=== PATIENT | male | born 1940 | race Caucasian/White ===

== ENCOUNTER 2024-05-11 11:07 | Outpatient (REF) | payer OTHER, SELFPAY ==
--- NOTE | ~2024-05-11 | XR_ITS ---
EXAMINATION: XR CERVICAL SPINE XR LUMBAR SPINE CLINICAL INFORMATION: Spondylosis without myelopathy or radiculopathy, cervical and lumbar. COMPARISON: None available. TECHNIQUE: 8 views of the cervical spine including flexion and extension and five views of the lumbar spine. FINDINGS: CERVICAL: Bones are osteopenic. Anterolisthesis of C4 on C5 measures 5 mm and is not appreciably changed between flexion and extension. No additional spondylolisthesis is identified. There is oawm-um-vrppukip multilevel degenerative disc disease characterized by loss of intervertebral disc and endplate osteophytes, most notable at C5-C6. Multilevel facet arthropathy is also noted, most pronounced on the right between C3-C4 and C5-C6. Degenerative osteophytes are evident at the atlantodental articulation. Neural foraminal encroachment is evident on the right between C2-C3 and C5-C6, produced by uncovertebral and facet osteophytes. More mild neural foraminal encroachment on the left at C3-C4. Atherosclerotic calcifications are present in the carotid arteries. Azygos fissure is noted in the right upper lobe. Sternal wires are noted. LUMBAR: Grade 1 anterolisthesis of L4 on L5 measures 5 mm. No additional spondylolisthesis. Severe facet arthropathy at L4-L5. Mild degenerative disc disease in the lower lumbar spine at L4-L5 is characterized by loss of intervertebral disc height. Intervertebral discs otherwise appear relatively well preserved. Vertebral body heights are normal. No fractures. Mild osteoarthritis in the SI joints. Atherosclerotic calcifications are present in the abdominal aorta and iliac arteries. Surgical clips and chain mike are noted in the upper abdomen. XR/XR lumbar spine 4V min IMPRESSION: 1. Grade 1 anterolisthesis of C4 on C5 without appreciable change between flexion and extension. 2. Cuvb-iz-whwiisut multilevel degenerative disc disease in the cervical spine, most pronounced at C5-C6. Multilevel cervical facet arthropathy, right side greater than left. 3. Multilevel neural foraminal encroachment on the right in the cervical spine. 4. Grade 1 anterolisthesis of L4 on L5 with severe facet arthropathy at this level. 5. Mild degenerative disc disease at L4-L5.
--- NOTE | ~2024-05-11 | XR_ITS ---
EXAMINATION: XR CERVICAL SPINE XR LUMBAR SPINE CLINICAL INFORMATION: Spondylosis without myelopathy or radiculopathy, cervical and lumbar. COMPARISON: None available. TECHNIQUE: 8 views of the cervical spine including flexion and extension and five views of the lumbar spine. FINDINGS: CERVICAL: Bones are osteopenic. Anterolisthesis of C4 on C5 measures 5 mm and is not appreciably changed between flexion and extension. No additional spondylolisthesis is identified. There is hicp-yk-xaigetcw multilevel degenerative disc disease characterized by loss of intervertebral disc and endplate osteophytes, most notable at C5-C6. Multilevel facet arthropathy is also noted, most pronounced on the right between C3-C4 and C5-C6. Degenerative osteophytes are evident at the atlantodental articulation. Neural foraminal encroachment is evident on the right between C2-C3 and C5-C6, produced by uncovertebral and facet osteophytes. More mild neural foraminal encroachment on the left at C3-C4. Atherosclerotic calcifications are present in the carotid arteries. Azygos fissure is noted in the right upper lobe. Sternal wires are noted. LUMBAR: Grade 1 anterolisthesis of L4 on L5 measures 5 mm. No additional spondylolisthesis. Severe facet arthropathy at L4-L5. Mild degenerative disc disease in the lower lumbar spine at L4-L5 is characterized by loss of intervertebral disc height. Intervertebral discs otherwise appear relatively well preserved. Vertebral body heights are normal. No fractures. Mild osteoarthritis in the SI joints. Atherosclerotic calcifications are present in the abdominal aorta and iliac arteries. Surgical clips and chain mike are noted in the upper abdomen. XR/XR cervical spine w flex/ext IMPRESSION: 1. Grade 1 anterolisthesis of C4 on C5 without appreciable change between flexion and extension. 2. Blbn-kq-vaohlzhz multilevel degenerative disc disease in the cervical spine, most pronounced at C5-C6. Multilevel cervical facet arthropathy, right side greater than left. 3. Multilevel neural foraminal encroachment on the right in the cervical spine. 4. Grade 1 anterolisthesis of L4 on L5 with severe facet arthropathy at this level. 5. Mild degenerative disc disease at L4-L5.
== END 2024-05-11 11:08 | disposition home or self-care (01) ==
LOC: HO.XRAY 11:07
PROVIDERS: PCP Internal Medicine; Referring Provider Internal Medicine; Visit Provider Registered Nurse Emergency
DX: M47.812 Spondylosis without myelopathy or radiculopathy, cervical region (principal); M47.816 Spondylosis without myelopathy or radiculopathy, lumbar region; M96.1 Postlaminectomy syndrome, not elsewhere classified
CPT/HCPCS: 72052; 72110

== ENCOUNTER 2024-05-11 11:07 | Outpatient (AMB) | payer OTHER, SELFPAY ==
--- NOTE | 2024-05-11 11:11 | MHC.OFFVIS ---
Vital Signs 05/11/24 11:13 Height 5 ft 8 in Weight 166 lb BMI 25.2 BP 115/57 L Blood Pressure Location Rt brachial Position Sitting Pulse 69 Pulse Source Pulse Oximeter Pulse Oximetry (%) 93 Oxygen Delivery Method Room Air Intake Visit Reasons: CHRONIC PAIN Allergies gabapentin Allergy (Mild, Verified 05/11/24 11:15) spaces out omeprazole Allergy (Mild, Verified 05/11/24 11:15) weakness, disoritentation. Medication List - Last Reconciled 05/11/24 by Deanna Madrid aspirin 81 mg PO DAILY citalopram 20 mg PO QAM clopidogrel 75 mg PO DAILY ferrous sulfate 220 mg PO DAILY furosemide 20 mg PO DAILY latanoprost 0.005% 1 drp ophthalmic (eye) BEDTIME zyubxbsx-avti-MC-calcium-mins 9 mg iron-400 mcg (Therems-M) 1 tab PO DAILY nitroglycerin 0 mg sublingual pantoprazole 20 mg PO DAILY rosuvastatin 20 mg PO BEDTIME simethicone (Gas Relief (simethicone)) 180 mg PO DAILY spironolactone 25 mg PO DAILY HPI Comments Details: Bhavesh is a very pleasant 84-year-old male who presents to the office today for evaluation and management of his chronic neck and lower back pain. Today is requesting to focus on his neck pain and then would like to treat his lower back pain. Patient has been suffering with this pain for many years. Attributes to arthritis. Denies any recent injury, fall, trauma. Pain today is rated as a 4/10, constant. Denies radiation of the pain down either upper or lower extremities. Denies any weakness, numbness, tingling of arms or legs. Attempted physical therapy a couple months ago, hurt too much therefore he stopped. He does continue with home exercise program including use of stretching bands Was evaluated by nuclear medicine supervisor approximately 1 year ago, plan was for injections to his neck but he was on blood thinners. He is no longer taking blood thinners but states that nuclear medicine supervisor office never contacted him for follow-up. Endorses midline cervical pain, worse with movement. Has been taking ibuprofen with minimal improvement of his symptoms. Endorses midline lower back pain without radiation down either lower extremity. Also suffers from fatigue and heaviness in the legs with walking that resolves with rest. History of spinal surgery and spinal stenosis. Has not undergone any recent imaging. Pain is worse with extension. No pain with forward flexion In terms of muscle damage condition is described as throbbing, tiring, sharp, tingling, aching Pain is negatively impacting patient's enjoyment of life, general activity, recreational activities, sleep and walking. [facility] Medical History (Updated 05/11/24 @ 13:09 by Clare Lopez APRN, SLEEPING CAR CONDUCTOR) Spinal stenosis Coronary artery disease Hyperlipidemia Carotid stenosis Duodenal ulcer Appendicitis Surgical History (Updated 05/11/24 @ 13:09 by Clare Lopez APRN, SLEEPING CAR CONDUCTOR) Previous back surgery History of hip replacement S/P triple vessel bypass Social History (Updated 05/11/24 @ 13:02 by Clare Lopez APRN, SLEEPING CAR CONDUCTOR) Alcohol intake: current Comment: 1 beer daily, 1 half glass of wine nightly Patient Tobacco Use Status: Former Tobacco user Tobacco use type: Cigarette Cigarette Packs Per Day: 10 Substance Use Type: Marijuana Review of Systems Const All systems reviewed & are unremarkable except as noted in HPI and below Physical Exam Vital Signs: Last Vital Signs Pulse 69 05/11/24 11:13 BP 115/57 L 05/11/24 11:13 Pulse Ox 93 05/11/24 11:13 Oxygen Delivery Method Room Air 05/11/24 11:13 BMI result Body Mass Index 25.2 General: awake, alert, oriented. Answers questions appropriately. Fully engaged in examination. Skin: warm, dry, intact HEENT: Normocephalic. Hearing intact. Cardiac: External chest normal in appearance. Respiratory: No cough, audible wheezing or stridor. Abdomen: without gross distension. MS: No obvious swelling or deformities. Able to stand on bilateral tiptoes and bilateral heels.? Able to transition from sit to stand unassisted. Ambulates with bilaterally normal heel strike and toe off SLR negative bilaterally Bilateral lower extremity strength 5/5 Tenderness to palpation midline lumbar vertebrae lumbar paraspinal muscles Range of motion intact Facet loading positive No pain with internal/external rotation of hips bilaterally Nontender over bilateral PSIS Valsalva negative Cervical spine: Decreased range of motion in all planes. Facet loading positive. Elvey's tension test negative. Lhermitte's test negative. Neurological: Oriented to person, place, time and situation. Thought process intact. No gait abnormalities appreciated. Psychiatric: Appropriate mood and affect. Good judgment and insight. Assessment & Plan Assessment & Plan (1) Cervical spondylosis: Code(s): M47.812 - Spondylosis without myelopathy or radiculopathy, cervical region Category: Medical (2) Lumbar spondylosis: Code(s): M47.816 - Spondylosis without myelopathy or radiculopathy, lumbar region Category: Medical (3) Post laminectomy syndrome: Code(s): M96.1 - Postlaminectomy syndrome, not elsewhere classified Category: Medical Plan Bhavesh presents the office today for evaluation management of his chronic neck and lower back pain. History, physical exam and provocative testing consistent with cervical and lumbar spondylosis X-ray cervical spine with flexion-extension and lumbar spine ordered for evaluation Discussed options for treatment including diagnostic interventional testing, epidural steroid injections, peripheral nerve stimulation with Sprint, RFA and more permanent neuromodulation. He would like to focus on his cervical spine pain then proceed with treatment for his lower back. Will schedule for fluoroscopy guided bilateral C4-C5 C6 medial branch blocks with local anesthetic. All questions and concerns have been answered and patient agrees with the plan. Follow up after injections and sooner if needed. Orders: Orders XR cervical spine w flex/ext Today M47.812 - Spondylosis without myelopathy or radiculopathy, cervical region XR lumbar spine 4V min Today M47.816 - Spondylosis without myelopathy or radiculopathy, lumbar region Coding Level of Care Code New Pt Level 4 (68365) Diagnoses Cervical spondylosis M47.812 Lumbar spondylosis M47.816 Post laminectomy syndrome M96.1
[2024-05-11 11:13] VITALS: BP 115/57; PULSE 69; O2SAT 93; BMI 25.2
== END 2024-05-11 11:39 | disposition home or self-care (01) ==
PROVIDERS: PCP Internal Medicine; Referring Provider Internal Medicine; Visit Provider Registered Nurse Emergency
DX: M47.812 Spondylosis without myelopathy or radiculopathy, cervical region (principal); M47.816 Spondylosis without myelopathy or radiculopathy, lumbar region; M96.1 Postlaminectomy syndrome, not elsewhere classified
CPT/HCPCS: 99204

== ENCOUNTER 2024-06-08 09:58 | Emergency (ER) | payer OTHER, SELFPAY ==
--- NOTE | ~2024-06-08 | XR_ITS ---
EXAMINATION: XR CHEST CLINICAL INFORMATION: Covid positive. Cough. COMPARISON: None available. TECHNIQUE: Frontal view of the chest was obtained. FINDINGS: The lungs are well expanded. No focal consolidation. No pleural effusion. Cardiac silhouette is within normal limits for patient's age. Prior cardiac surgery. Prior median sternotomy. Thoracic aorta is tortuous and sclerotic. XR/XR chest 1V IMPRESSION: No acute abnormality.
--- NOTE | 2024-06-08 10:00 | ED_ITS ---
HPI - Weakness General Chief complaint: General Medical Stated complaint: +COVID,DIARRHEA,WEAK PER EMS Source: patient, EMS and old records reviewed Mode of arrival: EMS History of Present Illness ED Provider: HAYLEE STARK Narrative: 84 yo male with PMH of chronic back pain, CAD s/p CABG on plavix, HLD, PUD, anemia, GERD, HTN here with c/o feeling sick not well since Wednesday tested positive for COVID on Wednesday started on paxlovid by his provider Wednesday. He notes he is here today as he has had some mild nausea, loose stools yesterday no fevers, no chills he is able to eat and drink but he c/o mostly his chronic back pain that is much worse no numbness, weakness, loss of bowel or bladder control. He is not on his plavix right now he states as he has upcoming pain management injection procedure. He has no new falls or injuries to the back he is asking for pain medication for his back and neck he states while he has chronic pain the COVID has made it much worse. MD Complaint: lack of energy (back pain) Onset (ago): day(s) (Wednesday) Duration: constant Location: other (Back) Migration: none Severity: severe Quality: aching Relieving factors: rest Exacerbating factors: movement and exertion Context: recent illness Associated symptoms: other (lack of appetite, nausea, loose stool) Related Data Home Medications ?Medication ?Instructions ?Recorded ?Confirmed aspirin 81 mg tablet,delayed 81 mg PO DAILY 09/18/22 05/11/24 release citalopram 20 mg tablet 20 mg PO QAM 09/18/22 05/11/24 clopidogrel 75 mg tablet 75 mg PO DAILY 09/18/22 05/11/24 ferrous sulfate 220 mg (44 mg 220 mg PO DAILY 09/18/22 05/11/24 iron)/5 mL oral elixir furosemide 20 mg tablet 20 mg PO DAILY 09/18/22 05/11/24 latanoprost 0.005 % eye drops 1 drp ophthalmic (eye) BEDTIME 09/18/22 05/11/24 multivitamin-iron 9 mg-folic acid 1 tab PO DAILY 09/18/22 05/11/24 400 mcg-calcium and minerals tablet (Therems-M) nitroglycerin 0.4 mg sublingual 0 mg sublingual 09/18/22 05/11/24 tablet pantoprazole 20 mg tablet,delayed 20 mg PO DAILY 09/18/22 05/11/24 release rosuvastatin 20 mg tablet 20 mg PO BEDTIME 09/18/22 05/11/24 spironolactone 25 mg tablet 25 mg PO DAILY 09/18/22 05/11/24 simethicone 180 mg capsule (Gas 180 mg PO DAILY 05/11/24 05/11/24 Relief (simethicone)) Previous Rx's ?Medication ?Instructions ?Recorded oxycodone 5 mg tablet 5 mg PO BID PRN pain #10 tabs 06/08/24 Allergies Allergy/AdvReac Type Severity Reaction Status Date / Time gabapentin Allergy Mild spaces out Verified 06/08/24 10:14 omeprazole Allergy Mild weakness, Verified 06/08/24 10:14 disoritentation. Review of Systems 2 Review of Systems: Constitutional : No Weight loss, No Fever, No Chills, ENT/Mouth : No Hearing loss, No Ear Pain, No Nasal Congestion, No Sinus Pain, No Hoarseness, No sore throat, No Rhinorrhea, No Swallowing Difficulty Cardiovascular : No Chest Pain, No SOB Respiratory : No Cough, No Dyspnea Gastrointestinal : pos Nausea, No Vomiting, No Diarrhea, No abdominal Pain, No Hematochezia, No Melena Genitourinary : No Dysuria, No Urinary Frequency, No Hematuria, No Urinary Incontinence, Musculoskeletal : positive back pain Skin : No Skin Lesions, No rash Neuro : No Weakness, No Numbness, No Paresthesias, no loss of bowel or bladder incontinence, no saddle anesthesia all other systems reviewed and are negative [facility] Past Medical History Attestation statement: The following information was validated with the patient. Source: old records reviewed Medical History Spinal stenosis Coronary artery disease Hyperlipidemia Carotid stenosis Duodenal ulcer Appendicitis Surgical History Previous back surgery History of hip replacement S/P triple vessel bypass Social History Social History Alcohol intake: current Alcohol intake frequency: 0-2 drinks per day Comment: 1 beer daily, 1 half glass of wine nightly Patient Tobacco Use Status: Former Tobacco user Tobacco use type: Cigarette Cigarette Packs Per Day: 10 Smoked in Last 30 Days: No Use of substances other than those prescribed or required for medical reasons: No Substance Use Type: Marijuana Advance Directives: Yes Advance Directives Information Provided: No Advance Directives on File: No Do you have a plan to hurt others: No Plan Physical Exam 2 Vital Signs: Vital Signs: Last Vital Signs Temp 98.6 F 06/08/24 12:22 Pulse 55 06/08/24 12:22 Resp 20 06/08/24 12:22 BP 110/46 L 06/08/24 12:22 Pulse Ox 93 06/08/24 12:22 O2 Del Method Room Air 06/08/24 12:22 BMI result Body Mass Index 24.5 Appearance: Alert. Oriented X3. No acute distress. Eyes: Pupils equal, round and reactive to light. ENT: Pharynx normal. Neck: Normal inspection. Neck supple. CVS: Normal heart rate and rhythm. Pulses normal. Respiratory: No respiratory distress. Breath sounds normal. Abdomen: Soft and nontender. Back: no rash noted Skin: Skin warm and dry. Normal skin color. Normal skin turgor. Extremities: No lower extremity edema. No calf ttp Neuro: Oriented X 3. No motor deficit. No sensory deficit. no clonus, SILT intact inner thigh, 2+ DP pulses, reflexes intact, can fully lift both legs on his own 5/5 strength in both legs, no radicular pain with lifting legs Medications Administered Discontinued Medications Generic Name Dose Route Start Last Admin Trade Name Freq PRN Reason Stop Dose Admin Sodium Chloride 500 mls @ 500 mls/hr 06/08/24 11:01 06/08/24 11:12 Ns IV 06/08/24 12:00 500 mls/hr .Q1H ONE Administration Ondansetron HCl 4 mg 06/08/24 10:10 06/08/24 10:26 Ondansetron Odt 4 Mg Tab.Rapdis TRANSLINGU 06/08/24 10:11 4 mg ONCE ONE Administration Oxycodone HCl 5 mg 06/08/24 10:10 06/08/24 10:25 Oxycodone Hcl Immed Release 5 Mg Tablet PO 06/08/24 10:11 5 mg ONCE ONE Administration Medical Decision Making Medical Decision Making MDM Narrative: 84 yo male with PMH of chronic back pain, CAD s/p CABG on plavix, HLD, PUD, anemia, GERD, HTN here with c/o dx COVID on Wednesday has been on paxlovid since Wednesday at this time his main complaint is back pain without any fevers, neuro findings he has no b/b incontinence no saddle anesthesia no abdominal pain and no red flags. At this time labs, CXR, but he has no CP/SOB to suggest VTE, ACS, or PE his main focus is pain control of his chronic back pain that was made worse after COVID - no signs of cauda equina or meningitis, no signs of GBS Differential Diagnosis Differential Diagnoses: The differential diagnosis associated with the presentation includes viral syndrome, chronic back pain Admission/Observation Consideration of admission/observation: Escalation of care including admission/observation considered he feels much better mild dehydration which was corrected he is eating and drinking here no hypoxia he is asking for pain medications for his back on DC Lab Data MDM Lab Attestation statement: I reviewed the patient's lab results. 06/08/24 10:39 06/08/24 10:39 Labs: Lab Results 06/08/24 Range/Units 10:39 WBC 4.8 (4.8-10.8) X10*3/uL RBC 4.00 L (4.60-5.80) X10*6/uL Hgb 13.2 L (14.0-18.0) g/dl Hct 39.7 L (42.0-52.0) % MCV 99.3 H (80.0-98.0) fL MCH 33.0 (27.0-33.0) pg MCHC 33.2 (31.0-36.0) g/dl RDW 15.0 (11.0-16.0) % Plt Count 177 (160-400) X10*3/uL MPV 9.1 L (9.4-12.4) fL Immature Gran % (Auto) 1.0 H (0.0-0.4) % Neut % (Auto) 72.9 (45-73) % Lymph % (Auto) 13.8 L (20-40) % [place] % (Auto) 11.1 H (2-11) % Eos % (Auto) 0.6 (0-4) % Baso % (Auto) 0.6 (0-2) % Lymph # (Auto) 0.7 L (1.2-4.9) X10*3/uL [place] # (Auto) 0.5 (0.1-1.2) X10*3/uL Eos # (Auto) 0.0 (0.0-0.4) X10*3/uL Baso # (Auto) 0.0 (0.0-0.2) X10*3/uL Abs Immat Gran (auto) 0.05 H (0.00-0.03) X10*3/uL Absolute Neuts (auto) 3.5 (2.0-8.3) x10*3/uL Absolute Nucleated RBC 0.000 (0.0-0.012) X10*3/uL Nucleated RBC % (auto) 0.0 (0.0-0.2) /100WBC Sodium 133 L (135-145) mmol/L Potassium 4.5 (3.3-5.1) mmol/L Chloride 106 (96-108) mmol/L Carbon Dioxide 19 L (22-29) mmol/L Anion Gap 13 (12-20) BUN 22 H (9-16) mg/dL Creatinine 1.08 (0.5-1.4) mg/dL Estim Creat Clear Calc 48.3 Estimated GFR > 60 Random Glucose 121 H (60-115) mg/dL Calcium 7.7 L (8.4-10.2) mg/dL Magnesium 2.3 (1.6-2.6) mg/dL Total Bilirubin 0.4 (0.0-1.0) mg/dL Direct Bilirubin 0.2 (0.0-0.5) mg/dL AST 30 (5-37) U/L ALT 19 (0-40) U/L Alkaline Phosphatase 46 (39-117) U/L Total Protein 5.9 L (6.5-8.0) g/dL Albumin 3.6 (3.5-5.0) g/dL Independent Interpretation I performed an independent interpretation of an: Plain X-Ray (normal) Radiology Impression Discussion of test interpretation with radiology: I have reviewed the radiologist's reading. Independent Historian Clinical information obtained from an independent historian. History obtained from or confirmed by: EMS External Record Review External record reviewed: Office record Prescription Management I considered prescription management with: Pain Medication Discharge Plan Discharge Clinical Impression: COVID-19, Acute dehydration, Chronic back pain Patient Disposition: Home, Self-Care Instructions: Dehydration (ED), Back Pain (ED), COVID-19 (Coronavirus Disease 2019) (ED) Additional Instructions: return for numbness, weakness, loss of control of bowel or bladder, difficulty breathing or chest pain please follow up with your doctor take an over the counter stool softener 100mg colace twice a day while on oxycodone and senna 8.6mg at night while on pain medication stay hydrated Prescriptions: New oxycodone 5 mg tablet 5 mg PO BID PRN (Reason: pain) Qty: 10 0RF Rx Instructions: Partial Fill upon patient request. No Action furosemide 20 mg tablet 20 mg PO DAILY spironolactone 25 mg tablet 25 mg PO DAILY clopidogrel 75 mg tablet 75 mg PO DAILY pantoprazole 20 mg tablet,delayed release (DR/EC) 20 mg PO DAILY aspirin 81 mg tablet,delayed release (DR/EC) 81 mg PO DAILY latanoprost 0.005 % drops 1 drp ophthalmic (eye) BEDTIME ferrous sulfate 220 mg (44 mg iron)/5 mL elixir 220 mg PO DAILY rosuvastatin 20 mg tablet 20 mg PO BEDTIME Therems-M 9 mg iron-400 mcg tablet 1 tab PO DAILY citalopram 20 mg tablet 20 mg PO QAM nitroglycerin 0.4 mg tablet, sublingual 0 mg sublingual simethicone [Gas Relief (simethicone)] 180 mg capsule 180 mg PO DAILY Print Language: Lithuanian
[2024-06-08 10:08] VITALS: BP 133/78; BP 138/63; PULSE 57; PULSE 61; RESP 18; TEMP 37; O2SAT 93; O2SAT 95; BMI 24.5
[2024-06-08] MEDS: oxyCODONE HCl Immed Release 5 MG TABLET PO (10:25)
[2024-06-08] MEDS: Ondansetron ODT 4 MG TAB.RAPDIS TRANSLINGU (10:26)
[2024-06-08 10:42] LABS: MANUAL DIFF FLAG NO
[2024-06-08 10:47] LABS: Basophils Percent Auto 0.6 % (0-2); Eosinophils Percent Auto 0.6 % (0-4); Hematocrit 39.7 % (42.0-52.0); Hemoglobin 13.2 g/dl (14.0-18.0); Imm Gran Abs Auto 0.05 X10*3/uL (0.00-0.03); Lymphocytes Absolute Auto 0.7 X10*3/uL (1.2-4.9); Lymphocytes Percent Auto 13.8 % (20-40); Mean Corpuscular HGB Conc 33.2 g/dl (31.0-36.0); Mean Corpuscular Volume 99.3 fL (80.0-98.0); Mean Platelet Volume 9.1 fL (9.4-12.4); Monocytes Absolute Auto 0.5 X10*3/uL (0.1-1.2); Monocytes Percent Auto 11.1 % (2-11); Neutrophils Absolute Auto 3.5 x10*3/uL (2.0-8.3); Neutrophils Percent Auto 72.9 % (45-73); Platelet Count 177 X10*3/uL (160-400); White Blood Count 4.8 X10*3/uL (4.8-10.8)
[2024-06-08 10:58] LABS: Alanine Aminotransferase 19 U/L (0-40); Albumin Level 3.6 g/dL (3.5-5.0); Alkaline Phosphatase 46 U/L (39-117); Anion Gap 13 (12-20); Aspartate Amino Transferase 30 U/L (5-37); Bilirubin Direct 0.2 mg/dL (0.0-0.5); Bilirubin Total 0.4 mg/dL (0.0-1.0); Blood Urea Nitrogen 22 mg/dL (9-16); Calcium 7.7 mg/dL (8.4-10.2); Carbon Dioxide 19 mmol/L (22-29); Chloride 106 mmol/L (96-108); Creatinine Clr Calc Pharmacy 48.3; Estimated Glomerular Filt Rate > 60; Glucose Random 121 mg/dL (60-115); Magnesium 2.3 mg/dL (1.6-2.6); Potassium 4.5 mmol/L (3.3-5.1); Sodium 133 mmol/L (135-145); Total Protein 5.9 g/dL (6.5-8.0)
[2024-06-08] MEDS: 0.9 % Sodium Chloride 500 ML IV (11:12)
[2024-06-08 12:22] VITALS: BP 110/46; PULSE 55; RESP 20; TEMP 37; O2SAT 93
[2024-06-08 14:00] VITALS: BP 110/46; PULSE 55; RESP 18; TEMP 37; O2SAT 98
--- NOTE | 2024-06-08 14:01 | PC.NURSE ---
Discharge plan reviewed with patient who verbalized understanding to take oxycodone with stool softener. Patient stating feels safe to ambualte and wait in waiting room until daughter in law comes to pick him up. Reports feeling much better after pain medication
[2024-06-08 14:16] VITALS: BP 110/46; PULSE 55; RESP 18; TEMP 37; O2SAT 98
== END 2024-06-08 14:18 | disposition home or self-care (01) ==
PROVIDERS: Emergency Provider Emergency Medicine; PCP Internal Medicine
DX: U07.1 COVID-19 (principal); R05.9 Cough, unspecified; M54.50 Low back pain, unspecified; R11.0 Nausea; I25.10 Atherosclerotic heart disease of native coronary artery without angina pectoris; I10 Essential (primary) hypertension; E86.0 Dehydration; Z79.899 Other long term (current) drug therapy
CPT/HCPCS: 36415; 71045; 80048; 80076; 83735; 85025; 96360; 96361; 99284

== ENCOUNTER 2024-06-13 14:29 | Emergency (ER) | payer OTHER, SELFPAY ==
--- NOTE | ~2024-06-13 | CT_ITS ---
EXAMINATION: CT CERVICAL SPINE WITHOUT CONTRAST CT LUMBAR SPINE WITHOUT CONTRAST CLINICAL INFORMATION: Midline atraumatic cervical spine and lumbar tenderness. COMPARISON: Cervical and lumbar spine radiographs from 05/11/2024. TECHNIQUE: Multidetector helical imaging of the lumbar spine was obtained without intravenous contrast. Multiple axial reformats and coronal/sagittal reconstructions were created the technologist workstation for review. This CT examination was performed using dose optimization techniques as appropriate, variously including the following: *Automated exposure control. *Adjustment of mA and/or kV according to patient size (this includes techniques or standardized protocols for targeted exams where dose is matched to indication/reason for exam; i.e. extremities or head). *Use of iterative reconstruction technique. DLP: 885 mGy-cm FINDINGS: Cervical Spine: The atlantooccipital and atlantoaxial articulations remain well aligned. Moderate degenerative arthropathy of the atlantodental articulation. Partial straightening of the normal cervical lordosis. Otherwise, there is anatomic alignment of the vertebral bodies and posterior elements. No evidence of acute fracture or subluxation. The vertebral body heights are maintained. Advanced degenerative disc disease from C5-C7. Moderate degenerative disc disease at all additional levels. There is no prevertebral soft tissue swelling. The thyroid gland and remaining cervical soft tissues are within normal limits. Persistent azygos fissure. The lung apices demonstrate no abnormalities. SPINAL LEVELS: C2-C3: Moderate disc-osteophyte complex. There is mild left moderate right and mild left uncovertebral joint arthropathy. There is severe left and moderate right facet joint arthropathy. There is moderate bilateral neural foraminal stenosis. There appears to be mild spinal canal stenosis. C3-C4: Moderate disc-osteophyte complex. There is moderate right and mild left uncovertebral joint arthropathy. There is severe right and moderate left facet joint arthropathy. There is severe right and moderate left neural foraminal stenosis. There appears to moderate spinal canal stenosis. C4-C5: Mild disc-osteophyte complex. There is moderate and mild left uncovertebral joint arthropathy. There is severe right and moderate left facet joint arthropathy. There is moderate bilateral neural foraminal stenosis. There appears to be mild spinal canal stenosis. C5-C6: Moderate disc-osteophyte complex. There is severe bilateral uncovertebral joint arthropathy. There is severe right and moderate left facet joint arthropathy. There is severe bilateral neural foraminal stenosis. There appears to moderate spinal canal stenosis. C6-C7: Moderate disc-osteophyte complex. There is severe left and moderate right uncovertebral joint arthropathy. There is moderate bilateral facet joint arthropathy. There is severe left and moderate right neural foraminal stenosis. There is no demonstrated spinal canal stenosis. C7-T1: Mild disc-osteophyte complex. There is mild bilateral uncovertebral joint arthropathy. There is moderate bilateral facet joint arthropathy. There is no neural foraminal stenosis. There is no demonstrated spinal canal stenosis. Lumbar Spine: Degenerative grade 1 anterolisthesis of L4 on L5. Otherwise, normal anatomic alignment. No evidence of acute fracture or traumatic subluxation. The vertebral body heights are maintained. The intervertebral disc spaces are maintained. No suspicious lytic or sclerotic osseous lesions. No significant abnormalities of the paraspinal musculature. Limited evaluation of the intra-abdominal structures without significant abnormalities. Moderate to advanced calcific atherosclerotic disease of the abdominal aorta. Fusiform infrarenal abdominal aortic aneurysm measuring up to 4.2 cm in diameter. AXIAL SPINAL LEVELS: L1-L2: Mild diffuse disc bulge. There is mild bilateral facet joint arthropathy. There is no neural foraminal stenosis. There is the demonstrated spinal canal stenosis. L2-L3: Moderate diffuse disc bulge. There is moderate right and mild left facet joint arthropathy. There is mild bilateral neural foraminal stenosis. There appears to be mild spinal canal stenosis. L3-L4: Mild diffuse disc bulge. There is moderate to severe bilateral facet joint arthropathy with ligamentum flavum hypertrophy. There is moderate bilateral neural foraminal stenosis. There appears to be moderate to severe spinal canal stenosis. L4-L5: Moderate diffuse disc bulge exacerbated by uncovering from anterolisthesis. There is severe bilateral facet joint arthropathy. There is moderate right worse than left neural foraminal stenosis. There appears to moderate to severe spinal canal stenosis. L5-S1: Mild diffuse disc bulge. There is severe bilateral facet joint arthropathy. There is mild bilateral neural foraminal stenosis. There is no demonstrated spinal canal stenosis. CT/CT cervical spine wo IV con IMPRESSION: 1. No evidence of acute fracture or traumatic subluxation of the cervical or lumbar spine. 2. Moderate multilevel degenerative spondyloarthropathy of the cervical spine as described in detail above. Most notably on this limited exam without intrathecal contrast, there appears to be moderate spinal canal stenoses at C3-C4 and C5-C6. Mild spinal canal stenoses at C2-C3 and C4-C5. Moderate to severe neural foraminal stenoses from C2-C7. 3. 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 Most notably on this limited exam without intrathecal contrast, there appears to be moderate to severe spinal canal stenoses at L3-L4 and L4-L5. Mild spinal canal stenoses at L2-L3. Moderate neural foraminal stenoses at L3-L4 and L4-L5. 4. Infrarenal abdominal aortic aneurysm measuring up to 4.2 cm in diameter. Recommend follow-up for an infrarenal abdominal aortic aneurysm of this size is every 12 months. Additionally, vascular consultation or continued follow-up with a vascular specialist is recommended. Electronically signed by: Medardo Herman DO 06/13/2024 09:08 PM EDT
[2024-06-13 15:00] VITALS: BP 127/58; BP 138/70; PULSE 63; PULSE 71; RESP 20; TEMP 36.6; O2SAT 94; O2SAT 96; BMI 25.8
[2024-06-13 15:02] VITALS: BP 127/58; PULSE 63; TEMP 36.6; O2SAT 94
--- NOTE | 2024-06-13 15:47 | ED_ITS ---
HPI - Back Pain/Injury General Chief Complaint: Back Pain/Injury Stated Complaint: LOW BACK PAIN,WORSEING PER EMS Time Seen by Provider: 06/13/24 15:47 Source: patient and EMS Mode of arrival: EMS Limitations: no limitations History of Present Illness ED Provider: MARIBETH KELLY PA-C HPI Narrative: 84 year old male with pmhx significant for spinal stenosis, sciatica s/p ablation, CAD s/p triple vessel bypass, carotid stenosis, HDL, arthritis s/p hip replacement presents to the ED today via EMS from home for evaluation of acute on chronic back pain x 1 month. Reports 3 year history of chronic low back pain, worse over the last month. Denies new injury/ trauma/ fall. Patient was evaluated by pain management for same on 05/11/24. Had XRs obtained however has not received the results. He has fluoroscopy guided bilateral C4/C5/C6 medial branch blocks with local anesthetic scheduled for June of this year. Reports taking oxycodone as needed for pain. Last dose was early this morning. Denies hx of IVDU. Denies fever, chills, neck pain, bowel or bladder incontinence or retention, numbness/tingling/weakness in the lower extremities, dysuria, hematuria, saddle anesthesia. Related Data Home Medications ?Medication ?Instructions ?Recorded ?Confirmed aspirin 81 mg tablet,delayed 81 mg PO DAILY 09/18/22 05/11/24 release citalopram 20 mg tablet 20 mg PO QAM 09/18/22 05/11/24 clopidogrel 75 mg tablet 75 mg PO DAILY 09/18/22 05/11/24 ferrous sulfate 220 mg (44 mg 220 mg PO DAILY 09/18/22 05/11/24 iron)/5 mL oral elixir furosemide 20 mg tablet 20 mg PO DAILY 09/18/22 05/11/24 latanoprost 0.005 % eye drops 1 drp ophthalmic (eye) BEDTIME 09/18/22 05/11/24 multivitamin-iron 9 mg-folic acid 1 tab PO DAILY 09/18/22 05/11/24 400 mcg-calcium and minerals tablet (Therems-M) nitroglycerin 0.4 mg sublingual 0 mg sublingual 09/18/22 05/11/24 tablet pantoprazole 20 mg tablet,delayed 20 mg PO DAILY 09/18/22 05/11/24 release rosuvastatin 20 mg tablet 20 mg PO BEDTIME 09/18/22 05/11/24 spironolactone 25 mg tablet 25 mg PO DAILY 09/18/22 05/11/24 simethicone 180 mg capsule (Gas 180 mg PO DAILY 05/11/24 05/11/24 Relief (simethicone)) Previous Rx's ?Medication ?Instructions ?Recorded oxycodone 5 mg tablet 5 mg PO BID PRN pain #10 tabs 06/08/24 baclofen 10 mg tablet 10 mg PO TID PRN muscle spasm #20 06/13/24 tabs Allergies Allergy/AdvReac Type Severity Reaction Status Date / Time gabapentin Allergy Mild spaces out Verified 06/13/24 15:01 omeprazole Allergy Mild weakness, Verified 06/13/24 15:01 disoritentation. lisinopril Allergy Unknown Verified 06/13/24 15:01 Review of Systems Review of Systems: Constitutional: No fever, chills, fatigue, night sweats, weight changes ENT/Mouth: No ear pain, hearing loss, nasal congestion, sinus pain, rhinorrhea, sore throat Eyes: No eye pain, swelling, redness, vision changes, discharge Cardio: No chest pain, palpitations, VIDES, orthopnea, peripheral edema Pulm: No SOB, cough, sputum, wheezing, dyspnea, hemoptysis GI: No nausea, vomiting, hematemesis, abdominal pain, diarrhea, constipation, hematochezia, melena : No irregular bleeding, dysuria, frequency, urgency, hesitancy, hematuria, flank pain, urinary flow changes, urinary incontinence or retention MSK: +back pain, No neck pain, joint pain, myalgias Skin: No lesions, rashes Neuro: No weakness, numbness, paresthesias, LOC, dizziness, headache All other systems reviewed and are negative. [facility] Past Medical History Attestation statement: The following information was validated with the patient. Source: old records reviewed and nursing notes reviewed Medical History Spinal stenosis Coronary artery disease Hyperlipidemia Carotid stenosis Duodenal ulcer Appendicitis Surgical History Previous back surgery History of hip replacement S/P triple vessel bypass Social History Social History Alcohol intake: current Alcohol intake frequency: 0-2 drinks per day Comment: 1 beer daily, 1 half glass of wine nightly Patient Tobacco Use Status: Former Tobacco user Tobacco use type: Cigarette Cigarette Packs Per Day: 10 Substance Use Type: Marijuana Advance Directives: No Advance Directives Information Provided: No Do you have a plan to hurt others: No Plan Physical Exam Vital Signs: Vital Signs: Last Vital Signs Temp 98.0 F 06/14/24 00:00 Pulse 60 06/14/24 00:00 Resp 17 06/14/24 00:00 BP 120/59 L 06/14/24 00:00 Pulse Ox 95 06/14/24 00:00 O2 Del Method Room Air 06/14/24 00:00 BMI result Body Mass Index 25.8 Vital signs stable, afebrile Const: General: cooperative, healthy appearing, comfortable and no acute distress Orientation/consciousness: patient oriented x3 Limitations: no limitations HEENT: Head: Yes normal to inspection, Yes No palpable skull fracture present, Yes normocephalic and Yes atraumatic Eyes: General: appearance normal, both eyes and all related structures Pupils: Equal, round and reactive pupils present EOM: EOMs intact bilaterally Neck: Other: + no cervical midline spinous tenderness . there is bilateral cervical paraspinal mm tenderness. no palpable spasm or torticolis. Neck: Yes normal visual inspection, Yes full ROM, Yes no lymphadenopathy and Yes no meningeal signs Resp: Effort & Inspection: normal respiratory effort and able to speak in complete sentences Auscultation: clear to auscultation bilaterally Cardio: Rate: regular rate Rhythm: regular rhythm GI: Inspection: Yes normal to inspection Palpation (GI): Soft to palpation and nontender : General: Yes no CVA tenderness Back/Spine/Pelvis: Other: + midline lumbar spinous tenderness to p alpable over L4/L5, no palpable strep off deformity. no paraspinal muscle tenderness or spasm. Back: no CVA tenderness Skin: General skin exam: no rashes or lesions noted Neuro: Other: Strength 5/5 intact throughout.?No saddle anesthesia. Sensation intact to light touch.?Neurovascular intact distally.?Ambulating with steady gait to the bathroom. General: patient oriented x3, gait normal and no meningeal signs Cranial nerves: Yes Equal, round and reactive pupils present Gait exam (Neuro): Normal gait present Extrem: General: Yes normal to inspection Course Course Course Narrative: 1901-- patient treated with baclofen and lidocaine patch. I watched him ambulate with steady gait over to nurse's station to request food. He is stable at the end of my shift. Sign-out given to Rob MATA pending CT read and disposition. Reevaluation(s) Reevaluation #1: I Imani Tobias PA-C have accepted care of the patient at sign-out pending imaging and final disposition. I have independently reviewed the following tests: CT cervical and lumbar spine:[address] [address] [address] Scan Report Signed Patient: Bhavesh Pinto MR#: [id number] : 1940 Acct:[id number] Age/Sex: 84 / M ADM Date: 06/13/24 Loc: HO.ED Attending Dr: Ordering Physician: Maribeth Kelly Date of Service: 06/13/24 Procedure(s): CT lumbar spine wo IV con Accession Number(s): [id number] cc: Duane Lawler III, MD; Maribeth Kelly~ EXAMINATION: CT CERVICAL SPINE WITHOUT CONTRAST CT LUMBAR SPINE WITHOUT CONTRAST CLINICAL INFORMATION: Midline atraumatic cervical spine and lumbar tenderness. COMPARISON: Cervical and lumbar spine radiographs from 05/11/2024. TECHNIQUE: Multidetector helical imaging of the lumbar spine was obtained without intravenous contrast. Multiple axial reformats and coronal/sagittal reconstructions were created the technologist workstation for review. This CT examination was performed using dose optimization techniques as appropriate, variously including the following: *Automated exposure control. *Adjustment of mA and/or kV according to patient size (this includes techniques or standardized protocols for targeted exams where dose is matched to indication/reason for exam; i.e. extremities or head). *Use of iterative reconstruction technique. DLP: 885 mGy-cm FINDINGS: Cervical Spine: The atlantooccipital and atlantoaxial articulations remain well aligned. Moderate degenerative arthropathy of the atlantodental articulation. Partial straightening of the normal cervical lordosis. Otherwise, there is anatomic alignment of the vertebral bodies and posterior elements. No evidence of acute fracture or subluxation. The vertebral body heights are maintained. Advanced degenerative disc disease from C5-C7. Moderate degenerative disc disease at all additional levels. There is no prevertebral soft tissue swelling. The thyroid gland and remaining cervical soft tissues are within normal limits. Persistent azygos fissure. The lung apices demonstrate no abnormalities. SPINAL LEVELS: C2-C3: Moderate disc-osteophyte complex. There is mild left moderate right and mild left uncovertebral joint arthropathy. There is severe left and moderate right facet joint arthropathy. There is moderate bilateral neural foraminal stenosis. There appears to be mild spinal canal stenosis. C3-C4: Moderate disc-osteophyte complex. There is moderate right and mild left uncovertebral joint arthropathy. There is severe right and moderate left facet joint arthropathy. There is severe right and moderate left neural foraminal stenosis. There appears to moderate spinal canal stenosis. C4-C5: Mild disc-osteophyte complex. There is moderate and mild left uncovertebral joint arthropathy. There is severe right and moderate left facet joint arthropathy. There is moderate bilateral neural foraminal stenosis. There appears to be mild spinal canal stenosis. C5-C6: Moderate disc-osteophyte complex. There is severe bilateral uncovertebral joint arthropathy. There is severe right and moderate left facet joint arthropathy. There is severe bilateral neural foraminal stenosis. There appears to moderate spinal canal stenosis. C6-C7: Moderate disc-osteophyte complex. There is severe left and moderate right uncovertebral joint arthropathy. There is moderate bilateral facet joint arthropathy. There is severe left and moderate right neural foraminal stenosis. There is no demonstrated spinal canal stenosis. C7-T1: Mild disc-osteophyte complex. There is mild bilateral uncovertebral joint arthropathy. There is moderate bilateral facet joint arthropathy. There is no neural foraminal stenosis. There is no demonstrated spinal canal stenosis. Lumbar Spine: Degenerative grade 1 anterolisthesis of L4 on L5. Otherwise, normal anatomic alignment. No evidence of acute fracture or traumatic subluxation. The vertebral body heights are maintained. The intervertebral disc spaces are maintained. No suspicious lytic or sclerotic osseous lesions. No significant abnormalities of the paraspinal musculature. Limited evaluation of the intra-abdominal structures without significant abnormalities. Moderate to advanced calcific atherosclerotic disease of the abdominal aorta. Fusiform infrarenal abdominal aortic aneurysm measuring up to 4.2 cm in diameter. AXIAL SPINAL LEVELS: L1-L2: Mild diffuse disc bulge. There is mild bilateral facet joint arthropathy. There is no neural foraminal stenosis. There is the demonstrated spinal canal stenosis. L2-L3: Moderate diffuse disc bulge. There is moderate right and mild left facet joint arthropathy. There is mild bilateral neural foraminal stenosis. There appears to be mild spinal canal stenosis. L3-L4: Mild diffuse disc bulge. There is moderate to severe bilateral facet joint arthropathy with ligamentum flavum hypertrophy. There is moderate bilateral neural foraminal stenosis. There appears to be moderate to severe spinal canal stenosis. L4-L5: Moderate diffuse disc bulge exacerbated by uncovering from anterolisthesis. There is severe bilateral facet joint arthropathy. There is moderate right worse than left neural foraminal stenosis. There appears to moderate to severe spinal canal stenosis. L5-S1: Mild diffuse disc bulge. There is severe bilateral facet joint arthropathy. There is mild bilateral neural foraminal stenosis. There is no demonstrated spinal canal stenosis. CT/CT lumbar spine wo IV con IMPRESSION: 1. No evidence of acute fracture or traumatic subluxation of the cervical or lumbar spine. 2. Moderate multilevel degenerative spondyloarthropathy of the cervical spine as described in detail above. Most notably on this limited exam without intrathecal contrast, there appears to be moderate spinal canal stenoses at C3-C4 and C5-C6. Mild spinal canal stenoses at C2-C3 and C4-C5. Moderate to severe neural foraminal stenoses from C2-C7. 3. 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 Most notably on this limited exam without intrathecal contrast, there appears to be moderate to severe spinal canal stenoses at L3-L4 and L4-L5. Mild spinal canal stenoses at L2-L3. Moderate neural foraminal stenoses at L3-L4 and L4-L5. 4. Infrarenal abdominal aortic aneurysm measuring up to 4.2 cm in diameter. Recommend follow-up for an infrarenal abdominal aortic aneurysm of this size is every 12 months. Additionally, vascular consultation or continued follow-up with a vascular specialist is recommended. Electronically signed by: Medardo Herman DO 06/13/2024 09:[address] Medications Administered Discontinued Medications Generic Name Dose Route Start Last Admin Trade Name Freq PRN Reason Stop Dose Admin Baclofen 10 mg 06/13/24 16:03 06/13/24 16:22 Baclofen 10 Mg Tablet PO 06/13/24 16:04 10 mg ONCE ONE Administration Lidocaine 1 patch 06/13/24 16:03 06/13/24 16:22 Lidocaine 4 % Patch Adh..Patch TRANSDERMA 06/13/24 16:04 1 patch ONCE ONE Administration Protocol Medical Decision Making Medical Decision Making [facility] Narrative: 84 year old male with pmhx significant for spinal stenosis, sciatica s/p ablation, CAD s/p triple vessel bypass, carotid stenosis, HDL, arthritis s/p hip replacement presents to the ED today via EMS from home for evaluation of acute on chronic back pain x 1 month. VSS. He is nontoxic appearing and in NAD. On exam there is bilateral cervical paraspinal mm tenderness. no palpable spasm or torticolis, FROM intact to c spine. there is midline lumbar spinous tenderness to palpable over L4/L5, no palpable strep off deformity. no paraspinal muscle tenderness or spasm. ambulating with steady gait. Strength 5/5 intact throughout.?No saddle anesthesia.?Sensation intact to light touch.?Neurovascular intact distally.? Differential diagnosis includes msk sprain/ strain, spinal stenosis, fracture, subluxation, disc herniation, sciatica. Unlikely cord compression, cauda equina, Guillain-[place], epidural abscess, UTI, nephrolithiasis. Plan for imaging, pain control, and re-evaluation. Differential Diagnosis Differential Diagnoses: The differential diagnosis associated with the presentation includes as above Admission/Observation Not indicated. Lab Data [facility] Lab Attestation statement: I reviewed the patient's lab results. as above. Labs: Lab Results 06/13/24 Range/Units 21:50 Urine Color Yellow Urine Appearance Clear Urine pH 5.5 (5.0-9.0) Ur Specific [place] 1.020 (1.005-1.025) Urine Protein Negative (Neg-Trace) mg/dL Urine Glucose (UA) >=1000 H (Negative) mg/dL Urine Ketones Negative (Negative) mg/dL Urine Blood Negative (Negative) Urine Nitrite Negative (Negative) Ur Leukocyte Esterase Negative (Negative) Urine RBC 0-2 (0-2) /HPF Urine WBC 0-5 (0-5) /HPF Ur Squamous Epith Cells 0-2 (0-2) /HPF Urine Bacteria None Seen (None Seen) Hyaline Casts 0-2 (0-2) /LPF Independent Interpretation I performed an independent interpretation of an: Plain X-Ray and CT Scan Radiology Impression Discussion of test interpretation with radiology: I have reviewed the radiologist's reading. Radiologist Impression: XR lumbar spine 4V min/ cervical spine IMPRESSION: 1. Grade 1 anterolisthesis of C4 on C5 without appreciable change between flexion and extension. 2. [id number] multilevel degenerative disc disease in the cervical spine, most pronounced at C5-C6. Multilevel cervical facet arthropathy, right side greater than left. 3. Multilevel neural foraminal encroachment on the right in the cervical spine. 4. Grade 1 anterolisthesis of L4 on L5 with severe facet arthropathy at this level. 5. Mild degenerative disc disease at L4-L5. Independent Historian Clinical information obtained from an independent historian. History obtained from or confirmed by: EMS External Record Review External record reviewed: Inpatient record Prescription Management I considered prescription management with: Pain Medication and Other (baclofen) Social Determinants Patient?s care significantly limited by Social Determinants of Health including: Other Social Determinant of Health Critical Care Time Critical Care Time Critical Care Time: No Discharge Plan Discharge Clinical Impression: Lumbar spine pain Patient Disposition: Home, Self-Care Instructions: Back Pain (ED) Additional Instructions: Continue your home medications as prescribed. You may use baclofen for muscle spasms. This make you sleepy, did not drink alcohol or drive taking it. You may use [id number] lidocaine patches to help with your pain Follow-up with your primary doctor in your outpatient providers Prescriptions: New baclofen 10 mg tablet 10 mg PO TID PRN (Reason: muscle spasm) Qty: 20 0RF No Action oxycodone 5 mg tablet 5 mg PO BID PRN (Reason: pain) Qty: 10 0RF Rx Instructions: Partial Fill upon patient request. furosemide 20 mg tablet 20 mg PO DAILY spironolactone 25 mg tablet 25 mg PO DAILY clopidogrel 75 mg tablet 75 mg PO DAILY pantoprazole 20 mg tablet,delayed release (DR/EC) 20 mg PO DAILY aspirin 81 mg tablet,delayed release (DR/EC) 81 mg PO DAILY latanoprost 0.005 % drops 1 drp ophthalmic (eye) BEDTIME ferrous sulfate 220 mg (44 mg iron)/5 mL elixir 220 mg PO DAILY rosuvastatin 20 mg tablet 20 mg PO BEDTIME Therems-M 9 mg iron-400 mcg tablet 1 tab PO DAILY citalopram 20 mg tablet 20 mg PO QAM nitroglycerin 0.4 mg tablet, sublingual 0 mg sublingual simethicone [Gas Relief (simethicone)] 180 mg capsule 180 mg PO DAILY Interventions: ED Discharge Assessment Last Done: 06/14/24 00:00 Discharge Date/Time: 06/14/24 00:01 Print Language: Irish
[2024-06-13] MEDS: Lidocaine 4 % Patch ADH..PATCH 1 PATCH TRANSDERMA (16:22)
[2024-06-13] MEDS: Baclofen 10 MG TABLET PO (16:22)
[2024-06-13 19:50] VITALS: BP 137/69; PULSE 61; RESP 17; TEMP 36.2; O2SAT 96
[2024-06-13 21:47] VITALS: BP 120/59; PULSE 60; RESP 17; TEMP 36.7; O2SAT 95
[2024-06-13 22:00] LABS: Appearance Urine Clear; Color Urine Yellow; Glucose Urine UA >=1000 mg/dL (Negative); Leukocyte Esterase Urine Negative (Negative); Nitrite Urine Negative (Negative); PH 5.5 (5.0-9.0); UMIC TRIGGER UACC YES; Urine Blood Negative (Negative); Urine Ketones Negative (Negative); Urine Protein Negative (Neg-Trace)
[2024-06-13 22:38] LABS: Bacteria Urine None Seen (None Seen); Hyaline Casts Urine 0-2 /LPF (0-2); RBC Urine 0-2 /HPF (0-2); Squamous Epithelial Cell Urine 0-2 /HPF (0-2); WBC Urine 0-5 /HPF (0-5)
[2024-06-14] VITALS: BP 120/59; PULSE 60; RESP 17; TEMP 36.7; O2SAT 95
== END 2024-06-14 00:01 | disposition home or self-care (01) ==
PROVIDERS: Physician Assistant Medical; Emergency Provider Emergency Medicine; PCP Internal Medicine
DX: M54.50 Low back pain, unspecified (principal); M54.2 Cervicalgia; I25.10 Atherosclerotic heart disease of native coronary artery without angina pectoris; Z79.899 Other long term (current) drug therapy; Z87.891 Personal history of nicotine dependence
CPT/HCPCS: 72125; 72131; 81001; 81003; 99284

== ENCOUNTER 2024-07-11 07:12 | Outpatient (REF) | payer MEDICARE, SELFPAY | END 2024-07-11 07:13 | disposition home or self-care (01) | LOC: CF 07:12 | PROVIDERS: Visit Provider Anesthesiology | DX: M47.812 Spondylosis without myelopathy or radiculopathy, cervical region (principal); M47.816 Spondylosis without myelopathy or radiculopathy, lumbar region; M96.1 Postlaminectomy syndrome, not elsewhere classified | CPT/HCPCS: 64490; 64491; J2795; Q9967 ==

== ENCOUNTER 2024-07-11 11:23 | Outpatient (AMB) | payer MEDICARE, SELFPAY ==
--- NOTE | 2024-07-11 11:33 | A.OFFVIS_ITS ---
Vital Signs 07/11/24 12:23 07/11/24 12:23 BP 115/60 134/58 L Blood Pressure Location Lt brachial Lt brachial Position Sitting Sitting Respiration 14 14 Pulse 60 66 Pulse Source Pulse Oximeter Pulse Oximeter Pulse Oximetry (%) 94 94 Oxygen Delivery Method Room Air Room Air Comment pre-op post-op Intake Visit Reasons: BILATERAL DIAGNOSTIC C4, C5, C6 MBB Allergies gabapentin Allergy (Mild, Verified 07/11/24 12:24) spaces out omeprazole Allergy (Mild, Verified 07/11/24 12:24) weakness, disoritentation. lisinopril Allergy (Verified 07/11/24 12:24) Unknown [facility] Medical History Spinal stenosis Coronary artery disease Hyperlipidemia Carotid stenosis Duodenal ulcer Appendicitis Surgical History Previous back surgery History of hip replacement S/P triple vessel bypass Social History Alcohol intake: current Alcohol intake frequency: 0-2 drinks per day Comment: 1 beer daily, 1 half glass of wine nightly Patient Tobacco Use Status: Former Tobacco user Tobacco use type: Cigarette Cigarette Packs Per Day: 10 Substance Use Type: Marijuana Physical Exam Vital Signs: Last Vital Signs Pulse 66 07/11/24 12:23 Resp 14 07/11/24 12:23 BP 134/58 L 07/11/24 12:23 Pulse Ox 94 07/11/24 12:23 Oxygen Delivery Method Room Air 07/11/24 12:23 Assessment & Plan Assessment & Plan (1) Cervical spondylosis: Code(s): M47.812 - Spondylosis without myelopathy or radiculopathy, cervical region Category: Medical Plan: Bilateral C4-C4- C6 diagnostic medial branch block. ?Informed consent was explained to the patient. All questions were explained and answered.? The patient was taken inside the operating room where she was positioned prone on the operating table. Time-out was performed delineating correct site, side, the nature of the procedure, patient's allergy, preoperative antibiotic if needed.? All operating room staff was participating in OR time-out procedure. The back of the neck and upper back were prepped with ChloraPrep and draped with sterile towels.? Sterilely draped C-arm was brought over the operating field and sq picture of? C4-C5-C6 vertebrae were delineated on the screen.? Points of interest were delineated as lateral masses bilaterally of the vertebrae as above. The waste of each lateral mass was chosen as the target of the tip of the needles on AP view and lateral view was used as a safety view for the tips of the needles position.?? The projections of the point of interest to the skin were injected with the small amount of local anesthetic lidocaine 2% 1-1.5 cc.? After that 22 gauge 3and 1/2 inch? spinal needles were driven to the point of interest in tunnel vision fashion. After needles gently contacted the bone at the point of interests the needle was injected with small amount of the contrast. The injections did not demonstrate intravascular or intrathecal s pread.. After that ropivacaine 0.5%-1cc. was injected into each location of the needles. Upon completion of the injections the needles were removed and sterile dressings were applied, the patient was a taken? outside of the operating room to recovery room where she recovered uneventfully. (2) Lumbar spondylosis: Code(s): M47.816 - Spondylosis without myelopathy or radiculopathy, lumbar region Category: Medical (3) Post laminectomy syndrome: Code(s): M96.1 - Postlaminectomy syndrome, not elsewhere classified Category: Medical Plan Bhavesh presents the office today for evaluation management of his chronic neck and lower back pain. History, physical exam and provocative testing consistent with cervical and lumbar spondylosis X-ray cervical spine with flexion-extension and lumbar spine ordered for evaluation Discussed options for treatment including diagnostic interventional testing, epidural steroid injections, peripheral nerve stimulation with Sprint, RFA and more permanent neuromodulation. He would like to focus on his cervical spine pain then proceed with treatment for his lower back. Will schedule for fluoroscopy guided bilateral C4-C5 C6 medial branch blocks with local anesthetic. All questions and concerns have been answered and patient agrees with the plan. Follow up after injections and sooner if needed. Orders: Orders [place] guidance in treatment room Today M47.812 - Spondylosis without myelopathy or radiculopathy, cervical region Coding Level of Care Code Procedure Only Diagnoses Cervical spondylosis M47.812 Lumbar spondylosis M47.816 Post laminectomy syndrome M96.1
[2024-07-11 12:23] VITALS: BP 115/60; BP 134/58; PULSE 60; PULSE 66; RESP 14; O2SAT 94
== END 2024-07-11 12:22 | disposition home or self-care (01) ==
LOC: HO.PMCPRC 11:23
PROVIDERS: PCP Internal Medicine; Visit Provider Anesthesiology
DX: M47.812 Spondylosis without myelopathy or radiculopathy, cervical region (principal); M96.1 Postlaminectomy syndrome, not elsewhere classified
CPT/HCPCS: 64490; 64491

== ENCOUNTER 2024-07-14 11:26 | Outpatient (AMB) | payer OTHER, SELFPAY ==
[2024-07-14 11:33] VITALS: BP 124/59; PULSE 66; O2SAT 94
--- NOTE | 2024-07-14 11:33 | MHC.OFFVIS ---
Vital Signs 07/14/24 11:33 BP 124/59 L Blood Pressure Location Lt brachial Position Sitting Pulse 66 Pulse Source Pulse Oximeter Pulse Oximetry (%) 94 Oxygen Delivery Method Room Air Intake Visit Reasons: Post-op/Discuss x-ray results Allergies gabapentin Allergy (Mild, Verified 07/14/24 11:34) spaces out omeprazole Allergy (Mild, Verified 07/14/24 11:34) weakness, disoritentation. lisinopril Allergy (Verified 07/14/24 11:34) Unknown Medication List - Last Reconciled 07/14/24 by Deanna Madrid aspirin 81 mg PO DAILY baclofen 10 mg PO TID PRN citalopram 20 mg PO QAM clopidogrel 75 mg PO DAILY ferrous sulfate 220 mg PO DAILY furosemide 20 mg PO DAILY latanoprost 0.005% 1 drp ophthalmic (eye) BEDTIME ebgsjheu-wyrq-AM-calcium-mins 9 mg iron-400 mcg (Therems-M) 1 tab PO DAILY nitroglycerin 0 mg sublingual oxycodone 5 mg PO BID PRN pantoprazole 20 mg PO DAILY rosuvastatin 20 mg PO BEDTIME simethicone (Gas Relief (simethicone)) 180 mg PO DAILY spironolactone 25 mg PO DAILY HPI Comments Details: Bhavesh presents back to the office today for follow-up, 2 days status post bilateral diagnostic C4-C5 C6 medial branch blocks Patient tolerated procedure well. He reports 70% pain relief in the hours after the procedure including into following day. He states the stiffness was improved, he no longer had headaches and he was able to do more things without the pain He denies any untoward effects of the injections Prior: Bhavesh is a very pleasant 84-year-old male who presents to the office today for evaluation and management of his chronic neck and lower back pain. Today is requesting to focus on his neck pain and then would like to treat his lower back pain. Patient has been suffering with this pain for many years. Attributes to arthritis. Denies any recent injury, fall, trauma. Pain today is rated as a 4/10, constant. Denies radiation of the pain down either upper or lower extremities. Denies any weakness, numbness, tingling of arms or legs. Attempted physical therapy a couple months ago, hurt too much therefore he stopped. He does continue with home exercise program including use of stretching bands Was evaluated by herb digger approximately 1 year ago, plan was for injections to his neck but he was on blood thinners. He is no longer taking blood thinners but states that [facility] office never contacted him for follow-up. Endorses midline cervical pain, worse with movement. Has been taking ibuprofen with minimal improvement of his symptoms. Endorses midline lower back pain without radiation down either lower extremity. Also suffers from fatigue and heaviness in the legs with walking that resolves with rest. History of spinal surgery and spinal stenosis. Has not undergone any recent imaging. Pain is worse with extension. No pain with forward flexion In terms of muscle damage condition is described as throbbing, tiring, sharp, tingling, aching Pain is negatively impacting patient's enjoyment of life, general activity, recreational activities, sleep and walking. [facility] Medical History Spinal stenosis Coronary artery disease Hyperlipidemia Carotid stenosis Duodenal ulcer Appendicitis Surgical History Previous back surgery History of hip replacement S/P triple vessel bypass Social History Alcohol intake: current Alcohol intake frequency: 0-2 drinks per day Comment: 1 beer daily, 1 half glass of wine nightly Patient Tobacco Use Status: Former Tobacco user Tobacco use type: Cigarette Cigarette Packs Per Day: 10 Substance Use Type: Marijuana Review of Systems Const All systems reviewed & are unremarkable except as noted in HPI and below Physical Exam Vital Signs: Last Vital Signs Pulse 66 07/14/24 11:33 BP 124/59 L 07/14/24 11:33 Pulse Ox 94 07/14/24 11:33 Oxygen Delivery Method Room Air 07/14/24 11:33 General: awake, alert, oriented. Answers questions appropriately. Fully engaged in examination. Skin: warm, dry, intact HEENT: Normocephalic. Hearing intact. Cardiac: External chest normal in appearance. Respiratory: No cough, audible wheezing or stridor. Abdomen: without gross distension. MS: No obvious swelling or deformities. Neurological: Oriented to person, place, time and situation. Thought process intact. No gait abnormalities appreciated. Psychiatric: Appropriate mood and affect. Good judgment and insight. Results Reviewed Results Reviewed: 06/13/24 CT/CT cervical spine wo IV con IMPRESSION: 1. No evidence of acute fracture or traumatic subluxation of the cervical or lumbar spine. 2. Moderate multilevel degenerative spondyloarthropathy of the cervical spine as described in detail above. Most notably on this limited exam without intrathecal contrast, there appears to be moderate spinal canal stenoses at C3-C4 and C5-C6. Mild spinal canal stenoses at C2-C3 and C4-C5. Moderate to severe neural foraminal stenoses from C2-C7. 3. 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 Most notably on this limited exam without intrathecal contrast, there appears to be moderate to severe spinal canal stenoses at L3-L4 and L4-L5. Mild spinal canal stenoses at L2-L3. Moderate neural foraminal stenoses at L3-L4 and L4-L5. 4. Infrarenal abdominal aortic aneurysm measuring up to 4.2 cm in diameter. Recommend follow-up for an infrarenal abdominal aortic aneurysm of this size is every 12 months. Additionally, vascular consultation or continued follow-up with a vascular specialist is recommended. 05/11/24 XR/XR cervical spine w flex/ext IMPRESSION: 1. Grade 1 anterolisthesis of C4 on C5 without appreciable change between flexion and extension. 2. Rkck-sc-ejlqirpm multilevel degenerative disc disease in the cervical spine, most pronounced at C5-C6. Multilevel cervical facet arthropathy, right side greater than left. 3. Multilevel neural foraminal encroachment on the right in the cervical spine. 4. Grade 1 anterolisthesis of L4 on L5 with severe facet arthropathy at this level. 5. Mild degenerative disc disease at L4-L5. Assessment & Plan Assessment & Plan (1) Cervical spondylosis: Code(s): M47.812 - Spondylosis without myelopathy or radiculopathy, cervical region Category: Medical (2) Lumbar spondylosis: Code(s): M47.816 - Spondylosis without myelopathy or radiculopathy, lumbar region Category: Medical (3) Post laminectomy syndrome: Code(s): M96.1 - Postlaminectomy syndrome, not elsewhere classified Category: Medical Plan Bhavesh presents the office today for follow-up, 2 days status post bilateral diagnostic C4-C5 C6 medial branch blocks Reports 70% relief of his pain with improvement in functional mobility for at least 24 hours after the procedure. Discussed options for treatment including diagnostic interventional testing, epidural steroid injections, peripheral nerve stimulation with Sprint, RFA and more permanent neuromodulation. Informational pamphlets provided. Will schedule for fluoroscopy guided bilateral C5 sprint PNS, maybe C4, maybe C6. This will be done with local anesthetic. He is aware that this will be done in 2 procedures, we will start with the left and right side will follow in 2 weeks. All questions and concerns have been answered and patient agrees with the plan. Follow up after procedure and sooner if needed. Coding Level of Care Code Est Pt Level 3 (35591) Complex EM visit Add On G2211 Diagnoses Cervical spondylosis M47.812 Lumbar spondylosis M47.816 Post laminectomy syndrome M96.1
== END 2024-07-14 11:58 | disposition home or self-care (01) ==
PROVIDERS: PCP Internal Medicine; Visit Provider Registered Nurse Emergency
DX: M47.812 Spondylosis without myelopathy or radiculopathy, cervical region (principal); M47.816 Spondylosis without myelopathy or radiculopathy, lumbar region; M96.1 Postlaminectomy syndrome, not elsewhere classified
CPT/HCPCS: 99213; G2211

== ENCOUNTER → 2024-07-14 11:26 | Outpatient (BNVA) | payer OTHER, SELFPAY | PROVIDERS: PCP Internal Medicine; Visit Provider Registered Nurse Emergency ==

== ENCOUNTER 2025-02-28 13:24 | Outpatient (AMB) | payer OTHER, SELFPAY ==
--- NOTE | 2025-02-28 13:27 | MHC.OFFVIS ---
Vital Signs 02/28/25 13:29 Height 5 ft 8 in Weight 168 lb BMI 25.5 BP 102/54 L Blood Pressure Location Lt brachial Position Sitting Respiration 16 Pulse 66 Pulse Source Pulse Oximeter Pulse Oximetry (%) 92 Oxygen Delivery Method Room Air Intake Visit Reasons: FU patient req/pain increasing Septic Technician Required: No Allergies gabapentin Allergy (Mild, Verified 02/28/25 13:30) spaces out omeprazole Allergy (Mild, Verified 02/28/25 13:30) weakness, disoritentation. lisinopril Allergy (Verified 02/28/25 13:30) Unknown Medication List - Last Reconciled 02/28/25 by Rivka Dejesus LPN aspirin 81 mg PO DAILY carvedilol 12.5 mg PO BID citalopram 20 mg PO QAM clopidogrel 75 mg PO DAILY empagliflozin (Jardiance) 10 mg PO DAILY ferrous sulfate 220 mg PO DAILY latanoprost 0.005% 1 drp ophthalmic (eye) BEDTIME obmpvyqm-epus-QR-calcium-mins 9 mg iron-400 mcg (Therems-M) 1 tab PO DAILY nitroglycerin 0 mg sublingual pantoprazole 20 mg PO DAILY rosuvastatin 20 mg PO BEDTIME spironolactone 25 mg PO DAILY tizanidine 4 mg PO TID HPI Comments Details: The patient is an 84-year-old male presenting with chronic neck and lower back pain. Past treatments include diagnostic injections for neck pain without lasting relief, acupuncture, and physical therapy, all unsuccessful long-term. The neck pain initially started years ago and is described as excruciating, with episodes of tickling and discomfort, occasionally involving the head. Chronic lower back pain is more recent, with moderate relief previously gained from injections. The pain is primarily spinal, without leg radiation. The patient has spinal stenosis, identified as a contributing factor. Current medication includes Tylenol, ibuprofen, tizanidine (which causes sedation) but does not adequately relieve pain. Emotional and physical impacts are significant, compounded by recent personal losses. - Onset and timing: Chronic pain with a history of sudden onset; neck pain persisting for years, lower back pain more recent. - Quality and character: Neck pain described as excruciating and tickling; lower back pain is central and can be severe upon waking. - Primary location: Neck and lower back (spine). - Areas of radiation: Neck pain occasionally radiates to the head. 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 - Relieving factors: Initial injections provided transient relief; lying down eases sudden neck pain. - Interference: Pain impacts mobility and quality of life significantly. - Affect: The patient reports feeling depressed and nervous due to chronic pain and personal losses. - Analgesia: The patient uses tizanidine, experiences sedation; reports limited pain relief. - Adverse Effects: Sedation due to tizanidine. - Activities of Daily Living: Pain hinders daily activities, especially mobility; reports use of a cane. - Aberrant Drug Related Behaviors: None reported or observed. [facility] Medical History Spinal stenosis Coronary artery disease Hyperlipidemia Carotid stenosis Duodenal ulcer Appendicitis Surgical History Previous back surgery History of hip replacement S/P triple vessel bypass Social History Alcohol intake: current Alcohol intake frequency: 0-2 drinks per day Comment: 1 beer daily, 1 half glass of wine nightly Patient Tobacco Use Status: Former Tobacco user Tobacco use type: Cigarette Cigarette Packs Per Day: 10 Substance Use Type: Marijuana Review of Systems Const Details: - Musculoskeletal: Reports neck and lower back pain, presence of spinal stenosis. - Neurological: Denies radiation of pain into the legs. - Psychological: Reports feelings of depression and nervousness. Physical Exam Vital Signs: Last Vital Signs Pulse 66 02/28/25 13:29 Resp 16 02/28/25 13:29 BP 102/54 L 02/28/25 13:29 Pulse Ox 92 02/28/25 13:29 Oxygen Delivery Method Room Air 02/28/25 13:29 BMI result Body Mass Index 25.5 General: awake, alert, oriented. Answers questions appropriately. Fully engaged in examination. Skin: warm, dry, intact HEENT: Normocephalic. Hearing intact. Cardiac: External chest normal in appearance. Respiratory: No cough, audible wheezing or stridor. Abdomen: without gross distension. MS: No obvious swelling or deformities. Able to transition from sit to stand unassisted. SLR negative bilaterally Nontender over bilateral PSIS Tenderness midline lumbar vertebrae and lumbar paraspinal muscles Bilateral lower extremity strength 5/5 Valsalva negative Limited lumbar range of motion Facet loading positive Neurological: Oriented to person, place, time and situation. Thought process intact. Ambulates with the use of a cane Psychiatric: Appropriate mood and affect. Good judgment and insight. Results Reviewed Results Reviewed: 06/13/24 EXAMINATION: CT CERVICAL SPINE WITHOUT CONTRAST CT LUMBAR SPINE WITHOUT CONTRAST CLINICAL INFORMATION: Midline atraumatic cervical spine and lumbar tenderness. COMPARISON: Cervical and lumbar spine radiographs from 05/11/2024. TECHNIQUE: Multidetector helical imaging of the lumbar spine was obtained without intravenous contrast. Multiple axial reformats and coronal/sagittal reconstructions were created the technologist workstation for review. This CT examination was performed using dose optimization techniques as appropriate, variously including the following: *Automated exposure control. *Adjustment of mA and/or kV according to patient size (this includes techniques or standardized protocols for targeted exams where dose is matched to indication/reason for exam; i.e. extremities or head). *Use of iterative reconstruction technique. DLP: 885 mGy-cm FINDINGS: Cervical Spine: The atlantooccipital and atlantoaxial articulations remain well aligned. Moderate degenerative arthropathy of the atlantodental articulation. Partial straightening of the normal cervical lordosis. Otherwise, there is anatomic alignment of the vertebral bodies and posterior elements. No evidence of acute fracture or subluxation. The vertebral body heights are maintained. Advanced degenerative disc disease from C5-C7. Moderate degenerative disc disease at all additional levels. There is no prevertebral soft tissue swelling. The thyroid gland and remaining cervical soft tissues are within normal limits. Persistent azygos fissure. The lung apices demonstrate no abnormalities. SPINAL LEVELS: C2-C3: Moderate disc-osteophyte complex. There is mild left moderate right and mild left uncovertebral joint arthropathy. There is severe left and moderate right facet joint arthropathy. There is moderate bilateral neural foraminal stenosis. There appears to be mild spinal canal stenosis. C3-C4: Moderate disc-osteophyte complex. There is moderate right and mild left uncovertebral joint arthropathy. There is severe right and moderate left facet joint arthropathy. There is severe right and moderate left neural foraminal stenosis. There appears to moderate spinal canal stenosis. C4-C5: Mild disc-osteophyte complex. There is moderate and mild left uncovertebral joint arthropathy. There is severe right and moderate left facet joint arthropathy. There is moderate bilateral neural foraminal stenosis. There appears to be mild spinal canal stenosis. C5-C6: Moderate disc-osteophyte complex. There is severe bilateral uncovertebral joint arthropathy. There is severe right and moderate left facet joint arthropathy. There is severe bilateral neural foraminal stenosis. There appears to moderate spinal canal stenosis. C6-C7: Moderate disc-osteophyte complex. There is severe left and moderate right uncovertebral joint arthropathy. There is moderate bilateral facet joint arthropathy. There is severe left and moderate right neural foraminal stenosis. There is no demonstrated spinal canal stenosis. C7-T1: Mild disc-osteophyte complex. There is mild bilateral uncovertebral joint arthropathy. There is moderate bilateral facet joint arthropathy. There is no neural foraminal stenosis. There is no demonstrated spinal canal stenosis. Lumbar Spine: Degenerative grade 1 anterolisthesis of L4 on L5. Otherwise, normal anatomic alignment. No evidence of acute fracture or traumatic subluxation. The vertebral body heights are maintained. The intervertebral disc spaces are maintained. No suspicious lytic or sclerotic osseous lesions. No significant abnormalities of the paraspinal musculature. Limited evaluation of the intra-abdominal structures without significant abnormalities. Moderate to advanced calcific atherosclerotic disease of the abdominal aorta. Fusiform infrarenal abdominal aortic aneurysm measuring up to 4.2 cm in diameter. AXIAL SPINAL LEVELS: L1-L2: Mild diffuse disc bulge. There is mild bilateral facet joint arthropathy. There is no neural foraminal stenosis. There is the demonstrated spinal canal stenosis. L2-L3: Moderate diffuse disc bulge. There is moderate right and mild left facet joint arthropathy. There is mild bilateral neural foraminal stenosis. There appears to be mild spinal canal stenosis. L3-L4: Mild diffuse disc bulge. There is moderate to severe bilateral facet joint arthropathy with ligamentum flavum hypertrophy. There is moderate bilateral neural foraminal stenosis. There appears to be moderate to severe spinal canal stenosis. L4-L5: Moderate diffuse disc bulge exacerbated by uncovering from anterolisthesis. There is severe bilateral facet joint arthropathy. There is moderate right worse than left neural foraminal stenosis. There appears to moderate to severe spinal canal stenosis. L5-S1: Mild diffuse disc bulge. There is severe bilateral facet joint arthropathy. There is mild bilateral neural foraminal stenosis. There is no demonstrated spinal canal stenosis. IMPRESSION: 1. No evidence of acute fracture or traumatic subluxation of the cervical or lumbar spine. 2. Moderate multilevel degenerative spondyloarthropathy of the cervical spine as described in detail above. Most notably on this limited exam without intrathecal contrast, there appears to be moderate spinal canal stenoses at C3-C4 and C5-C6. Mild spinal canal stenoses at C2-C3 and C4-C5. Moderate to severe neural foraminal stenoses from C2-C7. 3. 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 Most notably on this limited exam without intrathecal contrast, there appears to be moderate to severe spinal canal stenoses at L3-L4 and L4-L5. Mild spinal canal stenoses at L2-L3. Moderate neural foraminal stenoses at L3-L4 and L4-L5. 4. Infrarenal abdominal aortic aneurysm measuring up to 4.2 cm in diameter. Recommend follow-up for an infrarenal abdominal aortic aneurysm of this size is every 12 months. Additionally, vascular consultation or continued follow-up with a vascular specialist is recommended. 05/11/24 XR/XR cervical spine w flex/ext IMPRESSION: 1. Grade 1 anterolisthesis of C4 on C5 without appreciable change between flexion and extension. 2. Zvgu-cn-fvcljwqb multilevel degenerative disc disease in the cervical spine, most pronounced at C5-C6. Multilevel cervical facet arthropathy, right side greater than left. 3. Multilevel neural foraminal encroachment on the right in the cervical spine. 4. Grade 1 anterolisthesis of L4 on L5 with severe facet arthropathy at this level. 5. Mild degenerative disc disease at L4-L5. Assessment & Plan Assessment & Plan (1) Cervical spondylosis: Code(s): M47.812 - Spondylosis without myelopathy or radiculopathy, cervical region Category: Medical (2) Lumbar spondylosis: Code(s): M47.816 - Spondylosis without myelopathy or radiculopathy, lumbar region Category: Medical (3) Post laminectomy syndrome: Code(s): M96.1 - Postlaminectomy syndrome, not elsewhere classified Category: Medical Plan The patient is recommended for further injections focusing on his spine, both neck, and lower back, considering earlier positive responses. Diagnostic injections should precede radiofrequency ablation if effective, providing potential long-term relief. Re-evaluation of the muscle relaxant is suggested due to sedation, advising alternative medications. The PRP option and terms of moderate cost benefits discussed but not pursued are included. Acknowledging his pain and emotional strain, we recommend support services and insurance inquiries for any PRP consideration. Further management includes exploring the possibility of radiofrequency treatments given any success with preliminary anesthetics. I discussed with the patient the various options for managing his chronic spinal pain. I recommended repeating injections, specifically addressing past successes, but noting their temporary nature. The plan to potentially perform a radiofrequency ablation was detailed, highlighting possible extended relief. We considered non-traditional treatments like PRP, discussed potential high costs, and uncertainties surrounding insurance coverage. The patient's current medication, tizanidine, is acknowledged as sedative and inadequate for pain control; alternative medicines are suggested. Considering the patient's struggles with pain and psychological well-being, the patient consented to further discussions. The emotional impact of recent personal loss on his pain perception made clear. Follow-up is planned to initiate diagnostic injections and evaluate their impact. Will schedule for fluoroscopy guided bilateral L3-L4 DR L5 medial branch blocks with local anesthetic. Patient was informed and verbally consented to the use of an ambient scribe for clinic note documentation during this visit. Patient Instructions: - Continue using available support, such as your cane, for stability. - Monitor pain levels after injections; report any changes promptly. - Follow up on your medication management with your primary care provider. - Seek mental health support to help cope with personal losses and pain-related stress. - Contact our office immediately for worsening symptoms or any new concerns. Coding Level of Care Code Est Pt Level 3 (49855) Complex EM visit Add On G2211 Diagnoses Cervical spondylosis M47.812 Lumbar spondylosis M47.816 Post laminectomy syndrome M96.1
[2025-02-28 13:29] VITALS: BP 102/54; PULSE 66; RESP 16; O2SAT 92; BMI 25.5
--- OUTSIDE RECORDS SUMMARY | 2025-02-28 14:40 | XMS_ITS | Clinical Summary ---
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 Active carvediloL (COREG) 12.5 mg tablet Take 1 tablet (12.5 mg total) by mouth. 12/22/19 24 Active citalopram (CeleXA) 20 mg tablet Take 1.5 tablets (30 mg total) by mouth 1 (one) time each day. 09/27/20 23 Active clopidogreL (PLAVIX) 75 mg tablet Take 1 tablet (75 mg total) by mouth 1 (one) time each day. 07/29/20 23 Active empagliflozin (Jardiance) 10 mg tablet Take 1 tablet (10 mg total) by mouth 1 (one) time each day. 07/02/20 23 Active ferrous sulfate 325 mg (65 mg elemental iron) tablet Take 1 tablet (325 mg total) by mouth. Active latanoprost (XALATAN) 0.005 % ophthalmic solution 1 drop. Active nitroglycerin (NITROSTAT) 0.[address] 1 tablet (0.4 mg total) under the tongue. 03/09/20 23 Active multivitamin with minerals (CENTRUM/CERTA VIT) 18-400 mg-mcg tablet tablet Take 1 tablet by mouth 1 (one) time each day. Active dorzolamide (TRUSOPT) 2 % ophthalmic solution INSTILL 1 DROP IN EACH EYE TWICE A DAY Active triamcinolone (KENALOG) 0.025 % cream 05/09/20 24 Active Entresto 49-51 mg per tablet TAKE 1 TABLET BY MOUTH TWICE A DAY 180 tablet 3 11/01/19 25 Active spironolactone (ALDACTONE) 25 mg tablet TAKE 1 TABLET BY MOUTH EVERY DAY 90 tablet 3 11/10/19 25 Active rosuvastatin (CRESTOR) 20 mg tablet TAKE 1 TABLET BY MOUTH EVERYDAY AT BEDTIME 90 tablet 12/06/19 25 Active pantoprazole (PROTONIX) 20 mg EC tablet TAKE 1 TABLET BY MOUTH EVERY DAY 90 tablet 1 12/14/19 25 Active acetaminophen (TYLENOL 8 HOUR) 650 mg 8 hr tablet TAKE 1 TABLET BY MOUTH EVERY 8 HOURS NEEDED FOR PAIN FOR UP TO 30 DAYS. 90 tablet 1 01/17/20 25 Active tiZANidine (ZANAFLEX) 4 mg tablet Take 1 tablet (4 mg total) by mouth 3 (three) times a day if needed for muscle spasms. 30 tablet 02/24/20 25 Active furosemide (LASIX) 20 mg tablet Take 1 tablet (20 mg total) by mouth 1 (one) time each day. 08/10/20 23 025 Discontinued simethicone (MYLICON,GAS-X ) 180 mg capsule Take 1 capsule (180 mg total) by mouth. 09/27/20 23 025 Discontinued( erapy completed) capsaicin (ZOSTRIX) 0.025 % cream Apply topically 4 (four) times a day if needed (pain). 60 g 10/11/20 24 025 Discontinued( erapy completed) Active Problems Problem Noted Date Diagnosed Date Mitral regurgitation 02/24/2025 Infrarenal abdominal aortic aneurysm (AAA) without rupture (CMS/[facility] V24) 02/24/2025 History of peptic ulcer disease 02/24/2025 Overview (02/24/2025): s/p Billroth II surgery (partial gastrectomy with gastrojejunostomy, 1988) Aortic stenosis 07/05/2023 Overview (02/24/2025): Moderate to severe. Will proceed with yearly surveillance echocardiograms-the next 1 will be also to assess his recovery of ejection fraction on optimal medical therapy for HFrEF. Assessment & Plan (02/08/2025 2:59 PM EDT): Can repeat echocardiogram in 6 months or if patient experience worsening of symptoms. Chronic systolic CHF (conges tive heart failure) ([facility] V24, [facility] V28) 06/30/2023 Overview (02/24/2025): - Most recent echocardiogram on 06/16/2023 during [facility] hospitalization ultimately being transferred to [facility] (see CAD section for further details) showing mild, concentric left ventricular hypertrophy with normal LV cavity size and moderate, segmental LV systolic dysfunction, hypokinesis of the basal inferior and inferoseptal rutherford, ejection fraction of 35 to 40%, grade 2 diastolic dysfunction consistent with increased left atrial pressure, normal RV size with mildly reduced systolic function, moderate to severe aortic stenosis with mean gradient 17 mmHg, dimensionless index 0.24, calculated aortic valve area of 0.99 cm??, moderate MR, mild TR, evidence of mild pulmonary hypertension with RV systolic pressure 42 mmHg, dilated ascending aorta at 4 cm Last Assessment & Plan: Patient is doing well today-no decompensated heart failure symptoms. He is euvolemic on exam. Will continue to uptitrate goal-directed medical therapy as tolerated. To that end, I am increasing his Entresto to 49 x 51 mg twice daily. Will update labs in a month. Continue current carvedilol 12.5 twice daily, Jardiance 10 mg daily, spironolactone 25 mg daily. Will cautiously continue current Lasix though if his volume status remains good, we may consider discontinuation of this medication in order to facilitate more goal-directed medical therapy. Will plan to update an echocardiogram after 3 months on optimal medical therapy. Assessment & Plan (02/08/2025 2:59 PM EDT): Patient appears euvolemic on exam. He is seemingly doing well from a cardiac standpoint. Can see the most recent echocardiogram results above, did have improvement in ejection fraction. Should continue on current medication regiment which includes carvedilol, spironolactone, Entresto, and Jardiance. Instructed to call 911 or go to the emergency room should the patient begin to experience chest pain or pressure lasting greater than 10 minutes does not resolve with rest. Normocytic anemia 01/19/2023 PAD (peripheral artery disease) ([facility] V24) Hypertension 01/15/2021 Assessment & Plan (02/08/2025 2:59 PM EDT): Well-controlled the appointment. Continue current medication regimen. Bilateral carotid artery stenosis 01/15/2021 Assessment & Plan (02/08/2025 2:59 PM EDT): The patient has various vascular scans scheduled for April 2025 he is followed by vascular. ROBERTO (obstructive sleep apnea) 01/15/2021 HLD (hyperlipidemia) 01/15/2021 History of total hip replacement, left Overview (12/31/2023): For OA Diverticulosis 11/26/2020 Osteoarthritis, hip, bilateral 09/11/2020 Overview (12/31/2023): L>>R; hx of hip pining on left (2010?) Left total hip replacement October 2020 Osteoarthritis of both hands 09/11/2020 Overview (12/31/2023): With occasional inflammatory attacks - ? Gout or pseudogout Incisional hernia, without obstruction or gangre ne 05/05/2018 CAD (coronary artery disease) 01/20/2018 Overview (12/31/2023): - Presented with cardiogenic shock to [facility] December 2017 - Status post CABG with HAYWOOD to the LAD, vein graft to the OM1, vein graft to the RPDA for multivessel coronary artery disease on cardiac cath -Non-STEMI in October 2020 in the setting of severe anemia after left total hip replacement. With GI evaluation showing no bleeding - Admitted to [facility] in May 2022 with recurrent chest discomfort with positive stress echocardiogram with ischemia in the inferior and inferoseptal rutherford - Cardiac cath in June 2022 showed severe left main and grayling three-vessel disease including mid RCA 99% stenosis which was heavily calcified and distal subsection 85% stenosis; HAYWOOD to the LAD was patent, vein graft to the OM1 was patent but did not feel the OM1 retrograde-the OM1 was filling anterograde by the grayling circumflex which had significant stenoses, vein graft to the RPL was distally occluded- status post PCI to the grayling mid RCA-plan was to intervene on the grayling left main into the circumflex should the patient have continued angina - Incidentally at the time the patient had shortness of breath on Brilinta and was switched to Plavix - Rehospitalized in June 2023 with recurrent shortness of breath, chest pain-found to have another non-ST elevation IN with drop in ejection fraction and progression of aortic stenosis- cardiac cath on 06/18/2023 showed again severe grayling three-vessel disease but with significant in-stent restenosis in the mid RCA stent with otherwise patent graft to the OM1 and patent HAYWOOD to the LAD-status post PCI of the RCA, moderate to severe aortic stenosis with mean gradient 33 mmHg Last Assessment & Plan: Has been doing well since his most recent PCI. Did not make any changes. He has not had any recurrent anginal symptoms. Continue current Plavix until May 2024. He will continue carvedilol, rosuvastatin, and aspirin indefinitely. Assessment & Plan (02/08/2025 2:59 PM EDT): Has been doing well since his most recent PCI. Did not make any changes. He has not had any recurrent anginal symptoms. He will continue carvedilol, rosuvastatin, and aspirin indefinitely. Spondylosis of lumbosacral r egion without myelopathy or radiculopathy 07/22/2017 Lumbar spinal stenosis 01/21/2017 Overview (02/24/2025): s/p L4-L5 decompressive laminectomy (04/28/19, Dr. 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 Hx of fracture of left hip 06/12/2011 Overview (02/24/2025): 06/08/11: Left femoral neck fracture. Dr. Vargas surgery Tubulovillous adenoma 05/19/2011 Overview (02/24/2025): 05/19/11: 1 cm right colon polyp: 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 Postcholecystectomy diarrhea 01/16/2009 Overview (12/31/2023): Bile induced gastritis. Well controlled with colestipol. Upper GI endoscopy and intestinal biopsies 04/04/2009: Normal. Pure hypercholesterolemia 07/22/2007 Overview (12/31/2023): Last Assessment & Plan: In a patient with coronary disease as well as vascular disease he is on rosuvastatin with an LDL of 48. His triglycerides are 57. He is not describing unusual myalgia. Reminded him on the importance of healthful diet. He should be avoiding processed foods simple carbohydrates. He should try to be active as best he can. Assessment & Plan (02/08/2025 2:59 PM EDT): Please continue on high-dose rosuvastatin. Heartburn 02/03/2006 Right-sided acoustic neuroma (CMS/HCC V24, CMS/H CC V28) 12/30/2005 Overview (02/24/2025): s/p resection in 1996 with residual tumor (~7mm in 2018) with repeat MRI's recommended every [address] Mejia (ENT) Hypersomnia with sleep apnea 12/30/2005 Overview (12/31/2023): IMO update Resolved Problems Problem Noted Date Diagnosed Date Resolved Date Acoustic neuroma syndrome (C MS/HCC V24, CMS/HCC V28) 06/20/2015 02/24/2025 Encounters Date Type Department Care Team Description 02/23/2025 11:30 AM EDT Office Visit Adult Medicine [address] [phone] Deanna Frederick PA Spinal stenosis of lumbar region, unspecified whether neurogenic claudication present (Primary Dx) 02/23/2025 Telephone Adult Medicine [address] [phone] Queenie Mckenzie MA Back Pain 02/08/2025 1:10 PM EDT Office Visit [facility] Cardiology [facility] [address] [facility] [address] [place] [phone] Donell Haynes NP Hypertension, unspecified type (Primary Dx); Coronary artery disease, unspecified vessel or lesion type, unspecified whether angina present, unspecified whether grayling or transplanted heart; Bilateral carotid artery stenosis; Chronic systolic CHF (congestive heart failure) (CMS/HCC V24, CMS/HCC V28); Nonrheumatic aortic valve stenosis; Pure hypercholesterolemia; Atherosclerotic heart disease of grayling coronary artery without angina pectoris 02/08/2025 Telephone [facility] Cardiology [facility] [address] [facility] [address] [place] [phone] Donell Haynes NP 02/07/2025 Telephone Adult Medicine [address] [phone] Duane Lawler MD Referral (Cardiology Insurance Referral) 02/07/2025 Telephone [facility] Cardiology [facility] [address] [place] [phone] Judith Rodriguez MD 01/04/2025 Telephone [facility] Cardiology [facility] [address] [facility] [address] [place] [phone] Donell Haynes NP Results (echo) 12/28/2024 1:30 PM EST Office Visit Adult Medicine [address] [phone] Gillian Jarrett PA Hypertension, unspecified type (Primary Dx); Hyperlipidemia, unspecified hyperlipidemia type; Coronary artery disease, unspecified vessel or lesion type, unspecified whether angina present, unspecified whether grayling or transplanted heart; Chronic systolic CHF (congestive heart failure) (CMS/HCC V24, CMS/HCC V28); Chronic neck pain; Elevated glucose 12/07/2024 12:30 PM EST Ancillary Procedure [facility] [address] [facility] [address] [place] [phone] Nonrheumatic aortic valve stenosis 12/06/2024 2:00 PM EST Treatment Outpatient [address] [phone] Jeison Steele, PT Muscle spasms of neck (Primary Dx) from Last 3 Months Immunizations Name Administration Dates Next Due H1N1 Inj Preservative Free 10/29/2009 Influenza Quadravalent, 0.5m l (Fluzone High-dose) 65yo and older 07/17/2023,07/03/2021 Influenza trivalent, 0.5mL ( Fluad) 65yo and older 07/25/2024,06/24/2016 Influenza trivalent, 0.5mL ( Fluzone High-dose) 65yo and older 06/29/2020,07/05/2019,06/26/2018,06/02,06/19/2015 Influenza trivalent, 0.5mL, preservative free (Fluarix; FluLaval; Fluzone) ages 6mo and older (Afluria) 3 years and older 06/29/2020 Influenza trivalent, with pr eservative (Fluzone; Afluria) 6mo and older 07/06/2018,07/07/2017,06/24/2016,06/19,07/12/2013,07/31/2012,08/16/2011 ,07/08/2010,07/28/2009,08/20/2008,07/25,09/18/2006,08/04/2005 Pfizer (ages 12 & older) DON S-CoV-2 COVID-19, mRNA, LNP-S, joel-sucrose, preservative free 01/21/2022 Pfizer SARS-CoV-2 COVID-19, mRNA, LNP-S, preservative free 07/25/2021 Pneumococcal conjugate 13 va lent (Prevnar 13, PCV13) 2mo and older 06/19/2015 Pneumococcal conjugate 20 va lent (Prevnar 20, PCV 20) 2mo and older 10/12/2023 Pneumococcal polysaccharide 23 valent (Pneumovax 23) 2yo and older 09/12/2007 RSV, bivalent, protein subun it RSVpreF, 0.5mL, Preservative Free (Arexvy) 60yo and older 08/02/2023 Td Tetanus diptheria (Tdvax) 7yo and older 09/05/2020,09/12/2007 Zoster recombinant (Shingrix ) 19yo and older 01/09/2021,09/08/2020 Surgical History Surgery Date Site/Laterality Comments ABDOMINAL SURGERY 1988 PROCEDURE: HISTORICAL ABDOMINAL SURGERY; COMMENT: Billroth 2 gastrectomy OTHER SURGICAL HISTORY 1996 PROCEDURE: IA CRANIECTOMY/CRANIOTOMY EXPL SUPRATENTORIAL; COMMENT: right acoustic neuroma COLONOSCOPY 10/29/2005 PROCEDURE: HISTORICAL COLONOSCOPY; COMMENT: Up to cecum, excellent preparation, minimal diverticulosis CHOLECYSTECTOMY 1988 PROCEDURE: HISTORICAL CHOLECYSTECTOMY OTHER SURGICAL HISTORY 1975 PROCEDURE: IA VGTMY W/PYLORPLSTY W/WO GASTROST TRUNCAL/SLCTV; COMMENT: vagotomy and pyloroplasty COLONOSCOPY 05/19/2011 PROCEDURE: HISTORICAL COLONOSCOPY; COMMENT: 1 cm right colon polyp: 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 HIP ARTHROPLASTY 2010 PROCEDURE: HISTORICAL HIP REPLACEMENT; COMMENT: l hip fracture COLONOSCOPY 07/27/2014 PROCEDURE: HISTORICAL COLONOSCOPY; COMMENT: 8 mm right colon polyp: sessile serrated adenoma UPPER GASTROINTESTINAL ENDOSCOPY 04/02/2017 PROCEDURE: IA UPPER GI ENDOSCOPY PERFORMED; COMMENT: normal post-op appearance. UPPER GASTROINTESTINAL ENDOSCOPY 03/06/2013 PROCEDURE: IA UPPER GI ENDOSCOPY PERFORMED; COMMENT: normal post-op appearance. UPPER GASTROINTESTINAL ENDOSCOPY 04/04/2009 PROCEDURE: IA UPPER GI ENDOSCOPY PERFORMED; COMMENT: intestinal bx: Normal biopsies, no evidence of celiac disease. UPPER GASTROINTESTINAL ENDOSCOPY 03/03/2007 PROCEDURE: IA UPPER GI ENDOSCOPY PERFORMED; COMMENT: Previous Billroth II with gastrojejunal anastomosis at 50cm, bile acid gastritis, 3-4 small polyps at anasthomosis:gastric mucosa with marked reactive foveolar hyperplasia, gastritis COLONOSCOPY 12/15/1999 PROCEDURE: HISTORICAL COLONOSCOPY; COMMENT: Dr. Sloan; no polyps. CORONARY ARTERY BYPASS GRAFT 01/01/2018 PROCEDURE: HISTORICAL CABG HIP ARTHROPLASTY 11/06/2020 Left PROCEDURE: HISTORICAL HIP REPLACEMENT UPPER GASTROINTESTINAL ENDOSCOPY 11/13/2020 PROCEDURE: IA UPPER GI ENDOSCOPY PERFORMED; COMMENT: Normal COLONOSCOPY 11/13/2020 PROCEDURE: HISTORICAL COLONOSCOPY; COMMENT: 2 diminutive polyps. Diverticulosis. Internal hemorrhoids. Erosion of the rectum. 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, CMS/HCC V28) 1995 DX:Benign neoplasm of crani al nerves (HCC); COMMENT: R acoustic neuroma resection Heartburn 02/03/2006 DX:Heartburn Acute peptic ulcer, unspecif ied site, without mention of hemorrhage and perforation, with obstruction 1988 DX:Acute peptic ulcer, u nspecified site, without mention of hemorrhage and perforation, with obstruction; COMMENT: had Billroth II surgery Pure hypercholesterolemia 07/22/2007 DX:Pur e hypercholesterolemia Hypersomnia with sleep apnea , unspecified 12/30/2005 DX:Hypersomnia with sleep ap diann, unspecified Essential hypertension, benign 09/22/2005 D X:Essential hypertension, benign Fracture of left hip (CMS/ C V24, [facility] V28) 2010 DX:Fracture of left hip ([facility] ) Diverticulosis DX:Diverticulosi s AAA (abdominal aortic aneury sm) ([facility] V24) DX:AAA (abdominal aortic ane urysm) ([facility]); COMMENT: 3.1 cm Lumbar spinal stenosis 01/21/2017 DX:Lumbar spinal stenosis Constipation DX:Constipation Family History Medical History Relation Name Comments Heart attack Father age 56 Arthritis Mother at age 97 Blindness Neg Hx Breast cancer Neg Hx Cataracts Neg Hx Glaucoma Neg Hx Macular degeneration Neg Hx Strabismus Neg Hx Relation Name Status Comments Father Mother Social History Tobacco Use Types Packs/Day Years Used Date Smoking Tobacco: Former Cigarettes 1.5 34.5 0 1954 - 10/25/1988 Smokeless Tobacco: Never Tobacco Cessation:Counseling Given: Not Answered Alcohol Use Standard Drinks/Week Comments Yes 7 (1 standard drink = 0.6 oz pur e alcohol) Sex and Gender Information Value Date Recorded Sex Assigned at Not on file Legal Sex Male 11:03 PM EST Gender Identity Not on file Sexual Orientation Not on file Obstetrics History Last Filed Vital Signs Vital Sign Reading Time Taken Comments Blood Pressure 150/70 02/23/2025 11:37 AM EDT Pulse 69 02/23/2025 11:37 AM EDT Temperature 36.6 ??C (97.9 ??F) 02/23/2025 11:37 AM E DT Respiratory Rate 14 02/23/2025 11:37 AM EDT Oxygen Saturation 93% 02/23/2025 11:37 AM EDT Inhaled Oxygen Concentration - - Weight 76.2 kg (168 lb) 02/23/2025 11:37 AM EDT Height 172.7 cm (5' 8 ) 02/23/2025 11:37 AM EDT Body Mass Index 25.54 02/23/2025 11:37 AM EDT Plan of Treatment Upcoming Encounters Date Type Department Care Team (Late st Contact Info) Description 03/05/2025 2:30 PM EDT Office Visit [facility] Hematology Oncology [address] [place] [phone] Jesica Biggs PA [address] [place] [address] 04/30/2025 1:30 PM EDT Ancillary Procedure [facility] Cardiology [facility] [address] [phone] 05/07/2025 7:00 AM EDT Ancillary Procedure [facility] Cardiology [facility] [address] [phone] 05/14/2025 12:00 PM EDT Ancillary Procedure [facility] Cardiology [facility] [address] [phone] 07/03/2025 2:30 PM EDT Office Visit Adult Medicine [facility] [address] [place] [phone] Gillian Jarrett PA [address] [place] [address] 08/31/2025 2:40 PM EST Office Visit [facility] Cardiology [facility] [address] [facility] [address] [place] [phone] Donell Haynes NP [address] [place] [address] Health Maintenance Due Date Last Done Comments Depression Screening 10/03/2022 Falls Risk Assessment 10/03/2022 Medicare Annual Wellness Visit 10/03/2022 Social Influencers of Health Screening 10/03/2022 COVID-19 Vaccine ( season) 2024 09/09/2022, 01/21/2022, 07/25/2021, Additional history exists Hypertension/CHF/CAD Annual BMP Blood Test 12/29/2025 12/29/2024, 05/10/2024 Cholesterol Screening (Lipid Panel) 12/29/2029 12/29/2024, 05/10/2024, 03/11/2023 DTaP,Tdap,and Td Vaccines (3 - Td or Tdap) 09/05/2030 09/05/2020, 09/12/2007 Zoster Vaccines Completed 01/09/2021, 09/08/2020 RSV Immunization Adult Patients Completed 08/02/2023 Pneumococcal Vaccine: 50+ Years Completed 10/12/2023, 06/19/2015, 09/12/2007 Influenza Vaccine Completed 07/25/2024, , 07/03/2021, Additional history exists HIB Vaccines Aged Out No longer eligi ble based on patient's age to complete this topic HPV Vaccines Aged Out No longer eligi ble based on patient's age to complete this topic Hepatitis A Vaccines Aged Out No long er eligible based on patient's age to complete this topic Hepatitis B Vaccines Aged Out No long er eligible based on patient's age to complete this topic IPV Vaccines Aged Out No longer eligi ble based on patient's age to complete this topic MMR Vaccines Aged Out No longer eligi ble based on patient's age to complete this topic Meningococcal ACWY Vaccine Aged Out N o longer eligible based on patient's age to complete this topic Meningococcal B Vaccine Aged Out No l onger eligible based on patient's age to complete this topic RSV Immunization Patients Under 20 months Aged Out No longer eligible based on patient's age to complete this topic Varicella Vaccines Aged Out No longer eligible based on patient's age to complete this topic Procedures Procedure Name Priority Date/Time Associated Diagnosis Comments LIPID PANEL WITH REFLEX TO DIRECT LDL Routine 12/29/2024 9:05 AM EST Hyperlipidemia, unspecified hyperlipidemia type BASIC METABOLIC PANEL Routine 12/29/2024 9:05 AM EST Hypertension, unspecified type Hyperlipidemia, unspecified hyperlipidemia type TRANSTHORACIC ECHOCARDIOGRAM (TTE) COMPLETE Routine 12/07/2024 1:16 PM EST Nonrheumatic aortic valve stenosis from Last 3 Months Results * Lipid panel with reflex to direct LDL (12/29/2024 9:05 AM EST) Cholesterol 141 0 - 200 mg/dL LAB CHEMISTRY METHOD 12/29/2024 1:05 PM [facility] Triglycerides 100 0 - 150 mg/dL LAB CHEMISTRY METHOD 12/29/2024 1:05 PM [facility] HDL 71 >=40 mg/dL LAB CHEMISTRY METHOD 12/29/2024 1:05 PM [facility] LDL Calculated 50 0 - 100 mg/dL LAB CHEMISTRY METHOD 12/29/2024 1:05 PM [facility] VLDL Cholesterol Carlos 20 mg/dL LAB CHEMISTRY METHOD 12/29/2024 1:05 PM [facility] Non HDL Chol. (LDL+VLDL) 70 <145 mg/dL LAB CHEMISTRY METHOD 12/29/2024 1:05 PM [facility] Chol/HDL Ratio 2.0 0.0 - 4.4 LAB CHEMISTRY METHOD 12/29/2024 1:05 PM [facility] Blood Venous blood specimen / Unknown Venipuncture / Unknown 12/29/2024 9:05 AM EST 12/29/2024 9:05 AM EST Gillian GARNICA LAB BLOOD ORDERABLES Fi nal Result [facility] [address] [place] [address], * (ABNORMAL) Basic metabolic panel (12/29/2024 9:05 AM EST) Sodium 142 133 - 145 mmol/L LAB CHEMISTRY METHOD 12/29/2024 1:05 PM [facility] Potassium 4.5 3.5 - 5.5 mmol/L LAB CHEMISTRY METHOD 12/29/2024 1:05 PM [facility] Chloride 110 96 - 110 mmol/L LAB CHEMISTRY METHOD 12/29/2024 1:05 PM [facility] CO2 24 21 - 32 mmol/L LAB CHEMISTRY METHOD 12/29/2024 1:05 PM [facility] Anion Gap 8 3 - 11 LAB CHEMISTRY METHOD 12/29/2024 1:05 PM [facility] Glucose 109(H) 70 - 100 mg/dL LAB CHEMISTRY METHOD 12/29/2024 1:05 PM [facility] BUN 25 5 - 25 mg/dL LAB CHEMISTRY METHOD 12/29/2024 1:05 PM [facility] Creatinine 1.09 0.70 - 1.30 mg/dL LAB CHEMISTRY METHOD 12/29/2024 1:05 PM [facility] eGFR 67 >=60 mL/min/1. 73m2 LAB CHEMISTRY METHOD 12/29/2024 1:05 PM [facility] Comment:Calculation based on the??Chronic Kidney Disease Epidemiology Collaboration (CKD-EPI) equation refit??without adjustment for race. BUN/Creatinine Ratio 22.9 LAB CHEMISTRY METHOD 12/29/2024 1:05 PM [facility] Calcium 8.7 8.5 - 10.5 mg/dL LAB CHEMISTRY METHOD 12/29/2024 1:05 PM [facility] Blood Venous blood specimen / Unknown Venipuncture / Unknown 12/29/2024 9:05 AM EST 12/29/2024 9:05 AM EST us Gillian GARNICA LAB BLOOD ORDERABLES Fi nal Result [facility] [address] [place] [address], * (ABNORMAL) TRANSTHORACIC ECHOCARDIOGRAM (TTE) COMPLETE (12/07/2024 1:16 PM EST) Left Atrium Minor [place] 6.6 cm CV PACS Left Atrium Major [place] 6.3 cm CV PACS LA Area Sys (A2C) 32 cm2 CV PACS LA Area Sys (A4C) 28 cm2 CV PACS LA Volume (BP) 115 mL CV PACS RA Area 20.9 cm2 CV PACS RA 2D Volume 62 mL CV PACS AV Mean Gradient 22 mmHg CV PACS Ao VTI 77.7 cm CV PACS AV Peak Rehan 3.1 m/s CV PACS AV Peak Gradient 37 mmHg CV PACS AV Area Continuity Equation 1.0 cm2 CV PACS AV Area Peak Velocity 1.1 cm2 CV PACS Aortic Sinus Valsalva 3.7 cm CV PACS IVSD 1.6(A) 0.6 - 1.0 cm CV PACS LVIDD 5.1 4.2 - 5.8 cm CV PACS LVIDS 4.2(A) 2.5 - 4.0 cm CV PACS LVOT Diameter 2.5 cm CV PACS LVOT Mean Grad 1 mmHg CV PACS LVOT Peak VTI 16.2 cm CV PACS LVOT Mean Rehan 0.5 m/s CV PACS LVOT Peak Rehan 0.7 m/s CV PACS LVOT Peak Gradient 2 mmHg CV PACS LVPWD 1.7(A) 0.6 - 1.0 cm CV PACS MV E' Tissue Velocity Lateral 8 cm/s CV PACS MV E' Tissue Velocity Septal 5 cm/s CV PACS LVOT Area 4.9 cm2 CV PACS LVOT Stroke Volume 80 mL CV PACS E Wave Deceleration Time 264(A) 119 - 242 ms CV PACS MV Peak A Rehan 0.72 m/s CV PACS MV Peak E Rehan 0.66 m/s CV PACS MV Mean Gradient 1 mmHg CV PACS MV Mean Gradient 1 mmHg CV PACS MV VTI 30.9 cm CV PACS Mitral Valve Max Velocity 0.9 m/s CV PACS MV Peak Gradient 3 mmHg CV PACS MV Area Continuity Equation 2.6 cm2 CV PACS PV Acceleration Time 137 ms CV PACS RV Diastolic Basal Dimension 4.0 2.5 - 4.1 cm CV PACS E/E' Ratio Septal 13 CV PACS E/E' Ratio Averaged 11 CV PACS Relative Wall Thickness ratio 0.67 CV PACS LVOT:AV VTI Index 0.21 CV PACS FS 18 % CV PACS LV Mass 2D 383 g CV PACS MV VTI:LVOT VTI ratio 1.9 CV PACS LVOT flow 245 mL/s CV PACS AV Velocity Ratio 0.23 CV PACS E/A Ratio 0.9 CV PACS E/E' Ratio Lateral 8 CV PACS BSA 1.92 m2 CV PACS LA Volume Index (BP) 61 mL/m2 CV PACS LVIDD Index 2.68 cm/m2 CV PACS LVIDS Index 2.21 cm/m2 CV PACS LV Mass Index 2D 202(A) 50 - 102 g/m2 CV PACS LVOT Stroke Index 42 mL/m2 CV PACS RA 2D Volume Index 33(A) 18 - 32 mL/m2 CV PACS RONNY Index (VTI) 0.54 cm2/m2 CV PACS RONNY Index (Pk Rehan) 0.58 cm2/m2 CV PACS Anatomical Region Laterality Modality Ultrasound Narrative 12/15/2024 1:56 PM EST ?Left ventricle cavity size is normal. ??There is moderate, concentric left ventricular hypertrophy. ??There may be hypokinesis of the basal to mid inferoseptal and inferior ruhterford, however I cannot be certain (see caveat below). ??Left ventricular systolic function is overall low normal with an ejection fraction of 50-55%. ?Right ventricle cavity is normal. Right ventricular systolic function is normal. ?Aortic valve demonstrates moderate to severe, paradoxic low-flow, low gradient aortic stenosis. ??See measurements below. ??There is no aortic insufficiency. ?Biatrial enlargement as below. ?Compared to the prior echo from 02/08/2024, findings are unchanged. ?? From here forward, would use 2.5 cm as the LV outflow tract diameter. Stable moderate to severe, paradoxical low-flow, low gradient aortic stenosis. Left Ventricle Left ventricle cavity size is normal. Incidental note of a false tendon in the left ventricular apex? a benign finding. There is moderate concentric hypertrophy. There appears to be papillary muscle hypertrophy. 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 Systolic function is low normal with an ejection fraction of 50-55%. The basal inferior and inferoseptal rutherford may be hypokinetic. However, they were visualized off axis in the apical views so it is difficult to determine. Furthermore, some of the apical rutherford were foreshortened and apical views. Unable to assess diastolic function. Left atrial pressure is inconclusive. Right Ventricle Right ventricle cavity appears normal. Systolic function is normal. Left Atrium Left atrium cavity is severely dilated. Right Atrium Right atrium cavity is mildly dilated. IVC/SVC Inferior vena cava is dilated. RA pressures is estimated to be 8 mmHg (IVC diameter >21 mm and decreases >50% during inspiration). Mitral Valve The leaflets are moderately thickened. There is mild annular calcification. There is trace to mild regurgitation. There is no evidence of mitral valve stenosis. Tricuspid Valve Tricuspid valve structure is normal. There is trace regurgitation. There is no evidence of tricuspid valve stenosis. Cannot assess RVSP. Aortic Valve Number of aortic valve cusps cannot be determined. The leaflets are severely thickened and exhibit severely reduced excursion. There is trivial regurgitation. 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 The mean gradient is 22 mmHg. The aortic valve area by continuity equation is 1.0 cm2. Pulmonic Valve Visualized portions of the pulmonic valve appear normal. There is trace pulmonic valve regurgitation. There is no evidence of pulmonic valve stenosis. Ascending Aorta The aorta appears normal in size. Ascending aorta was not well-visualized. Pericardium Pericardium appears normal. There is no pericardial effusion. Study Details Overall the study quality was adequate. Judith Rodriguez MD CV ECHO PROCEDURES Final Result from Last 3 Months Insurance [place] [id number] [employer] Care Teams [employer] Relationship Specialty Start Date End Date Duane Lawler MD [address] [place] [id number] PCP - General Internal Medicine 08/07/20
--- OUTSIDE RECORDS SUMMARY | 2025-02-28 14:40 | XMS_ITS | Data Portability ---
Author Organization DANIKA Valenzuela [facility], [address] Address [address] [place] [address] Care Team Providers Care Tool Operator Name Role Phone MADY SORTO Parlor Chaperone Unavailable Assessment No assessment recorded. Plan of Treatment Reminders Order Date Submit Date Provider Last Modified By Organization Details Last Modified Time Details Appointments None recorded. Lab culture, urine 2022 023 OLINDA [facility], [address] [place] [address], [place], [address], 3 08:06:56 urinalysis, dipstick 2022 023 [facility], [address] [place] [address], [place], [address], 3 09:40:27 Referral emergency medicine referral 2022 023 [email or web address] 1 [facility], [address] [place], [address], 3 11:29:09 Procedures None recorded. Surgeries None recorded. Imaging XR, chest + abdomen - Right sided flank pain x 1 week. Was intermittan t and now it is constant. No urinary symptoms. No constipatio n. History of multiple abdominal surgeries. No gallbladder or appendix. 2022 023 [email or web address] [facility], [address] [place], [address], 3 10:34:10 XR, chest, 2 view - Right sided flank pain. Mild shortness of breath on the right side. Mild cough. No fever. Was exposed to pneumonia. No history of COPD or Asthma. 2022 023 [email or web address] [facility], [address] [place], [address], 10:34:10 Medication Orders None recorded. Patient TargetsNo targets recorded. Patient Instructions Encounter Date Encounter Id Patient Instructions Last Modified By Organization Details Last Modified Time 04/23/2023 [id number] Based on your ex am and presentation my recommendation if for you to go immediately to the Emergency Room. The ER is better equipped to be able to assess you and do more studies to make sure that your complaint is not life threatening. Unfortunately, in the urgent care setting we do not have the ability to do many tests and studies. My concern is for you, which is why my recommendation is the Emergency Room. Not available 04/23/2023 10:29:52 Reason for Referral Emergency Medicine Referral for Right flank pain Referring Physician: Megan Griffin, Urgent Care, Encounter Date: 04/23/2023 Results Created Date Observation Date Name Description Value Unit Range Abnormal Flag Note LastModifiedBy Organization Detail LastModifiedTime 04/23/2004/25/2023 URINE CULTU JEFF HOLLIS urine culture, routine FINAL REPORT Not Available [facility] ([facility]) [address] [place], [address], 04/25/2023 08:06:56 04/23/2004/25/2023 URINE CULTU JEFF HOLLIS result 1 NO GROWTH Not Available [facility] ([facility]) [address] [facility], [place], [address], 04/25/2023 08:06:56 04/23/2004/23/2023 urina lysis , dipst ick Unknown Analyte Normal = light yellow Not Available [id number] [address] [place] [address], [place], [address], 04/23/2023 08:17:03 04/23/2004/23/2023 urina lysis , dipst ick Unknown Analyte Normal = clear Not Available 2099marcus freitas [address], [place], [address], 04/23/2023 08:17:03 04/23/20 23 04/23/2023 urina lysis , dipst ick Unknown Analyte Normal = negati ve Not Available [facility] [address], [place], [address], 04/23/2023 08:17:03 04/23/20 23 04/23/2023 urina lysis , dipst ick Unknown Analyte Normal = Negati ve Not Available [facility] [address], [place], [address], 04/23/2023 08:17:03 04/23/2004/23/2023 urina lysis , dipst ick Unknown Analyte Normal = Negati ve Not Available [facility] [address], [place], [address], 04/23/2023 08:17:03 04/23/2004/23/2023 urina lysis , dipst ick Unknown Analyte Normal = 1.010, 1.015, 1.020 Not Available [address], [place], [address], 04/23/2023 08:17:03 04/23/2004/23/2023 urina lysis , dipst ick Unknown Analyte Normal = Negati ve Not Available [facility] [address], [place], [address], 04/23/2023 08:17:03 04/23/20 23 04/23/2023 urina lysis , dipst ick Unknown Analyte Normal = 6.5, 7.0, 7.5, 8.0 Not Available [facility] [address], [place], [address], 04/23/2023 08:17:03 04/23/20 23 04/23/2023 urina lysis , dipst ick Unknown Analyte Normal = Negati ve Not Available marcus freitas [address], [place], [address], 04/23/2023 08:17:03 04/23/20 23 04/23/2023 urina lysis , dipst ick Unknown Analyte Normal = 0.2, 1.0 Not Available marcus [address], [place], [address], 04/23/2023 08:17:03 04/23/20 23 04/23/2023 urina lysis , dipst ick Unknown Analyte Normal = Negati ve Not Available marcus [address], [place], [address], 04/23/2023 08:17:03 04/23/20 23 04/23/2023 urina lysis , dipst ick Unknown Analyte Normal = Negati ve Not Available marcus freitas [address], [place], [address], 04/23/2023 08:17:03 04/23/20 23 04/23/2023 urina lysis , dipst ick Unknown Analyte Yellow Not Available [facility] [address], [place], [address], 04/23/2023 08:17:03 04/23/20 23 04/23/2023 urina lysis , dipst ick Unknown Analyte Clear Not Available kj [address], [place], [address], 04/23/2023 08:17:03 04/23/20 23 04/23/2023 urina lysis , dipst ick Unknown Analyte Negati ve Not Available marcus [address], [place], [address], 04/23/2023 08:17:03 04/23/20 23 04/23/2023 urina lysis , dipst ick Unknown Analyte Negati ve Not Available [address], [place], [address], 04/23/2023 08:17:03 04/23/20 23 04/23/2023 urina lysis , dipst ick Unknown Analyte Negati ve Not Available [address], [place], [address], 04/23/2023 08:17:03 04/23/20 23 04/23/2023 urina lysis , dipst ick Unknown Analyte 1.015 Not Available [address], [place], [address], 04/23/2023 08:17:03 04/23/20 23 04/23/2023 urina lysis , dipst ick Unknown Analyte Trace- intact Not Available [address], [place], [address], 04/23/2023 08:17:03 04/23/20 23 04/23/2023 urina lysis , dipst ick Unknown Analyte 6.0 Not Available [address], [place], [address], 04/23/2023 08:17:03 04/23/20 23 04/23/2023 urina lysis , dipst ick Unknown Analyte Negati ve Not Available [address], [place], [address], 04/23/2023 08:17:03 04/23/20 23 04/23/2023 urina lysis , dipst ick Unknown Analyte 0.2 E.U./d L Not Available marcus freitas [address], [address], 04/23/2023 08:17:03 04/23/20 23 04/23/2023 urina lysis , dipst ick Unknown Analyte Negati ve Not Available [address] [place] [address], [address], 04/23/2023 08:17:03 04/23/20 23 04/23/2023 urina lysis , dipst ick Unknown Analyte Negati ve Not Available [facility] [address], [place], [address], 04/23/2023 08:17:03 04/23/20 23 04/23/2023 XR, chest , 2 view No observ ation record ed. [email or web address] [facility] [address] [place], [address], 04/23/2023 12:43:15 04/23/2004/23/2023 XR, chest + abdom en No observ ation record ed. [email or web address] [facility] [address] [place], [address], 04/23/2023 12:43:16 Result Notes None recorded. Problems Name Problem SNOMED Code Status Onset Date Resolution Date Notes Provider Name and Address Organization Details Recorded Time Hyperlipidemia 05135539 Active 2022 PREMA goode, [place] - [facility] 3 08:12:14 Hypertensive disorder 31369273 Active 2022 PREMA goode, [place] - [facility] 3 08:12:22 Heart disease 37898306 Active 2022 PREMA goode, [place] - [facility] 3 08:12:36 Problem Notes None recorded. Procedures Surgical History Date Name Laterality Status Provider Name and Address Organization Details Recorded Time cardiopulmonary bypass operation completed PREMA CHOI PA - [facility] 04/23/2023 08:12:52 Imaging Results Imaging Date Name Status LastModified by Organiz ation Details LastModified Time 04/23/2023 XR, chest, 2 view completed [place] [address] [facility] [address] [place], [address], 04/23/2023 12:43:15 04/23/2023 XR, chest + abdomen completed [email or web address] [facility] [address] [place], [address], 04/23/2023 12:43:16 Procedure Notes None recorded. Medical Equipment None Reported. Allergies Allergen ID Allergen Name Allergen Category Reaction Reaction Severity Criticality Documentation Date Start Date Code Code System Note Provider Name and Address Organization Details Recorded Time 387851 lisinopri l medicatio n Not available Not available Not available 04/23/2023 22424 RxNorm PREMA goode [employer] - [facility] 3 08:10:10 [id number] gabapenti n medicatio n Not available Not available Not available 04/23/2023 83860 RxNorm PREMA goode [employer] - [facility] 3 08:10:15 Medications Name Sig Start Date Stop Date Status Note LastModified by Organization Details LastModified Time celecoxib 200 mg capsule TAKE 1 CAPSULE BY MOUTH EVERY DAY 04/23 completed Not Available Not Available Not Available latanoprost 0.005 % eye drops INSTILL 1 DROP INTO BOTH EYES AT BEDTIME active Not Available Not Available No t Available carvedilol 25 mg tablet TAKE 1 TABLET BY MOUTH TWICE A DAY WITH MEALS active Not Available Not Available No t Available carvedilol 12.5 mg tablet TAKE 1 TABLET BY MOUTH TWICE A DAY WITH MEALS 04/23 completed Not Available Not Available Not Available citalopram 40 mg tablet TAKE 1 TABLET BY MOUTH EVERY DAY active Not Available Not Available No t Available sucralfate 100 mg/mL oral suspension SHAKE LIQUID AND TAKE 10 ML BY MOUTH FOUR TIMES DAILY active Not Available Not Available No t Available meloxicam 15 mg tablet TAKE 1 TABLET BY MOUTH EVERY DAY 04/23 completed Not Available Not Available Not Available clopidogrel 75 mg tablet TAKE 1 TABLET BY MOUTH EVERY DAY 04/23 completed Not Available Not Available Not Available valacyclovi r 500 mg tablet TAKE 1 TABLET BY MOUTH EVERY 8 HOURS 04/23 completed Not Available Not Available Not Available aspirin 81 mg tablet,kal yed release TAKE 1 TABLET BY MOUTH DAILY active Not Available Not Available No t Available spironolact one 25 mg tablet TAKE 1 TABLET BY MOUTH EVERY DAY active Not Available Not Available No t Available pantoprazol e 20 mg tablet,kal yed release TAKE 1 TABLET BY MOUTH EVERY DAY active Not Available Not Available No t Available isosorbide mononitrate ER 60 mg tablet,exte nded release 24 hr TAKE 1 TABLET BY MOUTH EVERY DAY active Not Available Not Available No t Available citalopram 20 mg tablet TAKE 1 TABLET BY MOUTH EVERY MORNING 04/23 completed Not Available Not Available Not Available Gentle Laxative (bisacodyl) 5 mg tablet,kal yed release TAKE 1 TABLET BY MOUTH EVERY DAY NEEDED FOR CONSTIPAT ION NOT COVERED active Not Available Not Available No t Available nitroglycer in 0.4 mg sublingual tablet PLEASE SEE ATTACHED FOR DETAILED DIRECTION S active Not Available Not Available No t Available folic acid 1 mg tablet TAKE 1 TABLET BY MOUTH EVERY DAY active Not Available Not Available No t Available furosemide 20 mg tablet TAKE 1 TABLET BY MOUTH EVERY DAY 04/23 completed Not Available Not Available Not Available polyethylen e glycol 3350 17 gram/dose oral powder MIX 17 GM IN WATER AND TAKE BY MOUTH NEEDED FOR CONSTIPAT ION active Not Available Not Available No t Available methylpredn isolone 4 mg tablets in a dose pack USE DIRECTED active Not Available Not Available No t Available ondansetron 4 mg disintegrat ing tablet DISSOLVE ONE TABLET BY MOUTH EVERY 8 HOURS NEEDED FOR NAUSEA active Not Available Not Available No t Available nabumetone 500 mg tablet TAKE 1 TABLET BY MOUTH TWICE DAILY 04/23 completed Not Available Not Available Not Available rosuvastati n 20 mg tablet TAKE 1 TABLET BY MOUTH EVERYDAY AT BEDTIME active Not Available Not Available No t Available diclofenac 1 % topical gel APPLY 4 G TOPICALLY 4 TIMES A DAY active Not Available Not Available No t Available Brilinta 90 mg tablet TAKE 1 TABLET BY MOUTH TWICE DAILY 04/23 completed Not Available Not Available Not Available Entresto 49 mg-51 mg tablet TAKE 1 TABLET BY MOUTH TWICE A DAY active Not Available Not Available No t Available ferrous sulfate 220 mg (44 mg iron)/5 mL oral elixir TAKE 5 ML BY MOUTH EVERY DAY active Not Available Not Available No t Available Therems-M 9 mg iron-400 mcg tablet TAKE 1 TABLET BY MOUTH DAILY 04/23 completed Not Available Not Available Not Available Vitals Date Recorded Body height Body mass index (BMI) Body weight Body temperature Respiratory rate Oxygen saturation Oxygen saturation in Arterial blood by Pulse oximetry Heart rate Systolic blood pressure Diastolic blood pressure Provider Name and Address Organization Details Last Updated DateTime 3 172.72 cm 26.2 kg/m2 43574.8 9 g 97.2 [degF] 18 /min 95 % 95 % 61 /min 135 mm[Hg] 68 mm[Hg] PREMA Longo [facility] 08:15:11 Social History Question Answer Notes LastModified by [employer] ion Details LastModified Time Tobacco Smoking Status Never Smoker [facility]A [facility] [employer] [facility] 04/23/2023 08:13:10 What Is Your Level Of Alcohol Consumption? Occasional Information not available 04/23/2023 Which Illicit Or Recreational Drugs Have You Used? Marijuana Information not available 04/23/2023 Have You Had Direct Contact, Or Contact During Intimacy, With Monkeypox Rash, Scabs, Or Body Fluids From A Person With Monkeypox? No Information not available 04/23/2023 Do You Use Any Illicit Or Recreational Drugs? Yes Information not available 04/23/2023 Have You Recently Traveled Abroad? No Information not available 04/23/2023 Do You Or Have You Ever Used Any Other Forms Of Tobacco Or Nicotine? No Information not available 04/23/2023 Sex: Unknown Functional Status None recorded. Mental Status None recorded. Family History Nothing Reported. Medical History No medical history recorded. Immunizations Vaccine Type Date Status Note Provider Nam e and Address Organization Details Recorded Time Influenza, adjuvanted, trivalent, PF 6 completed PREMA GOODHIND null, PA - [facility] 04/23/2023 08:10:01 zoster recombinant 1 completed PREMA BOATENGND null, PA - [facility] 04/23/2023 08:10:01 zoster recombinant 0 completed PREMA GOODHIND null, PA - [facility] 04/23/2023 08:10:01 Influenza, high-dose, quadrivalent, PF 1 completed PREMA MOONHIND null, PA - [facility] 04/23/2023 08:10:01 COVID-19, mRNA, LNP-S, PF, 30 mcg/0.3 mL dose 1 completed PREMA BOATENGND null, PA - [facility] 04/23/2023 08:10:01 COVID-19, mRNA, LNP-S, PF, 30 mcg/0.3 mL dose 1 completed PREMA BOATENGND null, PA - [facility] 04/23/2023 08:10:01 COVID-19, mRNA, LNP-S, PF, 30 mcg/0.3 mL dose 1 completed PREMA MOONHIND null, PA - [facility] 04/23/2023 08:10:01 COVID-19, mRNA, LNP-S, PF, 30 mcg/0.3 mL dose, joel-sucrose 2 completed PREMA MOONHIND null, PA - [facility] 04/23/2023 08:10:01 COVID-19, mRNA, LNP-S, bivalent, PF, 30 mcg/0.3 mL dose 2 completed PREMA MOONHIND null, PA - [facility] 04/23/2023 08:10:01 pneumococcal polysaccharide PPV23 7 completed PREMA MOONHIND null, PA - [facility] 04/23/2023 08:10:01 Pneumococcal conjugate PCV 13 5 completed PREMA BOATENGND null, PA - [facility] 04/23/2023 08:10:01 Influenza, high-dose, trivalent, PF 7 completed PREMA MOONHIND null, PA - [facility] 04/23/2023 08:10:01 Influenza, high-dose, trivalent, PF 5 completed PREMA BOATENGND null, PA - [facility] 04/23/2023 08:10:01 Influenza, high-dose, trivalent, PF 8 completed PREMA BOATENGND null, PA - [facility] 04/23/2023 08:10:01 Influenza, high-dose, trivalent, PF 9 completed PREMA BOATENGND null, PA - [facility] 04/23/2023 08:10:01 Influenza, split virus, trivalent, preservative 7 completed PREMA BOATENGND null, PA - [facility] 04/23/2023 08:10:01 Influenza, split virus, trivalent, preservative 0 completed PREMA CHOI null, PA - [facility] 04/23/2023 08:10:01 Influenza, split virus, trivalent, preservative 3 completed PREMA BOATENGND null, PA - [facility] 04/23/2023 08:10:01 Influenza, split virus, trivalent, preservative 9 completed PREMA BOATENGND null, PA - [facility] 04/23/2023 08:10:01 Influenza, split virus, trivalent, preservative 2 completed PREMA BOATENGND null, PA - [facility] 04/23/2023 08:10:01 Influenza, split virus, trivalent, preservative 5 completed PREMA BOATENGND null, PA - [facility] 04/23/2023 08:10:01 Influenza, split virus, trivalent, preservative 7 completed PREMA BOATENGND null, PA - [facility] 04/23/2023 08:10:01 Influenza, split virus, trivalent, preservative 1 completed PREMA CHOI null, PA - [facility] 04/23/2023 08:10:01 Influenza, split virus, trivalent, preservative 8 completed PREMA CHOI null, PA - [facility] 04/23/2023 08:10:01 Influenza, split virus, trivalent, preservative 6 completed PREMA CHOI null, PA - [facility] 04/23/2023 08:10:01 Influenza, split virus, trivalent, PF 0 completed PREMA CHOI null, PA - [facility] 04/23/2023 08:10:01 Novel [id number]-[id number], preservative-free 0 completed PREMA CHOI null, PA - [facility] 04/23/2023 08:10:02 Td (adult), 2 Lf tetanus toxoid, preservative free, adsorbed 0 completed PREMA CHOI null, PA - [facility] 04/23/2023 08:10:02 Td (adult), 2 Lf tetanus toxoid, preservative free, adsorbed 7 completed PREMA CHOI null, PA - [facility] 04/23/2023 08:10:02 Past Encounters Encounter ID Performer Location Encounter Start Date Encounter Closed Date Diagnosis/Indication Diagnosis SNOMED-CT Code Diagnosis ICD10 Code Diagnosis Note [id number] [address] [place] [address] 05/28/2017 13:29:40 05/28/2017 13:59:01 [id number] [facility] [facility] [place] [address] 05/24/2017 11:08:43 05/24/2017 11:56:56 [id number] [address] [place] [address] 10/16/2018 13:33:37 10/16/2018 15:27:03 [id number] DANIKA MARSHALL [address] [place] [address] 04/23/2023 08:04:30 04/23/2023 10:34:10 Right flank pain 445771603 R10.9 ? small right renal calculi. - Radiologis t disagreed with my initial interpreta tion and does not think it is a stone. Advising CT scan of abdomen to evaluate the area more clearly. The patient is in more pain and has agreed to go the Emergency Room. He would prefer to go to the ER via EMS. Calculus o f kidney and ureter [id number] N20.2 Health Concerns Section Related Observation LastModified by Organization Detai ls LastModified Time None Recorded Concern Status LastModified by Organization Details LastModified Time None Recorded Advance Directives Directive None Recorded Payers Insurance Date Sequence Insurance Name Policy Number Policy Escalera Covered Member ID Escalera Member ID Guarantor Name 04/23/2023 1 [employer] (MEDICARE REPLACEMENT HMO) Bhavesh Ricardo [id number] Bhavesh Ricardo 09/14/2022 [employer] Bhavesh Riacrdo Notes Date Note Type Note Provider Name and Address Organization Details Recorded Time 3 text/html Back Pain/Injury UCReported bypatient.source of patient informationInformation obtained from patient; Patient arrived at Urgent Care ambulatory Location:middle of the back Quality:sharp Duration:days; 7 weeks Alleviating Factors:No relief. Aggravating Factors:cannot identifyNotes:Patient brought back emergent. The patient reports 1 week of right back pain. Mid back. Constant pain. The patient reports that patient reports that before it was intermittent but now it is constant. Keeping him from sleeping. The patient does feel that he had a kidney stone before. No previous lung problems. He does have a friend that had pneumonia. No positions make it feel better. Mild shortness of breath but is not really coughing. No fever. Urinating and bowel movements have been ok. No blood or clots in the urine. No incontinence. No falls or trauma. Has had diverticulitis in the past. Took some CBD gummies to try to help the pain but it is making him drowsy. Wasn't able to sleep at night. DANIKA MARSHALL [address] [place] [address] [place], [address], PA - [facility] 04/23/2023 12:33:37
--- OUTSIDE RECORDS SUMMARY | 2025-02-28 14:41 | XMS_ITS | Encounter Summary ---
Author Organization [facility] Address [address] [place] [address] Care Team Providers Care Fur Sewer Name Role Phone Duane Lawler MD Primary Care Provider Reason for Visit * Reason Comments Back Pain Encounter Details Date Type Department Care Team (Late st Contact Info) Description 02/23/2025 11:30 AM EDT Office Visit Adult Medicine [facility] [address] [place] [address] Deanna Frederick PA [address] [place] [address] Spinal stenosis of lumbar region, unspecified whether neurogenic claudication present (Primary Dx) Social History Tobacco Use Types Packs/Day Years [...] Mass Index 25.54 02/23/2025 11:37 AM EDT documented in this encounter Ordered Prescriptions Prescription Sig Dispense Quantity Refills Last Filled Start Date End Date tiZANidine (ZANAFLEX) 4 mg tablet Take 1 tablet (4 mg total) by mouth 3 (three) times a day if needed for muscle spasms. 30 tablet 02/23/2025 documented in this encounter Progress Notes * DANIKA Lainez - 02/23/2025 11:[address] Wily Flynn [address] [place] [address] [place] [address] Please increase Tylenol to 1000mg every 8 hours and take Zanaflex 4mg every 8 hours * DANIKA Lainez - 02/23/2025 11:30 AM EDT CHIEF COMPLAINT: Back Pain IDENTIFIER: Bhavesh Ricardo is a 84 y.o. old male. HPI: 84-year-old male presenting to office for evaluation. This is my first visit with the patient. Last evaluated by PCP on 09/27/23. Patient states he has been experiencing low back pain for years and is here today looking for pain medication. Denies known injury or inciting event. Denies pain radiation. States he previously had a small surgery on his back along with receiving cortisone injection, acupuncture, and physical therapy. 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 States he has been using 1 tablet of extra strength Tylenol 3 times a day along with topical lidocaine with limited improvement. Denies saddle anesthesia or loss of bowel/bladder continence. Last pain management note received dated 07/11/24; patient denies contacting Dr. Flynn regarding ongoing symptoms. ROS: GENERAL: No fever, shaking chills RESPIRATORY: No shortness of breath CARDIOVASCULAR: No chest pain MUSCULOSKELETAL: As above NEURO: As above PAST MEDICAL HISTORY: Patient Active Problem List Diagnosis Date Noted Mitral regurgitation 02/24/2025 Infrarenal abdominal aortic aneurysm (AAA) without rupture ([facility] V24) 02/24/2025 History of peptic ulcer disease 02/24/2025 Aortic stenosis 07/05/2023 Chronic systolic CHF (congestive heart failure) ([facility] V24, [facility] V28) 06/30/2023 Normocytic anemia 01/19/2023 PAD (peripheral artery disease) ([facility] V24) 03/05/2022 Hypertension 01/15/2021 Bilateral carotid artery stenosis 01/15/2021 ROBERTO (obstructive sleep apnea) 01/15/2021 HLD (hyperlipidemia) 01/15/2021 History of total hip replacement, left 01/13/2021 Diverticulosis 11/26/2020 Osteoarthritis, hip, bilateral 09/11/2020 Osteoarthritis of both hands 09/11/2020 Incisional hernia, without obstruction or gangrene 05/05/2018 CAD (coronary artery disease) 01/20/2018 Spondylosis of lumbosacral region without myelopathy or radiculopathy 07/22/2017 Lumbar spinal stenosis 01/21/2017 Polymyalgia rheumatica ([facility] V24) 10/22/2015 Facial nerve palsy, secondary 06/20/2015 Sensorineural hearing loss, asymmetrical 06/20/2015 Acoustic neuroma syndrome ([facility] V24, [facility] V28) 06/20/2015 Depression 05/21/2015 Impaired fasting glucose 07/17/2013 Hx of fracture of left hip 06/12/2011 Tubulovillous adenoma 05/19/2011 Postcholecystectomy diarrhea 01/16/2009 Pure hypercholesterolemia 07/22/2007 Heartburn 02/03/2006 Right-sided acoustic neuroma ([facility] V24, [facility] V28) 12/30/2005 Hypersomnia with sleep apnea 12/30/2005 Past Surgical History: Procedure Laterality Date ABDOMINAL SURGERY 1988 PROCEDURE: HISTORICAL ABDOMINAL SURGERY; COMMENT: Billroth 2 gastrectomy CHOLECYSTECTOMY 1988 PROCEDURE: HISTORICAL CHOLECYSTECTOMY COLONOSCOPY 10/29/2005 PROCEDURE: HISTORICAL COLONOSCOPY; COMMENT: Up to cecum, excellent preparation, minimal diverticulosis COLONOSCOPY 05/19/2011 PROCEDURE: HISTORICAL COLONOSCOPY; COMMENT: 1 cm right colon polyp: Tubulovillous adenoma with fociof high grade dysplasia, likely excised. COLONOSCOPY 07/27/2014 PROCEDURE: HISTORICAL COLONOSCOPY; COMMENT: 8 mm right colon polyp: sessile serrated adenoma COLONOSCOPY 12/15/1999 PROCEDURE: HISTORICAL COLONOSCOPY; COMMENT: Dr. Sloan; no polyps. COLONOSCOPY 11/13/2020 PROCEDURE: HISTORICAL COLONOSCOPY; COMMENT: 2 diminutive polyps. Diverticulosis. Internal hemorrhoids. Erosion of the rectum. CORONARY ARTERY BYPASS GRAFT 01/01/2018 PROCEDURE: HISTORICAL CABG HIP ARTHROPLASTY 2010 PROCEDURE: HISTORICAL HIP REPLACEMENT; COMMENT: l hip fracture HIP ARTHROPLASTY Left 11/06/2020 PROCEDURE: HISTORICAL HIP REPLACEMENT HIP ARTHROPLASTY Left 11/06/2020 PROCEDURE: HISTORICAL HIP REPLACEMENT OTHER SURGICAL HISTORY 1996 PROCEDURE: DE CRANIECTOMY/CRANIOTOMY EXPL SUPRATENTORIAL; COMMENT: right acoustic neuroma OTHER SURGICAL HISTORY 1975 PROCEDURE: DE VGTMY W/PYLORPLSTY W/WO GASTROST TRUNCAL/SLCTV; COMMENT: vagotomy and pyloroplasty OTHER SURGICAL HISTORY 04/07/2022 PROCEDURE: DE SLCTV CATHJ 2ND ORDER ABDL PEL/LXTR ART BRNCH OTHER SURGICAL HISTORY 04/07/2022 PROCEDURE: DE SLCTV CATHJ EA 2ND+ ORD ABDL PEL/LXTR ART BRNCH OTHER SURGICAL HISTORY 04/07/2022 PROCEDURE: X-RAY EXAM OF ARM/LEG ARTERIES OTHER SURGICAL HISTORY 04/07/2022 PROCEDURE: ULTRASOUND GUIDANCE FOR VASCULAR AC UPPER GASTROINTESTINAL ENDOSCOPY 04/02/2017 PROCEDURE: DE UPPER GI ENDOSCOPY PERFORMED; COMMENT: normal post-op appearance. UPPER GASTROINTESTINAL ENDOSCOPY 03/06/2013 PROCEDURE: DE UPPER GI ENDOSCOPY PERFORMED; COMMENT: normal post-op appearance. UPPER GASTROINTESTINAL ENDOSCOPY 04/04/2009 PROCEDURE: DE UPPER GI ENDOSCOPY PERFORMED; COMMENT: intestinal bx: Normal biopsies, no evidence ofceliac disease. UPPER GASTROINTESTINAL ENDOSCOPY 03/03/2007 PROCEDURE: DE UPPER GI ENDOSCOPY PERFORMED; COMMENT: Previous Billroth II with gastrojejunal anastomosis at 50cm, bile acid gastritis, 3-4 small polyps at anasthomosis:gastric mucosa with marked reactive foveolar hyperplasia, gastritis UPPER GASTROINTESTINAL ENDOSCOPY 11/13/2020 PROCEDURE: DE UPPER GI ENDOSCOPY PERFORMED; COMMENT: Normal SOCIAL HISTORY: Social History Tobacco Use Smoking status: Former Current packs/day: 0.00 Average packs/day: 1.5 packs/day for 34.5 years (51.7 ttl pk-yrs) Types: Cigarettes Start date: 1955 Quit date: 10/25/1988 Years since quittin.3 Smokeless tobacco: Never Substance Use Topics Alcohol use: Yes Alcohol/week: 7.0 standard drinks of alcohol Types: 7 Cans of beer per week FAMILY HISTORY: Family History Problem Relation Name Age of Onset Arthritis Mother at age 97 Heart attack Father age 56 Blindness Neg Hx Cataracts Neg Hx Glaucoma Neg Hx Macular degeneration Neg Hx Strabismus Neg Hx Breast cancer Neg Hx Family Status Relation Name Status Mother (Not Specified) Father (Not Specified) Neg Hx (Not Specified) No partnership data on file MEDICATIONS DISCONTINUED/REORDERED: Medications Discontinued During This Encounter Medication Reason simethicone (MYLICON,GAS-X) 180 mg capsule Therapy completed capsaicin (ZOSTRIX) 0.025 % cream Therapy completed ACTIVE MEDICATIONS: Outpatient Medications Marked as Taking for the 02/23/25 encounter (Office Visit) with DANIKA Lainez Medication Sig Dispense Refill acetaminophen (TYLENOL 8 HOUR) 650 mg 8 hr tablet TAKE 1 TABLET BY MOUTH EVERY 8 HOURS NEEDED FOR PAIN FOR UP TO 30 DAYS. 90 tablet 1 aspirin 81 mg EC tablet Take 1 tablet (81 mg total) by mouth 1 (one) time each day. carvediloL (COREG) 12.5 mg tablet Take 1 tablet (12.5 mg total) by mouth. citalopram (CeleXA) 20 mg tablet Take 1.5 tablets (30 mg total) by mouth 1 (one) time each day. clopidogreL (PLAVIX) 75 mg tablet Take 1 tablet (75 mg total) by mouth 1 (one) time each day. dorzolamide (TRUSOPT) 2 % ophthalmic solution INSTILL 1 DROP IN EACH EYE TWICE A DAY empagliflozin (Jardiance) 10 mg tablet Take 1 tablet (10 mg total) by mouth 1 (one) time each day. Entresto 49-51 mg per tablet TAKE 1 TABLET BY MOUTH TWICE A DAY 180 tablet 3 ferrous sulfate 325 mg (65 mg elemental iron) tablet Take 1 tablet (325 mg total) by mouth. latanoprost (XALATAN) 0.005 % ophthalmic solution 1 drop. multivitamin with minerals (CENTRUM/CERTAVIT) 18-400 mg-mcg tablet tablet Take 1 tablet by mouth 1 (one) time each day. pantoprazole (PROTONIX) 20 mg EC tablet TAKE 1 TABLET BY MOUTH EVERY DAY 90 tablet 1 rosuvastatin (CRESTOR) 20 mg tablet TAKE 1 TABLET BY MOUTH EVERYDAY AT BEDTIME 90 tablet 0 spironolactone (ALDACTONE) 25 mg tablet TAKE 1 TABLET BY MOUTH EVERY DAY 90 tablet 3 triamcinolone (KENALOG) 0.025 % cream [DISCONTINUED] capsaicin (ZOSTRIX) 0.025 % cream Apply topically 4 (four) times a day if needed (pain). 60 g 0 [DISCONTINUED] simethicone (MYLICON,GAS-X) 180 mg capsule Take 1 capsule (180 mg total) by mouth. ALLERGIES: Allergies Allergen Reactions Gabapentin Nausea And Vomiting Muscle weakness Lisinopril Weakness PHYSICAL EXAM: Visit Vitals BP (!) 150/70 Pulse 69 Temp 36.6 ??C (97.9 ??F) (Temporal) Resp 14 Ht 1.727 m (68 ) Wt 76.2 kg (168 lb) SpO2 93% BMI 25.54 kg/m?? Smoking Status Former BSA 1.9 m?? Wt Readings from Last 5 Encounters: 02/23/25 76.2 kg (168 lb) 02/08/25 78 kg (172 lb) 12/28/24 76 kg (167 lb 9.6 oz) 12/07/24 76.7 kg (169 lb) 11/07/24 76 kg (167 lb 8 oz) BMI plan is deferred until next visit APPEARANCE: Alert and in no acute distress BACK: No tenderness to palpation noted over lumbar midline; no bony step-off to palpation; good spinal flexion and extension EXTREMITIES: Moving bilateral lower extremities independently; no obvious lower extremity deformity NEURO: lower extremity strength 5/5 bilaterally; sensation equal and intact to lower extremities bilaterally; normal unassisted gait. LABS: No orders of the defined types were placed in this encounter. IMAGING: None IMPRESSION: 1. Spinal stenosis of lumbar region, unspecified whether neurogenic claudication present PLAN: 84-year-old male with known lumbar spinal stenosis s/p L4-5 decompression presenting to office reporting chronic low back pain and requesting analgesia. Recommended Tylenol 1000 mg every 8 hours and prescribed Zanaflex 4 mg every 8 hours. 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 He follows with pain management (Dr. Flynn) but denies contacting his office regarding ongoing symptoms and therefore is provided with direct contact information to schedule follow-up. Medication and lab orders: No orders of the defined types were placed in this encounter. Other orders: None DANIKA Lainez on 02/24/2025 at 12:50 PM EDT documented in this encounter Plan of Treatment Upcoming Encounters Date Type Department Care Team (Late st Contact Info) Description 03/05/2025 2:30 PM EDT Office Visit [facility] Hematology Oncology [address] [place] [address] Jesica Biggs PA [address] [place] [address] 04/30/2025 1:30 PM EDT Ancillary Procedure [facility] Cardiology [facility] [address] [address] 05/07/2025 7:00 AM EDT Ancillary Procedure [facility] [address] [address] 05/14/2025 12:00 PM EDT Ancillary Procedure [facility] [address] [address] 07/03/2025 2:30 PM EDT Office Visit Adult Medicine [address] [address] Gillian Jarrett PA [address] [place] [address] 08/31/2025 2:40 PM EST Office Visit [facility] Cardiology [facility] 154 300 [facility] [address] [place] [address] Donell Haynes NP [address] [place] [address] documented as of this encounter Visit Diagnoses Diagnosis Spinal stenosis of lumbar region, unspecified whether neurogenic claudication present- Primary documented in this encounter Discontinued Medications Medication Sig Discontinue Reason Start Date End Da te simethicone (MYLICON,GAS-X) 180 mg capsule Take 1 capsule (180 mg total) by mouth. Therapy completed 09/27/2023 02/23/2025 capsaicin (ZOSTRIX) 0.025 % cream Apply topically 4 (four) times a day if needed (pain). Therapy completed 10/11/2024 02/23/2025 documented as of this encounter Care Teams Fur Sewer Relationship Specialty Start Date End Date Duane Lawler MD [address] [place] [address] PCP - General Internal Medicine 08/07/20 documented as of this encounter
--- OUTSIDE RECORDS SUMMARY | 2025-02-28 14:41 | XMS_ITS | Encounter Summary ---
Author Organization [facility] Address [address] [place] [address] Care Team Providers Care Supervisor Communications And Signals Name Role Phone Duane Lawler MD Primary Care Provider [phone] Encounter Details Date Type Department Care Team (Late st Contact Info) Description 02/08/2025 Telephone [facility] - [facility] 154 300 [facility] [address] [place] [address] Donell Haynes NP [address] [place] [address] Social History Tobacco Use Types Packs/Day Years [...] on file documented as of this encounter Progress Notes * Caty Corona MA - 02/09/2025 3:54 PM EDT Med list updated * Donell Haynes NP - 02/09/2025 3:06 PM EDT Perfect can we make sure his med list reflects that. * Caty Corona MA - 02/08/2025 3:48 PM EDT Pt states he stopped taking Plavix back in May 2024. * Donell Haynes NP - 02/08/2025 3:09 PM EDT Can we call and asked the patient if he is still taking Plavix? My notes indicate that he was supposed to stop in May 2024. documented in this encounter Plan of Treatment Upcoming Encounters Date Type Department Care Team (Late st Contact Info) Description 03/05/2025 2:30 PM EDT Office Visit [facility] Hematology Oncology [address] [place] [address] Jesica Biggs PA [address] [place] [address] 04/30/2025 1:30 PM EDT Ancillary Procedure [facility] Cardiology [facility] [place] [address] [address] 05/07/2025 7:00 AM EDT Ancillary Procedure [facility] [place] [address] [address] 05/14/2025 12:00 PM EDT Ancillary Procedure [facility] [place] [address] [address] 07/03/2025 2:30 PM EDT Office Visit Adult Medicine [facility] [address] [place] [address] Gillian Jarrett PA [address] [place] [address] 08/31/2025 2:40 PM EST Office Visit [facility] - [facility] [address] [facility] [address] [place] [phone] Donell Haynes NP [address] [place] [address] documented as of this encounter Visit Diagnoses Not on filedocumented in this encounter Care Teams Supervisor Communications And Signals Relationship Specialty Start Date End Date Duane Lawler MD [address] [place] [address] PCP - General Internal Medicine 08/07/20 documented as of this encounter
--- OUTSIDE RECORDS SUMMARY | 2025-02-28 14:41 | XMS_ITS | Encounter Summary ---
Author Organization [facility] Address [address] [place] [address] Care Team Providers Care Hotel Registration Clerk Name Role Phone Duane Lawler MD Primary Care Provider [phone] Reason for Referral * Consultation (Routine) - Authorized Specialty Diagnoses / Procedures Referred By Contac t Referred To Contact Cardiology Diagnoses Atherosclerotic heart disease of [place] coronary artery without angina pectoris Duane Lawler MD [address] [place] [address] Phone: tel: fax: [facility] Associates - [facility] [address] [facility] [address] [place] [address] Phone: tel: fax: Referral ID Status Reason Start Date Expiration Date Visits Requested Visits Authorized [id number] Authorized Specialty Services Required 02/08/2025 02/08/2026 6 6 Reason for Visit * Reason Onset Date Comments Referral 02/07/2025 Cardiology Insur ance Referral Encounter Details Date Type Department Care Team (Late st Contact Info) Description 02/07/2025 Telephone Adult Medicine [address] [phone] Duane Lawler MD [address] [place] [address] Referral (Cardiology Insurance Referral) Social History Tobacco Use Types Packs/Day Years Used Date Smoking Tobacco: Former Cigarettes 1.5 34.5 0 1955 - 10/25/1988 Smokeless Tobacco: Never Alcohol Use Standard Drinks/Week Comments Yes 0 (1 standard drink = 0.6 oz pur e alcohol) Sex and Gender Information Value Date Recorded Sex Assigned at Not on file Legal Sex Male 11:03 PM EST Gender Identity Not on file Sexual Orientation Not on file documented as of this encounter Progress Notes * Duane Lawler MD - 02/23/2025 6:12 PM EDT Referral singed * Parul Clemente - 02/07/2025 4:42 PM EDT What insurance does the patient have today? Payor: [email or web address]/@[email or web address] Referrals cannot be processed if the insurance is not accurate. If the insurance listed above is NO BILLING INFORMATION FOUND FOR THIS ENCOUNTER then the patients correct insurance must be obtainedand registered in [facility] or their referral can not be processed. Name of person calling to request this referral? Fax Referred To Provider (Include first and last name): Dr. Rodriguez NPI (if known): [id number] Order/Specialty requested cardiology Chief Complaint (Note: This is not a body part or a procedure): I25.10 CAD Has the patient seen provider for this problem/Dx before? N/A Referred To Provider Address: Referred To Provider Referred To Provider Does patient have an appointment scheduled?: yes If yes, what is the date of the appointment?: 02/08/25 Is this a retro request? Not at the time of request Number of visits requested: 6 Is this appointment related to: MVA or worker compensation? no documented in this encounter Plan of Treatment Upcoming Encounters Date Type Department Care Team (Late st Contact Info) Description 03/05/2025 2:30 PM EDT Office Visit [facility] Hematology Oncology [address] [place] [address] Jesica Biggs PA [address] [place] [address] 04/30/2025 1:30 PM EDT Ancillary Procedure [facility] Cardiology [facility] [address] [place] [address] 05/07/2025 7:00 AM EDT Ancillary Procedure [facility] [address] [facility] [address] [place] [address] 05/14/2025 12:00 PM EDT Ancillary Procedure [facility] [address] [address] 07/03/2025 2:30 PM EDT Office Visit Adult Medicine [facility] [address] [place] [address] Gillian Jarrett PA [address] [place] [address] 08/31/2025 2:40 PM EST Office Visit [facility] Cardiology [facility] - [facility] [address] [facility] [address] [place] [address] Donell Haynes NP [address] [place] [address] Scheduled Referrals Name Type Priority Associated Diagnoses Order Schedule Ambulatory referral to Cardiology Outpatient Referral Routine Atherosclerotic heart disease of [place] coronary artery without angina pectoris Expected: 02/23/2025, Expires: 02/07/2026 documented as of this encounter Visit Diagnoses Diagnosis Atherosclerotic heart disease of [place] coronary artery without angina pectoris- Primary documented in this encounter Care Teams Hotel Registration Clerk Relationship Specialty Start Date End Date Duane Lawler MD [address] [place] [address] PCP - General Internal Medicine 08/07/20 documented as of this encounter
--- OUTSIDE RECORDS SUMMARY | 2025-02-28 14:41 | XMS_ITS | Clinical Summary ---
Author Organization [facility] Address [address] [place] [address] Care Team Providers Care Core Baker Name Role Phone Duane Lawler MD Primary Care Provider [phone] Allergies Active Allergy Reactions Criticality Noted Date Comments Gabapentin Nausea And Vomiting 01/14/2021 Muscle weakness Lisinopril 01/14/2021 Weakness Medications Medication Sig Dispensed Refills Start Date End Date Status ferrous sulfate 325 (65 FE) MG tablet Take 1 tablet (325 mg total) by mouth every morning with breakfast. 0 Active citalopram (CeleXA) 20 MG tablet Take 1 tablet (20 mg total) by mouth daily. 0 Active rosuvastatin (CRESTOR) tablet 20 mg Take 1 tablet (20 mg total) by mouth daily. 0 Active carvedilol (COREG) 6.25 MG tablet Take 1 tablet (6.25 mg total) by mouth 2 (two) times a day with meals. 0 Active aspirin EC 81 MG tablet Take 1 tablet (81 mg total) by mouth daily. 0 Active Multiple Vitamin (MULTIVITAMIN ADULT PO) Take 1 tablet by mouth daily. 0 Active tamsulosin (FLOMAX) 0.4 MG CAPS Take 1 capsule (0.4 mg total) by mouth daily. 0 Active folic acid (FOLVITE) tablet 1 mg Take 1 tablet (1 mg total) by mouth daily. 0 Active cholestyramine light 4 g packet Take 1 packet (4 g total) by mouth 2 (two) times a day. 0 Active latanoprost (XALATAN) 0.005 % ophthalmic solution Place 1 drop into both eyes every night at bedtime. 0 Active sacubitril-valsartan (Entresto) 49-51 MG per tablet Take 1 tablet by mouth 2 (two) times a day. 0 Active spironolactone (ALDACTONE) tablet 25 mg Take 1 tablet (25 mg total) by mouth daily. 0 Active pantoprazole (PROTONIX) 20 MG tablet Take 1 tablet (20 mg total) by mouth daily. 0 Active Furosemide (LASIX PO) Take by mouth daily. 0 Active Active Problems Problem Noted Date Diagnosed Date Iron deficiency anemia genevieve laguerre to inadequate dietary iron intake 01/15/2021 Acoustic neuroma syndrome 01/15/2021 Adjustment disorder with mixed anxiety and depre ssed mood 01/15/2021 Bilateral carotid artery stenosis 01/15/2021 Coronary artery disease 01/15/2021 HLD (hyperlipidemia) 01/15/2021 Hypertension 01/15/2021 Ischemic cardiomyopathy 01/15/2021 Lumbar spinal stenosis 01/15/2021 ROBERTO (obstructive sleep apnea) 01/15/2021 Family History Medical History Relation Name Comments Anemia Mother Relation Name Status Comments Mother Social History Tobacco Use Types Packs/Day Years Used Date Smoking Tobacco: Former Cigarettes Q uit: 10/25/1988 Smokeless Tobacco: Never Tobacco Cessation:Counseling Given: Not Answered Alcohol Use Standard Drinks/Week Comments Yes 0 (1 standard drink = 0.6 oz pur e alcohol) Sex and Gender Information Value Date Recorded Sex Assigned at Not on file Gender Identity Not on file Sexual Orientation Not on file Job Start Date Occupation Industry Not on file Not on file Not on file Last Filed Vital Signs Vital Sign Reading Time Taken Comments Blood Pressure 129/56 08/25/2024 1:20 PM EDT Pulse 57 08/25/2024 1:20 PM EDT Temperature 36.6 ??C (97.9 ??F) 08/25/2024 1:20 PM ED T Respiratory Rate - - Oxygen Saturation 95% 08/25/2024 1:20 PM EDT Inhaled Oxygen Concentration - - Weight 76.2 kg (168 lb) 08/25/2024 1:20 PM EDT Height 172.7 cm (5' 8 ) 08/25/2024 1:20 PM EDT Body Mass Index 25.54 08/25/2024 1:20 PM EDT Plan of Treatment Health Maintenance Due Date Last Done Comments Depression Screening 1952 Preventative Health Evaluation 1957 Fall Risk Assessment 2004 RSV Adult > 60+ Yrs or (1 - 1-dose 75+ series) 2014 DTap / Tdap / Td (1 - Tdap) 09/06/2020 09/05/2020, 1 11/12/2006 COVID-19 Vaccine ( season) 2024 09/09/2022, 01/21/2022, 07/25/2021, Additional history exists Influenza Vaccine (#1) 2024 , 07/03/2021, 06/29/2020, Additional history exists Pneumococcal Vaccine Completed 06/19/2015, 09/12/20 07 Shingrix-Zoster Vaccine Completed 01/09/2021, 09/08 Hepatitis B Vaccines Aged Out No long er eligible based on patient's age to complete this topic RSV Ped < 20 months Aged Out No longe r eligible based on patient's age to complete this topic Care Teams Core Baker Relationship Specialty Start Date End Date Duane Lawler MD PCP - General Internal Medicine 01/15/21
--- OUTSIDE RECORDS SUMMARY | 2025-02-28 14:41 | XMS_ITS | Continuity of Care Document ---
Author Organization [facility] Address [address] [address] Phone Care Team Providers Care Food And Nutrition Teacher Name Role Phone Unavailable Unavailable Unavailable Advance Directives Directive Yes / No Effective Date File Name No Information Encounters Encounter Description Practice Location Reason(s) For Visit Diagnoses Date Provider [facility], [address] [address], [place], [place], [id number], tel:[phone] No Information 2022 No Information Family History Family Member Type Diagnosis Age [...]
--- OUTSIDE RECORDS SUMMARY | 2025-02-28 14:41 | XMS_ITS | Encounter Summary ---
Author Organization [facility] Address [address] [place] [address] Care Team Providers Care Sleep Technologist Name Role Phone Duane Lawler MD Primary Care Provider [phone] Reason for Visit * Reason Onset Date Comments Back Pain 02/23/2025 Encounter Details Date Type Department Care Team (Late st Contact Info) Description 02/23/2025 Telephone [place] [facility] [address] [place] [phone] Queenie Mckenzie MA Back Pain Social History Tobacco Use Types Packs/Day Years [...] as of this encounter Progress Notes * Sammie Figueroa RN - 02/23/2025 10:18 AM EDT Pt reports ongoing back pain. Pt states pain goes down the spine. Pt states the pain has increased over the past 3 days. Pain does not radiate. No numbness/tingling to BLE. No numbness/tingling to groin/genitals. No loss of bladder/bowel control. Pt A/Ox3, no C/O CP/SOB/dizziness/weakness, no changes to CMS, no swelling reported, speech clear -able to speak in clear/full sentences, no N/V/D/fever (temperature not taken), abdomen nontender, able to eat/drink, able to void, ambulates with steady gait. Pt scheduled with Heide Frederick today at 11:30 AM. * Queenie Mckenzie MA - 02/23/2025 9:04 AM EDT Patient call requires triage: Symptoms patient is presenting: Patient is having Extreme Back pain. How long has patient had these symptoms?: 2 days For ALL patients calling to schedule any appointment (routine, sick visit, follow up, consult, etc.) in the outpatient setting please ask the following questions: Do you have fever of higher than 101, sore throat with difficulty swallowing or severe shortness ofbreath? no If YES to any of these above symptoms, send a message to triage and do not book. Red dot. If no, an audio or video visit should be booked. Have you had close contact with someone with Coronavirus in the last 14 days? no Have you traveled abroad? no Have you traveled recently to another state outside of [place], [place], [place], [place], [place], [place], [place]? no o If yes, did you quarantine for 14 days or have a negative covid test? no If yes to any of the above, patient is not to be scheduled in office until after 14 day quarantine or negative covid test. If pain or injury related was it due to an accident at work or from a motor vehicle accident? If yes, date of accident/Injury: No If yes, gather 3rd republican insurance information Third Libertarian Information: not applicable PCP: Duane Lawler MD Payor: [employer] MEDICARE ADVANTAGE / Plan: [employer] [facility] MEDICARE ADVANTAGE / Product Type: *No Product type* / documented in this encounter Plan of Treatment Upcoming Encounters Date Type Department Care Team (Late st Contact Info) Description 03/05/2025 2:30 PM EDT Office Visit [facility] Hematology Oncology [address] [place] [address] Jesica Biggs PA [address] [place] [address] 04/30/2025 1:30 PM EDT Ancillary Procedure [facility] Cardiology [facility] - [facility] [address] [place] [address] 05/07/2025 7:00 AM EDT Ancillary Procedure [facility] - [facility] [address] [facility] 101 [place] [address] 05/14/2025 12:00 PM EDT Ancillary Procedure [facility] - [facility] [address] 300 [facility] 101 [place] [address] 07/03/2025 2:30 PM EDT Office Visit Adult [address] [phone] Gillian Jarrett PA [address] [place] [address] 08/31/2025 2:40 PM EST Office Visit [facility] - [facility] [address] 300 [facility] 154 [place] [address] Donell Haynes NP 300 [place] [address] documented as of this encounter Visit Diagnoses Not on filedocumented in this encounter Care Teams Sleep Technologist Relationship Specialty Start Date End Date Duane Lawler MD [address] [place] [address] PCP - General Internal Medicine 08/07/20 documented as of this encounter
--- OUTSIDE RECORDS SUMMARY | 2025-02-28 14:41 | XMS_ITS | Encounter Summary ---
Author Organization [facility] Address [address] [place] [address] Care Team Providers Care Trench Pipe Layer Helper Name Role Phone Duane Lawler MD Primary Care Provider [phone] Encounter Details Date Type Department Care Team (Late st Contact Info) Description 08/25/2024 1:03 PM EDT Hospital Encounter TH HISTORIC ENCOUNTERS EASTERN CONVERSION ONLY Jesica Biggs PA [address] [place] [address] Social History Tobacco Use Types Packs/Day Years [...] [facility] Hemat[facility] Oncology [address] [place] [phone] Jesica Biggs PA [address] [place] [address] 04/30/2025 1:30 PM EDT Ancillary Procedure [facility] - [facility] [address] [address] 05/07/2025 7:00 AM EDT Ancillary Procedure [facility] [address] [address] 05/14/2025 12:00 PM EDT Ancillary Procedure [facility] [address] [address] 07/03/2025 2:30 PM EDT Office Visit Adult Medicine [facility] [address] [place] [address] Gillian Jarrett PA [address] [place] [address] 08/31/2025 2:40 PM EST Office Visit [facility] - [facility] 154 300 [facility] 154 [place] [address] Donell Haynes NP 300 [place] [address] documented as of this encounter Procedures Procedure Name Priority Date/Time Associated Diagnosis Comments ..MISCELLANEOUS REFERENCE LAB TEST 08/25/2024 documented in this encounter Results * Miscellaneous reference lab test (08/25/2024) us Provider Onbase MD LAB BLOOD ORDERABLES Final Re sult documented in this encounter Visit Diagnoses Not on filedocumented in this encounter Care Teams Trench Pipe Layer Helper Relationship Specialty Start Date End Date Duane Lawler MD [address] [place] [address] PCP - General Internal Medicine 08/07/20 documented as of this encounter
== END 2025-02-28 13:55 | disposition home or self-care (01) ==
LOC: HO.PMC 13:24
PROVIDERS: PCP Internal Medicine; Visit Provider Registered Nurse Emergency
DX: M47.812 Spondylosis without myelopathy or radiculopathy, cervical region (principal); M47.816 Spondylosis without myelopathy or radiculopathy, lumbar region; M96.1 Postlaminectomy syndrome, not elsewhere classified
CPT/HCPCS: 99213; G2211

== ENCOUNTER → 2025-02-28 13:24 | Outpatient (BNVA) | payer OTHER, SELFPAY | PROVIDERS: PCP Internal Medicine; Visit Provider Registered Nurse Emergency ==

== ENCOUNTER 2025-04-10 06:02 | Outpatient (REF) | payer OTHER, SELFPAY ==
--- OUTSIDE RECORDS SUMMARY | 2025-04-10 06:05 | XMS_ITS | Encounter Summary ---
Author Organization [facility] Address [address] [place] [address] Care Team Providers Care Ladies' Locker Room Attendant Name Role Phone Duane Lawler MD Primary Care Provider [phone] Reason for Visit * Reason Onset Date Comments Procedure 03/28/2025 Aspirin hold Encounter Details Date Type Department Care Team (Late st Contact Info) Description 03/28/2025 Telephone [facility] - [facility] [address] 300 [facility] 154 [place] [address] Donell Haynes NP 300 [place], [place] [phone] Procedure (Aspirin hold ) Social History Tobacco Use Types Packs/Day Years [...] as of this encounter Progress Notes * Judith Rodriguez MD - 03/30/2025 12:41 PM EDT Left a message on the machine for Deanna. I left my contact information for her to please call me back. Ideally in the setting of coronary disease I would prefer that they keep the aspirin on. Many procedures can be done on baby aspirin. That said, if it is a hard know that they cannot continue aspirin I would just recommend that they keep him off aspirin for the minimal amount of time possible and resume as soon as safely possible. * Yadi Cano MA - 03/29/2025 3:30 PM EDT Deanna called again, returning call. Please call her back at [phone] * Caty Corona MA - 03/29/2025 3:28 PM EDT Tried to get in touch with Deanna [phone] to discuss pts procedure, per patient coordinator front desk Deanna will get back to me when she can . * Yadi Cano MA - 03/28/2025 3:53 PM EDT Deanna from [facility] pain management called, the patient is going in for a local anesthetic procedure on 04/10/25. They are wondering if the patient can hold his aspirin for 7 days prior to theprocedure. Please advise and call. documented in this encounter Plan of Treatment Upcoming Encounters Date Type Department Care Team (Late st Contact Info) Description 04/17/2025 3:00 PM EDT Office Visit Adult Medicine [address] [address] Duane Lawler MD [address] [place] [address] 04/30/2025 1:30 PM EDT Ancillary Procedure [facility] - [address] [place] [address] 05/07/2025 8:30 AM EDT Ancillary Procedure [facility] Cardiology [facility] - [facility] [address] 300 [facility] 101 [place] [address] 05/14/2025 12:00 PM EDT Ancillary Procedure [facility] Cardiology [facility] - [facility] [address] 300 [facility] [address] [place] [address] 06/07/2025 3:30 PM EDT Office Visit Vascular Surgery - [place] [address] [place] [address] Brianna Trammell MD 300 [facility] 210 [place] [address] 07/03/2025 2:30 PM EDT Office Visit Adult [address] [address] Gillian Jarrett PA [address] [place] [address] 08/31/2025 2:40 PM EST Office Visit [facility] - [facility] 154 300 [facility] 154 [place] [address] Donell Haynes NP 300 [place] [address] 09/06/2025 2:00 PM EST Office Visit [facility] Hematology Oncology [address] [place] [address] Jesica Biggs PA [address] [place] [address] documented as of this encounter Visit Diagnoses Not on filedocumented in this encounter Care Teams Ladies' Locker Room Attendant Relationship Specialty Start Date End Date Duane Lawler MD [address] [place] [address] PCP - General Internal Medicine 08/07/20 documented as of this encounter
== END 2025-04-10 06:03 | disposition home or self-care (01) ==
LOC: CF 06:02
PROVIDERS: Visit Provider Anesthesiology
DX: Z13.89 Encounter for screening for other disorder (principal)

== ENCOUNTER 2025-05-08 06:27 | Outpatient (REF) | payer OTHER, SELFPAY ==
--- OUTSIDE RECORDS SUMMARY | 2023-06-21 06:09 | XMS_ITS | Continuity of Care Document ---
Author Organization [facility] Address [address] [address] Phone Care Team Providers Care Photo Optics Technician Name Role Phone Bonilla Royal DO Unavailable Unavailable Advance Directives Directive Yes / No Effective Date File Name No Information Encounters Encounter Description Practice Location Reason(s) For Visit Diagnoses Date Provider [facility], [address], [id number], [place] tel:[phone] [address] [place] [address] No Information 2022 Lele Crystal. [address] [place] [address], [id number], [place]. tel:[phone] Family History Family Member Type Diagnosis Age At Onset No Information Payers Payer name Insurance type Covered republican ID Authoriza tion(s) No Information Social History Type Description Quantity Date Captured Comments Sex Male Smoking Status No Information Chief Complaint And Reason For Visit No Information History Of Present Illness Encounter Date Complaint History Of Prese nt Illness No Information Instructions Date Instruction Additional Infor mation No Information Assessments Type Assessment Date No Information
--- OUTSIDE RECORDS SUMMARY | 2025-05-07 08:30 | XMS_ITS | Encounter Summary ---
Author Organization [facility] Address [address] [place] [address] Care Team Providers Care Director Of Research And Development Name Role Phone Duane Lawler MD Primary Care Provider [phone] Reason for Visit * Imaging (Routine) - Authorized Specialty Diagnoses / Procedures Referred By Contac t Referred To Contact Diagnoses Infrarenal abdominal aortic aneurysm (AAA) without rupture (CMS/HCC V24) Procedures Vascular US duplex aorta/IVC/iliac/grafts complete Agustina Gates PA [address] [place] [address] Phone: tel: fax: [facility] Referral ID Status Reason Start Date Expiration Date V isits Requested Visits Authorized [id number] Authorized 08/12/2024 08/12/2025 1 1 Encounter Details Date Type Department Care Team (Latest Contact Info) Description 05/07/2025 8:30 AM EDT Ancillary Procedure [facility] Associates - [address] [place] [address] Infrarenal abdominal aortic aneurysm (AAA) without rupture ([facility] V24) Social History Tobacco Use Types Packs/Day [...] Care Team (Late st Contact Info) Description 05/10/2025 3:45 PM EDT Ancillary Procedure [facility] Cardiology [facility] [address] [address] 05/11/2025 1:30 PM EDT Office Visit Adult [address] [address] Duane Lawler MD [address] [place] [address] 05/14/2025 12:00 PM EDT Ancillary Procedure [facility] [address] [address] 06/07/2025 3:30 PM EDT Office Visit Vascular Surgery [facility] 300 [facility] [address] [place] [address] Brianna Trammell MD [address] [address] 07/03/2025 2:30 PM EDT Office Visit [address] [address] Gillian Jarrett PA [address] [place] [address] 08/31/2025 2:40 PM EST Office Visit [facility] 154 300 [facility] [address] [place] [phone] Donell Haynes NP 300 [place] [address] 09/06/2025 2:00 PM EST Office Visit [facility] Hematology Oncology [address] [place] [address] Jesica Biggs PA 271 [place] [address] Pending Results Name Type Priority Associated Diagnoses Date /Time Vascular US duplex aorta/IVC/iliac/gr afts complete Vascular Ultrasound Routine Infrarenal abdominal aortic aneurysm (AAA) without rupture ([facility] V24) 05/07/2025 8:34 AM EDT documented as of this encounter Visit Diagnoses Diagnosis Infrarenal abdominal aortic aneurysm (AAA) without rupture ([facility] V24) documented in this encounter Care Teams Director Of Research And Development Relationship Specialty Start Date End Date Duane Lawler MD [address] [place] [address] PCP - General Internal Medicine 08/07/20 documented as of this encounter
--- NOTE | ~2025-05-08 | FL_ITS ---
EXAMINATION: FL GUIDANCE ONLY HISTORY: M47.816 - Spondylosis without myelopathy or radiculopathy, lumbar region COMPARISON: None available. TECHNIQUE: Fluoroscopy time: 0.5 minutes. Cumulative Dose: 5.49 mGy. DAP: 0.0953 mGym2 Images: 12. FINDINGS: Fluoroscopic spot films of the lumbar spine in the AP projection demonstrate needles and contrast material in the regions of the bilateral L3-4, L4-5, and L5-S1 facet joints. FL/FL guidance in treatment room IMPRESSION: Fluoroscopy during procedure. Please see procedure report for additional information. Electronically signed by: Ben Mendoza MD 05/09/2025 08:33 AM EDT
--- OUTSIDE RECORDS SUMMARY | 2025-05-08 06:29 | XMS_ITS | Data Portability ---
Author Organization DANIKA Waller [facility], [facility] Address [address] [place] [address] Care Team Providers Care Geological Engineer Name Role Phone MADY SORTO Charge Entry Clerk Unavailable Assessment No assessment recorded. Plan of Treatment Reminders Order Date Submit Date Provider Last Modified By Organization Details Last Modified Time Details Appointments None recorded. Lab culture, urine 2022 023 HARPER WOODS [facility], [address] [place] [address], [place], [address], 3 08:06:56 urinalysis, dipstick 2022 023 HARPER WOODS [facility], [address] [facility], [place], [address], 3 09:40:27 Referral emergency medicine referral 2022 023 [email or web address] 1 [facility] Emergency Room, [address] [place], [address], 3 11:29:09 Procedures None recorded. Surgeries None recorded. Imaging XR, chest + abdomen - Right sided flank pain x 1 week. Was intermittan t and now it is constant. No urinary symptoms. No constipatio n. History of multiple abdominal surgeries. No gallbladder or appendix. 2022 023 [facility], [address] [place], [address], 3 10:34:10 XR, chest, 2 view - Right sided flank pain. Mild shortness of breath on the right side. Mild cough. No fever. Was exposed to pneumonia. No history of COPD or Asthma. 2022 023 [email or web address] [facility], [address] [place], [address], 10:34:10 Medication Orders None recorded. Patient TargetsNo targets recorded. Patient Instructions Encounter Date Encounter Id Patient Instructions Last Modified By Organization Details Last Modified Time 04/23/2023 [id number] Based on your ex am and presentation [...] why my recommendation is the Emergency Room. [email or web address] Not available 04/23/2023 10:29:52 Reason for Referral Emergency Medicine Referral for Right flank pain Referring Physician: Megan rGiffin, Urgent Care, Encounter Date: 04/23/2023 Results Created Date Observation Date Name Description Value Unit Range Abnormal Flag Note LastModifiedBy Organization Detail LastModifiedTime 04/23/2004/25/2023 URINE CULTU REJEFF urine culture, routine FINAL REPORT Not Available [facility] ([facility]) [address] [place], [address], 04/25/2023 08:06:56 04/23/2004/25/2023 URINE CULTU REJEFF result 1 NO GROWTH Not Available [facility] ([facility]) [address] [facility], [place], [address], 04/25/2023 08:06:56 04/23/2004/23/2023 urina lysis , dipst ick Unknown Analyte Normal = light yellow Not Available [address] [address] [place] [address], [place], [address], 04/23/2023 08:17:03 04/23/20 23 04/23/2023 urina lysis , dipst ick Unknown Analyte Normal = clear Not Available 2099marcus freitas [address], [place], [address], 04/23/2023 08:17:03 04/23/20 23 04/23/2023 urina lysis , dipst ick Unknown Analyte Normal = negati ve Not Available 2099marcus freitas [address], [place], [address], 04/23/2023 08:17:03 04/23/2004/23/2023 urina lysis , dipst ick Unknown Analyte Normal = Negati ve Not Available 2099marcus freitas [address], [place], [address], 04/23/2023 08:17:03 04/23/20 23 04/23/2023 urina lysis , dipst ick Unknown Analyte Normal = Negati ve Not Available 2099marcus freitas [address], [place], [address], 04/23/2023 08:17:03 04/23/20 23 04/23/2023 urina lysis , dipst ick Unknown Analyte Normal = 1.010, 1.015, 1.020 Not Available [facility] [address], [place], [address], 04/23/2023 08:17:03 04/23/20 23 04/23/2023 urina lysis , dipst ick Unknown Analyte Normal = Negati ve Not Available 2099amrcus freitas [address], [place], [address], 04/23/2023 08:17:03 04/23/20 23 04/23/2023 urina lysis , dipst ick Unknown Analyte Normal = 6.5, 7.0, 7.5, 8.0 Not Available marcus freitas [address], [place], [address], 04/23/2023 08:17:03 04/23/2004/23/2023 urina lysis , dipst ick Unknown Analyte Normal = Negati ve Not Available [facility] [address], [place], [address], 04/23/2023 08:17:03 04/23/20 23 04/23/2023 urina lysis , dipst ick Unknown Analyte Normal = 0.2, 1.0 Not Available [address], [place], [address], 04/23/2023 08:17:03 04/23/20 23 04/23/2023 urina lysis , dipst ick Unknown Analyte Normal = Negati ve Not Available [facility] [address], [place], [address], 04/23/2023 08:17:03 04/23/20 23 04/23/2023 urina lysis , dipst ick Unknown Analyte Normal = Negati ve Not Available marcus [address], [place], [address], 04/23/2023 08:17:03 04/23/20 23 04/23/2023 urina lysis , dipst ick Unknown Analyte Yellow Not Available [address], [place], [address], 04/23/2023 08:17:03 04/23/20 23 04/23/2023 urina lysis , dipst ick Unknown Analyte Clear Not Available [address] [place] [address], [place], [address], 04/23/2023 08:17:03 04/23/20 23 04/23/2023 urina lysis , dipst ick Unknown Analyte Negati ve Not Available marcus freitas [address], [place], [address], 04/23/2023 08:17:03 04/23/20 23 04/23/2023 urina lysis , dipst ick Unknown Analyte Negati ve Not Available marcus freitas [address], [place], [address], 04/23/2023 08:17:03 04/23/20 23 04/23/2023 urina lysis , dipst ick Unknown Analyte Negati ve Not Available marcus freitas [address], [place], [address], 04/23/2023 08:17:03 04/23/20 23 04/23/2023 urina lysis , dipst ick Unknown Analyte 1.015 Not Available [address], [place], [address], 04/23/2023 08:17:03 04/23/20 23 04/23/2023 urina lysis , dipst ick Unknown Analyte Trace- intact Not Available marcus [address], [place], [address], 04/23/2023 08:17:03 04/23/20 23 04/23/2023 urina lysis , dipst ick Unknown Analyte 6.0 Not Available [address], [place], [address], 04/23/2023 08:17:03 04/23/20 23 04/23/2023 urina lysis , dipst ick Unknown Analyte Negati ve Not Available marcus freitas [address], [place], [address], 04/23/2023 08:17:03 0604/23/2023 urina lysis , dipst ick Unknown Analyte 0.2 E.U./d L Not Available marcus freitas [address], [place], [address], 04/23/2023 08:17:03 04/23/20 23 04/23/2023 urina lysis , dipst ick Unknown Analyte Negati ve Not Available [facility] [address], [place], [address], 04/23/2023 08:17:03 04/23/20 23 04/23/2023 urina lysis , dipst ick Unknown Analyte Negati ve Not Available [facility] [address], [place], [address], 04/23/2023 08:17:03 04/23/20 23 04/23/2023 XR, chest , 2 view No observ ation record ed. [id number] [facility] [address] [place], [address], 04/23/2023 12:43:15 04/23/2004/23/2023 XR, chest + abdom en No observ ation record ed. [email or web address] [facility] [address] [place], [address], 04/23/2023 12:43:16 Result Notes None recorded. Problems Name Problem SNOMED Code Status Onset Date Resolution Date Notes Provider Name and Address Organization Details Recorded Time Hyperlipidemia 56350796 Active 2022 PREMA goode PA - [facility] 3 08:12:14 Hypertensive disorder 20623457 Active 2022 PREMA goode, PA - [facility] 3 08:12:22 Heart disease 28530985 Active 2022 PREMA goode PA - [facility] 3 08:12:36 Problem Notes None recorded. Procedures Surgical History Date Name Laterality Status Provider Name and Address Organization Details Recorded Time cardiopulmonary bypass operation completed PRE[facility] STEPH PA - [facility] 04/23/2023 08:12:52 Imaging Results None recorded. Procedure Notes None recorded. Medical Equipment None Reported. Allergies Allergen ID Allergen Name Allergen Category Reaction Reaction Severity Criticality Documentation Date Start Date Code Code System Note Provider Name and Address Organization Details Recorded Time 659898 lisinopri l medicatio n Not available Not available Not available 04/23/2023 93765 RxNorm PREMA STEPH null, PA - [facility] 3 08:10:10 017120 gabapenti n medicatio n Not available Not available Not available 04/23/2023 67865 RxNorm PREMA STEPH null, PA - [facility] 3 08:10:15 Medications Name Sig Start [...] blood by Pulse oximetry Heart rate Systolic And Diastolic Provider Name and Address Organization Details Last Updated DateTime 3 172.72 cm 26.2 kg/m2 30689.8 9 g 97.2 [degF] 18 /min 95 % 95 % 61 /min 135/68 mm[Hg] PREMA CHOI PA - [facility] 3 08:15:11 Social History Question Answer Notes LastModified by [employer] Details LastModified Time Tobacco Smoking Status Never Smoker PREMA goode PA [facility] 04/23/2023 08:13:10 Which Illicit Or Recreational Drugs Have You Used? Marijuana Information not available 04/23/2023 Have You Had Direct Contact, Or Contact During Intimacy, With Monkeypox Rash, Scabs, Or Body Fluids From A Person With Monkeypox? No Information not available 04/23/2023 Have You Recently Traveled Abroad? No Information not available 04/23/2023 Sex: Unknown Functional Status Question Answer Note LastModified by [employer] Details LastModified Time Do you use any illicit or recreational drugs? Yes Information not available 04/23/2023 Do you or have you ever used any other forms of tobacco or nicotine? No Information not available 04/23/2023 What is your level of alcohol consumption? Occasional Information not available 04/23/2023 Mental Status None recorded. Family History Nothing Reported. Medical History No medical history recorded. Immunizations Vaccine Type Date Status Note Provider Nam e and Address Organization Details Recorded Time Influenza, adjuvanted, trivalent, PF 6 completed PREMA goode PA - [facility] 04/23/2023 08:10:01 zoster recombinant 1 completed PREMA goode PA - [facility] 04/23/2023 08:10:01 zoster recombinant 0 completed PREMA goode PA - [facility] 04/23/2023 08:10:01 Influenza, high-dose, quadrivalent, PF 1 kristi goode PA - [facility] 04/23/2023 08:10:01 COVID-19, mRNA, LNP-S, PF, 30 mcg/0.3 mL dose 1 completed PREMA GOODHIND null, PA - [facility] 04/23/2023 08:10:01 COVID-19, mRNA, LNP-S, PF, 30 mcg/0.3 mL dose 1 completed PREMA GOODHIND null, PA - [facility] 04/23/2023 08:10:01 COVID-19, mRNA, LNP-S, PF, 30 mcg/0.3 mL dose 1 completed PREMA GOODHIND null, PA - [facility] 04/23/2023 08:10:01 COVID-19, mRNA, LNP-S, PF, 30 mcg/0.3 mL dose, joel-sucrose 2 completed PREMA GOODHIND null, PA - [facility] 04/23/2023 08:10:01 COVID-19, mRNA, LNP-S, bivalent, PF, 30 mcg/0.3 mL dose 2 completed PREMA GOODHIND null, PA - [facility] 04/23/2023 08:10:01 pneumococcal polysaccharide PPV23 7 completed PREMA GOODHIND null, PA - [facility] 04/23/2023 08:10:01 Pneumococcal conjugate PCV 13 5 completed PREMA GOODHIND null, PA - [facility] 04/23/2023 08:10:01 Influenza, high-dose, trivalent, PF 7 completed PREMA GOODHIND null, PA - [facility] 04/23/2023 08:10:01 Influenza, high-dose, trivalent, PF 5 completed PREMA GOODHIND null, PA - [facility] 04/23/2023 08:10:01 Influenza, high-dose, trivalent, PF 8 completed PREMA GOODHIND null, PA - [facility] 04/23/2023 08:10:01 Influenza, high-dose, trivalent, PF 9 completed PREMA MOONHIND null, PA - [facility] 04/23/2023 08:10:01 Influenza, split virus, trivalent, preservative 7 completed PREMA MOONHIND null, PA - [facility] 04/23/2023 08:10:01 Influenza, split virus, trivalent, preservative 0 completed PREMA MOONHIND null, PA - [facility] 04/23/2023 08:10:01 Influenza, split virus, trivalent, preservative 3 completed PREMA GOODHIND null, PA - [facility] 04/23/2023 08:10:01 Influenza, split virus, trivalent, preservative 9 completed PREMA GOODHIND null, PA - [facility] 04/23/2023 08:10:01 Influenza, split virus, trivalent, preservative 2 completed PREMA MOONHIND null, PA - [facility] 04/23/2023 08:10:01 Influenza, split virus, trivalent, preservative 5 completed PREMA GOODHIND null, PA - [facility] 04/23/2023 08:10:01 Influenza, split virus, trivalent, preservative 7 completed PREMA GOODHIND null, PA - [facility] 04/23/2023 08:10:01 Influenza, split virus, trivalent, preservative 1 completed PREMA MOONHIND null, PA - [facility] 04/23/2023 08:10:01 Influenza, split virus, trivalent, preservative 8 completed PREMA GOODHIND null, PA - [facility] 04/23/2023 08:10:01 Influenza, split virus, trivalent, preservative 6 completed PREMA GOODHIND null, PA - [facility] 04/23/2023 08:10:01 Influenza, split virus, trivalent, PF 0 completed PREMA GOODHIND null, PA - [facility] 04/23/2023 08:10:01 Novel [id number], preservative-free 0 completed PREMA goode, PA - [facility] 04/23/2023 08:10:02 Td (adult), 2 Lf tetanus toxoid, preservative free, adsorbed 0 completed PREMA goode, PA - [facility] 04/23/2023 08:10:02 Td (adult), 2 Lf tetanus toxoid, preservative free, adsorbed 7 completed PREMA goode, PA - [facility] 04/23/2023 08:10:02 Past Encounters Encounter ID Performer Location Encounter Start Date Encounter Closed Date Diagnosis/Indication Diagnosis SNOMED-CT Code Diagnosis ICD10 Code Diagnosis Note [id number] [facility] [address] [place] [address] 05/28/2017 13:29:40 05/28/2017 13:59:01 [id number] [facility] [address] [address] [place] [address] 05/24/2017 11:08:43 05/24/2017 11:56:56 [id number] [facility] [address] [address] [place] [address] 10/16/2018 13:33:37 10/16/2018 15:27:03 [id number] DANIKA MARSHALL [address] [address] [place] [address] 04/23/2023 08:04:30 04/23/2023 10:34:10 Right flank pain 926562308 R10.9 ? small right renal calculi. - [...] EMS. Calculus o f kidney and ureter 056550901 N20.2 Health Concerns Section Related Observation LastModified by Organization Detai ls LastModified Time None Recorded Concern Status LastModified by Organization Details LastModified Time None Recorded Advance Directives Directive None Recorded Payers Insurance Date Sequence Insurance Name Policy Number Policy Escalera Covered Member ID Escalera Member ID Guarantor Name 04/23/2023 1 [facility] (MEDICARE REPLACEMENT HMO) Bhavesh Ricardo [id number] Bhavesh Ricardo 09/14/2022 [employer] Bhavesh Haleigh Ricardo Notes Date Note Type Note Provider Name [...] able to sleep at night. DANIKA MARSHALL [address] [place], [address], [place] - [facility] 04/23/2023 12:33:37
--- OUTSIDE RECORDS SUMMARY | 2025-05-08 06:29 | XMS_ITS | Clinical Summary ---
Author Organization [facility] Address [address] [place] [address] Care Team Providers Care Director Of Event Management Name Role Phone Duane Lawler MD Primary Care Provider [phone] Allergies Active Allergy Reactions Criticality Noted Date [...] 57 08/25/2024 1:20 PM EDT Temperature 36.6 C (97.9 F) 08/25/2024 1:20 PM EDT Respiratory Rate - - Oxygen Saturation 95% [...] 07/25/2021, Additional history exists Influenza Vaccine (#1) 2025 , 07/03/2021, 06/29/2020, Additional history exists Pneumococcal Vaccine Completed 06/19/2015, 09/12/20 07 Shingrix-Zoster Vaccine Completed 01/09/2021, 09/08 Hepatitis B Vaccines Aged Out No long er eligible based on patient's age to complete this topic RSV Ped < 20 months Aged Out No longe r eligible based on patient's age to complete this topic Care Teams Director Of Event Management Relationship Specialty Start Date End Date Duane Lawler MD PCP - General Internal Medicine 01/15/21
== END 2025-05-08 06:28 | disposition home or self-care (01) ==
LOC: CF 06:27
PROVIDERS: Visit Provider Anesthesiology
DX: M47.816 Spondylosis without myelopathy or radiculopathy, lumbar region (principal)
CPT/HCPCS: 64493; 64494; J2003; J2795; Q9967

== ENCOUNTER 2025-05-08 14:57 | Outpatient (AMB) | payer OTHER, SELFPAY ==
--- OUTSIDE RECORDS SUMMARY | 2023-06-21 06:09 | XMS_ITS | Continuity of Care Document ---
Author Organization [facility] Address [address] [address] Phone Care Team Providers Care Business Development Director Name Role Phone Bonilla Royal DO Unavailable Unavailable Advance Directives Directive Yes / No Effective Date File Name No Information Encounters Encounter Description Practice Location Reason(s) For Visit Diagnoses Date [facility], [address], [id number], [place] tel:[phone] [address] [place] [address] No Information 2022 Lele Crystal. [address] [place] [address], [id number], [place]. tel:[phone] Family History Family Member Type Diagnosis Age [...]
--- OUTSIDE RECORDS SUMMARY | 2025-05-07 08:30 | XMS_ITS | Encounter Summary ---
Author Organization [facility] Address [address] [place] [address] Care Team Providers Care Continuous Dryout Operator Helper Name Role Phone Duane Lawler MD Primary Care Provider [phone] Reason for Visit * Imaging (Routine) - Authorized Specialty Diagnoses / Procedures Referred By Contac t Referred To Contact Diagnoses Infrarenal abdominal aortic aneurysm (AAA) without rupture (CMS/HCC V24) Procedures Vascular US duplex aorta/IVC/iliac/grafts complete Agustina Gates PA [address] [place] [address] Phone: tel: fax: [facility] Referral ID Status Reason Start Date Expiration Date V isits Requested Visits Authorized [id number] Authorized 08/12/2024 08/12/2025 1 1 Encounter Details Date Type Department Care Team (Latest Contact Info) Description 05/07/2025 8:30 AM EDT Ancillary Procedure [facility] - [address] [place] [address] Infrarenal abdominal aortic aneurysm (AAA) without rupture ([facility] V24) Social History Tobacco Use Types Packs/Day [...] Description 05/10/2025 3:45 PM EDT Ancillary Procedure [facility]iology [facility] [address] [address] 05/11/2025 1:30 PM EDT Office Visit Adult [address] [address] Duane Lawler MD [address] [place] [address] 05/14/2025 12:00 PM EDT Ancillary Procedure [facility] [address] [address] 06/07/2025 3:30 PM EDT Office Visit Vascular Surgery [facility] 300 [facility] 210 [place] [address] Brianna Trammell MD [address] [address] 07/03/2025 2:30 PM EDT Office Visit [address] [address] Gillian Jarrett PA [address] [place] [address] 08/31/2025 2:40 PM EST Office Visit [facility] 154 300 [facility] 154 [place] [phone] Donell Haynes NP 300 [place] [address] 09/06/2025 2:00 PM EST Office Visit [facility] Hematology Oncology [address] [place] [phone] Jesica Biggs PA [address] [place] [address] documented as of this encounter Procedures Procedure [...] normal. There is normal color filling visualized. Strategy Consultant Details A wright scale, color and doppler analysis ultrasound was performed. During the study longitudinal and transverse views were obtained. Pulsed wave doppler was performed. us Agustina GARNICA CV VASCULAR PROCEDURES Final Result documented in this encounter Visit Diagnoses Diagnosis Infrarenal abdominal aortic aneurysm (AAA) without rupture ([facility] V24) documented in this encounter Care Teams Continuous Dryout Operator Helper Relationship Specialty Start Date End Date Duane Lawler MD [address] [place] [address] PCP - General Internal Medicine 08/07/20 documented as of this encounter
--- NOTE | 2025-05-08 15:08 | A.OFFVIS_ITS ---
Vital Signs 05/08/25 15:19 Height 5 ft 8 in Weight 170 lb BMI 25.8 BP 140/64 H Blood Pressure Location Lt brachial Position Sitting Respiration 18 Pulse 56 Pulse Source Pulse Oximeter Pulse Oximetry (%) 94 Oxygen Delivery Method Room Air Intake Visit Reasons: BILATERAL DIAGNOSTIC L3, L4, DRL5 MBB Peripheral Vascular Tech Required: No Allergies gabapentin Allergy (Mild, Verified 02/28/25 13:30) spaces out omeprazole Allergy (Mild, Verified 02/28/25 13:30) weakness, disoritentation. lisinopril Allergy (Verified 02/28/25 13:30) Unknown [facility] Medical History Spinal stenosis Coronary artery disease Hyperlipidemia Carotid stenosis Duodenal ulcer Appendicitis Surgical History Previous back surgery History of hip replacement S/P triple vessel bypass Social History Alcohol intake: current Alcohol intake frequency: 0-2 drinks per day Comment: 1 beer daily, 1 half glass of wine nightly Patient Tobacco Use Status: Former Tobacco user Tobacco use type: Cigarette Cigarette Packs Per Day: 10 Substance Use Type: Marijuana Physical Exam Vital Signs: Last Vital Signs Pulse 56 05/08/25 15:19 Resp 18 05/08/25 15:19 BP 140/64 H 05/08/25 15:19 Pulse Ox 94 05/08/25 15:19 Oxygen Delivery Method Room Air 05/08/25 15:19 BMI result Body Mass Index 25.8 Assessment & Plan Assessment & Plan (1) Lumbar spondylosis: Code(s): M47.816 - Spondylosis without myelopathy or radiculopathy, lumbar region Category: Medical Plan Diagnostic medial branch block L3,L4 dorsal ramus L5 bilateral.? ? ?Informed consent was explained to the patient. All questions were explained and? answered.The patient is recommended by his housecleaner floor to continue low dose aspirin because of elevated cardiovascular risks. The risk of bleeding was explained to the patien, he expressed understanding.? The patient was taken inside the operating room where she was positioned prone on the operating table. Time-out was performed delineating correct site, side, the nature of the procedure, patient's allergy, . All operating room staff was participating in OR time-out procedure. ? ? The lower back was prepped with ChloraPrep and draped with sterile towels.? C- arm was brought over the operating field and sq picture of L4-, L5 vertebra and S1 AREA were delineated on the screen.? Point of interest were delineated as confluence of superior articular process of L4 and L5 vertebra bilaterally with corresponding transverse processes as well as confluence of the sacral alae bilaterally with superior articular process of S1.? The projection of the point of interest to the skin were injected with the small amount of local anesthetic lidocaine 2% mixed with ropivacaine 0.5% 1-1 approcimately 1 cc.? After that 22 gauge 3.5 inch spinal needle was driven sequentially to the points of interest in tunnel vision fashion. After needles gently contacted the bone at the point of interests the needle was injected with small amount of the contrast.? The injection of the contrast did not demonstrate any intravascular or intrathecal spread of the contrast.? After that injection of the? ropivacaine 0.5%-1cc was performed at each needle location. ?after that the needles were removed and Bandaids were applied. Orders: Orders FL guidance in treatment room Today M47.816 - Spondylosis without myelopathy or radiculopathy, lumbar region Coding Level of Care Code Procedure Only Diagnoses Lumbar spondylosis M47.816
[2025-05-08 15:19] VITALS: BP 140/64; PULSE 56; RESP 18; O2SAT 94; BMI 25.8
--- OUTSIDE RECORDS SUMMARY | 2025-05-08 16:16 | XMS_ITS | Clinical Summary ---
Author Organization [facility] Address [address] [place] [address] Care Team Providers Care Analytical Consultant Name Role Phone Duane Lawler MD Primary Care Provider [phone] Allergies Active Allergy Reactions Criticality Noted Date [...] age to complete this topic Care Teams Analytical Consultant Relationship Specialty Start Date End Date Duane Lawler MD PCP - General Internal Medicine 01/15/21
--- OUTSIDE RECORDS SUMMARY | 2025-05-08 16:16 | XMS_ITS | Data Portability ---
Author Organization DANIKA Waller [facility], [address] Address [address] [place] [address] Care Team Providers Care Side Panel Hanger Name Role Phone MADY S[employer] Test Technician Unavailable Assessment No assessment recorded. Plan of Treatment Reminders Order Date Submit Date Provider Last Modified By Organization Details Last Modified Time Details Appointments None recorded. Lab culture, urine 2022 023 [place] [facility], [address] [place] [address], [place], [address], 3 08:06:56 urinalysis, dipstick 2022 023 [place] [facility], [address] [facility], [place], [address], 3 09:40:27 Referral emergency medicine referral 2022 023 [email or web address] 1 [facility], [address] [place], [address], 3 11:29:09 Procedures None recorded. Surgeries None recorded. Imaging XR, chest + abdomen - Right sided flank pain x 1 week. Was intermittan t and now it is constant. No urinary symptoms. No constipatio n. History of multiple abdominal surgeries. No gallbladder or appendix. 2022 023 [email or web address] [facility], [address] [place], [address], 3 10:34:10 XR, chest, 2 view - Right sided flank pain. Mild shortness of breath on the right side. Mild cough. No fever. Was exposed to pneumonia. No history of COPD or Asthma. 2022 023 [email or web address] [facility], [address] [place], [address], 10:34:10 Medication Orders None recorded. Patient TargetsNo targets recorded. Patient Instructions Encounter Date Encounter Id Patient Instructions Last Modified By Organization Details Last Modified Time 04/23/2023 [id number] Based on your ex am and presentation [...] why my recommendation is the Emergency Room. [email or web address] Not available 04/23/2023 10:29:52 Reason for Referral Emergency Medicine Referral for Right flank pain Referring Physician: Megan Griffin, Urgent Care, Encounter Date: 04/23/2023 Results Created Date Observation Date Name Description Value Unit Range Abnormal Flag Note LastModifiedBy Organization Detail LastModifiedTime 04/23/2004/25/2023 URINE CULTU REJEFF urine culture, routine FINAL REPORT Not Available [facility] ([facility]) [address] [place], [address], 04/25/2023 08:06:56 04/23/2004/25/2023 URINE CULTU REJEFF result 1 NO GROWTH Not Available [facility] ([facility]) [address] [facility], [place], [address], 04/25/2023 08:06:56 04/23/2004/23/2023 urina lysis , dipst ick Unknown Analyte Normal = light yellow Not Available [address] [address] [place] [address], [place], [address], 04/23/2023 08:17:03 04/23/20 23 04/23/2023 urina lysis , dipst ick Unknown Analyte Normal = clear Not Available 2099marcus freitas [address], [place], [address], 04/23/2023 08:17:03 04/23/20 23 04/23/2023 urina lysis , dipst ick Unknown Analyte Normal = negati ve Not Available 2099marcus freitas [address], [place], [address], 04/23/2023 08:17:03 04/23/2004/23/2023 urina lysis , dipst ick Unknown Analyte Normal = Negati ve Not Available 2099marcus freitas [address], [place], [address], 04/23/2023 08:17:03 04/23/20 23 04/23/2023 urina lysis , dipst ick Unknown Analyte Normal = Negati ve Not Available 2099marcus freitas [address], [place], [address], 04/23/2023 08:17:03 04/23/20 23 04/23/2023 urina lysis , dipst ick Unknown Analyte Normal = 1.010, 1.015, 1.020 Not Available [facility] [address], [place], [address], 04/23/2023 08:17:03 04/23/20 23 04/23/2023 urina lysis , dipst ick Unknown Analyte Normal = Negati ve Not Available [address] fre[address], [place], [address], 04/23/2023 08:17:03 04/23/20 23 04/23/2023 urina lysis , dipst ick Unknown Analyte Normal = 6.5, 7.0, 7.5, 8.0 Not Available marcus freitas [address], [place], [address], 04/23/2023 08:17:03 04/23/2004/23/2023 urina lysis , dipst ick Unknown Analyte Normal = Negati ve Not Available [facility] [address], [place], [address], 04/23/2023 08:17:03 04/23/20 23 04/23/2023 urina lysis , dipst ick Unknown Analyte Normal = 0.2, 1.0 Not Available [address], [place], [address], 04/23/2023 08:17:03 04/23/20 23 04/23/2023 urina lysis , dipst ick Unknown Analyte Normal = Negati ve Not Available [facility] [address], [place], [address], 04/23/2023 08:17:03 04/23/20 23 04/23/2023 urina lysis , dipst ick Unknown Analyte Normal = Negati ve Not Available marcus [address], [place], [address], 04/23/2023 08:17:03 04/23/20 23 04/23/2023 urina lysis , dipst ick Unknown Analyte Yellow Not Available [address], [place], [address], 04/23/2023 08:17:03 04/23/20 23 04/23/2023 urina lysis , dipst ick Unknown Analyte Clear Not Available [address] [place] [address], [place], [address], 04/23/2023 08:17:03 04/23/20 23 04/23/2023 urina lysis , dipst ick Unknown Analyte Negati ve Not Available marcus freitas [address], [place], [address], 04/23/2023 08:17:03 04/23/20 23 04/23/2023 urina lysis , dipst ick Unknown Analyte Negati ve Not Available marcus freitas [address], [place], [address], 04/23/2023 08:17:03 04/23/20 23 04/23/2023 urina lysis , dipst ick Unknown Analyte Negati ve Not Available marcus freitas [address], [place], [address], 04/23/2023 08:17:03 04/23/20 23 04/23/2023 urina lysis , dipst ick Unknown Analyte 1.015 Not Available [address], [place], [address], 04/23/2023 08:17:03 04/23/20 23 04/23/2023 urina lysis , dipst ick Unknown Analyte Trace- intact Not Available marcus [address], [place], [address], 04/23/2023 08:17:03 04/23/20 23 04/23/2023 urina lysis , dipst ick Unknown Analyte 6.0 Not Available [address], [place], [address], 04/23/2023 08:17:03 04/23/20 23 04/23/2023 urina lysis , dipst ick Unknown Analyte Negati ve Not Available marcus freitas [address], [place], [address], 04/23/2023 08:17:03 0604/23/2023 urina lysis , dipst ick Unknown Analyte 0.2 E.U./d L Not Available marcus freitas [address], [place], [address], 04/23/2023 08:17:03 04/23/20 23 04/23/2023 urina lysis , dipst ick Unknown Analyte Negati ve Not Available [facility] [address], [place], [address], 04/23/2023 08:17:03 04/23/20 23 04/23/2023 urina lysis , dipst ick Unknown Analyte Negati ve Not Available [facility] [address], [place], [address], 04/23/2023 08:17:03 04/23/20 23 04/23/2023 XR, chest , 2 view No observ ation record ed. [email or web address] [id number] [facility] [address] [place], [address], 04/23/2023 12:43:15 04/23/2004/23/2023 XR, chest + abdom en No observ ation record ed. [facility] [address] [place], [address], 04/23/2023 12:43:16 Result Notes None recorded. Problems Name Problem SNOMED Code Status Onset Date Resolution Date Notes Provider Name and Address Organization Details Recorded Time Hyperlipidemia 51002168 Active 2022 PREMA goode PA - [facility] 3 08:12:14 Hypertensive disorder 28794262 Active 2022 PREMA goode, PA - [facility] 3 08:12:22 Heart disease 30222622 Active 2022 PREMA goode PA - [facility] 3 08:12:36 Problem Notes None recorded. Procedures Surgical History Date Name Laterality Status Provider Name and Address Organization Details Recorded Time cardiopulmonary bypass operation completed PREMA STEPH PA - [facility] 04/23/2023 08:12:52 Imaging Results None recorded. Procedure Notes None recorded. Medical Equipment None Reported. Allergies Allergen ID Allergen Name Allergen Category Reaction Reaction Severity Criticality Documentation Date Start Date Code Code System Note Provider Name and Address Organization Details Recorded Time 011983 lisinopri l medicatio n Not available Not available Not available 04/23/2023 69387 RxNorm PREMA STEPH null, PA - [facility] 3 08:10:10 942503 gabapenti n medicatio n Not available Not available Not available 04/23/2023 03665 RxNorm PRE[facility] STEPH null, [facility] - [facility] [...] Updated DateTime 3 172.72 cm 26.2 kg/m2 22710.8 9 g 97.2 [degF] 18 /min 95 % 95 % 61 /min 135/68 mm[Hg] PREMA CHOI PA - [facility] 3 08:15:11 Social History Question Answer Notes LastModified by [employer] Details LastModified Time Tobacco Smoking Status Never [...] Functional Status Question Answer Note LastModified by [employer] Details LastModified Time Do you use any [...] PA - [facility] 04/23/2023 08:10:01 Novel [id number], preservative-free 0 completed PREMA goode, PA - [...] SNOMED-CT Code Diagnosis ICD10 Code Diagnosis Note [id number] [facility] [address] [place] [address] 05/28/2017 13:29:40 05/28/2017 13:59:01 [id number] [facility] [address] [address] [place] [address] 05/24/2017 11:08:43 05/24/2017 11:56:56 [id number] [facility] [address] [address] [place] [address] 10/16/2018 13:33:37 10/16/2018 15:27:03 [id number] DANIKA MARSHALL [address] [address] [place] [address] 04/23/2023 08:04:30 04/23/2023 10:34:10 Right flank pain 366566080 R10.9 ? small right renal calculi. - [...] EMS. Calculus o f kidney and ureter 473078382 N20.2 Health Concerns Section Related Observation LastModified by Organization Detai ls LastModified Time None Recorded Concern Status LastModified by Organization Details LastModified Time None Recorded Advance Directives Directive None Recorded Payers Insurance Date Sequence Insurance Name Policy Number Policy Escalera Covered Member ID Escalera Member ID Guarantor Name 04/23/2023 1 [facility] (MEDICARE REPLACEMENT HMO) Bhavesh Ricardo [id number] Bhavesh Ricardo 09/14/2022 [employer] Bhavesh Haleigh Ricardo Notes Date Note Type [...] DANIKA MARSHALL [address] [place], [address], [place] - [facility] 04/23/2023 12:33:37
== END 2025-05-08 15:38 | disposition home or self-care (01) ==
LOC: HO.PMCPRC 14:57
PROVIDERS: PCP Internal Medicine; Visit Provider Anesthesiology
DX: M47.816 Spondylosis without myelopathy or radiculopathy, lumbar region (principal)
CPT/HCPCS: 64493; 64494

== ENCOUNTER 2025-05-11 10:42 | Outpatient (AMB) | payer OTHER, SELFPAY ==
--- OUTSIDE RECORDS SUMMARY | 2023-06-21 06:09 | XMS_ITS | Continuity of Care Document ---
Author Organization [facility] Address [address] [address] Phone Care Team Providers Care Ball Holder Name Role Phone Bonilla Royal DO Unavailable Unavailable Advance Directives Directive Yes / No Effective Date File Name No Information Encounters Encounter Description Practice Location Reason(s) For Visit Diagnoses Date Provider [facility], [address], [id number], [place] tel:[phone] [address] [place] [address] No Information 2022 Lele Crystal. [address] [place] [address], [id number], [place]. tel:[phone] Family History Family Member Type Diagnosis Age At Onset No Information Payers Payer name Insurance type Covered alliance party ID Authoriza tion(s) No Information Social History Type Description Quantity Date Captured Comments Sex Male Smoking Status No Information Chief Complaint And Reason For Visit No Information History Of Present Illness Encounter Date Complaint History Of Prese nt Illness No Information Instructions Date Instruction Additional Infor mation No Information Assessments Type Assessment Date No Information
--- OUTSIDE RECORDS SUMMARY | 2025-05-07 08:30 | XMS_ITS | Encounter Summary ---
Author Organization [facility] Address [address] [place] [address] Care Team Providers Care Life Skills Worker Name Role Phone Duane Lawler MD Primary Care Provider [phone] Reason for Visit * Imaging (Routine) - Authorized Specialty Diagnoses / Procedures Referred By Contac t Referred To Contact Diagnoses Infrarenal abdominal aortic aneurysm (AAA) without rupture (CMS/HCC V24) Procedures Vascular US duplex aorta/IVC/iliac/grafts complete Agustina Gates PA [address] [place] [address] Phone: tel: fax: [facility] Referral ID Status Reason Start Date Expiration Date V isits Requested Visits Authorized [id number] Authorized 08/12/2024 08/12/2025 1 1 Encounter Details Date Type Department Care Team (Latest Contact Info) Description 05/07/2025 8:30 AM EDT Ancillary Procedure [facility] Associates - [address] [place] [address] Infrarenal abdominal aortic aneurysm (AAA) without rupture ([facility] V24) Social History Tobacco Use Types Packs/Day Years [...] on file documented as of this encounter Plan of Treatment Upcoming Encounters Date Type Department Care Team (Late st Contact Info) Description 05/11/2025 1:30 PM EDT Office Visit Adult Medicine [address] [phone] Duane Lawler MD [address] [place] [address] 05/14/2025 12:00 PM EDT Ancillary Procedure [facility] Cardiology [facility] - [facility] 101 300 [facility] 101 [place] [address] 05/17/2025 12:45 PM EDT Appointment Radiology Department [address] [address] 06/07/2025 3:30 PM EDT Office Visit Vascular Surgery - [place] 300 [facility] 210 [place] [address] Brianna Trammell MD [address] [address] 07/03/2025 2:30 PM EDT Office Visit [address] [phone] Gillian Jarrett PA [address] [place] [address] 08/31/2025 2:40 PM EST Office Visit [facility] Cardiology [facility] - [facility] 154 300 [facility] 154 [place] [phone] Donell Haynes NP 300 [place] [address] 09/06/2025 2:00 PM EST Office Visit [facility] Hematology Oncology [address] [place] [phone] Jesica Biggs PA [address] [place] [address] documented as of this encounter Procedures Procedure Name Priority Date/Time Associated Diagnosis Comments VAS US DUPLEX AORTA/IVC/ILIAC/GRA FTS COMPLETE Routine 05/07/2025 8:34 AM EDT Infrarenal abdominal aortic aneurysm (AAA) without rupture (CMS/HCC V24) documented in this encounter Results * Vascular US duplex aorta/IVC/iliac/grafts complete (05/07/2025 8:34 AM EDT) Abdominal dist aorta stefan 34 cm/s CV [facility] LAB Abdominal mid aorta stefan 49 cm/s CV [facility] Abdominal prox aorta stefan 44 cm/s CV [facility] LAB Abdominal prox aorta AP 2.17 cm CV [facility] LAB Abdominal prox aorta trans 2.58 cm CV [facility] LAB Proximal Aorta Long Diameter 2.00 cm CV [facility] LAB Abdominal mid aorta AP 2.52 cm CV VAS LAB Abdominal mid aorta trans 2.94 cm CV VAS LAB Mid Aorta Long Diameter 2.52 cm CV [facility] LAB Abdominal dist aorta AP 3.46 cm CV [facility] LAB Abdominal dist aorta trans 3.69 cm CV [facility] LAB Dist Aorta Long Diameter 3.65 cm CV [facility] LAB Abdominal rt com iliac AP 1.25 cm CV [facility] LAB Abdominal rt com iliac trans 1.53 cm CV [facility] Right Common Iliac Long Diameter 1.18 cm CV [facility] LAB Right Prox Common Iliac PSV 144 cm/s CV [facility] LAB Abdominal lt com iliac AP 1.20 cm CV [facility] LAB Abdominal lt com iliac trans 1.25 cm CV [facility] LAB Left Common Iliac Long Diameter 0.71 cm CV VAS LAB Left Prox Common Iliac PSV 103 cm/s CV VAS LAB Anatomical Region Laterality Modality Vascular, Abdomen Ultrasound Narrative 05/08/2025 3:57 PM EDT An abdominal aortic aneurysm is noted in the distal aorta. Plaque is present. There is thrombus. 3.7 cm distal abdominal aortic aneurysm noted. No evidence of iliac artery aneurysm noted. A less than 50% stenosis noted in the aorta and bilateral common iliac arteries. Abdominal Aorta An abdominal aortic aneurysm is noted in the distal aorta. There is nonocclusive thrombus and plaque present with a lumen measuring 2.12 x 2.00 x 1.28cm. Inferior Vena Cava The proximal inferior vena cava Doppler waveform appears normal. There is normal color filling visualized. Home Care Music Therapist Details A wright scale, color and doppler analysis ultrasound was performed. During the study longitudinal and transverse views were obtained. Pulsed wave doppler was performed. us Agustina GARNICA CV VASCULAR PROCEDURES Final Result documented in this encounter Visit Diagnoses Diagnosis Infrarenal abdominal aortic aneurysm (AAA) without rupture (CMS/[facility] V24) documented in this encounter Care Teams Life Skills Worker Relationship Specialty Start Date End Date Duane Lawler MD [address] [place] [address] PCP - General Internal Medicine 08/07/20 documented as of this encounter
[2025-05-11 10:44] VITALS: BP 132/63; PULSE 63; RESP 16; O2SAT 94; BMI 24.8
--- NOTE | 2025-05-11 10:44 | MHC.OFFVIS ---
Vital Signs 05/11/25 10:44 Height 5 ft 8 in Weight 163 lb BMI 24.8 BP 132/63 Blood Pressure Location Rt brachial Position Sitting Respiration 16 Pulse 63 Pulse Source Pulse Oximeter Pulse Oximetry (%) 94 Oxygen Delivery Method Room Air Intake Visit Reasons: S/P BILATERAL DIAGNOSTIC L3, L4, DRL5 MBB Senior Product Development Manager Required: No Accompanied by: Self / Same As Patient Allergies gabapentin Allergy (Mild, Verified 05/11/25 10:48) spaces out omeprazole Allergy (Mild, Verified 05/11/25 10:48) weakness, disoritentation. lisinopril Allergy (Verified 05/11/25 10:48) Unknown HPI Comments Details: The patient is an 85-year-old male presenting to the office for follow up, 3 days status post bilateral diagnostic L3-L4 DR L5 medial branch blocks. He reports 100% pain relief to his lower back that has persisted since the injections. Today he complains of neck pain. The neck pain has been persistent despite previous interventions including injections, acupuncture, and therapy, which were performed last year. The patient reports associated symptoms of lightheadedness and occasional numbness. The patient also reports a history of diverticulitis, which was diagnosed during a recent hospitalization a few weeks ago. He experienced blood in his stool, which has since resolved. The patient is scheduled for an ultrasound to evaluate potential kidney issues, as he experiences pain in the kidney area. Additionally, the patient has a history of a brain tumor, which has been stable for years without recent symptoms. - Location: Neck - Quality: Persistent, associated with lightheadedness and numbness - Previous interventions: Injections, acupuncture, therapy - Affect: Pain impacts mood and psychological wellbeing, causing frustration. - Analgesia: Previous interventions include injections, acupuncture, and therapy, but pain persists. - Activities of Daily Living: Pain limits ability to perform household tasks. PFSH Medical History Spinal stenosis Coronary artery disease Hyperlipidemia Carotid stenosis Duodenal ulcer Appendicitis Surgical History Previous back surgery History of hip replacement S/P triple vessel bypass Social History Alcohol intake: current Alcohol intake frequency: 0-2 drinks per day Comment: 1 beer daily, 1 half glass of wine nightly Patient Tobacco Use Status: Former Tobacco user Tobacco use type: Cigarette Cigarette Packs Per Day: 10 Substance Use Type: Marijuana Review of Systems Const Details: - Neurological: Reports lightheadedness and occasional numbness. - Gastrointestinal: Reports history of diverticulitis with previous blood in stool, now resolved. - Musculoskeletal: Reports neck pain. - Genitourinary: Reports kidney pain, awaiting ultrasound. Physical Exam Vital Signs: Last Vital Signs Pulse 63 05/11/25 10:44 Resp 16 05/11/25 10:44 BP 132/63 05/11/25 10:44 Pulse Ox 94 05/11/25 10:44 Oxygen Delivery Method Room Air 05/11/25 10:44 BMI result Body Mass Index 24.8 General: awake, alert, oriented. Answers questions appropriately. Fully engaged in examination. Skin: warm, dry, intact HEENT: Normocephalic. Hearing intact. Cardiac: External chest normal in appearance. Respiratory: No cough, audible wheezing or stridor. Abdomen: without gross distension. MS: No obvious swelling or deformities. Neurological: Oriented to person, place, time and situation. Thought process intact. No gait abnormalities appreciated. Psychiatric: Appropriate mood and affect. Good judgment and insight. Results Reviewed Results Reviewed: 06/13/24 EXAMINATION: CT CERVICAL SPINE WITHOUT CONTRAST CT LUMBAR SPINE WITHOUT CONTRAST CLINICAL INFORMATION: Midline atraumatic cervical spine and lumbar tenderness. COMPARISON: Cervical and lumbar spine radiographs from 05/11/2024. TECHNIQUE: Multidetector helical imaging of the lumbar spine was obtained without intravenous contrast. Multiple axial reformats and coronal/sagittal reconstructions were created the technologist workstation for review. This CT examination was performed using dose optimization techniques as appropriate, variously including the following: *Automated exposure control. *Adjustment of mA and/or kV according to patient size (this includes techniques or standardized protocols for targeted exams where dose is matched to indication/reason for exam; i.e. extremities or head). *Use of iterative reconstruction technique. DLP: 885 mGy-cm FINDINGS: Cervical Spine: The atlantooccipital and atlantoaxial articulations remain well aligned. Moderate degenerative arthropathy of the atlantodental articulation. Partial straightening of the normal cervical lordosis. Otherwise, there is anatomic alignment of the vertebral bodies and posterior elements. No evidence of acute fracture or subluxation. The vertebral body heights are maintained. Advanced degenerative disc disease from C5-C7. Moderate degenerative disc disease at all additional levels. There is no prevertebral soft tissue swelling. The thyroid gland and remaining cervical soft tissues are within normal limits. Persistent azygos fissure. The lung apices demonstrate no abnormalities. SPINAL LEVELS: C2-C3: Moderate disc-osteophyte complex. There is mild left moderate right and mild left uncovertebral joint arthropathy. There is severe left and moderate right facet joint arthropathy. There is moderate bilateral neural foraminal stenosis. There appears to be mild spinal canal stenosis. C3-C4: Moderate disc-osteophyte complex. There is moderate right and mild left uncovertebral joint arthropathy. There is severe right and moderate left facet joint arthropathy. There is severe right and moderate left neural foraminal stenosis. There appears to moderate spinal canal stenosis. C4-C5: Mild disc-osteophyte complex. There is moderate and mild left uncovertebral joint arthropathy. There is severe right and moderate left facet joint arthropathy. There is moderate bilateral neural foraminal stenosis. There appears to be mild spinal canal stenosis. C5-C6: Moderate disc-osteophyte complex. There is severe bilateral uncovertebral joint arthropathy. There is severe right and moderate left facet joint arthropathy. There is severe bilateral neural foraminal stenosis. There appears to moderate spinal canal stenosis. C6-C7: Moderate disc-osteophyte complex. There is severe left and moderate right uncovertebral joint arthropathy. There is moderate bilateral facet joint arthropathy. There is severe left and moderate right neural foraminal stenosis. There is no demonstrated spinal canal stenosis. C7-T1: Mild disc-osteophyte complex. There is mild bilateral uncovertebral joint arthropathy. There is moderate bilateral facet joint arthropathy. There is no neural foraminal stenosis. There is no demonstrated spinal canal stenosis. Lumbar Spine: Degenerative grade 1 anterolisthesis of L4 on L5. Otherwise, normal anatomic alignment. No evidence of acute fracture or traumatic subluxation. The vertebral body heights are maintained. The intervertebral disc spaces are maintained. No suspicious lytic or sclerotic osseous lesions. No significant abnormalities of the paraspinal musculature. Limited evaluation of the intra-abdominal structures without significant abnormalities. Moderate to advanced calcific atherosclerotic disease of the abdominal aorta. Fusiform infrarenal abdominal aortic aneurysm measuring up to 4.2 cm in diameter. AXIAL SPINAL LEVELS: L1-L2: Mild diffuse disc bulge. There is mild bilateral facet joint arthropathy. There is no neural foraminal stenosis. There is the demonstrated spinal canal stenosis. L2-L3: Moderate diffuse disc bulge. There is moderate right and mild left facet joint arthropathy. There is mild bilateral neural foraminal stenosis. There appears to be mild spinal canal stenosis. L3-L4: Mild diffuse disc bulge. There is moderate to severe bilateral facet joint arthropathy with ligamentum flavum hypertrophy. There is moderate bilateral neural foraminal stenosis. There appears to be moderate to severe spinal canal stenosis. L4-L5: Moderate diffuse disc bulge exacerbated by uncovering from anterolisthesis. There is severe bilateral facet joint arthropathy. There is moderate right worse than left neural foraminal stenosis. There appears to moderate to severe spinal canal stenosis. L5-S1: Mild diffuse disc bulge. There is severe bilateral facet joint arthropathy. There is mild bilateral neural foraminal stenosis. There is no demonstrated spinal canal stenosis. IMPRESSION: 1. No evidence of acute fracture or traumatic subluxation of the cervical or lumbar spine. 2. Moderate multilevel degenerative spondyloarthropathy of the cervical spine as described in detail above. Most notably on this limited exam without intrathecal contrast, there appears to be moderate spinal canal stenoses at C3-C4 and C5-C6. Mild spinal canal stenoses at C2-C3 and C4-C5. Moderate to severe neural foraminal stenoses from C2-C7. 3. 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 Most notably on this limited exam without intrathecal contrast, there appears to be moderate to severe spinal canal stenoses at L3-L4 and L4-L5. Mild spinal canal stenoses at L2-L3. Moderate neural foraminal stenoses at L3-L4 and L4-L5. 4. Infrarenal abdominal aortic aneurysm measuring up to 4.2 cm in diameter. Recommend follow-up for an infrarenal abdominal aortic aneurysm of this size is every 12 months. Additionally, vascular consultation or continued follow-up with a vascular specialist is recommended. 05/11/24 XR/XR cervical spine w flex/ext IMPRESSION: 1. Grade 1 anterolisthesis of C4 on C5 without appreciable change between flexion and extension. 2. Neyq-hi-waajfvmi multilevel degenerative disc disease in the cervical spine, most pronounced at C5-C6. Multilevel cervical facet arthropathy, right side greater than left. 3. Multilevel neural foraminal encroachment on the right in the cervical spine. 4. Grade 1 anterolisthesis of L4 on L5 with severe facet arthropathy at this level. 5. Mild degenerative disc disease at L4-L5. Assessment & Plan Assessment & Plan (1) Cervical spondylosis: Code(s): M47.812 - Spondylosis without myelopathy or radiculopathy, cervical region Category: Medical (2) Lumbar spondylosis: Code(s): M47.816 - Spondylosis without myelopathy or radiculopathy, lumbar region Category: Medical (3) Post laminectomy syndrome: Code(s): M96.1 - Postlaminectomy syndrome, not elsewhere classified Category: Medical Plan For the neck pain, an MRI will be ordered to evaluate as patient has exhausted conservative therapy. The patient is advised to follow up with the primary care physician to discuss the ultrasound results and any further management for diverticulitis. Discussed options for treatment of his lower back pain given positive results of the diagnostic medial branch blocks. Patient would like to hold off on further interventions until pain returns as he is dealing with kidney issues and diverticulitis follow-up which is already taking up a lot of his time with doctor's appointments. The plan will be to proceed with bilateral L3-L4 DR L5 RFA with light sedation when pain returns. Patient was informed and verbally consented to the use of an ambient scribe for clinic note documentation during this visit. Patient Instructions: - Follow up with your primary care physician to discuss the ultrasound results. - Monitor for any return of blood in stool and report to your doctor. - Await call to scheduling an MRI for your neck - Return for further evaluation if neck pain persists. Coding Level of Care Code Est Pt Level 3 (86434) Complex EM visit Add On G2211 Diagnoses Cervical spondylosis M47.812 Lumbar spondylosis M47.816 Post laminectomy syndrome M96.1
--- OUTSIDE RECORDS SUMMARY | 2025-05-11 11:14 | XMS_ITS | Data Portability ---
Author Organization DANIKA Waller s, [address] Address [address] [place] [address] Care Team Providers Care Medical Payment Poster Name Role Phone MADY SORTO Manager Audit Unavailable Assessment No assessment recorded. Plan of Treatment Reminders Order Date Submit Date Provider Last Modified By Organization Details Last Modified Time Details Appointments None recorded. Lab culture, urine 2022 023 [place] [facility], [address] [place] [address], [place], [address], 3 08:06:56 urinalysis, dipstick 2022 023 [place] [facility], [address] [facility], [place], [address], 3 09:40:27 Referral emergency medicine referral 2022 023 [email or web address] 1 [facility], [address] [place], [address], 3 11:29:09 Procedures None recorded. Surgeries None recorded. Imaging XR, chest + abdomen - Right sided flank pain x 1 week. Was intermittan t and now it is constant. No urinary symptoms. No constipatio n. History of multiple abdominal surgeries. No gallbladder or appendix. 2022 023 [email or web address] [facility], [address] [place], [address], 3 10:34:10 XR, chest, 2 view - Right sided flank pain. Mild shortness of breath on the right side. Mild cough. No fever. Was exposed to pneumonia. No history of COPD or Asthma. 2022 023 [facility], [address] [place], [address], 10:34:10 Medication Orders None recorded. Patient TargetsNo targets recorded. Patient Instructions Encounter Date Encounter Id Patient Instructions Last Modified By Organization Details Last Modified Time 04/23/2023 [id number] Based on your ex am and presentation [...] why my recommendation is the Emergency Room. [email or web address] Not available 04/23/2023 10:29:52 Reason for Referral Emergency Medicine Referral for Right flank pain Referring Physician: Megan Griffin, Urgent Care, Encounter Date: 04/23/2023 Results Created Date Observation Date Name Description Value Unit Range Abnormal Flag Note LastModifiedBy Organization Detail LastModifiedTime 04/23/2004/25/2023 URINE CULTU REJEFF urine culture, routine FINAL REPORT Not Available [facility] ([facility]) [address] [place], [address], 04/25/2023 08:06:56 04/23/2004/25/2023 URINE CULTU REJEFF result 1 NO GROWTH Not Available [facility] ([facility]) [address] [facility], [place], [address], 04/25/2023 08:06:56 04/23/2004/23/2023 urina lysis , dipst ick Unknown Analyte Normal = light yellow Not Available [facility] [address] [place] [address], [place], [address], 04/23/2023 08:17:03 04/23/20 23 04/23/2023 urina lysis , dipst ick Unknown Analyte Normal = clear Not Available 2099marcus freitas [address], [place], [address], 04/23/2023 08:17:03 04/23/20 23 04/23/2023 urina lysis , dipst ick Unknown Analyte Normal = negati ve Not Available 2099marcus freitas [address], [place], [address], 04/23/2023 08:17:03 04/23/2004/23/2023 urina lysis , dipst ick Unknown Analyte Normal = Negati ve Not Available 2099marcus freitas [address], [place], [address], 04/23/2023 08:17:03 04/23/20 23 04/23/2023 urina lysis , dipst ick Unknown Analyte Normal = Negati ve Not Available 2099marcus freitas [address], [place], [address], 04/23/2023 08:17:03 04/23/20 23 04/23/2023 urina lysis , dipst ick Unknown Analyte Normal = 1.010, 1.015, 1.020 Not [facility] [address], [place], [address], 04/23/2023 08:17:03 04/23/20 23 04/23/2023 urina lysis , dipst ick Unknown Analyte Normal = Negati ve Not Available 2099marcus freitas [address], [place], [address], 04/23/2023 08:17:03 04/23/20 23 04/23/2023 urina lysis , dipst ick Unknown Analyte Normal = 6.5, 7.0, 7.5, 8.0 Not Available marcus freitas [address], [place], [address], 04/23/2023 08:17:03 04/23/2004/23/2023 urina lysis , dipst ick Unknown Analyte Normal = Negati ve Not Available [facility] [address], [place], [address], 04/23/2023 08:17:03 04/23/20 23 04/23/2023 urina lysis , dipst ick Unknown Analyte Normal = 0.2, 1.0 Not Available [address], [place], [address], 04/23/2023 08:17:03 04/23/20 23 04/23/2023 urina lysis , dipst ick Unknown Analyte Normal = Negati ve Not Available [facility] [address], [place], [address], 04/23/2023 08:17:03 04/23/20 23 04/23/2023 urina lysis , dipst ick Unknown Analyte Normal = Negati ve Not Available marcus [address], [place], [address], 04/23/2023 08:17:03 04/23/20 23 04/23/2023 urina lysis , dipst ick Unknown Analyte Yellow Not Available [address], [place], [address], 04/23/2023 08:17:03 04/23/20 23 04/23/2023 urina lysis , dipst ick Unknown Analyte Clear Not Available [address] [place] [address], [place], [address], 04/23/2023 08:17:03 04/23/20 23 04/23/2023 urina lysis , dipst ick Unknown Analyte Negati ve Not Available marcus freitas [address], [place], [address], 04/23/2023 08:17:03 04/23/20 23 04/23/2023 urina lysis , dipst ick Unknown Analyte Negati ve Not Available marcus freitas [address], [place], [address], 04/23/2023 08:17:03 04/23/20 23 04/23/2023 urina lysis , dipst ick Unknown Analyte Negati ve Not Available marcus freitas [address], [place], [address], 04/23/2023 08:17:03 04/23/20 23 04/23/2023 urina lysis , dipst ick Unknown Analyte 1.015 Not Available [address], [place], [address], 04/23/2023 08:17:03 04/23/20 23 04/23/2023 urina lysis , dipst ick Unknown Analyte Trace- intact Not Available marcus [address], [place], [address], 04/23/2023 08:17:03 04/23/20 23 04/23/2023 urina lysis , dipst ick Unknown Analyte 6.0 Not Available [address], [place], [address], 04/23/2023 08:17:03 04/23/20 23 04/23/2023 urina lysis , dipst ick Unknown Analyte Negati ve Not Available marcus freitas [address], [place], [address], 04/23/2023 08:17:03 0604/23/2023 urina lysis , dipst ick Unknown Analyte 0.2 E.U./d L Not Available marcus freitas [address], [place], [address], 04/23/2023 08:17:03 04/23/20 23 04/23/2023 urina lysis , dipst ick Unknown Analyte Negati ve Not Available [facility] [address], [place], [address], 04/23/2023 08:17:03 04/23/20 23 04/23/2023 urina lysis , dipst ick Unknown Analyte Negati ve Not Available [facility] [address], [place], [address], 04/23/2023 08:17:03 04/23/20 23 04/23/2023 XR, chest , 2 view No observ ation record ed. [email or web address] [id number] [facility] [address] [place], [address], 04/23/2023 12:43:15 04/23/2004/23/2023 XR, chest + abdom en No observ ation record ed. [email or web address] [facility] [address] [place], [address], 04/23/2023 12:43:16 Result Notes None recorded. Problems Name Problem SNOMED Code Status Onset Date Resolution Date Notes Provider Name and Address Organization Details Recorded Time Hyperlipidemia 23830507 Active 2022 PREMA goode PA - [facility] 3 08:12:14 Hypertensive disorder 46593130 Active 2022 PREMA goode, PA - [facility] 3 08:12:22 Heart disease 26784529 Active 2022 PREMA goode PA - [facility] 3 08:12:36 Problem Notes None recorded. Procedures Surgical History Date Name Laterality Status Provider Name and Address Organization Details Recorded Time cardiopulmonary bypass operation completed PRE[facility] STEPH [facility] - [facility] 04/23/2023 08:12:52 Imaging Results None recorded. Procedure Notes None recorded. Medical Equipment None Reported. Allergies Allergen ID Allergen Name Allergen Category Reaction Reaction Severity Criticality Documentation Date Start Date Code Code System Note Provider Name and Address Organization Details Recorded Time 176960 lisinopri l medicatio n Not available Not available Not available 04/23/2023 64020 RxNorm PREMA STEPH null, PA - [facility] 3 08:10:10 897618 gabapenti n medicatio n Not available Not available Not available 04/23/2023 59875 RxNorm PRE[facility] STEPH null, [facility] - [facility] [...] Updated DateTime 3 172.72 cm 26.2 kg/m2 35522.8 9 g 97.2 [degF] 18 /min 95 % 95 % 61 /min 135/68 mm[Hg] PREMA CHOI PA - [facility] 3 08:15:11 Social History Question Answer Notes LastModified by [employer] Details LastModified Time Tobacco Smoking Status Never [...] Functional Status Question Answer Note LastModified by [employer] Details LastModified Time Do you use any [...] PA - [facility] 04/23/2023 08:10:01 Novel [id number], preservative-free 0 completed PREMA goode, PA - [...] SNOMED-CT Code Diagnosis ICD10 Code Diagnosis Note [id number] [facility] [address] [place] [address] 05/28/2017 13:29:40 05/28/2017 13:59:01 [id number] [facility] [address] [place] [address] 05/24/2017 11:08:43 05/24/2017 11:56:56 [id number] [facility] [address] [place] [address] 10/16/2018 13:33:37 10/16/2018 15:27:03 [id number] DANIKA MARSHALL [facility] [address] [place] [address] 04/23/2023 08:04:30 04/23/2023 10:34:10 Right flank pain 996703071 R10.9 ? small right renal calculi. - [...] EMS. Calculus o f kidney and ureter 706796939 N20.2 Health Concerns Section Related Observation LastModified by Organization Detai ls LastModified Time None Recorded Concern Status LastModified by Organization Details LastModified Time None Recorded Advance Directives Directive None Recorded Payers Insurance Date Sequence Insurance Name Policy Number Policy Escalera Covered Member ID Escalera Member ID Guarantor Name 04/23/2023 1 [facility] (MEDICARE REPLACEMENT HMO) Bhavesh Ricardo [id number] Bhavesh Ricardo 09/14/2022 [employer] Bhavesh Haleigh Ricardo Notes Date Note Type [...] DANIKA MARSHALL [address] [place], [address], [place] - [facility] 04/23/2023 12:33:37
--- OUTSIDE RECORDS SUMMARY | 2025-05-11 11:14 | XMS_ITS | Clinical Summary ---
[facility] Address [address] [place] [address] Care Team Providers Care Perennial House Manager Name Role Phone Duane Lawler MD Primary Care Provider [phone] Allergies Active Allergy Reactions Criticality Noted Date [...] age to complete this topic Care Teams Perennial House Manager Relationship Specialty Start Date End Date Duane Lawler MD PCP - General Internal Medicine 01/15/21
== END 2025-05-11 11:01 | disposition home or self-care (01) ==
LOC: HO.PMC 10:42
PROVIDERS: PCP Internal Medicine; Visit Provider Registered Nurse Emergency
DX: M47.812 Spondylosis without myelopathy or radiculopathy, cervical region (principal); M47.816 Spondylosis without myelopathy or radiculopathy, lumbar region; M96.1 Postlaminectomy syndrome, not elsewhere classified
CPT/HCPCS: 99213; G2211

== ENCOUNTER 2025-05-31 13:57 | Outpatient (REF) | payer OTHER, SELFPAY ==
--- OUTSIDE RECORDS SUMMARY | 2023-06-21 06:09 | XMS_ITS | Continuity of Care Document ---
Author Organization [facility] Address [address] [address] Phone Care Team Providers Care Maintenance Advisor Name Role Phone Bonilla Royal DO Unavailable Unavailable Advance Directives Directive Yes / No Effective Date File Name No Information Encounters Encounter Description Practice Location Reason(s) For Visit Diagnoses Date Provider [facility], [address], [id number], [place] tel:[phone] [address] [place] [address] No Information 2022 Lele Crystal. [address] [place] [address], [id number], [place]. tel:[phone] Family History Family Member Type Diagnosis Age [...]
--- OUTSIDE RECORDS SUMMARY | 2024-08-25 13:03 | XMS_ITS | Encounter Summary ---
Author Organization [facility] Address [address] [place] [address] Care Team Providers Care Sample Selector Name Role Phone Duane Lawler MD Primary Care Provider [phone] Encounter Details Date Type Department Care Team (Late st Contact Info) Description 08/25/2024 1:03 PM EDT Hospital Encounter TH HISTORIC ENCOUNTERS [facility]AST[facility] CONVERSION ONLY Jesica Biggs PA [address] [place] [id number] Social History Tobacco Use Types Packs/Day Years Used Date Smoking Tobacco: Former Cigarettes 1.5 34.5 0 1954 - 10/25/1988 Smokeless Tobacco: Never Alcohol Use Standard Drinks/Week Comments Yes 7 (1 standard drink = 0.6 oz pur e alcohol) Interpersonal Safety Answer Date Record ed Physical Abuse 04/17/2025 Verbal Abuse 04/17/2025 Sex and Gender Information Value Date Recorded Sex Assigned at Not on file Legal Sex Male 11:03 PM EST Gender Identity Not on file Sexual Orientation Not on file documented as of this encounter Last Filed Vital Signs Vital Sign Reading Time Taken Comments Blood Pressure 129/56 08/25/2024 1:20 PM EDT Sitting Right arm Pulse 57 08/25/2024 1:20 PM EDT Temperature - - Respiratory Rate - - Oxygen Saturation - - Inhaled Oxygen Concentration - - Weight 76.2 kg (168 lb) 08/25/2024 1:20 PM EDT Height 172.7 cm (5' 8 ) 08/25/2024 1:20 PM EDT Body Mass Index 25.54 08/25/2024 1:20 PM EDT documented in this encounter Plan of Treatment Upcoming Encounters Date Type Department Care Team (Late st Contact Info) Description 06/07/2025 3:30 PM EDT Office Visit Vascular Surgery - [place] [address] [facility] [address] [place] [address] Brianna Trammell MD [address] [facility] [address] [place] [address] 07/03/2025 2:30 PM EDT Office Visit Adult Medicine [facility] [address] [place] [address] Gillian Jarrett PA [address] [place] [address] 08/31/2025 2:40 PM EST Office Visit [facility] [address] [facility] [address] [place] [address] Donell Haynes NP [address] [place] [address] 09/06/2025 2:00 PM EST Office Visit [facility] Hematology Oncology [address] [place] [address] Jesica Biggs PA [address] [place] [address] documented as of this encounter Procedures Procedure Name Priority Date/Time Associated Diagnosis Comments ..MISCELLANEOUS REFERENCE LAB TEST 08/25/2024 documented in this encounter Results * Miscellaneous reference lab test (08/25/2024) us Provider Onbase LAB BLOOD ORDERABLES Final Re sult documented in this encounter Visit Diagnoses Not on filedocumented in this encounter Care Teams Sample Selector Relationship Specialty Start Date End Date Duane Lawler MD [address] [place] [id number] PCP - General Internal Medicine 08/07/20 documented as of this encounter
--- NOTE | ~2025-05-31 | MR_ITS ---
EXAMINATION: MR CERVICAL SPINE WITHOUT CONTRAST CLINICAL INFORMATION: Spondylosis without myelopathy or radiculopathy. Intractable neck pain, conservative therapy over 6 month failed. Neck pain, stiffness, and numbness COMPARISON: CT cervical spine 06/13/2024. No prior MRI. TECHNIQUE: Multiplanar multisequence MR imaging of the cervical spine was done prior to and without the administration IV gadolinium. Examination was performed on a 1.5 Ivett Siemens unit, using standard sequences. FINDINGS: CORONAL ALIGNMENT: -Trace levoconvex scoliosis, possibly positional. SAGITTAL ALIGNMENT: -Normal lordosis. -There is a 2 mm retrolisthesis of C5 on C6. -Alignment is otherwise anatomic. CRANIOCERVICAL JUNCTION/C1-2 ARTICULATIONS: -Intact and aligned. VERTEBRAL BODIES/BONE MARROW: -There is no compression deformity, bone marrow edema, or abnormal infiltrating bone marrow signal. -There are no significant endplate changes. DISCS: -Moderate loss of disc height and signal diffusely, worst at C6-7. CERVICAL CORD: -Normal in caliber and signal throughout. PARAVERTEBRAL SOFT TISSUES: -No abnormalities. No edema. No abnormal fluid collection. -The thyroid is obscured by a saturation band. VISUALIZED INTRACRANIAL STRUCTURES: -Patchy white matter T2 hyperintensities within the central ochoa, nonspecific but statistically most likely small vessel ischemic changes. AXIAL DISC SPACE IMAGING: C2-C3: There is a shallow bulging disc present, moderate bilateral uncinate spurring, left greater than right facet spurring, with combination of findings resulting in mild central canal stenosis, and severe right greater than left neural foraminal stenosis. C3-C4: There is a shallow diffuse bulging disc, moderate hypertrophic degenerative facet changes bilaterally, moderate uncinate spurring bilaterally, posterior ligamentous thickening/infolding, with findings resulting in moderate central canal narrowing with near cord impingement and effacement of CSF space. No cord signal abnormality. Severe bilateral neural foraminal stenosis right greater than left. C4-C5: Shallow concentric disc bulge is present contiguous with bilateral uncinate spurring. Moderate hypertrophic degenerative facet changes are present bilaterally, posterior ligamentous thickening/infolding, resulting in moderate central canal stenosis with near cord impingement and effacement of CSF space. No cord signal abnormality is present. There is severe bilateral neural foraminal impingement. C5-C6: Shallow concentric disc bulge is present contiguous with bilateral uncinate spurring. Moderate degenerative hypertrophic facet changes bilaterally, with severe bilateral uncinate spurring. There is posterior ligamentous thickening/infolding. There is moderate central canal stenosis with near cord impingement and effacement of CSF space. There is no cord signal abnormality. There is severe bilateral neural foraminal encroachment. C6-C7: Shallow irregular disc osteophytic ridge complex is present, severe left and moderate right uncinate spurring, mild bilateral facet spurring, with the combination of findings resulting in mild central canal stenosis, severe left and moderate right neural foraminal stenosis. C7-T1: There is no focal disc pathology or central canal narrowing. There is uncinate spurring bilaterally contributing to mild to moderate bilateral neural foraminal narrowing. T1-T3: There is no significant central canal or neural foraminal stenosis. MR/MR cervical spine wo con IMPRESSION: 1. Moderate to severe cervical spondylosis as described, with near cord impingement at C3-4, C4-5, and C5-6, with no definite cord deformity or signal abnormality. 2. There is bilateral severe neural foraminal stenosis at these levels, largely secondary to bilateral uncinate and bilateral facet spurring. See above for details. Electronically signed by: Timo Nava MD 05/31/2025 03:33 PM EDT
--- OUTSIDE RECORDS SUMMARY | 2025-05-31 14:14 | XMS_ITS | Clinical Summary ---
[facility] Organization [facility] Address [address] [place] [address] Care Team Providers Care Laminator Preforms Name Role Phone Duane Lawler MD Primary Care Provider [phone] Allergies Active Allergy Reactions Criticality Noted Date [...] age to complete this topic Care Teams Laminator Preforms Relationship Specialty Start Date End Date Duane Lawler MD PCP - General Internal Medicine 01/15/21
== END 2025-05-31 13:58 | disposition home or self-care (01) ==
LOC: HO.MRI 13:57
PROVIDERS: PCP Internal Medicine; Visit Provider Registered Nurse Emergency
DX: M47.812 Spondylosis without myelopathy or radiculopathy, cervical region (principal); M48.02 Spinal stenosis, cervical region; M43.6 Torticollis; M54.2 Cervicalgia; R20.0 Anesthesia of skin
CPT/HCPCS: 72141

== ENCOUNTER → 2025-05-31 13:57 | Outpatient (BNV) | payer OTHER, SELFPAY | PROVIDERS: PCP Internal Medicine; Visit Provider Radiology Diagnostic Radiology | DX: M47.12 Other spondylosis with myelopathy, cervical region (principal) | CPT/HCPCS: 72141 ==

== ENCOUNTER 2025-06-22 10:48 | Outpatient (AMB) | payer OTHER, SELFPAY ==
--- OUTSIDE RECORDS SUMMARY | 2023-06-21 06:09 | XMS_ITS | Continuity of Care Document ---
Author Organization [facility] Address [address] [address] Phone Care Team Providers Care Match Maker Name Role Phone Bonilla Royal DO Unavailable Unavailable Advance Directives Directive Yes / No Effective Date File Name No Information Encounters Encounter Description Practice Location Reason(s) For Visit Diagnoses Date Provider [facility], [address], [id number], [place] tel:[phone] [address] [place] [address] No Information 2022 Lele Crystal. [address] [place] [address], [id number], [place]. tel:[phone] Family History Family Member Type Diagnosis Age At Onset No Information Payers Payer name Insurance type Covered libertarian ID Authoriza tion(s) No Information Social History Type Description Quantity Date Captured Comments Sex Male Smoking Status No Information Chief Complaint And Reason For Visit No Information History Of Present Illness Encounter Date Complaint History Of Prese nt Illness No Information Instructions Date Instruction Additional Infor mation No Information Assessments Type Assessment Date No Information
--- OUTSIDE RECORDS SUMMARY | 2024-08-25 13:03 | XMS_ITS | Encounter Summary ---
Author Organization [facility] Address [address] [place] [address] Care Team Providers Care Dough Sheeter Name Role Phone Duane Lawler MD Primary Care Provider [phone] Encounter Details Date Type Department Care Team (Late st Contact Info) Description 08/25/2024 1:03 PM EDT Hospital Encounter TH HISTORIC ENCOUNTERS EASTERN CONVERSION ONLY Jesica Biggs PA [address] [place] [address] Social History Tobacco Use Types Packs/Day Years [...] Care Team (Late st Contact Info) Description 07/03/2025 2:30 PM EDT Office Visit Adult Medicine [facility] [address] [place], [place] [phone] Gillian Jarrett PA [address] [place], [place] 08/31/2025 2:40 PM EST Office Visit [facility] Cardiology [facility] 154 300 [facility] 154 [place] [phone] Donell Haynes NP [address] [place] [address] Dr Portillo [address] [place] [address] 09/06/2025 2:00 PM EST Office Visit [facility] Hematology Oncology [address] [place] [address] Jesica Biggs PA [address] [place] [address] 04/09/2026 12:00 PM EDT Ancillary Procedure [facility] 101 300 [facility] 101 [place] [address] 04/16/2026 12:00 PM EDT Ancillary Procedure [facility] 101 300 [facility] 101 [place] [address] 06/19/2026 1:00 PM EDT Office Visit Vascular Surgery - [place] [address] [facility] [address] [place] [address] Brianna Trammell MD [address] [place] [address] documented as of this encounter Procedures Procedure Name Priority Date/Time Associated Diagnosis Comments ..MISCELLANEOUS REFERENCE LAB TEST 08/25/2024 documented in this encounter Results * Miscellaneous reference lab test (08/25/2024) us Provider Onbase LAB BLOOD ORDERABLES Final Re sult documented in this encounter Visit Diagnoses Not on filedocumented in this encounter Care Teams Dough Sheeter Relationship Specialty Start Date End Date Duane Lawler MD [address] [place] [phone] PCP - General Internal Medicine 08/07/20 documented as of this encounter
[2025-06-22 11:01] VITALS: BP 138/63; PULSE 64; RESP 16; O2SAT 89; BMI 24.9
--- NOTE | 2025-06-22 11:01 | MHC.OFFVIS ---
Vital Signs 06/22/25 11:01 Height 5 ft 8 in Weight 164 lb BMI 24.9 BP 138/63 Blood Pressure Location Rt brachial Position Sitting Respiration 16 Pulse 64 Pulse Source Pulse Oximeter Pulse Oximetry (%) 89 L Oxygen Delivery Method Room Air Intake Visit Reasons: Discuss MRI Results Management Lecturer Required: No Allergies gabapentin Allergy (Mild, Verified 06/22/25 11:03) spaces out omeprazole Allergy (Mild, Verified 06/22/25 11:03) weakness, disoritentation. lisinopril Allergy (Verified 06/22/25 11:03) Unknown HPI Comments Details: The patient is an 85-year-old male presenting with symptoms related to cervical spondylosis with radiculopathy. Recent MRI reviewed, results as per below The patient also reports severe neck pain, confirmed by MRI to be due to cervical spondylosis with radiculopathy and stenosis, causing difficulty with balance and numbness when moving his head. The condition is attributed to arthritis and narrowing of the spinal canal. The patient has a history of multiple surgeries, including acoustic neuroma, stomach surgeries, hip fracture, and appendectomy, contributing to his reluctance for further surgical interventions. Recently diagnosed with diverticulitis, underwent endoscopy. Currently taking medications but still feeling sick to his stomach. - Onset: Chronic neck pain with exacerbations - Quality: Severe, with associated numbness - Location: Cervical region with radiculopathy - Exacerbating factors: Movement of the head - Relieving factors: None mentioned - Affect: Pain impacts mood and psychological wellbeing - Analgesia: Current pain management includes medication prescribed post-endoscopy - Adverse Effects: Nausea from dietary choices - Activities of Daily Living: Pain affects balance and mobility - Aberrant Drug Related Behaviors: None reported [facility] Medical History Spinal stenosis Coronary artery disease Hyperlipidemia Carotid stenosis Duodenal ulcer Appendicitis Surgical History Previous back surgery History of hip replacement S/P triple vessel bypass Social History Alcohol intake: current Alcohol intake frequency: 0-2 drinks per day Comment: 1 beer daily, 1 half glass of wine nightly Patient Tobacco Use Status: Former Tobacco user Tobacco use type: Cigarette Cigarette Packs Per Day: 10 Substance Use Type: Marijuana Review of Systems Const Details: - Gastrointestinal: Reports nausea and abdominal discomfort - Neurological: Reports numbness and balance issues Physical Exam Exam Exam: General: awake, alert, oriented. Answers questions appropriately. Fully engaged in examination. Skin: warm, dry, intact HEENT: Normocephalic. Hearing intact. Cardiac: External chest normal in appearance. Respiratory: No cough, audible wheezing or stridor. Abdomen: without gross distension. MS: No obvious swelling or deformities. Cervical spine: Decreased range of motion. Minimally tender to palpation. Bilateral upper extremity strength 5/5 Neurological: Oriented to person, place, time and situation. Thought process intact. Ambulates with the use of a cane. Psychiatric: Appropriate mood and affect. Good judgment and insight. Vital Signs: Last Vital Signs Pulse 64 06/22/25 11:01 Resp 16 06/22/25 11:01 BP 138/63 06/22/25 11:01 Pulse Ox 89 L 06/22/25 11:01 Oxygen Delivery Method Room Air 06/22/25 11:01 BMI result Body Mass Index 24.9 Results Reviewed Results Reviewed: 05/2025 MRI cervical spine FINDINGS: CORONAL ALIGNMENT: -Trace levoconvex scoliosis, possibly positional. SAGITTAL ALIGNMENT: -Normal lordosis. -There is a 2 mm retrolisthesis of C5 on C6. -Alignment is otherwise anatomic. CRANIOCERVICAL JUNCTION/C1-2 ARTICULATIONS: -Intact and aligned. VERTEBRAL BODIES/BONE MARROW: -There is no compression deformity, bone marrow edema, or abnormal infiltrating bone marrow signal. -There are no significant endplate changes. DISCS: -Moderate loss of disc height and signal diffusely, worst at C6-7. CERVICAL CORD: -Normal in caliber and signal throughout. PARAVERTEBRAL SOFT TISSUES: -No abnormalities. No edema. No abnormal fluid collection. -The thyroid is obscured by a saturation band. VISUALIZED INTRACRANIAL STRUCTURES: -Patchy white matter T2 hyperintensities within the central ochoa, nonspecific but statistically most likely small vessel ischemic changes. AXIAL DISC SPACE IMAGING: C2-C3: There is a shallow bulging disc present, moderate bilateral uncinate spurring, left greater than right facet spurring, with combination of findings resulting in mild central canal stenosis, and severe right greater than left neural foraminal stenosis. C3-C4: There is a shallow diffuse bulging disc, moderate hypertrophic degenerative facet changes bilaterally, moderate uncinate spurring bilaterally, posterior ligamentous thickening/infolding, with findings resulting in moderate central canal narrowing with near cord impingement and effacement of CSF space. No cord signal abnormality. Severe bilateral neural foraminal stenosis right greater than left. C4-C5: Shallow concentric disc bulge is present contiguous with bilateral uncinate spurring. Moderate hypertrophic degenerative facet changes are present bilaterally, posterior ligamentous thickening/infolding, resulting in moderate central canal stenosis with near cord impingement and effacement of CSF space. No cord signal abnormality is present. There is severe bilateral neural foraminal impingement. C5-C6: Shallow concentric disc bulge is present contiguous with bilateral uncinate spurring. Moderate degenerative hypertrophic facet changes bilaterally, with severe bilateral uncinate spurring. There is posterior ligamentous thickening/infolding. There is moderate central canal stenosis with near cord impingement and effacement of CSF space. There is no cord signal abnormality. There is severe bilateral neural foraminal encroachment. C6-C7: Shallow irregular disc osteophytic ridge complex is present, severe left and moderate right uncinate spurring, mild bilateral facet spurring, with the combination of findings resulting in mild central canal stenosis, severe left and moderate right neural foraminal stenosis. C7-T1: There is no focal disc pathology or central canal narrowing. There is uncinate spurring bilaterally contributing to mild to moderate bilateral neural foraminal narrowing. T1-T3: There is no significant central canal or neural foraminal stenosis. IMPRESSION: 1. Moderate to severe cervical spondylosis as described, with near cord impingement at C3-4, C4-5, and C5-6, with no definite cord deformity or signal abnormality. 2. There is bilateral severe neural foraminal stenosis at these levels, largely secondary to bilateral uncinate and bilateral facet spurring. See above for details. 06/13/24 EXAMINATION: CT CERVICAL SPINE WITHOUT CONTRAST CT LUMBAR SPINE WITHOUT CONTRAST CLINICAL INFORMATION: Midline atraumatic cervical spine and lumbar tenderness. COMPARISON: Cervical and lumbar spine radiographs from 05/11/2024. TECHNIQUE: Multidetector helical imaging of the lumbar spine was obtained without intravenous contrast. Multiple axial reformats and coronal/sagittal reconstructions were created the technologist workstation for review. This CT examination was performed using dose optimization techniques as appropriate, variously including the following: *Automated exposure control. *Adjustment of mA and/or kV according to patient size (this includes techniques or standardized protocols for targeted exams where dose is matched to indication/reason for exam; i.e. extremities or head). *Use of iterative reconstruction technique. DLP: 885 mGy-cm FINDINGS: Cervical Spine: The atlantooccipital and atlantoaxial articulations remain well aligned. Moderate degenerative arthropathy of the atlantodental articulation. Partial straightening of the normal cervical lordosis. Otherwise, there is anatomic alignment of the vertebral bodies and posterior elements. No evidence of acute fracture or subluxation. The vertebral body heights are maintained. Advanced degenerative disc disease from C5-C7. Moderate degenerative disc disease at all additional levels. There is no prevertebral soft tissue swelling. The thyroid gland and remaining cervical soft tissues are within normal limits. Persistent azygos fissure. The lung apices demonstrate no abnormalities. SPINAL LEVELS: C2-C3: Moderate disc-osteophyte complex. There is mild left moderate right and mild left uncovertebral joint arthropathy. There is severe left and moderate right facet joint arthropathy. There is moderate bilateral neural foraminal stenosis. There appears to be mild spinal canal stenosis. C3-C4: Moderate disc-osteophyte complex. There is moderate right and mild left uncovertebral joint arthropathy. There is severe right and moderate left facet joint arthropathy. There is severe right and moderate left neural foraminal stenosis. There appears to moderate spinal canal stenosis. C4-C5: Mild disc-osteophyte complex. There is moderate and mild left uncovertebral joint arthropathy. There is severe right and moderate left facet joint arthropathy. There is moderate bilateral neural foraminal stenosis. There appears to be mild spinal canal stenosis. C5-C6: Moderate disc-osteophyte complex. There is severe bilateral uncovertebral joint arthropathy. There is severe right and moderate left facet joint arthropathy. There is severe bilateral neural foraminal stenosis. There appears to moderate spinal canal stenosis. C6-C7: Moderate disc-osteophyte complex. There is severe left and moderate right uncovertebral joint arthropathy. There is moderate bilateral facet joint arthropathy. There is severe left and moderate right neural foraminal stenosis. There is no demonstrated spinal canal stenosis. C7-T1: Mild disc-osteophyte complex. There is mild bilateral uncovertebral joint arthropathy. There is moderate bilateral facet joint arthropathy. There is no neural foraminal stenosis. There is no demonstrated spinal canal stenosis. Lumbar Spine: Degenerative grade 1 anterolisthesis of L4 on L5. Otherwise, normal anatomic alignment. No evidence of acute fracture or traumatic subluxation. The vertebral body heights are maintained. The intervertebral disc spaces are maintained. No suspicious lytic or sclerotic osseous lesions. No significant abnormalities of the paraspinal musculature. Limited evaluation of the intra-abdominal structures without significant abnormalities. Moderate to advanced calcific atherosclerotic disease of the abdominal aorta. Fusiform infrarenal abdominal aortic aneurysm measuring up to 4.2 cm in diameter. AXIAL SPINAL LEVELS: L1-L2: Mild diffuse disc bulge. There is mild bilateral facet joint arthropathy. There is no neural foraminal stenosis. There is the demonstrated spinal canal stenosis. L2-L3: Moderate diffuse disc bulge. There is moderate right and mild left facet joint arthropathy. There is mild bilateral neural foraminal stenosis. There appears to be mild spinal canal stenosis. L3-L4: Mild diffuse disc bulge. There is moderate to severe bilateral facet joint arthropathy with ligamentum flavum hypertrophy. There is moderate bilateral neural foraminal stenosis. There appears to be moderate to severe spinal canal stenosis. L4-L5: Moderate diffuse disc bulge exacerbated by uncovering from anterolisthesis. There is severe bilateral facet joint arthropathy. There is moderate right worse than left neural foraminal stenosis. There appears to moderate to severe spinal canal stenosis. L5-S1: Mild diffuse disc bulge. There is severe bilateral facet joint arthropathy. There is mild bilateral neural foraminal stenosis. There is no demonstrated spinal canal stenosis. IMPRESSION: 1. No evidence of acute fracture or traumatic subluxation of the cervical or lumbar spine. 2. Moderate multilevel degenerative spondyloarthropathy of the cervical spine as described in detail above. Most notably on this limited exam without intrathecal contrast, there appears to be moderate spinal canal stenoses at C3-C4 and C5-C6. Mild spinal canal stenoses at C2-C3 and C4-C5. Moderate to severe neural foraminal stenoses from C2-C7. 3. 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 Most notably on this limited exam without intrathecal contrast, there appears to be moderate to severe spinal canal stenoses at L3-L4 and L4-L5. Mild spinal canal stenoses at L2-L3. Moderate neural foraminal stenoses at L3-L4 and L4-L5. 4. Infrarenal abdominal aortic aneurysm measuring up to 4.2 cm in diameter. Recommend follow-up for an infrarenal abdominal aortic aneurysm of this size is every 12 months. Additionally, vascular consultation or continued follow-up with a vascular specialist is recommended. 05/11/24 XR/XR cervical spine w flex/ext IMPRESSION: 1. Grade 1 anterolisthesis of C4 on C5 without appreciable change between flexion and extension. 2. [id number] multilevel degenerative disc disease in the cervical spine, most pronounced at C5-C6. Multilevel cervical facet arthropathy, right side greater than left. 3. Multilevel neural foraminal encroachment on the right in the cervical spine. 4. Grade 1 anterolisthesis of L4 on L5 with severe facet arthropathy at this level. 5. Mild degenerative disc disease at L4-L5. Assessment & Plan Assessment & Plan (1) Cervical spondylosis: Code(s): M47.812 - Spondylosis without myelopathy or radiculopathy, cervical region Category: Medical (2) Spinal stenosis in cervical region: Code(s): M48.02 - Spinal stenosis, cervical region Category: Medical Plan We reviewed the MRI findings indicating cervical spondylosis with radiculopathy, spinal stenosis and considered potential interventions, including a referral to a neurosurgeon and the option of a C6-7 parasagittal steroid injection for pain relief. The patient expressed concerns about further surgeries due to a history of multiple surgical procedures. His not ready to proceed with steroid injection at this time, he will call the office when he is ready to proceed. Patient was informed and verbally consented to the use of an ambient scribe for clinic note documentation during this visit Orders: Referrals Neuro Spine Referral M47.812 - Spondylosis without myelopathy or radiculopathy, cervical region, M48.02 - Spinal stenosis, cervical region Patient Instructions: - Follow dietary modifications to manage diverticulitis symptoms. - Take prescribed medication as directed. - Consider discussing surgical options with a neurosurgeon - Contact the clinic if interested in a steroid injection for neck pain relief. Coding Level of Care Code Est Pt Level 3 (65326) Complex EM visit Add On G2211 Diagnoses Cervical spondylosis M47.812 Spinal stenosis in cervical region M48.02
--- OUTSIDE RECORDS SUMMARY | 2025-06-22 11:27 | XMS_ITS | Clinical Summary ---
Author Organization [facility] Address [address] [place] [address] Care Team Providers Care Log Deckman Name Role Phone Duane Lawler MD Primary Care Provider [phone] Allergies Active Allergy Reactions Criticality Noted Date [...] age to complete this topic Care Teams Log Deckman Relationship Specialty Start Date End Date Duane Lawler MD PCP - General Internal Medicine 01/15/21
--- OUTSIDE RECORDS SUMMARY | 2025-06-22 11:27 | XMS_ITS | Clinical Summary ---
Author Organization [facility] Address [address] [place] [address] Phone Care Team Providers Care Division Head Name Role Phone Duane Lawler MD Primary Care Provider [phone] Allergies Active Allergy Reactions Criticality Noted Date Comments Gabapentin Nausea And Vomiting 01/14/2021 Muscle weakness Lisinopril 01/14/2021 Weakness Medications aspirin 81 mg EC tablet Take 1 tablet (81 mg total) by mouth 1 (one) time each day. Active empagliflozin (Jardiance) 10 mg tablet Take 1 tablet (10 mg total) by mouth 1 (one) time each day. 07/02/20 23 Active ferrous sulfate 325 mg (65 mg elemental iron) tablet Take 1 tablet (325 mg total) by mouth. Active latanoprost (XALATAN) 0.005 % ophthalmic solution Administer 1 drop into both eyes at bedtime. Active dorzolamide (TRUSOPT) 2 % ophthalmic solution Administer 1 drop into both eyes 2 (two) times a day. Active Entresto 49-51 mg per tablet TAKE 1 TABLET BY MOUTH TWICE A DAY 180 tablet 3 11/01/19 25 Active spironolactone (ALDACTONE) 25 mg tablet TAKE 1 TABLET BY MOUTH EVERY DAY 90 tablet 3 11/10/19 25 Active carvediloL (COREG) 12.5 mg tablet TAKE 1 TABLET BY MOUTH TWICE A DAY WITH MEALS 180 tablet 3 03/05/20 25 Active citalopram (CeleXA) 20 mg tablet TAKE 1 AND 1/2 TABLETS DAILY BY MOUTH 135 tablet 1 03/27/20 25 Active rosuvastatin (CRESTOR) 20 mg tablet TAKE 1 TABLET BY MOUTH EVERYDAY AT BEDTIME 90 tablet 06/06/20 Active rosuvastatin (CRESTOR) 20 mg tablet Take 1 tablet (20 mg total) by mouth at bedtime. 90 tablet 03/02/20 25 025 Discontinued Active Problems Problem Noted Date Diagnosed Date Diverticulitis 04/18/2025 Melena 04/16/2025 Mitral regurgitation 02/24/2025 Infrarenal abdominal aortic aneurysm (AAA) without rupture ([facility] V24) 02/24/2025 History of peptic ulcer [...] Chronic systolic CHF (conges tive heart failure) (CMS/[facility] V24, CMS/[facility] V28) 06/30/2023 Overview (02/24/2025): - Most recent echocardiogram on 06/16/2023 during [facility] hospitalization ultimately being transferred to [facility] (see CAD section for further details) [...] 0.24, calculated aortic valve area of 0.99 cm , moderate MR, mild TR, evidence of mild [...] Normocytic anemia 01/19/2023 PAD (peripheral artery disease) ([facility] V24) Hypertension 01/15/2021 Assessment & Plan [...] (12/31/2023): - Presented with cardiogenic shock to [facility] December 2017 - Status post CABG with HAYWOOD to the LAD, vein graft to the OM1, vein graft to the RPDA for multivessel coronary artery disease on cardiac cath -Non-STEMI in October 2020 in the setting of severe anemia after left total hip replacement. With GI evaluation showing no bleeding - Admitted to [facility] in May 2022 with recurrent chest discomfort with positive stress echocardiogram with ischemia in the inferior and inferoseptal rutherford - Cardiac cath in June 2022 showed severe left main and [place] three-vessel disease including mid RCA 99% stenosis which was heavily calcified and distal subsection 85% stenosis; HAYWOOD to the LAD was patent, vein graft to the OM1 was patent but did not feel the OM1 retrograde-the OM1 was filling anterograde by the [place] circumflex which had significant stenoses, vein graft to the RPL was distally occluded- status post PCI to the [place] mid RCA-plan was to intervene on the [place] left main into the circumflex should the patient have continued angina - Incidentally at the time the patient had shortness of breath on Brilinta and was switched to Plavix - Rehospitalized in June 2023 with recurrent shortness of breath, chest pain-found to have another non-ST elevation CT with drop in ejection fraction and progression of aortic stenosis- cardiac cath on 06/18/2023 showed again severe [place] three-vessel disease but with significant in-stent restenosis [...] decompressive laminectomy (04/28/19, Dr. Fierro) Polymyalgia rheumatica ([facility] V24) 10/22/2015 Overview (12/31/2023): Onset fall [...] Encounters Date Type Department Care Team Description 06/07/2025 3:30 PM EDT Office Visit Vascular Surgery - [place] [address] [facility] [address] [place] [address] Brianna Trammell MD PAD (peripheral artery disease) (CMS/HCC V24) (Primary Dx); Bilateral carotid artery stenosis; Abdominal aortic aneurysm (AAA) 3.0 cm to 5.0 cm in diameter in female (CMS/HCC V24); Encounter for screening for abdominal aortic aneurysm (AAA) in patient 50 years of age or older with history of smoking; Asymptomatic bilateral carotid artery stenosis 05/18/2025 Telephone Walk-In Clinic - [address] [address] Ciaran Delatorre PA 05/17/2025 12:31 PM EDT - 05/17/2025 11:59 PM EDT Hospital Encounter Radiology Department - [address] [address] Chronic right flank pain Discharge Disposition: Home or Self Care 05/14/2025 12:00 PM EDT Ancillary Procedure [facility] Cardiology [facility] - [facility] [address] [address] PAD (peripheral artery disease) ([facility] V24) 05/10/2025 3:45 PM EDT Ancillary Procedure [facility] Cardiology [facility] - [facility] [address] [address] Carotid stenosis, asymptomatic, bilateral 05/07/2025 8:30 AM EDT Ancillary Procedure [facility] - [facility] [address] [address] Infrarenal abdominal aortic aneurysm (AAA) without rupture ([facility] V24) 05/03/2025 5:15 PM EDT Office Visit Walk-In Clinic - [address] [address] Ciaran Delatorre PA Chronic right flank pain (Primary Dx) 05/03/2025 Nurse Triage Adult Medicine South - [address] [phone] Duane Lawler MD 04/17/2025 2:45 PM EDT Anesthesia Event [facility] Endoscopy [address] [place] [phone] Alfred Barnard DO 04/16/2025 1:02 PM EDT - 04/18/2025 2:34 PM EDT Hospital Encounter [facility] Urology Unit [address] [place] [address] Nj Gray MD Surendran, Anupama, MD Melena (Primary Dx); Anemia, unspecified type Discharge Disposition: Home or Self Care 04/16/2025 Telephone Adult Medicine [address] [phone] Duane Lawler MD 04/13/2025 11:14 AM EDT - 04/13/2025 5:32 PM EDT Emergency [facility] Emergency [address] [place] [phone] Diverticulitis (Primary Dx) Discharge Disposition: Home or Self Care 04/10/2025 Telephone Adult Medicine [address] [phone] Duane Lawler MD 03/28/2025 Telephone [facility] - [facility] [address] [facility] [address] [place] [address] Donell Haynes NP from Last 3 Months Immunizations Name Administration [...] 2 gastrectomy OTHER SURGICAL HISTORY 1996 PROCEDURE: ME CRANIECTOMY/CRANIOTOMY EXPL SUPRATENTORIAL; COMMENT: right acoustic neuroma COLONOSCOPY 10/29/2005 PROCEDURE: HISTORICAL COLONOSCOPY; COMMENT: Up to cecum, excellent preparation, minimal diverticulosis CHOLECYSTECTOMY 1988 PROCEDURE: HISTORICAL CHOLECYSTECTOMY OTHER SURGICAL HISTORY 1975 PROCEDURE: ME VGTMY W/PYLORPLSTY W/WO GASTROST TRUNCAL/SLCTV; COMMENT: vagotomy and pyloroplasty COLONOSCOPY 05/19/2011 PROCEDURE: HISTORICAL COLONOSCOPY; COMMENT: 1 cm right colon polyp: 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 HIP ARTHROPLASTY 2010 Left PROCEDURE: HISTORICAL HIP REPLACEMENT; COMMENT: l hip fracture COLONOSCOPY 07/27/2014 PROCEDURE: HISTORICAL COLONOSCOPY; COMMENT: 8 mm right colon polyp: sessile serrated adenoma UPPER GASTROINTESTINAL ENDOSCOPY 04/02/2017 PROCEDURE: ME UPPER GI ENDOSCOPY PERFORMED; COMMENT: normal post-op appearance. UPPER GASTROINTESTINAL ENDOSCOPY 03/06/2013 PROCEDURE: ME UPPER GI ENDOSCOPY PERFORMED; COMMENT: normal post-op appearance. UPPER GASTROINTESTINAL ENDOSCOPY 04/04/2009 PROCEDURE: ME UPPER GI ENDOSCOPY PERFORMED; COMMENT: intestinal bx: Normal biopsies, no evidence of celiac disease. 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 Sloan; no polyps. CORONARY ARTERY BYPASS GRAFT 01/01/2018 PROCEDURE: HISTORICAL CABG HIP ARTHROPLASTY 11/06/2020 Left PROCEDURE: HISTORICAL HIP REPLACEMENT UPPER GASTROINTESTINAL ENDOSCOPY 11/13/2020 PROCEDURE: ME UPPER GI ENDOSCOPY PERFORMED; COMMENT: Normal COLONOSCOPY 11/13/2020 PROCEDURE: HISTORICAL COLONOSCOPY; COMMENT: 2 diminutive polyps. Diverticulosis. Internal hemorrhoids. Erosion of the rectum. 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, [facility] V28) 1995 DX:Benign neoplasm of crani al nerves ([facility]); COMMENT: R acoustic neuroma resection Heartburn 02/03/2006 [...] Fracture of left hip (CMS/ C V24, [facility] V28) 2010 DX:Fracture of left hip (HCC ) Diverticulosis DX:Diverticulosi s AAA (abdominal aortic aneury sm) ([facility] V24) DX:AAA (abdominal aortic ane urysm) ([facility]); COMMENT: 3.1 cm Lumbar spinal stenosis [...] Sign Reading Time Taken Comments Blood Pressure 106/63 06/07/2025 3:26 PM EDT Pulse 71 06/07/2025 3:26 PM EDT Temperature 36.7 C (98.1 F) 05/03/2025 5:22 PM EDT Respiratory Rate 16 04/18/2025 7:50 AM EDT Oxygen Saturation 92% 04/18/2025 7:50 AM EDT Inhaled Oxygen Concentration - - Weight 74.8 kg (165 lb) 06/07/2025 3:24 PM EDT Height 172.7 cm (5' 8 ) 06/07/2025 3:24 PM EDT Body Mass Index 25.09 06/07/2025 3:24 PM EDT Plan of Treatment Upcoming Encounters Date Type Department Care Team (Late st Contact Info) Description 07/03/2025 2:30 PM EDT Office Visit Adult Medicine [address] [phone] Gillian Jarrett PA [address] [place] [address] 08/31/2025 2:40 PM EST Office Visit [facility] - [address] [place] [phone] Donell Haynes NP [address] [place] [address] [address] [place] [address] 09/06/2025 2:00 PM EST Office Visit [facility] Hematology Oncology [address] [place] [phone] Jesica Biggs PA [address] [place] [address] 04/09/2026 12:00 PM EDT Ancillary Procedure [facility] Cardiology [facility] - [facility] [address] [facility] [address] [place] [address] 04/16/2026 12:00 PM EDT Ancillary Procedure [facility] - [facility] [address] [facility] [address] [place] [address] 06/19/2026 1:00 PM EDT Office Visit Vascular Surgery - [place] [address] [place] [address] Brianna Trammell MD [address] [place] [phone] Health Maintenance Due Date Last Done Comments Medicare Annual Wellness Visit 10/03/2022 Social Influencers of Health Screening 10/03/2022 COVID-19 Vaccine ( season) 2024 09/09/2022, 01/21/2022, 07/25/2021, Additional history exists Depression Screening 10/25/2024 Influenza Vaccine (#1) 2025 , 07/17/2023, 07/03/2021, Additional history exists Hypertension/CHF/CAD Annual BMP Blood Test 04/17/2026 04/17/2025, 04/16/2025, 04/13/2025, Additional history exists Falls Risk Assessment 04/18/2026 04/18/2025 Cholesterol Screening (Lipid Panel) 12/29/2029 12/29/2024, 05/10/2024, 03/11/2023 DTaP,Tdap,and Td Vaccines (3 - Td or Tdap) 09/05/2030 09/05/2020, 09/12/2007 Zoster Vaccines Completed 01/09/2021, 09/08/2020 RSV Immunization Adult Patients Completed 08/02/2023 Pneumococcal Vaccine: 50+ Years Completed 10/12/2023, 06/19/2015, 09/12/2007 HIB Vaccines Aged Out No longer eligi [...] Procedure Name Priority Date/Time Associated Diagnosis Comments US RETROPERITONEAL LIMITED Routine 05/17/2025 1:09 PM EDT Chronic right flank pain VAS US DUPLEX LOWER EXT ARTERIES BILAT WITH RAHUL Routine 05/14/2025 12:41 PM EDT PAD (peripheral artery disease) ([facility] V24) VAS US DUPLEX CAROTID BILATERAL Routine 05/10/2025 4:15 PM EDT Carotid stenosis, asymptomatic, bilateral VAS US DUPLEX AORTA/IVC/ILIAC/GRAFTS COMPLETE Routine 05/07/2025 8:34 AM EDT Infrarenal abdominal aortic aneurysm (AAA) without rupture ([facility] V24) CBC WITH AUTO DIFFERENTIAL Routine 04/18/2025 8:48 AM EDT CBC AND DIFFERENTIAL Routine 04/18/2025 8:48 AM EDT SST - GOLD Routine 04/18/2025 8:45 AM EDT EXTRA TUBES Routine 04/18/2025 8:45 AM EDT EGD Routine 04/17/2025 3:09 PM EDT TISSUE EXAM Routine 04/17/2025 3:02 PM EDT Melena Anemia, unspecified type CBC WITH AUTO DIFFERENTIAL Routine 04/17/2025 4:11 AM EDT MAGNESIUM Routine 04/17/2025 4:11 AM EDT BASIC METABOLIC PANEL Routine 04/17/2025 4:11 AM EDT CBC AND DIFFERENTIAL Routine 04/17/2025 4:11 AM EDT HEMOGLOBIN AND HEMATOCRIT Timed 04/16/2025 10:23 PM EDT HEMOGLOBIN AND HEMATOCRIT STAT 04/16/2025 3:32 PM EDT C-REACTIVE PROTEIN Add-On 04/16/2025 1: 26 PM EDT MAGNESIUM STAT Add-on 04/16/2025 1:26 PM EDT CBC WITH AUTO DIFFERENTIAL STAT 04/16/2025 1:26 PM EDT TYPE AND SCREEN STAT 04/16/2025 1:26 PM EDT COMPREHENSIVE METABOLIC PANEL STAT 04/16/2025 1:26 PM EDT CBC AND DIFFERENTIAL STAT 04/16/2025 1:26 PM EDT TROPONIN I HIGH SENSITIVITY STAT 04/13/2025 3:[address] ABDOMEN PELVIS W CONTRAST STAT 04/13/2025 2:54 PM EDT ECG 12-LEAD STAT 04/13/2025 12:02 PM EDT MAGNESIUM Routine 04/13/2025 11:51 AM EDT TROPONIN I HIGH SENSITIVITY STAT 04/13/2025 11:51 AM EDT LIPASE STAT 04/13/2025 11:51 AM EDT COMPREHENSIVE METABOLIC PANEL STAT 04/13/2025 11:51 AM EDT CBC WITH AUTO DIFFERENTIAL STAT 04/13/2025 11:51 AM EDT CBC AND DIFFERENTIAL STAT 04/13/2025 11:51 AM EDT LIPID PANEL WITH REFLEX TO DIRECT LDL Routine 12/29/2024 9:05 AM EST Hyperlipidemia, unspecified hyperlipidemia type from Last 3 Months or Most Recently Relevant to Health Maintenance Results * US Retroperitoneal Limited (05/17/2025 1:09 PM EDT) Anatomical Region Laterality Modality Body Ultrasound 05/17/2025 2:24 PM EDT Narrative 05/17/2025 3:58 PM EDT Retroperitoneal ultrasound. History right flank pain. No prior ultrasounds are available for comparison. CT scan from 04/23/2020 was reviewed. Right kidney was visualized with normal size, measuring 10 cm in long axis. There are few linear echogenic regions probably representing a vascular calcifications. No evidence of from stones, hydronephrosis or masses. Left kidney was visualized measuring 11.6 cm in long axis. There is nonobstructing stone in the midpole measuring 5 mm. There are 2 peripelvic cysts measuring 1.3 x 1.2 x 1.1 cm and 2 x 1 x 1.3 cm. Follow urinary bladder was not well distended with a volume of 130 cc. Patient was not able to void. Right ureteral jet was not visualized. Left ureteral jet wasn't visualized. Prostate volume is 26 cc. CONCLUSIONS: Nonobstructing right kidney stone. Linear echogenic regions in the right kidney, probably vascular calcifications. Peripelvic cysts in the left kidney as detailed. Poor distention of the bladder. -------- FINAL REPORT -------- Dictated By: Jesica Cehng Dictated Date: 05/17/2025 14:24 ET Assigned Physician: Jesica Cheng Reviewed and Electronically Signed By: Jesica Cheng Signed Date: 05/17/2025 15:58 ET Workstation ID: [id number] Transcribed By: Self Edit Transcribed Date: 05/17/2025 14:24 ET Procedure Note Jesica Cheng MD - 05/17/2025 Retroperitoneal ultrasound. History right flank pain. No prior ultrasounds are available for comparison. CT scan from 04/23/2020was reviewed. Right kidney was visualized with normal size, measuring 10 cm in longaxis. There are few linear echogenic regions probably representing avascular calcifications. No evidence of from stones, hydronephrosis ormasses. Left kidney was visualized measuring 11.6 cm in long axis. Thereis nonobstructing stone in the midpole measuring 5 mm. There are 2peripelvic cysts measuring 1.3 x 1.2 x 1.1 cm and 2 x 1 x 1.3 cm. Followurinary bladder was not well distended with a volume of 130 cc. Patientwas not able to void. Right ureteral jet was not visualized. Left ureteraljet wasn't visualized. Prostate volume is 26 cc. CONCLUSIONS: Nonobstructing right kidney stone. Linear echogenic regionsin the right kidney, probably vascular calcifications. Peripelvic cysts inthe left kidney as detailed. Poor distention of the bladder. -------- FINAL REPORT -------- Dictated By: Jesica Cheng Dictated Date: 05/17/2025 14:24 ET Assigned Physician: Jesica Cheng Reviewed and Electronically Signed By: Jesica Cheng Signed Date: 05/17/2025 15:58 ET Workstation ID: [id number] Transcribed By: Self Edit Transcribed Date: 05/17/2025 14:24 ET us Ciaran GARNICA IMG US PROCEDURES Final Re sult * Vascular US duplex lower extremity arteries bilateral with RAHUL (05/14/2025 12:41 PM EDT) Left Dist External Iliac PSV 156 cm/s CV VAS LAB Left Prox External Iliac PSV 182 cm/s CV VAS LAB Left AT dist sys PSV 20 cm/s CV VAS LAB Left AT mid sys PSV 27 cm/s CV VAS LAB Left AT prox sys PSV 28 cm/s CV VAS LAB Left DIABETES NURSE prox sys PSV 177 cm/s CV VAS LAB Left mid peroneal sys PSV 34 cm/s CV VAS LAB Left popliteal dist sys PSV 34 cm/s CV VAS LAB Left popliteal prox sys PSV 132 cm/s CV VAS LAB Left PT dist sys PSV 13 cm/s CV VAS LAB Left PT mid sys PSV 17 cm/s CV VAS LAB Left PT prox sys PSV 13 cm/s CV VAS LAB Left super femoral dist sys PSV 91 cm/s CV VAS LAB Left super femoral mid sys PSV 45 cm/s CV VAS LAB Left super femoral prox sys PSV 28 cm/s CV VAS LAB Right Dist External Iliac PSV 122 cm/s CV VAS LAB Right Prox External Iliac PSV 79 cm/s CV VAS LAB Right AT dist sys PSV 46 cm/s CV VAS LAB Right AT mid sys PSV 44 cm/s CV VAS LAB Right AT prox sys PSV 66 cm/s CV VAS LAB Right DIABETES NURSE prox sys PSV 168 cm/s CV VAS LAB Right mid peroneal sys PSV 18 cm/s CV VAS LAB Right popliteal dist sys PSV 52 cm/s CV VAS LAB Right popliteal prox sys PSV 76 cm/s CV VAS LAB Right PT dist sys PSV 28 cm/s CV VAS LAB Right PT mid sys PSV 20 cm/s CV VAS LAB Right PT prox sys PSV 21 cm/s CV VAS LAB Right super femoral dist sys PSV 85 cm/s CV VAS LAB Right super femoral mid sys PSV 73 cm/s CV VAS LAB Right super femoral prox sys PSV 60 cm/s CV VAS LAB Right profunda sys PSV 65 cm/s CV VAS LAB Left profunda sys PSV 196 cm/s CV VAS LAB Right arm BP 117 mmHg CV V[facility] LAB Left arm BP 116 mmHg CV V[facility] LAB Right posterior tibial 61 mmHg CV VAS LAB Right Dorsalis Pedis 76 mmHg CV VAS LAB Right RAHUL 0.65 CV VAS LAB Right toe pressure 64 mmHg CV VAS LAB Right TBI 0.55 CV VAS LAB Left Dorsalis Pedis 68 mmHg CV VAS LAB Left RAHUL 0.58 CV VAS LAB Left toe pressure 53 mmHg CV VAS LAB Left TBI 0.45 CV VAS LAB Anatomical Region Laterality Modality Vascular, Abdomen Ultrasound Narrative 05/15/2025 5:53 PM EDT Right: RAHUL 0.65. TBI 0.55. Decreased amplitude PVR waveforms at the ankle. Normal amplitude digit PPG waveform. Biphasic waveforms at the common femoral artery with monophasic waveforms throughout the remainder of the lower extremity. Moderate to severe inflow arterial occlusive disease. 20-49% stenosis in superficial femoral artery. Three-vessel runoff in the calf. Left: RAHUL 0.58. TBI 0.45. Decreased amplitude PVR waveforms at the ankle. Slightly decreased amplitude digit PPG waveform. Monophasic Doppler waveforms throughout the lower extremity. Severe inflow arterial occlusive disease. 50-99% stenosis in distal superficial femoral artery/proximal popliteal artery. Three-vessel runoff in the calf. Right Lower Arterial Duplex The distal external iliac artery has biphasic flow. The common femoral artery has biphasic flow. The profunda femoris artery has monophasic flow. The superficial femoral artery has monophasic flow. The popliteal artery has monophasic flow. The anterior tibial artery has monophasic flow. The posterior tibial artery has monophasic flow. The mid peroneal artery has monophasic flow. Left Lower Arterial Duplex The distal external iliac artery has monophasic flow. The common femoral artery has biphasic flow. The profunda femoris artery is turbulent. The profunda femoris artery has biphasic flow. The superficial femoral artery has monophasic flow. The popliteal artery has monophasic flow. The anterior tibial artery has monophasic flow. The posterior tibial artery has monophasic flow. The mid peroneal artery has monophasic flow. Principal Engineer Details A wright scale, color and doppler analysis ultrasound was performed. During the study longitudinal and transverse views were obtained. Continuous wave doppler, pulsed wave doppler and pulsed volume recording (PVR) was performed. Overall the study quality was good. us Agustina GARNICA CV VASCULAR PROCEDURES Final Result * Vascular US duplex carotid bilateral (05/10/2025 4:15 PM EDT) Left CCA dist milner 12 cm/s CV [facility] Left CCA dist sys 56 cm/s CV VAS LAB LEFT COMMON CAROTID ARTERY MID D 14 cm/s CV VAS LAB LEFT COMMON CAROTID ARTERY MID S 53 cm/s CV VAS LAB Left CCA prox milner 10 cm/s CV VAS LAB Left CCA prox sys 39 cm/s CV VAS LAB LEFT EXTERNAL CAROTID ARTERY D 8 cm/s CV VAS LAB Left ECA sys 103 cm/s CV VAS LAB Left ICA/CCA sys 3.10 no units CV VAS LAB Left ICA dist sys 108 cm/s CV VAS LAB Left ICA mid milner 23 cm/s CV VAS LAB Left ICA mid sys 134 cm/s CV VAS LAB Left ICA prox milner 47 cm/s CV VAS LAB Left ICA prox sys 170 cm/s CV VAS LAB Left vertebral sys 75 cm/s CV VAS LAB Right CCA dist milner 8 cm/s CV VAS LAB Right cca dist sys 75 cm/s CV VAS LAB RIGHT COMMON CAROTID ARTERY MID D 7 cm/s CV VAS LAB RIGHT COMMON CAROTID ARTERY MID S 84 cm/s CV VAS LAB Right CCA prox milner 6 cm/s CV VAS LAB Right CCA prox sys 60 cm/s CV VAS LAB RIGHT EXTERNAL CAROTID ARTERY D 5 cm/s CV VAS LAB Right eca sys 280 cm/s CV VAS LAB Right ICA/CCA sys 2.50 no units CV VAS LAB Right ICA dist milner 36 cm/s CV VAS LAB Right ICA dist sys 244 cm/s CV VAS LAB Right ICA mid milner 41 cm/s CV VAS LAB Right ICA mid sys 208 cm/s CV VAS LAB Right ICA prox milner 23 cm/s CV VAS LAB Right ICA prox sys 171 cm/s CV VAS LAB Right vertebral sys 61 cm/s CV VAS LAB Left Prox Subclavian PSV 159 cm/s CV VAS LAB Right Prox Subclavian PSV 114 cm/s CV VAS LAB Right Bulb PSV 105 cm/s CV VAS LAB Right Bulb EDV 7 cm/s CV VAS LAB Right arm BP 123 mmHg CV VAS LAB Left arm BP 118 mmHg CV VAS LAB Left Bulb PSV 67 cm/s CV VAS LAB Left Bulb EDV 13 cm/s CV VAS LAB Anatomical Region Laterality Modality Vascular, Abdomen Ultrasound Narrative 05/12/2025 2:13 PM EDT RIGHT. 1. There is severe atherosclerotic plaque in the right carotid system as noted above. 2. There is a >70% stenosis in the right internal carotid artery based on Doppler velocity. 3. The subclavian artery has normal Doppler flow velocity. 4. The vertebral artery has normal Doppler flow patterns with antegrade flow. LEFT. 1. There is moderate atherosclerotic plaque in the left carotid system as noted above. 2. There is a < 50% stenosis in the left internal carotid artery based on Doppler velocity. 3. The subclavian artery has normal Doppler flow velocity. 4. The vertebral artery has normal Doppler flow patterns with antegrade flow. Interpretation was done according to the [place] Symptomatic Carotid Endarterectomy Trial (NASCET) criteria and the Consensus Panel Grayscale and Doppler Ultrasound criteria for diagnosis of internal carotid artery stenosis. Please note that there are no clear criteria validated for the common carotid artery stenosis. Right Carotid The CCA has mild heterogeneous plaque. The bifurcation has severe heterogeneous plaque. The ICA has moderate heterogeneous plaque. The ECA has moderate heterogeneous plaque. The subclavian artery waveforms are triphasic. Vertebral flow is antegrade. Left Carotid The CCA has mild heterogeneous plaque. The bifurcation has moderate heterogeneous plaque. The ICA has moderate heterogeneous plaque. The ECA has moderate heterogeneous plaque. The subclavian artery waveforms are triphasic. Vertebral flow is antegrade. Principal Engineer Details A wright scale, color and doppler analysis ultrasound was performed. During the study longitudinal and transverse views were obtained. Continuous wave doppler and pulsed wave doppler was performed. Overall the study quality was poorly visualized and technically difficult. Study was technically difficult due to: acoustic shadowing and body habitus. us Agustina GARNICA CV VASCULAR PROCEDURES Final Result * Vascular US duplex aorta/IVC/iliac/grafts complete (05/07/2025 [...] normal. There is normal color filling visualized. Principal Engineer Details A wright scale, color and doppler analysis ultrasound was performed. During the study longitudinal and transverse views were obtained. Pulsed wave doppler was performed. us Agustina GARNICA CV VASCULAR PROCEDURES Final Result * (ABNORMAL) CBC auto differential (04/18/2025 8:48 AM EDT) Only the most recent of4 resultswithin the time period is included. WBC 13.9(H) 4.8 - 10.8 K/mcL LAB HEMETOLOGY METHOD 04/18/2025 9:17 AM [facility] RBC 3.90(L) 4.50 - 5.50 M/mcL LAB HEMETOLOGY METHOD 04/18/2025 9:17 AM [facility] Hemoglobin 12.6(L) 13.5 - 17.5 g/dL LAB HEMETOLOGY METHOD 04/18/2025 9:17 AM [facility] Hematocrit 37.2(L) 42.0 - 54.0 % LAB HEMETOLOGY METHOD 04/18/2025 9:17 AM [facility] MCV 96.6 79.0 - 98.0 FL LAB HEMETOLOGY METHOD 04/18/2025 9:17 AM [facility] MCH 32.7(H) 27.0 - 32.0 pcg LAB HEMETOLOGY METHOD 04/18/2025 9:17 AM [facility] MCHC 33.9 32.0 - 37.0 g/dL LAB HEMETOLOGY METHOD 04/18/2025 9:17 AM [facility] RDW 13.8 11.0 - 15.0 % LAB HEMETOLOGY METHOD 04/18/2025 9:17 AM [facility] Platelets 174 130 - 400 K/mcL LAB HEMETOLOGY METHOD 04/18/2025 9:17 AM [facility] MPV 9.2 7.0 - 11.0 FL LAB HEMETOLOGY METHOD 04/18/2025 9:17 AM [facility] NRBC 0.0 <1.0 % LAB HEMETOLOGY METHOD 04/18/2025 9:17 AM [facility] NRBC Absolute 0.00 <0.10 K/mcL LAB HEMETOLOGY METHOD 04/18/2025 9:17 AM [facility] Neutrophils Relative 86.0 % LAB HEMETOLOGY METHOD 04/18/2025 9:17 AM [facility] Lymphocytes Relative 5.6 % LAB HEMETOLOGY METHOD 04/18/2025 9:17 AM [facility] Monocytes Relative 6.9 % LAB HEMETOLOGY METHOD 04/18/2025 9:17 AM [facility] Eosinophils Relative 0.5 % LAB HEMETOLOGY METHOD 04/18/2025 9:17 AM [facility] Basophils Relative 0.4 % LAB HEMETOLOGY METHOD 04/18/2025 9:17 AM [facility] Immature Granulocytes Relative 0.6 % LAB HEMETOLOGY METHOD 04/18/2025 9:17 AM [facility] Neutrophils Absolute 11.93(H) 1.50 - 7.00 K/mcL LAB HEMETOLOGY METHOD 04/18/2025 9:17 AM [facility] Lymphocytes Absolute 0.78(L) 1.00 - 5.00 K/mcL LAB HEMETOLOGY METHOD 04/18/2025 9:17 AM [facility] Monocytes Absolute 0.95 0.20 - 1.00 K/mcL LAB HEMETOLOGY METHOD 04/18/2025 9:17 AM [facility] Eosinophils Absolute 0.07 0.00 - 0.50 K/mcL LAB HEMETOLOGY METHOD 04/18/2025 9:17 AM [facility] Basophils Absolute 0.05 0.00 - 0.20 K/mcL LAB HEMETOLOGY METHOD 04/18/2025 9:17 AM [facility] Immature Granulocytes Absolute 0.08(H) 0.00 - 0.03 K/mcL LAB HEMETOLOGY METHOD 04/18/2025 9:17 AM [facility] Blood Venous blood specimen / Unknown Venipuncture / Unknown 04/18/2025 8:48 AM EDT 04/18/2025 8:52 AM EDT Tara Shaffer MD LAB BLOOD ORDERABLES Final Result Performing Organization Address [facility]/ZIP Co de Phone Number [facility] [address] [place] [address], [place] [phone] * SST tube (04/18/2025 8:45 AM EDT) Extra Tube Hold for add-ons. 04/18/2025 10:01 AM EDT [facility] Comment:Auto resulted. Blood Venous blood specimen / Unknown 04/18/2025 8:45 AM EDT 04/18/2025 8:54 AM EDT Tara Shaffer MD LAB BLOOD ORDERABLES Final Result Performing Organization Address [facility] de Phone Number [facility] [address] [place] [address], [place] [phone] * EGD Anesthesia - [facility]; [facility] ENDOSCOPY (04/17/2025 3:09 PM EDT) Anatomical Region Laterality Modality Endoscopy 04/17/2025 2:45 PM EDT Impressions 04/17/2025 3:12 PM EDT - 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 Injected. Clips (MR conditional) were placed. 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 - A small amount of food (residue) in the stomach. - Benign-appearing esophageal stenosis. Recommendation: - Use a proton pump inhibitor IV BID. - Use sucralfate suspension 1 gram PO QID. - Clear liquid diet. Narrative 04/17/2025 3:12 PM EDT [facility] GI Patient Name: Florinda Pinto Procedure Date: 04/17/2025 2:45 PM Date of : 1940 Age: 84 Gender: Male Note Status: Finalized Attending MD: Mylene Gonzales MD, Procedure Date No Time: 04/17/2025 Procedure: Upper GI endoscopy Indications: Active gastrointestinal bleeding Providers: Mylene Gonzales MD Referring MD: Mylene Gonzales MD Medicines: Monitored Anesthesia Care Complications: No immediate complications. Estimated blood loss: Minimal. Estimated Blood Loss: Estimated blood loss was minimal. Procedure: Pre-Anesthesia Assessment: - Prior to the procedure, a History and Physical was performed, and patient medications and allergies were reviewed. The patient is competent. The risks and benefits of the procedure and the sedation options and risks were discussed with the patient. All questions were answered and informed consent was obtained. Patient identification and proposed procedure were verified by the physician, the nurse, the aircraft magneto mechanic and the certified bench jeweler technician in the pre-procedure area in the endoscopy suite. Mental Status Examination: alert and oriented. Airway Examination: normal oropharyngeal airway and neck mobility. Respiratory Examination: clear to auscultation. CV Examination: normal. Prophylactic Antibiotics: The patient does not require prophylactic antibiotics. Prior Anticoagulants: The patient has taken no anticoagulant or antiplatelet agents. ASA Grade Assessment: E - Emergency. After reviewing the risks and benefits, the patient was deemed in satisfactory condition to undergo the procedure. The anesthesia plan was to use monitored anesthesia care (MAC). Immediately prior to administration of medications, the patient was re-assessed for adequacy to receive sedatives. The heart rate, respiratory rate, oxygen saturations, blood pressure, adequacy of pulmonary ventilation, and response to care were monitored throughout the procedure. The physical status of the patient was re-assessed after the procedure. After obtaining informed consent, the endoscope was passed under direct vision. Throughout the procedure, the patient's blood pressure, pulse, and oxygen saturations were monitored continuously. The Olympus Gastroscope was introduced through the mouth, and advanced to the afferent and efferent jejunal loops. The upper GI endoscopy was accomplished without difficulty. The patient tolerated the procedure well. Findings: Evidence of a patent Billroth II gastrojejunostomy was found. The gastrojejunal anastomosis was characterized by edema, erythema, friable mucosa, a hemorrhagic appearance, inflammation and ulceration. This was traversed. The efferent limb was examined. The afferent limb was examined. Area was successfully injected with 5 mL of a 0.1 mg/mL solution of epinephrine for hemostasis. The polyp was removed with a hot snare. Resection and retrieval were complete. For hemostasis, three hemostatic clips were successfully placed (MR conditional). 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 There was no bleeding at the end of the procedure. Estimated blood loss was minimal. A small amount of food (residue) was found in the entire examined stomach. One benign-appearing, intrinsic moderate (circumferential scarring or stenosis; an endoscope may pass) stenosis was found in the lower third of the esophagus. The stenosis was traversed. Procedure Code(s): --- Professional --- 04041, 59, Esophagogastroduodenoscopy, flexible, transoral; with control of bleeding, any method 95846, Esophagogastroduodenoscopy, flexible, transoral; with removal of tumor(s), polyp(s), or other lesion(s) by snare technique Diagnosis Code(s): --- Professional --- Z98.0, Intestinal bypass and anastomosis status K92.2, Gastrointestinal hemorrhage, unspecified CPT copyright 2020 [employer]. All rights reserved. The codes documented in this report are preliminary and upon color dipper review may be revised to meet current compliance requirements. Mylene Gonzales MD 04/17/2025 3:12:00 PM This report has been signed electronically.Mylene Gonzales MD Number of Addenda: 0 Note Initiated On: 04/17/2025 2:45 PM Scope In: Scope Out: Endoscopy Department at [facility] - [address] [place] [id number] Procedure Note Mylene Gonzales MD - 04/17/2025 [facility] GI Patient Name: Florinda Pinto Procedure Date: 04/17/2025 2:45 PM Date of : 1940 Age: 84 Gender: Male Note Status: Finalized Attending MD: Mylene Gonzales MD, Procedure Date No Time: 04/17/2025 Procedure: Upper GI endoscopy Indications: Active gastrointestinal bleeding Providers: Mylene Gonzales MD Referring MD: Mylene Gonzales MD Medicines: Monitored Anesthesia Care Complications: No immediate complications. Estimated blood loss: Minimal. Estimated Blood Loss: Estimated blood loss was minimal. Procedure: Pre-Anesthesia Assessment: - Prior to the procedure, a History and Physicalwas performed, and patient medications and allergieswere reviewed. The patient is competent. The risks and benefits of the procedure and the sedation optionsand risks were discussed with the patient. Allquestions were answered and informed consent was obtained. Patient identification and proposed procedure were verified by the physician, the nurse, theanesthetist and the certified bench jeweler technician in the pre-procedure area in the endoscopy suite. Mental Status Examination: alertand oriented. Airway Examination: normal oropharyngeal airway and neck mobility. Respiratory Examination: clear to auscultation. CV Examination: normal. Prophylactic Antibiotics: The patient does notrequire prophylactic antibiotics. Prior Anticoagulants: The patient has taken no anticoagulant or antiplatelet agents. ASA Grade Assessment: E - Emergency. After reviewing the risks and benefits, the patient was deemed in satisfactory condition to undergo the procedure. The anesthesia plan was to use monitored anesthesia care (MAC). Immediately prior to administration of medications, the patient was re-assessed for adequacy to receive sedatives. The heart rate, respiratory rate, oxygen saturations, blood pressure, adequacy of pulmonary ventilation,and response to care were monitored throughout the procedure. The physical status of the patient was re-assessed after the procedure. After obtaining informed consent, the endoscope was passed under direct vision. Throughout theprocedure, the patient's blood pressure, pulse, and oxygen saturations were monitored continuously. TheOlympus Gastroscope was introduced through the mouth, and advanced to the afferent and efferent jejunalloops. The upper GI endoscopy was accomplished without difficulty. The patient tolerated the procedurewell. Findings: Evidence of a patent Billroth II gastrojejunostomywas found. The gastrojejunal anastomosis wascharacterized by edema, erythema, friable mucosa, a hemorrhagic appearance, inflammation and ulceration. This was traversed. The efferent limb was examined. The afferent limb was examined. Area was successfully injected with 5 mL of a 0.1 mg/mL solution of epinephrine for hemostasis. The polyp was removedwith a hot snare. Resection and retrieval were complete. For hemostasis, three hemostatic clips were successfully placed (MR conditional). 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 There was nobleeding at the end of the procedure. Estimated blood losswas minimal. A small amount of food (residue) was found in the entire examined stomach. One benign-appearing, intrinsic moderate (circumferential scarring or stenosis; an endoscope may pass) stenosis was found in the lower third ofthe esophagus. The stenosis was traversed. Procedure Code(s): --- Professional --- 03917, 59, Esophagogastroduodenoscopy, flexible, transoral; with control of bleeding, any method 37211, Esophagogastroduodenoscopy, flexible, transoral; with removal of tumor(s), polyp(s), or other lesion(s) by snare technique Diagnosis Code(s): --- Professional --- Z98.0, Intestinal bypass and anastomosis status K92.2, Gastrointestinal hemorrhage, unspecified CPT copyright 2020 [employer]. All rights reserved. The codes documented in this report are preliminary and upon color dipper reviewmay be revised to meet current compliance requirements. 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 Injected. Clips (MR conditional) were placed. 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 - A small amount of food (residue) in thestomach. - Benign-appearing esophageal stenosis. Recommendation: - Use a proton pump inhibitor IV BID. - Use sucralfate suspension 1 gram PO QID. - Clear liquid diet. us Mylene Gonzales MD GI~PROCEDURE ORDERABLES Fin al Result * Tissue exam (04/17/2025 3:02 PM EDT) Final Diagnosis A. Stomach, gastric polypoid lesion x1 via hot snare: - Mucus, food material, and debris. - No enteric tissue is present for evaluation. 04/19/2025 9:24 AM EDT [facility] Gross Description A. Stomach, gastric polypoid lesion x1 via hot snare: Labeled gastric p stomach . Received in formalin, no tissue fragment present. The jar contains fecal/food debris, it is wrapped in paper and submitted in toto in one cassette, one piece, multiple levels. Please note: Small tissue fragments may not survive processing. hs/DG 04/19/2025 9:24 AM EDT [facility] Disclaimer Unless otherwise specified, all tissue is 10% NB formalin fixed and paraffin embedded. 04/19/2025 9:24 AM EDT [facility] Tissue Stomach structure / Unknown 04/17/2025 3:02 PM EDT 04/18/2025 6:36 AM EDT Mylene Gonzales MD LAB PATHOLOGY ORDERABLES Fi nal Result Performing Organization Address [facility]/ZIP Co de Phone Number [facility] [address] [place] [address], [place] [phone] * Magnesium (04/17/2025 4:11 AM EDT) Only the most recent of3 resultswithin the time period is included. Magnesium 2.2 1.9 - 2.6 mg/dL LAB CHEMISTRY METHOD 04/17/2025 5:55 AM EDT [facility] Blood Venous blood specimen / Unknown Venipuncture / Unknown 04/17/2025 4:11 AM EDT 04/17/2025 5:08 AM EDT Flower GARNICA LAB BLOOD ORDERABLES Final Resu lt Performing Organization Address [facility]/ZIP Co de Phone Number [facility] [address] [place] [address], [place] [phone] * (ABNORMAL) Basic metabolic panel (04/17/2025 4:11 AM EDT) Sodium 145 133 - 145 mmol/L LAB CHEMISTRY METHOD 04/17/2025 5:55 AM [facility] Potassium 4.0 3.5 - 5.5 mmol/L LAB CHEMISTRY METHOD 04/17/2025 5:55 AM [facility] Chloride 116(H) 96 - 110 mmol/L LAB CHEMISTRY METHOD 04/17/2025 5:55 AM [facility] CO2 22 21 - 32 mmol/L LAB CHEMISTRY METHOD 04/17/2025 5:55 AM [facility] Anion Gap 7 3 - 11 LAB CHEMISTRY METHOD 04/17/2025 5:55 AM [facility] Glucose 74 70 - 100 mg/dL LAB CHEMISTRY METHOD 04/17/2025 5:55 AM [facility] BUN 17 5 - 25 mg/dL LAB CHEMISTRY METHOD 04/17/2025 5:55 AM [facility] Creatinine 0.97 0.70 - 1.30 mg/dL LAB CHEMISTRY METHOD 04/17/2025 5:55 AM [facility] eGFR 77 >=60 mL/min/1. 73m2 LAB CHEMISTRY METHOD 04/17/2025 5:55 AM [facility] Comment:Calculation based on the Chronic Kidney Disease Epidemiology Collaboration (CKD-EPI) equation refit without adjustment for race. BUN/Creatinine Ratio 17.5 LAB CHEMISTRY METHOD 04/17/2025 5:55 AM [facility] Calcium 7.8(L) 8.5 - 10.5 mg/dL LAB CHEMISTRY METHOD 04/17/2025 5:55 AM [facility] Blood Venous blood specimen / Unknown Venipuncture / Unknown 04/17/2025 4:11 AM EDT 04/17/2025 5:08 AM EDT us Flower GARNICA LAB BLOOD ORDERABLES Final Resu lt [facility] [address] [place] [address], [place] [phone] * (ABNORMAL) Hemoglobin and hematocrit (04/16/2025 10:23 PM EDT) Only the most recent of2 resultswithin the time period is included. Hemoglobin 12.1(L) 13.5 - 17.5 g/dL LAB HEMETOLOGY METHOD 04/16/2025 10:33 PM EDT [facility] Hematocrit 36.9(L) 42.0 - 54.0 % LAB HEMETOLOGY METHOD 04/16/2025 10:33 PM EDT [facility] Blood Venous blood specimen / Unknown Venipuncture / Unknown 04/16/2025 10:23 PM EDT 04/16/2025 10:27 PM EDT us Nj Gray MD LAB BLOOD ORDERABLES Final Result [facility] [address] [place] [address], [place] [phone] * Type and screen (04/16/2025 1:26 PM EDT) [facility] ABO Group O 04/16/2025 3:32 PM EDT [facility] Rh Type Positive 04/16/2025 3:32 PM EDT [facility] Antibody Screen Negative 04/16/2025 3:32 PM EDT [facility] Blood Venous blood specimen / Unknown Venipuncture / Unknown 04/16/2025 1:26 PM EDT 04/16/2025 2:16 PM EDT us Nj Gray MD LAB BLOOD BANK TEST ORDERAB LES Final Result Performing Organization Address City/[facility]/ZIP Co de Phone Number [facility] [address] [place] [address], [place] [phone] * C-reactive protein (04/16/2025 1:26 PM EDT) [facility] C-Reactive Protein <0.29 <=0.50 mg/dL LAB CHEMISTRY METHOD 04/16/2025 8:48 PM EDT [facility] Blood Venous blood specimen / Unknown Venipuncture / Unknown 04/16/2025 1:26 PM EDT 04/16/2025 2:16 PM EDT us Nj Gray MD LAB BLOOD ORDERABLES Final Result [facility] [address] [place] [address], [place] [phone] * (ABNORMAL) Comprehensive metabolic panel (04/16/2025 1:26 PM EDT) Only the most recent of2 resultswithin the time period is included. [facility] Sodium 141 133 - 145 mmol/L LAB CHEMISTRY METHOD 04/16/2025 2:55 PM [facility] Potassium 4.5 3.5 - 5.5 mmol/L LAB CHEMISTRY METHOD 04/16/2025 2:55 PM [facility] Chloride 111(H) 96 - 110 mmol/L LAB CHEMISTRY METHOD 04/16/2025 2:55 PM [facility] CO2 23 21 - 32 mmol/L LAB CHEMISTRY METHOD 04/16/2025 2:55 PM T [facility] Anion Gap 7 3 - 11 LAB CHEMISTRY METHOD 04/16/2025 2:55 PM [facility] Glucose 88 70 - 100 mg/dL LAB CHEMISTRY METHOD 04/16/2025 2:55 PM [facility] BUN 24 5 - 25 mg/dL LAB CHEMISTRY METHOD 04/16/2025 2:55 PM [facility] Creatinine 1.08 0.70 - 1.30 mg/dL LAB CHEMISTRY METHOD 04/16/2025 2:55 PM [facility] eGFR 67 >=60 mL/min/1. 73m2 LAB CHEMISTRY METHOD 04/16/2025 2:55 PM [facility] Comment:Calculation based on the Chronic Kidney Disease Epidemiology Collaboration (CKD-EPI) equation refit without adjustment for race. BUN/Creatinine Ratio 22.2 LAB CHEMISTRY METHOD 04/16/2025 2:55 PM T [facility] Calcium 8.3(L) 8.5 - 10.5 mg/dL LAB CHEMISTRY METHOD 04/16/2025 2:55 PM [facility] AST (SGOT) 33 10 - 42 unit/L LAB CHEMISTRY METHOD 04/16/2025 2:55 PM [facility] ALT (SGPT) 31 10 - 60 unit/L LAB CHEMISTRY METHOD 04/16/2025 2:55 PM [facility] Alkaline Phosphatase 56 42 - 121 unit/L LAB CHEMISTRY METHOD 04/16/2025 2:55 PM [facility] Total Protein 6.2 6.0 - 8.0 g/dL LAB CHEMISTRY METHOD 04/16/2025 2:55 PM [facility] Albumin 3.4 3.2 - 5.0 g/dL LAB CHEMISTRY METHOD 04/16/2025 2:55 PM [facility] Total Bilirubin 0.5 0.0 - 1.4 mg/dL LAB CHEMISTRY METHOD 04/16/2025 2:55 PM [facility] Blood Venous blood specimen / Unknown Venipuncture / Unknown 04/16/2025 1:26 PM EDT 04/16/2025 2:16 PM EDT us Nj Gray MD LAB BLOOD ORDERABLES Final Result [facility] [address] [place] [address], [place] [phone] * Troponin I high sensitivity (04/13/2025 3:18 PM EDT) Only the most recent of2 resultswithin the time period is included. High Sensitivity Troponin I 42 <=79 ng/L LAB CHEMISTRY METHOD 04/13/2025 4:09 PM EDT [facility] Blood Venous blood specimen / Unknown Venipuncture / Unknown 04/13/2025 3:18 PM EDT 04/13/2025 3:31 PM EDT Narrative [facility] - 04/13/2025 4:09 PM EDT High levels of biotin in samples may falsely decrease hsTroponin values. Use caution when interpreting hsTroponin results in patients taking biotin who exhibit renal impairment (eGFR <60) or in patients taking more than 20 mg/day of biotin. Carla GARNICA LAB BLOOD ORDERABLES F inal Result [facility] [address] [place] [address], [place] [phone] * CT Abdomen Pelvis w Contrast (04/13/2025 2:54 PM EDT) Anatomical Region Laterality Modality Body Computed Tomogra phy 04/13/2025 3:06 PM EDT Impressions 04/13/2025 3:12 PM EDT Diverticulosis with suggestion of acute diverticulitis at the proximal sigmoid colon. No fluid collection or abscess. Incidental findings as above including infrarenal abdominal aortic aneurysm. -------- FINAL REPORT -------- Dictated By: Florinda Lopez Dictated Date: 04/13/2025 15:06 ET Assigned Physician: Florinda Lopez Reviewed and Electronically Signed By: Florinda Lopez Signed Date: 04/13/2025 15:12 ET Workstation ID: [id number] Transcribed By: Self Edit Transcribed Date: 04/13/2025 15:06 ET Narrative 04/13/2025 3:12 PM EDT PROCEDURE: CT ABDOMEN/PELVIS WITH CONTRAST INDICATION: Diverticulitis, complication suspected TECHNIQUE: CT of the abdomen and pelvis following the intravenous administration of 90cc Isovue 370. Multiplanar reformats. The examination was performed utilizing dose reduction techniques. Total DLP 695 COMPARISON: 05/13/2023 FINDINGS: LOWER THORAX: Atelectasis/scarring at the lung bases. Postsurgical changes distal esophagus/GE junction. Cardiomegaly with valvular and coronary artery calcifications. HEPATOBILIARY: No focal liver lesions. Mild biliary dilatation in the setting of prior cholecystectomy no masses evident. SPLEEN: No focal lesion. PANCREAS: No focal mass or ductal dilatation. ADRENALS: No nodules. KIDNEYS/URETERS: Left peripelvic cysts. No solid mass or hydronephrosis. Multiple calcifications in the kidneys some of which likely represent tiny nonobstructing calculi and others represent vascular calcifications. PELVIC ORGANS/BLADDER: Unremarkable. PERITONEUM / RETROPERITONEUM: No ascites or free air. No retroperitoneal lymphadenopathy. VESSELS: Significant calcified atherosclerotic plaque throughout. There is an abdominal aortic aneurysm measuring 4.2 x 4 cm GI TRACT: Diverticulosis with focal wall thickening of the proximal sigmoid colon which could represent diverticulitis. There is no bowel obstruction. Prominent stool burden in the cecum. Wall thickening of the ascending colon presumably related to underdistention.. BONES AND SOFT TISSUES: Left hip arthroplasty. Osteopenia. Degenerative changes of the spine. Fat-containing ventral hernias involving the upper abdominal wall. There are also fat-containing inguinal hernias as well. Procedure Note Florinda Lopez MD - 04/13/2025 PROCEDURE: CT ABDOMEN/PELVIS WITH CONTRAST INDICATION: Diverticulitis, complication suspected TECHNIQUE: CT of the abdomen and pelvis following the intravenousadministration of 90cc Isovue 370. Multiplanar reformats. The examinationwas performed utilizing dose reduction techniques. Total DLP 695 COMPARISON: 05/13/2023 FINDINGS: LOWER THORAX: Atelectasis/scarring at the lung bases. Postsurgicalchanges distal esophagus/GE junction. Cardiomegaly with valvular andcoronary artery calcifications. HEPATOBILIARY: No focal liver lesions. Mild biliary dilatation in thesetting of prior cholecystectomy no masses evident. SPLEEN: No focal lesion. PANCREAS: No focal mass or ductal dilatation. ADRENALS: No nodules. KIDNEYS/URETERS: Left peripelvic cysts. No solid mass or hydronephrosis.Multiple calcifications in the kidneys some of which likely represent tinynonobstructing calculi and others represent vascular calcifications. PELVIC ORGANS/BLADDER: Unremarkable. PERITONEUM / RETROPERITONEUM: No ascites or free air. No retroperitoneallymphadenopathy. VESSELS: Significant calcified atherosclerotic plaque throughout. Thereis an abdominal aortic aneurysm measuring 4.2 x 4 cm GI TRACT: Diverticulosis with focal wall thickening of the proximalsigmoid colon which could represent diverticulitis. There is no bowelobstruction. Prominent stool burden in the cecum. Wall thickening of theascending colon presumably related to underdistention.. BONES AND SOFT TISSUES: Left hip arthroplasty. Osteopenia. Degenerativechanges of the spine. Fat-containing ventral hernias involving the upperabdominal wall. There are also fat-containing inguinal hernias as well. IMPRESSION: Diverticulosis with suggestion of acute diverticulitis at the proximalsigmoid colon. No fluid collection or abscess. Incidental findings as above including infrarenal abdominal aorticaneurysm. -------- FINAL REPORT -------- Dictated By: Florinda Lopez Dictated Date: 04/13/2025 15:06 ET Assigned Physician: Florinda Lopez Reviewed and Electronically Signed By: Florinda Lopez Signed Date: 04/13/2025 15:12 ET Workstation ID: [id number] Transcribed By: Self Edit Transcribed Date: 04/13/2025 15:06 ET Carla GARNICA IMG CT PROCEDURES Tiffanie l Result * ECG 12 lead (04/13/2025 12:02 PM EDT) Ventricular Rate ECG 61 BPM GEMUSE Atrial Rate 61 BPM GEMUSE P-R Interval 228 ms GEMUSE QRS Duration 152 ms GEMUSE Q-T Interval 456 ms GEMUSE QTc 459 ms GEMUSE P Wave Zearing 52 degrees GEMUSE R Zearing -72 degrees GEMUSE T Zearing 76 degrees GEMUSE ECG Interpretation Sinus rhythm with 1st degree A-V block Left anterior fascicular block Possible Inferior infarct (cited on or before 13-APR-2025) Abnormal ECG When compared with ECG of 28-JUN-2024 10:28, No significant change was found Confirmed by FLORINDA GILL ([id number]) on 04/13/2025 8:15:37 PM GEMUSE 04/13/2025 12:0 2 PM EDT 04/13/2025 8:15 PM EDT Carla GANRICA ECG ORDERABLES Final Result Performing Organization Address City/[facility]/ZIP Co de Phone Number GEMUSE * Lipase (04/13/2025 11:51 AM EDT) Lipase 34 13 - 75 unit/L LAB CHEMISTRY METHOD 04/13/2025 1:09 PM EDT [facility] Blood Venous blood specimen / Unknown Venipuncture / Unknown 04/13/2025 11:51 AM EDT 04/13/2025 12:10 PM EDT Carla GARNICA LAB BLOOD ORDERABLES F inal Result Performing Organization Address City/[facility] Co de Phone Number [facility] [address] [place] [address], [place] [phone] * Lipid panel with reflex to direct LDL (12/29/2024 9:05 AM EST) Cholesterol 141 0 - 200 mg/dL LAB CHEMISTRY METHOD 12/29/2024 1:05 PM EST [facility] Triglycerides 100 0 - 150 mg/dL LAB CHEMISTRY METHOD 12/29/2024 1:05 PM EST [facility] HDL 71 >=40 mg/dL LAB CHEMISTRY METHOD 12/29/2024 1:05 PM [facility] LDL Calculated 50 0 - 100 mg/dL LAB CHEMISTRY METHOD 12/29/2024 1:05 PM [facility] VLDL Cholesterol Carlos 20 mg/dL LAB CHEMISTRY METHOD 12/29/2024 1:05 PM [facility] Non HDL Chol. (LDL+VLDL) 70 <145 mg/dL LAB CHEMISTRY METHOD 12/29/2024 1:05 PM EST [facility] Chol/HDL Ratio 2.0 0.0 - 4.4 LAB CHEMISTRY METHOD 12/29/2024 1:05 PM EST [facility] Blood Venous blood specimen / Unknown Venipuncture / Unknown 12/29/2024 9:05 AM EST 12/29/2024 9:05 AM EST us Gillian GARNICA LAB BLOOD ORDERABLES Fi nal Result [facility] ([facility]) [facility] [address] [place] [address], from Last 3 Months or Most Recently Relevant to Health Maintenance Insurance [place] [phone] [employer] Advance Directives * Full Code - Default (Latest Code Status on File) Date Activated Date Inactivated Comments 04/16/2025 10:11 PM 04/18/2025 5:02 PM This is ord er is used when code status has not been discussed with the patient, or code status is otherwise unknown/unconfirmed To update the patient's code status, place a code status order. Do not modify or discontinue any currently active code status orders. * Full Code - Confirmed Date Activated Date Inactivated Comments 04/16/2025 9:47 PM 04/16/2025 10:11 PM This code s tatus was ascertained in the following way: Code status discussion: discussion with patient To update the patient's code status, place a code status order. Do not modify or discontinue any currently active code status orders. Care Teams Division Head Relationship Specialty Start Date End Date Duane Lawler MD [address] [place] [phone] PCP - General Internal Medicine 08/07/20
== END 2025-06-22 11:22 | disposition home or self-care (01) ==
PROVIDERS: PCP Internal Medicine; Visit Provider Registered Nurse Emergency
DX: M47.812 Spondylosis without myelopathy or radiculopathy, cervical region (principal); M48.02 Spinal stenosis, cervical region
CPT/HCPCS: 99213; G2211

== ENCOUNTER 2025-07-09 13:46 | Outpatient (AMB) | payer OTHER, SELFPAY ==
--- OUTSIDE RECORDS SUMMARY | 2023-06-21 06:09 | XMS_ITS | Continuity of Care Document ---
Author Organization [facility] Address [address] [address] Phone Care Team Providers Care Bridge Ironworker Name Role Phone Bonilla Royal DO Unavailable Unavailable Advance Directives Directive Yes / No Effective Date File Name No Information Encounters Encounter Description Practice Location Reason(s) For Visit Diagnoses Date Provider [facility], [address], [id number], [place] tel:[phone] [address] [place] [address] No Information 2022 Lele Crystal. [address] [place] [address], [id number], [place]. tel:[phone] Family History Family Member Type Diagnosis Age At Onset No Information Payers Payer name Insurance type Covered green party ID Authoriza tion(s) No Information Social History Type Description Quantity Date Captured Comments Sex Male Smoking Status No Information Chief Complaint And Reason For Visit No Information History Of Present Illness Encounter Date Complaint History Of Prese nt Illness No Information Instructions Date Instruction Additional Infor mation No Information Assessments Type Assessment Date No Information
--- OUTSIDE RECORDS SUMMARY | 2024-08-25 13:03 | XMS_ITS | Encounter Summary ---
Author Organization [facility] Address [address] [place] [address] Care Team Providers Care Molecular Physicist Name Role Phone Duane Lawler MD Primary Care Provider [phone] Encounter Details Date Type Department Care Team (Late st Contact Info) Description 08/25/2024 1:03 PM EDT Hospital Encounter TH HISTORIC ENCOUNTERS EASTERN CONVERSION ONLY Jesica Biggs PA [address] [place] [phone] Social History Tobacco Use Types Packs/Day Years [...] Care Team (Late st Contact Info) Description 08/14/2025 3:30 PM EDT Office Visit Adult Medicine [facility] [address] [place], [place] [phone] Gillian Jarrett PA [address] [place], [place] 08/31/2025 2:40 PM EST Office Visit [facility] 154 300 [facility] 154 [place] [address] Donell Haynes NP [address] [place] [address] Dr Portillo [address] [place] [address] 09/06/2025 2:00 PM EST Office Visit [facility] Hematology Oncology [address] [place] [address] Jesica Biggs PA [address] [place] [address] 04/09/2026 12:00 PM EDT Ancillary Procedure [facility] 101 300 [facility] 101 [place] [address] 04/16/2026 12:00 PM EDT Ancillary Procedure [facility] 101 300 [facility] 101 [place] [address] 06/19/2026 1:00 PM EDT Office Visit Vascular Surgery - [place] [address] [place] [address] Brianna Trammell MD [address] [place] [phone] documented as of this encounter Procedures Procedure Name Priority Date/Time Associated Diagnosis Comments ..MISCELLANEOUS REFERENCE LAB TEST 08/25/2024 documented in this encounter Results * Miscellaneous reference lab test (08/25/2024) us Provider Onbase LAB BLOOD ORDERABLES Final Re sult documented in this encounter Visit Diagnoses Not on filedocumented in this encounter Care Teams Molecular Physicist Relationship Specialty Start Date End Date Duane Lawler MD [address] [place] [phone] PCP - General Internal Medicine 08/07/20 documented as of this encounter
[2025-07-09 13:59] VITALS: BMI 24.9
--- NOTE | 2025-07-09 13:59 | HO.SPINEOV ---
Vital Signs 07/09/25 13:59 Height 5 ft 8 in Weight 164 lb BMI 24.9 Intake Visit Reasons: cervical stenosis Intake Note: Mr. Pinto is here today c/o neck pain and Dizziness. Resident In Diagnostic Radiology Required: No Allergies gabapentin Allergy (Mild, Verified 07/09/25 14:00) spaces out omeprazole Allergy (Mild, Verified 06/22/25 11:03) weakness, disoritentation. lisinopril Allergy (Verified 06/22/25 11:03) Unknown Physical Exam Vital Signs: BMI result Body Mass Index 24.9 Assessment & Plan Assessment & Plan (1) Cervicalgia: Code(s): M54.2 - Cervicalgia Category: Medical Plan Dear SAHRA Lopez, Thank you for referring Bhavesh to our office today. He is a pleasant 85-year-old male who comes in today for evaluation of primarily posterior neck pain. He denies any known inciting incident for the pain. He states that he does not have any arm pain/shooting pains down his arms. He denies any upper or lower extremity numbness. He reports this has been ongoing for about 3 years. He states that the pain waxes/wanes throughout the day, with increasing/worsening pain with prolonged activity. He denies any issues with dexterity, denies any balance related issues, and denies any urinary/bowel incontinence. He is still very functional given his age, in his able to complete his activities of daily living around his home without much issue. He still walks out to the mailbox to get his mail in his able to drive his car. He does walk with the assistance of a cane primarily due to pain with prolonged ambulation. He states that he has been to physical therapy for this issue, however it was not helpful for him. He he has attempted professional healthcare representative and acupuncture although only obtained modest relief from this. He also has attempted for his own injections in his neck and his lumbar spine, which he reports typically wear off after a few weeks. 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 Social hx: The patient does not smoke, reports no substance use. Medications: See [employer] list, patient is on anticoagulants. Allergies: Gabapentin, lisinopril. Physical exam: The patient has full 5/5 strength in his upper and lower extremities. He ambulates well with the assistance of a cane but is slightly hunched over while ambulating. His gait is non spastic and nonantalgic. His reflexes are 2+ intact. He reports no significant sensational deficits to light touch on examination. He rises from a seated position without much difficulty in his able to get up onto the examination table without issue. (-) bilateral straight leg raise. (-) Vera's, (-) clonus. Imaging review: MRI of the cervical spine completed here at [facility] shows moderate central canal and severe right-sided foraminal stenosis at C3-4, moderate central canal and moderate-severe bilateral foraminal stenosis C4-5, moderate central canal and severe bilateral foraminal stenosis at C5-6, and moderate-severe left-sided foraminal stenosis at C6-7. Impression: Bhavesh is a pleasant 85-year-old male who comes in today for evaluation of 3 years of posterior neck pain without a radicular component shooting down his arms. He denies any myelopathic symptoms at home, and has no myelopathic reflexes on examination today. In the absence of signs/symptoms indicative of cervical myelopathy, and in the absence of shooting radicular pain down his bilateral upper extremities, I would advise against surgical intervention to relieve the nerve compression seen on MRI imaging. He was encouraged to continue follow up with our colleagues in pain management, and advised to follow up with our office in the future if his symptoms worsen or begin to encompass things such as dexterity issues, balance issues, incontinence, or shooting pain down his arms. He is agreeable to this, however asked for a referral to see Dr. Arteaga as he has been him before and request evaluation by him again. I will place the referral at the patient's request. Thank you for allowing us to care for your patient. The total time spent with this visit with this patient was 45 minutes reviewing history, physical exam, MRI imaging review, and implementation of treatment plan or further diagnostic testing Dilan Fierro MD,PhD [facility] Orders: Referrals Pain Management Referral M54.2 - Cervicalgia Coding Level of Care Code New Pt Level 4 (58435) Diagnoses Cervicalgia M54.2
--- OUTSIDE RECORDS SUMMARY | 2025-07-09 19:03 | XMS_ITS | Clinical Summary ---
Author Organization [facility] Address [address] [place] [address] Phone Care Team Providers Care Chief Revenue Officer Name Role Phone Duane Lawler MD Primary Care Provider [phone] Allergies Active Allergy Reactions Criticality Noted Date Comments Gabapentin Nausea And Vomiting 01/14/2021 Muscle weakness Lisinopril 01/14/2021 Weakness Medications aspirin 81 mg EC tablet Take 1 tablet (81 mg total) by mouth 1 (one) time each day. Active ferrous sulfate 325 mg (65 mg [...] MOUTH EVERYDAY AT BEDTIME 90 tablet 06/06/20 25 Active tiZANidine (ZANAFLEX) 4 mg tablet Take 1 tablet (4 mg total) by mouth 3 (three) times a day if needed for muscle spasms. 30 tablet 07/03/20 25 Active Jardiance 10 mg tablet TAKE 1 TABLET BY MOUTH EVERY DAY 90 tablet 3 07/09/20 25 Active empagliflozin (Jardiance) 10 mg tablet Take 1 tablet (10 mg total) by mouth 1 (one) time each day. 07/02/20 23 025 Discontinued Active Problems Problem Noted Date Diagnosed Date Diverticulitis 04/18/2025 Melena 04/16/2025 Mitral regurgitation 02/24/2025 Infrarenal abdominal aortic aneurysm (AAA) without rupture ([facility] V24) 02/24/2025 History of peptic ulcer disease [...] Chronic systolic CHF (conges tive heart failure) (CMS/[facility] V24, CMS/[facility] V28) 06/30/2023 Overview (02/24/2025): - Most recent echocardiogram on 06/16/[address] [facility] hospitalization ultimately being transferred to [facility] (see CAD section for further details) showing [...] Normocytic anemia 01/19/2023 PAD (peripheral artery disease) ([facility] V24) Hypertension 01/15/2021 Assessment & Plan (02/08/2025 [...] (12/31/2023): - Presented with cardiogenic shock to [facility] December 2017 - Status post CABG with HAYWOOD to the LAD, vein graft to the OM1, vein graft to the RPDA for multivessel coronary artery disease on cardiac cath -Non-STEMI in October 2020 in the setting of severe anemia after left total hip replacement. With GI evaluation showing no bleeding - Admitted to [facility] in May 2022 with recurrent chest discomfort with positive stress echocardiogram with ischemia in the inferior and inferoseptal rutherford - Cardiac cath in June 2022 showed severe left main and [place] three-vessel disease including mid RCA 99% stenosis which was heavily calcified and distal subsection 85% stenosis; HAYWOOD to the LAD was patent, vein graft to the OM1 was patent but did not feel the OM1 retrograde-the OM1 was filling anterograde by the [place] circumflex which had significant stenoses, vein graft to the RPL was distally occluded- status post PCI to the [place] mid RCA-plan was to intervene on the [place] left main into the circumflex should the patient have continued angina - Incidentally at the time the patient had shortness of breath on Brilinta and was switched to Plavix - Rehospitalized in June 2023 with recurrent shortness of breath, chest pain-found to have another non-ST elevation GA with drop in ejection fraction and progression of aortic stenosis- cardiac cath on 06/18/2023 showed again severe [place] three-vessel disease but with significant in-stent restenosis [...] decompressive laminectomy (04/28/19, Dr. Fierro) Polymyalgia rheumatica ([facility] V24) 10/22/2015 Overview (12/31/2023): Onset fall 2014- [...] Encounters Date Type Department Care Team Description 07/03/2025 2:30 PM EDT Office Visit Adult Medicine [address] [phone] Gillian Jarrett PA Hypertension, unspecified type (Primary Dx); Hyperlipidemia, unspecified hyperlipidemia type; Coronary artery disease, unspecified vessel or lesion type, unspecified whether angina present, unspecified whether united [place] or transplanted heart; Chronic systolic CHF (congestive heart failure) ([facility] V24, [facility] V28); Chronic neck pain; Depression, unspecified depression type 06/07/2025 3:30 PM EDT Office Visit Vascular Surgery - [place] [address] [place] [phone] Brianna Trammell MD PAD (peripheral artery disease) ([facility] V24) (Primary Dx); Bilateral carotid artery stenosis; Abdominal aortic aneurysm (AAA) 3.0 cm to 5.0 cm in diameter in female ([facility] V24); Encounter for screening for abdominal aortic aneurysm (AAA) in patient 50 years of age or older with history of smoking; Asymptomatic bilateral carotid artery stenosis 05/18/2025 [facility]phone [facility] [phone] Ciaran Delatorre PA 05/17/2025 12:31 PM EDT - 05/17/2025 11:59 PM EDT Hospital Encounter Radiology Department - [address] [phone] Chronic right flank pain Discharge Disposition: Home or Self Care 05/14/2025 12:00 PM EDT Ancillary Procedure [facility] Cardiology [facility] [address] [place] [address] [place] [phone] PAD (peripheral artery disease) ([facility] [place]) 05/10/2025 3:45 PM EDT Ancillary Procedure [facility] Cardiology [facility] [address] [place] [address] Carotid stenosis, asymptomatic, bilateral 05/07/2025 8:30 AM EDT Ancillary Procedure [facility] Cardiology [facility] [address] [place] [address] Infrarenal abdominal aortic aneurysm (AAA) without rupture ([facility] [place]24) 05/03/2025 5:15 PM EDT Office Visit Walk-In Clinic - [facility] [address] [place] [address] Ciaran Delatorre PA Chronic right flank pain (Primary Dx) 05/03/2025 Nurse Triage Adult Medicine [address] [phone] Duane Lawler MD 04/17/2025 2:45 PM EDT Anesthesia Event [facility] Endoscopy [address] [place] [phone] Alfred Barnard DO 04/16/2025 1:02 PM EDT - 04/18/2025 2:34 PM EDT Hospital Encounter [facility] Urology Unit [address] [place] [phone] Nj Gray MD Surendran, Anupama, MD Melena (Primary Dx); Anemia, unspecified type Discharge Disposition: Home or Self Care 04/16/2025 Telephone Adult Medicine [address] [phone] Duane Lawler MD 04/13/2025 11:14 AM EDT - 04/13/2025 5:32 PM EDT Emergency [facility] Emergency [address] [place] [phone] Diverticulitis (Primary Dx) Discharge Disposition: Home or Self Care 04/10/2025 Telephone Adult Medicine [address] [phone] Duane Lawler MD from Last 3 Months Immunizations Name Administration [...] 2 gastrectomy OTHER SURGICAL HISTORY 1996 PROCEDURE: MN CRANIECTOMY/CRANIOTOMY EXPL SUPRATENTORIAL; COMMENT: right acoustic neuroma COLONOSCOPY 10/29/2005 PROCEDURE: HISTORICAL COLONOSCOPY; COMMENT: Up to cecum, excellent preparation, minimal diverticulosis CHOLECYSTECTOMY 1988 PROCEDURE: HISTORICAL CHOLECYSTECTOMY OTHER SURGICAL HISTORY 1975 PROCEDURE: MN VGTMY W/PYLORPLSTY W/WO GASTROST TRUNCAL/SLCTV; COMMENT: vagotomy and pyloroplasty COLONOSCOPY 05/19/2011 PROCEDURE: HISTORICAL COLONOSCOPY; COMMENT: 1 cm right colon polyp: 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 HIP ARTHROPLASTY 2010 Left PROCEDURE: HISTORICAL HIP REPLACEMENT; COMMENT: l hip fracture COLONOSCOPY 07/27/2014 PROCEDURE: HISTORICAL COLONOSCOPY; COMMENT: 8 mm right colon polyp: sessile serrated adenoma UPPER GASTROINTESTINAL ENDOSCOPY 04/02/2017 PROCEDURE: MN UPPER GI ENDOSCOPY PERFORMED; COMMENT: normal post-op appearance. UPPER GASTROINTESTINAL ENDOSCOPY 03/06/2013 PROCEDURE: MN UPPER GI ENDOSCOPY PERFORMED; COMMENT: normal post-op appearance. UPPER GASTROINTESTINAL ENDOSCOPY 04/04/2009 PROCEDURE: MN UPPER GI ENDOSCOPY PERFORMED; COMMENT: intestinal bx: Normal biopsies, no evidence of celiac disease. UPPER GASTROINTESTINAL ENDOSCOPY 03/03/2007 PROCEDURE: MN UPPER GI ENDOSCOPY PERFORMED; COMMENT: Previous Billroth II with gastrojejunal anastomosis at 50cm, bile acid gastritis, 3-4 small polyps at anasthomosis:gastric mucosa with marked reactive foveolar hyperplasia, gastritis COLONOSCOPY 12/15/1999 PROCEDURE: HISTORICAL COLONOSCOPY; COMMENT: Dr. Sloan; no polyps. CORONARY ARTERY BYPASS GRAFT 01/01/2018 PROCEDURE: HISTORICAL CABG HIP ARTHROPLASTY 11/06/2020 Left PROCEDURE: HISTORICAL HIP REPLACEMENT UPPER GASTROINTESTINAL ENDOSCOPY 11/13/2020 PROCEDURE: MN UPPER GI ENDOSCOPY PERFORMED; COMMENT: Normal COLONOSCOPY 11/13/2020 PROCEDURE: HISTORICAL COLONOSCOPY; COMMENT: 2 diminutive polyps. Diverticulosis. Internal hemorrhoids. Erosion of the rectum. 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, CMS/HCC V28) 1995 DX:Benign neoplasm of crani al nerves ([facility]); COMMENT: R acoustic neuroma resection Heartburn 02/03/2006 [...] X:Essential hypertension, benign Fracture of left hip ([facility]/ C V24, [facility] V28) 2010 DX:Fracture of left hip ([facility] ) Diverticulosis DX:Diverticulosi s AAA (abdominal aortic aneury sm) ([facility] V24) DX:AAA (abdominal aortic ane urysm) ([facility]); COMMENT: 3.1 cm Lumbar spinal stenosis 01/21/2017 [...] Sign Reading Time Taken Comments Blood Pressure 120/70 07/03/2025 2:19 PM EDT Pulse 70 07/03/2025 2:19 PM EDT Temperature 35.9 C (96.7 F) 07/03/2025 2:19 PM EDT Respiratory Rate 16 04/18/2025 7:50 AM EDT Oxygen Saturation 91% 07/03/2025 2:19 PM EDT Inhaled Oxygen Concentration - - Weight 73.6 kg (162 lb 4.8 oz) 07/03/2025 2:19 P M EDT Height 172.7 cm (5' 7.99 ) 07/03/2025 2:19 PM ED T Body Mass Index 24.68 07/03/2025 2:19 PM EDT Plan of Treatment Upcoming Encounters Date Type Department Care Team (Late st Contact Info) Description 08/14/2025 3:30 PM EDT Office Visit Adult Medicine [facility] [address] [place], [place] [phone] Gillian Jarrett PA [address] [place], [place] 08/31/2025 2:40 PM EST Office Visit [facility] Cardiology [facility] [address] [facility] [address] [place] [phone] Donell Haynes NP [address] [place] [address] Dr Port[address] [place] [phone] 09/06/2025 2:00 PM EST Office Visit [facility] Hematology Oncology [address] [place] [phone] Jesica Biggs PA [address] [place] [address] 04/09/2026 12:00 PM EDT Ancillary Procedure [facility] [address] [facility] [address] [place] [phone] 04/16/2026 12:00 PM EDT Ancillary Procedure [facility] [address] [facility] [address] [place] [phone] 06/19/2026 1:00 PM EDT Office Visit Vascular Surgery [facility] [address] [facility] [address] [place] [phone] Brianna Trammell MD [address] [place] [phone] Health Maintenance Due Date Last Done Comments Medicare Annual Wellness Visit 10/03/2022 Social Influencers of Health Screening 10/03/2022 Depression Screening 10/25/2024 COVID-19 Vaccine ( season) 2025 09/09/2022, 01/21/2022, 07/25/2021, Additional history exists Influenza Vaccine (#1) 2025 , 07/17/2023, 07/03/2021, [...] 12:41 PM EDT PAD (peripheral artery disease) ([facility] V24) VAS US DUPLEX CAROTID BILATERAL Routine 05/10/2025 4:15 PM EDT Carotid stenosis, asymptomatic, bilateral VAS US DUPLEX AORTA/IVC/ILIAC/GRAFTS COMPLETE Routine 05/07/2025 8:34 AM EDT Infrarenal abdominal aortic aneurysm (AAA) without rupture ([facility] V24) CBC WITH AUTO DIFFERENTIAL Routine 04/18/2025 [...] Signed Date: 05/17/2025 15:58 ET Workstation ID: [id number] Transcribed By: Self Edit Transcribed Date: 05/17/2025 [...] Signed Date: 05/17/2025 15:58 ET Workstation ID: [id number] Transcribed By: Self Edit Transcribed Date: 05/17/2025 [...] PSV 28 cm/s CV VAS LAB Left [employer] prox sys PSV 177 cm/s CV VAS [...] PSV 66 cm/s CV VAS LAB Right [employer]OR prox sys PSV 168 cm/s CV VAS [...] The mid peroneal artery has monophasic flow. [employer] Details A wright scale, color and doppler [...] Interpretation was done according to the [place] Symptomatic Carotid Endarterectomy Trial (NASCET) criteria and [...] waveforms are triphasic. Vertebral flow is antegrade. [employer] Details A wright scale, color and doppler [...] normal. There is normal color filling visualized. [employer] Details A wright scale, color and doppler analysis ultrasound was performed. During the study longitudinal and transverse views were obtained. Pulsed wave doppler was performed. Agustina GARNICA CV VASCULAR PROCEDURES Final Result * (ABNORMAL) CBC auto differential (04/18/2025 8:48 AM EDT) Only the most recent of4 resultswithin the time period is included. WBC 13.9(H) 4.8 - 10.8 K/mcL LAB HEMETOLOGY METHOD 04/18/2025 9:17 AM [facility] RBC 3.90(L) 4.50 - 5.50 M/mcL LAB HEMETOLOGY METHOD 04/18/2025 9:17 AM [facility] Hemoglobin 12.6(L) 13.5 - 17.5 g/dL LAB HEMETOLOGY METHOD 04/18/2025 9:17 AM [facility] Hematocrit 37.2(L) 42.0 - 54.0 % LAB HEMETOLOGY METHOD 04/18/2025 9:17 AM [facility] MCV 96.6 79.0 - 98.0 FL LAB HEMETOLOGY METHOD 04/18/2025 9:17 AM [facility] MCH 32.7(H) 27.0 - 32.0 pcg LAB HEMETOLOGY METHOD 04/18/2025 9:17 AM [facility] MCHC 33.9 32.0 - 37.0 g/dL LAB HEMETOLOGY METHOD 04/18/2025 9:17 AM [facility] RDW 13.8 11.0 - 15.0 % LAB HEMETOLOGY METHOD 04/18/2025 9:17 AM [facility] Platelets 174 130 - 400 K/mcL LAB HEMETOLOGY METHOD 04/18/2025 9:17 AM [facility] MPV 9.2 7.0 - 11.0 FL LAB HEMETOLOGY METHOD 04/18/2025 9:17 AM [facility] NRBC 0.0 <1.0 % LAB HEMETOLOGY METHOD 04/18/2025 9:17 AM [facility] NRBC Absolute 0.00 <0.10 K/mcL LAB HEMETOLOGY METHOD 04/18/2025 9:17 AM [facility] Neutrophils Relative 86.0 % LAB HEMETOLOGY METHOD 04/18/2025 9:17 AM [facility] Lymphocytes Relative 5.6 % LAB HEMETOLOGY METHOD 04/18/2025 9:17 AM [facility] Monocytes Relative 6.9 % LAB HEMETOLOGY METHOD 04/18/2025 9:17 AM [facility] Eosinophils Relative 0.5 % LAB HEMETOLOGY METHOD 04/18/2025 9:17 AM [facility] Basophils Relative 0.4 % LAB HEMETOLOGY METHOD 04/18/2025 9:17 AM [facility] Immature Granulocytes Relative 0.6 % LAB HEMETOLOGY METHOD 04/18/2025 9:17 AM [facility] Neutrophils Absolute 11.93(H) 1.50 - 7.00 K/mcL LAB HEMETOLOGY METHOD 04/18/2025 9:17 AM [facility] Lymphocytes Absolute 0.78(L) 1.00 - 5.00 K/mcL LAB HEMETOLOGY METHOD 04/18/2025 9:17 AM [facility] Monocytes Absolute 0.95 0.20 - 1.00 K/mcL LAB HEMETOLOGY METHOD 04/18/2025 9:17 AM [facility] Eosinophils Absolute 0.07 0.00 - 0.50 K/mcL LAB HEMETOLOGY METHOD 04/18/2025 9:17 AM EDT [facility] Basophils Absolute 0.05 0.00 - 0.20 K/Health system LAB HEMETOLOGY METHOD 04/18/2025 9:17 AM EDT [facility] Immature Granulocytes Absolute 0.08(H) 0.00 - 0.03 K/Health system LAB HEMETOLOGY METHOD 04/18/2025 9:17 AM EDT [facility] Blood Venous blood specimen / Unknown Venipuncture / Unknown 04/18/2025 8:48 AM EDT 04/18/2025 8:52 AM EDT us Tara Shaffer MD LAB BLOOD ORDERABLES Final Result Performing Organization Address [facility]/ZIP Co de Phone Number [facility] [address] [place] [address], [place] [phone] * SST tube (04/18/2025 8:45 AM EDT) Extra Tube Hold for add-ons. 04/18/2025 10:01 AM EDT [facility] Comment:Auto resulted. Blood Venous blood specimen / Unknown 04/18/2025 8:45 AM EDT 04/18/2025 8:54 AM EDT Tara Shaffer MD LAB BLOOD ORDERABLES Final Result Performing Organization Address City/[facility]/ZIP Co de Phone Number [facility] [address] [place] [address], [place] [phone] * EGD Anesthesia - MAC; [facility] ENDOSCOPY (04/17/2025 3:09 PM EDT) Anatomical Region Laterality Modality Endoscopy 04/17/2025 2:45 PM EDT Impressions 04/17/2025 3:12 PM EDT - 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 Injected. Clips (MR conditional) were placed. Clip stitcher hand: Bolongaro Trevor. - A small amount of food (residue) in the stomach. - Benign-appearing esophageal stenosis. Recommendation: - Use a proton pump inhibitor IV BID. - Use sucralfate suspension 1 gram PO QID. - Clear liquid diet. Narrative 04/17/2025 3:12 PM EDT [facility] GI Patient Name: Florinda Pinto Procedure [...] verified by the physician, the nurse, the agricultural mechanic and the agriculture technician in the pre-procedure area in the [...] clips were successfully placed (MR conditional). Clip stitcher hand: Bolongaro Trevor. There was no bleeding at the end of the procedure. Estimated blood loss was minimal. A small amount of food (residue) was found in the entire examined stomach. One benign-appearing, intrinsic moderate (circumferential scarring or stenosis; an endoscope may pass) stenosis was found in the lower third of the esophagus. The stenosis was traversed. Procedure Code(s): --- Professional --- 67708, 59, Esophagogastroduodenoscopy, flexible, transoral; with control of bleeding, any method 79752, Esophagogastroduodenoscopy, flexible, transoral; with removal of tumor(s), polyp(s), or other lesion(s) by snare technique Diagnosis Code(s): --- Professional --- Z98.0, Intestinal bypass and anastomosis status K92.2, Gastrointestinal hemorrhage, unspecified CPT copyright 2020 [employer]. All rights reserved. The codes documented in this report are preliminary and upon employment recruiter review may be revised to meet current compliance requirements. Mylene Gonzales MD 04/17/2025 3:12:00 PM This report has been signed electronically.Mylene Gonzales MD Number of Addenda: 0 Note Initiated On: 04/17/2025 2:45 PM Scope In: Scope Out: Endoscopy Department at [facility] - [address] [place] [phone] Procedure Note Mylene Gonzales MD - 04/17/2025 [facility] GI Patient Name: Florinda Pinto Procedure [...] the physician, the nurse, theanesthetist and the agriculture technician in the pre-procedure area in the [...] clips were successfully placed (MR conditional). Clip stitcher hand: Bolongaro Trevor. There was nobleeding at the end of the procedure. Estimated blood losswas minimal. A small amount of food (residue) was found in the entire examined stomach. One benign-appearing, intrinsic moderate (circumferential scarring or stenosis; an endoscope may pass) stenosis was found in the lower third ofthe esophagus. The stenosis was traversed. Procedure Code(s): --- Professional --- 90808, 59, Esophagogastroduodenoscopy, flexible, transoral; with control of bleeding, any method 17093, Esophagogastroduodenoscopy, flexible, transoral; with removal of tumor(s), polyp(s), or other lesion(s) by snare technique Diagnosis Code(s): --- Professional --- Z98.0, Intestinal bypass and anastomosis status K92.2, Gastrointestinal hemorrhage, unspecified CPT copyright 2020 [employer]. All rights reserved. The codes documented in this report are preliminary and upon employment recruiter reviewmay be revised to meet current compliance requirements. Mylene Gonzales MD 04/17/2025 3:12:00 PM This report has been signed electronically.Mylene Gonzales MD Number of Addenda: 0 Note Initiated On: 04/17/2025 2:45 PM Scope In: Scope Out: Endoscopy Department at [facility] - [address] [place] [phone] IMPRESSION: - Patent Billroth II gastrojejunostomy was found, characterized by edema, erythema, friable mucosa, a hemorrhagic appearance, inflammation andulceration. Injected. Clips (MR conditional) were placed. Clip stitcher hand: Bolongaro Trevor. - A small amount of food (residue) in thestomach. - Benign-appearing esophageal stenosis. Recommendation: - Use a proton pump inhibitor IV BID. - Use sucralfate suspension 1 gram PO QID. - Clear liquid diet. Mylene Gonzales MD GI~PROCEDURE ORDERABLES Fin al Result * Tissue exam (04/17/2025 3:02 PM EDT) Final Diagnosis A. Stomach, gastric polypoid lesion x1 via hot snare: - Mucus, food material, and debris. - No enteric tissue is present for evaluation. 04/19/2025 9:24 AM EDT [facility] Gross Description A. Stomach, gastric polypoid lesion x1 via hot snare: Labeled gastric p stomach . Received in formalin, no tissue fragment present. The jar contains fecal/food debris, it is wrapped in paper and submitted in toto in one cassette, one piece, multiple levels. Please note: Small tissue fragments may not survive processing. hs/DG 04/19/2025 9:24 AM EDT [facility] Disclaimer Unless otherwise specified, all tissue is 10% NB formalin fixed and paraffin embedded. 04/19/2025 9:24 AM EDT [facility] Tissue Stomach structure / Unknown 04/17/2025 3:02 PM EDT 04/18/2025 6:36 AM EDT Mylene Gonzales MD LAB PATHOLOGY ORDERABLES Fi nal Result [facility] [address] [place] [address], * Magnesium (04/17/2025 4:11 AM EDT) Only the most recent of3 resultswithin the time period is included. Magnesium 2.2 1.9 - 2.6 mg/dL LAB CHEMISTRY METHOD 04/17/2025 5:55 AM EDT [facility] Blood Venous blood specimen / Unknown Venipuncture / Unknown 04/17/2025 4:11 AM EDT 04/17/2025 5:08 AM EDT us Flower GARNICA LAB BLOOD ORDERABLES Final Resu lt [facility] [address] [place] [address], [place] [phone] * (ABNORMAL) Basic metabolic panel (04/17/2025 4:11 AM EDT) Sodium 145 133 - 145 mmol/L LAB CHEMISTRY METHOD 04/17/2025 5:55 AM [facility] Potassium 4.0 3.5 - 5.5 mmol/L LAB CHEMISTRY METHOD 04/17/2025 5:55 AM [facility] Chloride 116(H) 96 - 110 mmol/L LAB CHEMISTRY METHOD 04/17/2025 5:55 AM [facility] CO2 22 21 - 32 mmol/L LAB CHEMISTRY METHOD 04/17/2025 5:55 AM [facility] Anion Gap 7 3 - 11 LAB CHEMISTRY METHOD 04/17/2025 5:55 AM [facility] Glucose 74 70 - 100 mg/dL LAB CHEMISTRY METHOD 04/17/2025 5:55 AM [facility] BUN 17 5 - 25 mg/dL LAB CHEMISTRY METHOD 04/17/2025 5:55 AM [facility] Creatinine 0.97 0.70 - 1.30 mg/dL LAB CHEMISTRY METHOD 04/17/2025 5:55 AM [facility] eGFR 77 >=60 mL/min/1. 73m2 LAB CHEMISTRY METHOD 04/17/2025 5:55 AM [facility] Comment:Calculation based on the Chronic Kidney Disease Epidemiology Collaboration (CKD-EPI) equation refit without adjustment for race. BUN/Creatinine Ratio 17.5 LAB CHEMISTRY METHOD 04/17/2025 5:55 AM [facility] Calcium 7.8(L) 8.5 - 10.5 mg/dL LAB CHEMISTRY METHOD 04/17/2025 5:55 AM EDT [facility] Blood Venous blood specimen / Unknown Venipuncture / Unknown 04/17/2025 4:11 AM EDT 04/17/2025 5:08 AM EDT Flower GARNICA LAB BLOOD ORDERABLES Final Resu lt [facility] [address] [place] [address], [place] [phone] * (ABNORMAL) Hemoglobin and hematocrit (04/16/2025 10:23 PM EDT) Only the most recent of2 resultswithin the time period is included. Hemoglobin 12.1(L) 13.5 - 17.5 g/dL LAB HEMETOLOGY METHOD 04/16/2025 10:33 PM EDT [facility] Hematocrit 36.9(L) 42.0 - 54.0 % LAB HEMETOLOGY METHOD 04/16/2025 10:33 PM EDT [facility] Blood Venous blood specimen / Unknown Venipuncture / Unknown 04/16/2025 10:23 PM EDT 04/16/2025 10:27 PM EDT Nj Gray MD LAB BLOOD ORDERABLES Final Result [facility] [address] [place] [address], [place] [phone] * Type and screen (04/16/2025 1:26 PM EDT) ABO Group O 04/16/2025 3:32 PM EDT [facility] Rh Type Positive 04/16/2025 3:32 PM EDT [facility] Antibody Screen Negative 04/16/2025 3:32 PM EDT [facility] Blood Venous blood specimen / Unknown Venipuncture / Unknown 04/16/2025 1:26 PM EDT 04/16/2025 2:16 PM EDT us Nj Gray MD LAB BLOOD BANK TEST ORDERAB LES Final Result Performing Organization Address [facility]/ZIP Co de Phone Number [facility] [address] [place] [address], [place] [phone] * C-reactive protein (04/16/2025 1:26 PM EDT) [facility] C-Reactive Protein <0.29 <=0.50 mg/dL LAB CHEMISTRY METHOD 04/16/2025 8:48 PM EDT [facility] Blood Venous blood specimen / Unknown Venipuncture / Unknown 04/16/2025 1:26 PM EDT 04/16/2025 2:16 PM EDT us Nj Gray MD LAB BLOOD ORDERABLES Final Result Performing Organization Address [facility] de Phone Number [facility] [address] [place] [address], [place] [phone] * (ABNORMAL) Comprehensive metabolic panel (04/16/2025 1:26 PM EDT) Only the most recent of2 resultswithin the time period is included. [facility] Sodium 141 133 - 145 mmol/L LAB CHEMISTRY METHOD 04/16/2025 2:55 PM EDT [facility] Potassium 4.5 3.5 - 5.5 mmol/L LAB CHEMISTRY METHOD 04/16/2025 2:55 PM EDT [facility] Chloride 111(H) 96 - 110 mmol/L LAB CHEMISTRY METHOD 04/16/2025 2:55 PM EDT [facility] CO2 23 21 - 32 mmol/L LAB CHEMISTRY METHOD 04/16/2025 2:55 PM [facility] Anion Gap 7 3 - 11 LAB CHEMISTRY METHOD 04/16/2025 2:55 PM [facility] Glucose 88 70 - 100 mg/dL LAB CHEMISTRY METHOD 04/16/2025 2:55 PM [facility] BUN 24 5 - 25 mg/dL LAB CHEMISTRY METHOD 04/16/2025 2:55 PM [facility] Creatinine 1.08 0.70 - 1.30 mg/dL LAB CHEMISTRY METHOD 04/16/2025 2:55 PM [facility] eGFR 67 >=60 mL/min/1. 73m2 LAB CHEMISTRY METHOD 04/16/2025 2:55 PM [facility] Comment:Calculation based on the Chronic Kidney Disease Epidemiology Collaboration (CKD-EPI) equation refit without adjustment for race. BUN/Creatinine Ratio 22.2 LAB CHEMISTRY METHOD 04/16/2025 2:55 PM [facility] Calcium 8.3(L) 8.5 - 10.5 mg/dL LAB CHEMISTRY METHOD 04/16/2025 2:55 PM [facility] AST (SGOT) 33 10 - 42 unit/L LAB CHEMISTRY METHOD 04/16/2025 2:55 PM [facility] ALT (SGPT) 31 10 - 60 unit/L LAB CHEMISTRY METHOD 04/16/2025 2:55 PM [facility] Alkaline Phosphatase 56 42 - 121 unit/L LAB CHEMISTRY METHOD 04/16/2025 2:55 PM [facility] Total Protein 6.2 6.0 - 8.0 g/dL LAB CHEMISTRY METHOD 04/16/2025 2:55 PM [facility] Albumin 3.4 3.2 - 5.0 g/dL LAB CHEMISTRY METHOD 04/16/2025 2:55 PM [facility] Total Bilirubin 0.5 0.0 - 1.4 mg/dL LAB CHEMISTRY METHOD 04/16/2025 2:55 PM EDT [facility] Blood Venous blood specimen / Unknown Venipuncture / Unknown 04/16/2025 1:26 PM EDT 04/16/2025 2:16 PM EDT Nj Gray MD LAB BLOOD ORDERABLES Final Result Performing Organization Address [facility]/ZIP Co de Phone Number [facility] [address] [place] [address], [place] [phone] * Troponin I high sensitivity (04/13/2025 3:18 PM EDT) Only the most recent of2 resultswithin the time period is included. [facility] High Sensitivity Troponin I 42 <=79 ng/L LAB CHEMISTRY METHOD 04/13/2025 4:09 PM EDT [facility] Blood Venous blood specimen / Unknown Venipuncture / Unknown 04/13/2025 3:18 PM EDT 04/13/2025 3:31 PM EDT Narrative [facility] - 04/13/2025 4:09 PM EDT High levels of biotin in samples may falsely decrease hsTroponin values. Use caution when interpreting hsTroponin results in patients taking biotin who exhibit renal impairment (eGFR <60) or in patients taking more than 20 mg/day of biotin. Carla GARNICA LAB BLOOD ORDERABLES F inal Result Performing Organization Address City/[facility]/ZIP Co de Phone Number [facility] [address] [place] [address], [place] [phone] * CT Abdomen Pelvis w Contrast (04/13/2025 [...] Signed Date: 04/13/2025 15:12 ET Workstation ID: [id number] Transcribed By: Self Edit Transcribed Date: 04/13/2025 [...] Signed Date: 04/13/2025 15:12 ET Workstation ID: [id number] Transcribed By: Self Edit Transcribed Date: 04/13/2025 15:06 ET us Carla GARNICA IMN[facility] CT PROCEDURES Tiffanie l Result * ECG 12 lead (04/13/2025 12:02 PM EDT) Ventricular Rate ECG 61 BPM GEMUSE Atrial Rate 61 BPM GEMUSE P-R Interval 228 ms GEMUSE QRS Duration 152 ms GEMUSE Q-T Interval 456 ms GEMUSE QTc 459 ms GEMUSE P Wave Jay 52 degrees GEMUSE R Jay -72 degrees GEMUSE T Jay 76 degrees GEMUSE ECG Interpretation Sinus rhythm with 1st degree A-V block Left anterior fascicular block Possible Inferior infarct (cited on or before 13-APR-2025) Abnormal ECG When compared with ECG of 28-JUN-2024 10:28, No significant change was found Confirmed by FLORINDA GILL ([id number]) on 04/13/2025 8:15:37 PM GEMUSE 04/13/2025 12:0 2 PM EDT 04/13/2025 8:15 PM EDT Carla GARNICA ECG ORDERABLES Final Result Performing Organization Address [facility]/ZIP Co de Phone Number GEMUSE * Lipase (04/13/2025 11:51 AM EDT) [facility] Lipase 34 13 - 75 unit/L LAB CHEMISTRY METHOD 04/13/2025 1:09 PM EDT [facility] Blood Venous blood specimen / Unknown Venipuncture / Unknown 04/13/2025 11:51 AM EDT 04/13/2025 12:10 PM EDT Carla GARNICA LAB BLOOD ORDERABLES F inal Result Performing Organization Address [facility]/ZIP Co de Phone Number [facility] [address] [place] [address], [place] [phone] * Lipid panel with reflex to direct LDL (12/29/2024 9:05 AM EST) [facility] Cholesterol 141 0 - 200 mg/dL LAB CHEMISTRY METHOD 12/29/2024 1:05 PM EST [facility] Triglycerides 100 0 - 150 mg/dL LAB CHEMISTRY METHOD 12/29/2024 1:05 PM EST [facility] HDL 71 >=40 mg/dL LAB CHEMISTRY METHOD 12/29/2024 1:05 PM [facility] LDL Calculated 50 0 - 100 mg/dL LAB CHEMISTRY METHOD 12/29/2024 1:05 PM [facility] VLDL Cholesterol Carlos 20 mg/dL LAB CHEMISTRY METHOD 12/29/2024 1:05 PM [facility] Non HDL Chol. (LDL+VLDL) 70 <145 mg/dL LAB CHEMISTRY METHOD 12/29/2024 1:05 PM [facility] Chol/HDL Ratio 2.0 0.0 - 4.4 LAB CHEMISTRY METHOD 12/29/2024 1:05 PM [facility] Blood Venous blood specimen / Unknown Venipuncture / Unknown 12/29/2024 9:05 AM EST 12/29/2024 9:05 AM EST Gillian GARNICA LAB BLOOD ORDERABLES Fi nal Result [facility] [address] [place] [address], from Last 3 Months or Most Recently Relevant to Health Maintenance Insurance [employer] Advance Directives * [...] currently active code status orders. Care Teams Chief Revenue Officer Relationship Specialty Start Date End Date Duane Lawler MD [address] [place] [phone] PCP - General Internal Medicine 08/07/20
--- OUTSIDE RECORDS SUMMARY | 2025-07-09 19:03 | XMS_ITS | Clinical Summary ---
Author Organization [facility] Address [address] [place] [address] Care Team Providers Care Vamp Liner Name Role Phone Duane Lawler MD Primary Care Provider [phone] Allergies Active Allergy Reactions Criticality Noted Date [...] 09/05/2020, 1 11/12/2006 COVID-19 Vaccine ( season) 2025 09/09/2022, 01/21/2022, [...] age to complete this topic Care Teams Vamp Liner Relationship Specialty Start Date End Date Duane Lawler MD PCP - General Internal Medicine 01/15/21
== END 2025-07-09 15:04 | disposition home or self-care (01) ==
LOC: HO.HNS 13:47
PROVIDERS: PCP Internal Medicine; Referring Provider Registered Nurse Emergency; Visit Provider Physician Assistant
DX: M54.2 Cervicalgia (principal)
CPT/HCPCS: 99204

== ENCOUNTER 2025-08-23 09:41 | Emergency (ER) | payer OTHER, SELFPAY ==
--- OUTSIDE RECORDS SUMMARY | 2023-06-21 06:09 | XMS_ITS | Continuity of Care Document ---
Author Organization [facility] Address [address] [address] Phone Care Team Providers Care Coverstitch Binder Name Role Phone Bonilla Royal DO Unavailable Unavailable Advance Directives Directive Yes / No Effective Date File Name No Information Encounters Encounter Description Practice Location Reason(s) For Visit Diagnoses Date Provider [facility], [address], [id number], [place] tel:[phone] [address] [place] [address] No Information 2022 Lele Crystal. [address] [place] [address], [id number], [place]. tel:[phone] Family History Family Member Type Diagnosis Age At Onset No Information Payers Payer name Insurance type Covered constitution party ID Authoriza tion(s) No Information Social History Type Description Quantity Date Captured Comments Sex Male Smoking Status No Information Chief Complaint And Reason For Visit No Information History Of Present Illness Encounter Date Complaint History Of Prese nt Illness No Information Instructions Date Instruction Additional Infor mation No Information Assessments Type Assessment Date No Information
--- OUTSIDE RECORDS SUMMARY | 2024-08-25 13:03 | XMS_ITS | Encounter Summary ---
Author Organization [facility] Address [address] [place] [address] Care Team Providers Care Buckram Sewer Name Role Phone Duane Lawler MD Primary Care Provider [phone] Encounter Details Date Type Department Care Team (Late st Contact Info) Description 08/25/2024 1:03 PM EDT Hospital Encounter TH HISTORIC ENCOUNTERS EASTERN CONVERSION ONLY Jesica Biggs PA [address] [place] [phone] Social History Tobacco Use Types Packs/Day Years Used Date Smoking Tobacco: Former Cigarettes 1.5 34.5 0 1954 - 10/25/1988 Smokeless Tobacco: Never Alcohol Use Standard Drinks/Week Comments Yes 7 (1 standard drink = 0.6 oz pur e alcohol) Interpersonal Safety Answer Date Record ed Physical Abuse Unrecognized value 04/17/2025 Verbal Abuse Unrecognized value 04/17/2025 Sex and Gender Information Value Date [...] 1:20 PM EDT documented in this encounter Functional Status * Calculated C-SSRS Risk Score (Lifetime/Recent) Answer Date of Assessment Author No Risk Indicated 04/17/2025 11:37 AM EDT Julissa Spencer, RN * [place] Suicide Severity Rating Scale (Screener/Recent Self-Report) Question Answer Date of Assessment Author 1. Wish to be (Past 1 Month) No 11:37 AM EDT Julissa Spencer, RN 2. Non-Specific Active Suici nitish Thoughts (Past 1 Month) No 04/17/2025 11:37 AM EDT Stephane Spencer, RN 6. Suicidal Behavior (Lifetime) No 11:37 AM EDT Julissa Spencer, RN documented as of this encounter Plan of Treatment Upcoming Encounters Date Type Department Care Team (Late st Contact Info) Description 08/31/2025 2:40 PM EST Office Visit [facility] 154 300 [facility] [address] [place] [address] Doenll Haynes NP [address] [place] [address] Dr Portillo [address] [place] [phone] 09/06/2025 2:00 PM EST Office Visit [facility] Hematology Oncology [address] [place] [phone] Jesica Biggs PA [address] [place] [address] 01/01/2026 3:00 PM EDT Office Visit Adult Medicine [address] [phone] Duane Lawler MD [address] [place] [phone] 04/09/2026 12:00 PM EDT Ancillary Procedure [facility] 101 300 [facility] [address] [place] [address] 04/16/2026 12:00 PM EDT Ancillary Procedure [facility] [address] [place] [address] [place] [address] 06/19/2026 1:00 PM EDT Office Visit [facility] [place] [address] [place] [address] Brianna Trammell MD [address] [place] [phone] documented as of this encounter Procedures Procedure Name Priority Date/Time Associated Diagnosis Comments ..MISCELLANEOUS REFERENCE LAB TEST 08/25/2024 documented in this encounter Results * Miscellaneous reference lab test (08/25/2024) us Provider Onbase LAB BLOOD ORDERABLES Final Re sult documented in this encounter Visit Diagnoses Not on filedocumented in this encounter Care Teams Buckram Sewer Relationship Specialty Start Date End Date Duane Lawler MD [address] [place] [address] PCP - General Internal Medicine 08/07/20 documented as of this encounter
--- NOTE | ~2025-08-23 | XR_ITS ---
EXAMINATION: XR LUMBAR SPINE 2-3 VIEWS HISTORY: fall r/o compression fx COMPARISON: Comparison is made with the prior examination dated 05/11/2024. FINDINGS: AP, lateral, and coned down views of the lumbar spine are submitted. The bones are osteopenic. Five nonrib-bearing lumbar vertebral bodies are identified, maintaining normal height without evidence of fracture. Again seen is slight spondylolisthesis of L4 on L5.. The intervertebral disc spaces are preserved. There is osteoarthritis of the facet joints. There is calcification of the abdominal aorta. XR/XR lumbar spine 2-3V IMPRESSION: Osteopenia. Slight anterolisthesis of L4 on L5 without change. No evidence of fracture. Electronically signed by: Ben Mendoza MD 08/23/2025 11:26 AM EDT
[2025-08-23 10:01] VITALS: BP 137/54; PULSE 60; RESP 18; TEMP 36.6; O2SAT 95; BMI 24.9
--- NOTE | 2025-08-23 10:17 | ED.BACK ---
HPI - Back Pain/Injury General Chief Complaint: Back Pain/Injury Stated Complaint: FALL WEEKS AGO,LOW BACK PAIN RAD TO SIDES PER EMS Time Seen by Provider: 08/23/25 10:01 Source: patient and EMS Mode of arrival: EMS Limitations: no limitations History of Present Illness ED Provider: MARIBETH KELLY PA-C HPI Narrative: 85 year old male with pmhx significant for spinal stenosis, sciatica s/p ablation, CAD s/p triple vessel bypass, carotid stenosis, HDL, arthritis s/p hip replacement presents to the ED today via EMS for evaluation of acute on chronic low back pain s/p fall 2 weeks ago. Patient reports fall backwards onto low back/tail bone while walking outdoors to take his trash out. He was able to immediately stand back up and ambulate. Denies any pain at that time. Over the last week has had an exacerbation of his chronic back pain. Pain localized to lumbar spine, radiating upwards. Taking extra strength tylenol at home without much improvement. Lenard was taking Oxycodone as needed however felt that this was making him constipated - self discontinued. Last BM this morning after trialing senna. Denies fever, chills, urinary sx, numbness/tingling/weakness, saddle anesthesia, bowel/bladder incontinence/retention. History of nerve ablation to lumbar spine and corticosteroid injections. No hx IVDU or spinal surgery. Related Data Home Medications ?Medication ?Instructions ?Recorded ?Confirmed aspirin 81 mg tablet,delayed 81 mg PO DAILY 09/18/22 02/28/25 release citalopram 20 mg tablet 20 mg PO QAM 09/18/22 02/28/25 clopidogrel 75 mg tablet 75 mg PO DAILY 09/18/22 02/28/25 ferrous sulfate 220 mg (44 mg 220 mg PO DAILY 09/18/22 02/28/25 iron)/5 mL oral elixir latanoprost 0.005 % eye drops 1 drp ophthalmic (eye) BEDTIME 09/18/22 02/28/25 multivitamin-iron 9 mg-folic acid 1 tab PO DAILY 09/18/22 02/28/25 400 mcg-calcium and minerals tablet (Therems-M) nitroglycerin 0.4 mg sublingual 0 mg sublingual 09/18/22 02/28/25 tablet pantoprazole 20 mg tablet,delayed 20 mg PO DAILY 09/18/22 02/28/25 release rosuvastatin 20 mg tablet 20 mg PO BEDTIME 09/18/22 02/28/25 spironolactone 25 mg tablet 25 mg PO DAILY 09/18/22 02/28/25 carvedilol 12.5 mg tablet 12.5 mg PO BID 02/28/25 02/28/25 empagliflozin 10 mg tablet 10 mg PO DAILY 02/28/25 02/28/25 (Jardiance) tizanidine 4 mg tablet 4 mg PO TID 02/28/25 02/28/25 Previous Rx's ?Medication ?Instructions ?Recorded docusate sodium 100 mg capsule 100 mg PO BID PRN constipation #20 08/23/25 (Colace) caps lidocaine 5 % topical patch See Rx Instructions topical 08/23/25 .COMPLEX #15 ea oxycodone 5 mg tablet 5 mg PO TID PRN pain (scale score 08/23/25 7-10) 3 days #9 tabs polyethylene glycol 3350 17 17 g PO DAILY PRN constipation 08/23/25 gram/dose oral powder (Miralax) #510 grams Allergies Allergy/AdvReac Type Severity Reaction Status Date / Time gabapentin Allergy Mild spaces out Verified 08/23/25 10:02 omeprazole Allergy Mild weakness, Verified 08/23/25 10:02 disoritentation. lisinopril Allergy Unknown Verified 08/23/25 10:02 Review of Systems Review of Systems: Yes all other systems are reviewed and are negative PMFSH Past Medical History Attestation statement: The following information was validated with the patient. Source: old records reviewed and nursing notes reviewed Medical History Spinal stenosis Coronary artery disease Hyperlipidemia Carotid stenosis Duodenal ulcer Appendicitis Surgical History Previous back surgery History of hip replacement S/P triple vessel bypass Social History Social History Alcohol intake: current Alcohol intake frequency: 0-2 drinks per day Comment: 1 beer daily, 1 half glass of wine nightly Patient Tobacco Use Status: Former Tobacco user Tobacco use type: Cigarette Cigarette Packs Per Day: 10 Smoked in Last 30 Days: No Use of substances other than those prescribed or required for medical reasons: No Substance Use Type: Marijuana Advance Directives: No Advance Directives Information Provided: Yes Do you have a plan to hurt others: No Plan Physical Exam Vital Signs: Vital Signs: Last Vital Signs Temp 97.9 F 08/23/25 12:09 Pulse 56 08/23/25 12:09 Resp 16 08/23/25 12:09 BP 116/52 L 08/23/25 12:09 Pulse Ox 92 08/23/25 12:09 O2 Del Method Room Air 08/23/25 12:09 BMI result Body Mass Index 24.9 vital signs stable General: Well appearing, in no acute distress. Skin: Warm, dry, intact. No rashes or lesions. Head: Normocephalic, atraumatic. EENT: Hearing is intact b/l. Conjunctiva clear. Sclera is anicteric. PERRLA. EOM intact. Moist mucous membranes.? Neck: Supple without LAD Cardiac: Chest wall symmetric. RRR Lungs: Normal respiratory effort without accessory muscle use. CTA bilaterally Back: No midline spinous or paraspinal tenderness. No step off deformity. ttp along bilateral lumbar paraspinal musculature. negative straight leg raise. no cvat. Ext: Upper and lower extremities atraumatic, without tenderness, deformity, swelling or erythema Neuro: AOx3. Normal speech. Strength 5/5 intact throughout. No saddle anesthesia. Sensation intact to light touch. NV intact distally. Ambulating with slow but steady gait. Course Course Course Narrative: 1242 -- EXAMINATION: XR LUMBAR SPINE 2-3 VIEWS HISTORY: fall r/o compression fx COMPARISON: Comparison is made with the prior examination dated 05/11/2024. FINDINGS: AP, lateral, and coned down views of the lumbar spine are submitted. The bones are osteopenic. Five nonrib-bearing lumbar vertebral bodies are identified, maintaining normal height without evidence of fracture. Again seen is slight spondylolisthesis of L4 on L5.. The intervertebral disc spaces are preserved. There is osteoarthritis of the facet joints. There is calcification of the abdominal aorta. XR/XR lumbar spine 2-3V IMPRESSION: Osteopenia. Slight anterolisthesis of L4 on L5 without change. No evidence of fracture. Medicated with oxycodone + lido patch with good effect. Patient currently lives home alone. His son lives approx [address] and visits/helps out when he can. patient states he is able to perform his ADLs however does so with pain. he has never received physical therapy for his low back pain before, only his chronic neck pain. he is ameanable to PT/CM evaluation in ED today. I have placed consults for both. > patient verbalizes that he is a full code. 1435 -- Physical therapy has evaluated patient, recommending outpatient physical therapy. This can be arranged by his primary care provider. Plan was discussed with patient who is agreeable with discharge home. He has plans to contact his son to pick him up from our facility in transport him home today. I will be sending oxycodone and lidocaine patches to his pharmacy for pain control. I have also started him on a bowel regimen given his history of constipation on narcotics. Patient has remained stable throughout ED visit today. Discussed worrisome signs and symptoms and when to return to the ED. All questions answered at this time. Patient is agreeable with disposition and stable for discharge. Medications Administered Discontinued Medications Generic Name Dose Route Start Last Admin Trade Name Nikolai PRN Reason Stop Dose Admin Lidocaine 1 patch 08/23/25 10:31 08/23/25 10:48 Lidocaine 4 % Patch Adh..Patch TRANSDERMA 08/23/25 10:32 1 patch ONCE ONE Administration Protocol Methocarbamol 1,000 mg 08/23/25 12:42 08/23/25 13:59 Methocarbamol 500 Mg Tablet PO 08/23/25 12:43 1,000 mg ONCE ONE Administration Oxycodone HCl 5 mg 08/23/25 10:31 08/23/25 10:48 Oxycodone Hcl Immed Release 5 Mg Tablet PO 08/23/25 10:32 5 mg ONCE ONE Administration Medical Decision Making Medical Decision Making MDM Narrative: 85 year old male with pmhx significant for spinal stenosis, sciatica s/p ablation, CAD s/p triple vessel bypass, carotid stenosis, HDL, arthritis s/p hip replacement presents to the ED today via EMS for evaluation of acute on chronic low back pain s/p fall 2 weeks ago. Vital signs stable. He is well-appearing and in no acute distress. Differential diagnosis includes MSK sprain/strain, compression fracture, contusion, sciatica, lumbar radiculopathy, acute on chronic back pain Unlikely UTI, nephrolithiasis, renal colic, cauda equina, Guillain-Wellford, epidural abscess, cord compression Plan for x-rays, pain control and re-evaluation. Differential Diagnosis Differential Diagnoses: The differential diagnosis associated with the presentation includes as above. Admission/Observation Not indicated Lab Data MDM Lab Attestation statement: I reviewed the patient's lab results. As above Labs: Lab Results 08/23/25 Range/Units 13:23 COVID-19 (ABDIRAHMAN) Negative (Negative) COVID-19 Clin Com See Note Independent Interpretation I performed an independent interpretation of an: Plain X-Ray Interpretation: X-ray lumbar spine without compression fracture Radiology Impression Discussion of test interpretation with radiology: I have reviewed the radiologist's reading. Radiologist Impression: Date of Service: 08/23/25 Procedure(s): XR lumbar spine 2-3V Accession Number(s): [id number] cc: Maribeth Kelly~ Reason for Exam: fall r/o compression fx EXAMINATION: XR LUMBAR SPINE 2-3 VIEWS HISTORY: fall r/o compression fx COMPARISON: Comparison is made with the prior examination dated 05/11/2024. FINDINGS: AP, lateral, and coned down views of the lumbar spine are submitted. The bones are osteopenic. Five nonrib-bearing lumbar vertebral bodies are identified, maintaining normal height without evidence of fracture. Again seen is slight spondylolisthesis of L4 on L5.. The intervertebral disc spaces are preserved. There is osteoarthritis of the facet joints. There is calcification of the abdominal aorta. XR/XR lumbar spine 2-3V IMPRESSION: Osteopenia. Slight anterolisthesis of L4 on L5 without change. No evidence of fracture. Electronically signed by: eBn Mendoza MD 08/23/2025 11:26 AM EDT Independent Historian Clinical information obtained from an independent historian. History obtained from or confirmed by: EMS External Record Review External record reviewed: Inpatient record Prescription Management I considered prescription management with: Pain Medication Chronic Conditions Patient?s care impacted by: Other (chronic back pain) Social Determinants Patient?s care significantly limited by Social Determinants of Health including: Other Social Determinant of Health Critical Care Time Critical Care Time Critical Care Time: No Discharge Plan Discharge Clinical Impression: Low back pain Patient Disposition: Home, Self-Care Instructions: Acute Low Back Pain (ED) Additional Instructions: Your work up today is reassuring. Physical therapy evaluated you, recommending outpatient physical therapy. Your primary care provider can arrange this. Please contact them for follow-up. In the meantime, I am sending oxycodone to your pharmacy for you to take for breakthrough pain control. Please use this with caution as opioid pain medications have addictive properties. Opioid pain medications can often cause constipation. I recommend taking this with an over the counter laxative and/or stool softener to help move your bowels. Return with any new or worsening symptoms. In the case of an emergency call 911. Prescriptions: New oxycodone 5 mg tablet 5 mg PO TID PRN (Reason: pain (scale score 7-10)) 3 Days Qty: 9 0RF Rx Instructions: Partial Fill upon patient request. lidocaine 5 % adhesive patch,medicated See Rx Instructions .ROUTE .COMPLEX Qty: 15 0RF Rx Instructions: leave on most painful area for up to 12 hrs polyethylene glycol 3350 [Miralax] 17 gram/dose powder 17 g PO DAILY PRN (Reason: constipation) Qty: 510 0RF docusate sodium [Colace] 100 mg capsule 100 mg PO BID PRN (Reason: constipation) Qty: 20 0RF No Action spironolactone 25 mg tablet 25 mg PO DAILY clopidogrel 75 mg tablet 75 mg PO DAILY pantoprazole 20 mg tablet,delayed release (DR/EC) 20 mg PO DAILY aspirin 81 mg tablet,delayed release (DR/EC) 81 mg PO DAILY latanoprost 0.005 % drops 1 drp ophthalmic (eye) BEDTIME ferrous sulfate 220 mg (44 mg iron)/5 mL elixir 220 mg PO DAILY rosuvastatin 20 mg tablet 20 mg PO BEDTIME Therems-M 9 mg iron-400 mcg tablet 1 tab PO DAILY citalopram 20 mg tablet 20 mg PO QAM nitroglycerin 0.4 mg tablet, sublingual 0 mg sublingual tizanidine 4 mg tablet 4 mg PO TID carvedilol 12.5 mg tablet 12.5 mg PO BID Jardiance 10 mg tablet 10 mg PO DAILY Referrals: Duane Lawler III, MD [Primary Care Provider, Medical] Print Language: Afghan
[2025-08-23] MEDS: Lidocaine 4 % Patch ADH..PATCH 1 PATCH TRANSDERMA (10:48)
[2025-08-23] MEDS: oxyCODONE HCl Immed Release 5 MG TABLET PO (10:48)
[2025-08-23 12:09] VITALS: BP 116/52; PULSE 56; RESP 16; TEMP 36.6; O2SAT 92
[2025-08-23 13:47] LABS: COVID-19 Test Negative (Negative); IDNOW Serial# 6674DD1D
--- NOTE | 2025-08-23 14:19 | MHC.CM.ED ---
Received case management consult from Maribeth GARNICA. Patient came to the ER due to back pain. Work up essentially negative. Physical therapy eval completed. Outpatient therapy is recommended. Met with patient in regards to discharge planning. Patient is very hard of hearing. Patient lives alone, ambulates with a cane at times and had no services prior to coming to the ER. PCP verified. Copy of HCP requested from [facility]. Patient aware he will need to reach out to his PCP's office to arrange outpatient physical therapy. T/W will fax er d/c summary to PCP's office to request office start process of arranging outpatient physical therapy. Patient verbalizes understanding and states his son will transport him home. Gail WILL and Maribeth GARNICA aware. Continue to monitor for d/c needs.
--- OUTSIDE RECORDS SUMMARY | 2025-08-23 14:56 | XMS_ITS | Clinical Summary ---
[facility] Organization [facility] Address [address] [place] [address] Care Team Providers Care Parts Washer Name Role Phone Duane Lawler MD Primary Care Provider [phone] Allergies Active Allergy Reactions Criticality Noted Date [...] age to complete this topic Care Teams Parts Washer Relationship Specialty Start Date End Date Duane Lawler MD PCP - General Internal Medicine 01/15/21
--- OUTSIDE RECORDS SUMMARY | 2025-08-23 14:56 | XMS_ITS | Data Portability ---
Author Organization DANIKA Waller s, [address] Address [address] [place] [address] Care Team Providers Care Telephone Ad Taker Name Role Phone MADY SORTO Manager Internet Unavailable Assessment No assessment recorded. Plan of Treatment Reminders Order Date Submit Date Provider Last Modified By Organization Details Last Modified Time Details Appointments None recorded. Lab culture, urine 2022 023 ELKRIDGE [facility], [address] [place] [address], [place], [address], 3 08:06:56 urinalysis, dipstick 2022 023 ELKRIDGE [facility], [address] [facility], [place], [address], 3 09:40:27 Referral emergency medicine referral 2022 023 [email or web address] 1 [facility], [address] [place], [address], 3 11:29:09 Procedures None recorded. Surgeries None recorded. Imaging XR, chest + abdomen - Right sided flank pain x 1 week. Was intermittan t and now it is constant. No urinary symptoms. No constipatio n. History of multiple abdominal surgeries. No gallbladder or appendix. 2022 023 [email or web address] [facility], [address] [place], [address], 3 10:34:10 XR, chest, 2 view - Right sided flank pain. Mild shortness of breath on the right side. Mild cough. No fever. Was exposed to pneumonia. No history of COPD or Asthma. 2022 023 [email or web address] [facility], [address] [place], [address], 10:34:10 Medication Orders None recorded. Patient TargetsNo targets recorded. Patient Instructions Encounter Date Encounter Id Patient Instructions Last Modified By Organization Details Last Modified Time 04/23/2023 [id number] Based on your ex am and presentation [...] why my recommendation is the Emergency Room. [email or web address] Not available 04/23/2023 10:29:52 Reason for Referral Emergency Medicine Referral for Right flank pain Referring Physician: Megan [place], Urgent Care, Encounter Date: 04/23/2023 Results Created Date Observation Date Name Description Value Unit Range Abnormal Flag Note LastModifiedBy Organization Detail LastModifiedTime 04/23/2004/25/2023 URINE CULTU REJEFF urine culture, routine FINAL REPORT Not Available [facility] ([facility]) [address] [place], [address], 04/25/2023 08:06:56 04/23/2004/25/2023 URINE CULTU REJEFF result 1 NO GROWTH Not Available [facility] ([facility]) [address] [facility], [place], [address], 04/25/2023 08:06:56 04/23/2004/23/2023 urina lysis , dipst ick Unknown Analyte Normal = light yellow Not Available [facility] [address] [place] [address], [place], [address], 04/23/2023 08:17:03 04/23/20 23 04/23/2023 urina lysis , dipst ick Unknown Analyte Normal = clear Not Available 2099marcus freitas [address], [place], [address], 04/23/2023 08:17:03 04/23/20 23 04/23/2023 urina lysis , dipst ick Unknown Analyte Normal = negati ve Not Available 2099marcus freitas [address], [place], [address], 04/23/2023 08:17:03 04/23/2004/23/2023 urina lysis , dipst ick Unknown Analyte Normal = Negati ve Not Available 2099marcus freitas [address], [place], [address], 04/23/2023 08:17:03 04/23/20 23 04/23/2023 urina lysis , dipst ick Unknown Analyte Normal = Negati ve Not Available 2099marcus freitas [address], [place], [address], 04/23/2023 08:17:03 04/23/20 23 04/23/2023 urina lysis , dipst ick Unknown Analyte Normal = 1.010, 1.015, 1.020 Not [facility] [address], [place], [address], 04/23/2023 08:17:03 04/23/20 23 04/23/2023 urina lysis , dipst ick Unknown Analyte Normal = Negati ve Not Available 2099marcus freitas [address], [place], [address], 04/23/2023 08:17:03 04/23/20 23 04/23/2023 urina lysis , dipst ick Unknown Analyte Normal = 6.5, 7.0, 7.5, 8.0 Not Available marcus freitas [address], [place], [address], 04/23/2023 08:17:03 04/23/2004/23/2023 urina lysis , dipst ick Unknown Analyte Normal = Negati ve Not Available [facility] [address], [place], [address], 04/23/2023 08:17:03 04/23/20 23 04/23/2023 urina lysis , dipst ick Unknown Analyte Normal = 0.2, 1.0 Not Available [address], [place], [address], 04/23/2023 08:17:03 04/23/20 23 04/23/2023 urina lysis , dipst ick Unknown Analyte Normal = Negati ve Not Available [facility] [address], [place], [address], 04/23/2023 08:17:03 04/23/20 23 04/23/2023 urina lysis , dipst ick Unknown Analyte Normal = Negati ve Not Available marcus [address], [place], [address], 04/23/2023 08:17:03 04/23/20 23 04/23/2023 urina lysis , dipst ick Unknown Analyte Yellow Not Available [address], [place], [address], 04/23/2023 08:17:03 04/23/20 23 04/23/2023 urina lysis , dipst ick Unknown Analyte Clear Not Available [address] [place] [address], [place], [address], 04/23/2023 08:17:03 04/23/20 23 04/23/2023 urina lysis , dipst ick Unknown Analyte Negati ve Not Available marcus freitas [address], [place], [address], 04/23/2023 08:17:03 04/23/20 23 04/23/2023 urina lysis , dipst ick Unknown Analyte Negati ve Not Available marcus freitas [address], [place], [address], 04/23/2023 08:17:03 04/23/20 23 04/23/2023 urina lysis , dipst ick Unknown Analyte Negati ve Not Available marcus freitas [address], [place], [address], 04/23/2023 08:17:03 04/23/20 23 04/23/2023 urina lysis , dipst ick Unknown Analyte 1.015 Not Available [address], [place], [address], 04/23/2023 08:17:03 04/23/20 23 04/23/2023 urina lysis , dipst ick Unknown Analyte Trace- intact Not Available marcus [address], [place], [address], 04/23/2023 08:17:03 04/23/20 23 04/23/2023 urina lysis , dipst ick Unknown Analyte 6.0 Not Available [address], [place], [address], 04/23/2023 08:17:03 04/23/20 23 04/23/2023 urina lysis , dipst ick Unknown Analyte Negati ve Not Available marcus freitas [address], [place], [address], 04/23/2023 08:17:03 0604/23/2023 urina lysis , dipst ick Unknown Analyte 0.2 E.U./d L Not Available marcus freitas [address], [place], [address], 04/23/2023 08:17:03 04/23/20 23 04/23/2023 urina lysis , dipst ick Unknown Analyte Negati ve Not Available [facility] [place] [address], [place], [address], 04/23/2023 08:17:03 04/23/20 23 04/23/2023 urina lysis , dipst ick Unknown Analyte Negati ve Not Available [facility] [address], [place], [address], 04/23/2023 08:17:03 04/23/20 23 04/23/2023 XR, chest , 2 view No observ ation record ed. [place] [id number] [facility] [address] [place], [address], 04/23/2023 12:43:15 04/23/2004/23/2023 XR, chest + abdom en No observ ation record ed. [email or web address] [facility] [address] [place], [address], 04/23/2023 12:43:16 Result Notes None recorded. Problems Name Problem SNOMED Code Status Onset Date Resolution Date Notes Provider Name and Address Organization Details Recorded Time Hyperlipidemia 26870960 Active 2022 PREMA goode PA - [facility] 3 08:12:14 Hypertensive disorder 82363088 Active 2022 PREMA goode, PA - [facility] 3 08:12:22 Heart disease 24991205 Active 2022 PREMA goode PA - [facility] 3 08:12:36 Problem Notes None recorded. Procedures Surgical History Date Name Laterality Status Provider Name and Address Organization Details Recorded Time cardiopulmonary bypass operation completed PREMA STEPH PA - [facility] 04/23/2023 08:12:52 Imaging Results None recorded. Procedure Notes None recorded. Medical Equipment None Reported. Allergies Allergen ID Allergen Name Allergen Category Reaction Reaction Severity Criticality Documentation Date Start Date Code Code System Note Provider Name and Address Organization Details Recorded Time 009949 lisinopri l medicatio n Not available Not available Not available 04/23/2023 17467 RxNorm PREMA STEPH null, PA - [facility] 3 08:10:10 593677 gabapenti n medicatio n Not available Not available Not available 04/23/2023 96207 RxNorm PRE[facility] STEPH null, [facility] - [facility] [...] Updated DateTime 3 172.72 cm 26.2 kg/m2 17434.8 9 g 97.2 [degF] 18 /min 95 % 95 % 61 /min 135/68 mm[Hg] PREMA CHOI PA - [facility] 3 08:15:11 Social History Question Answer Notes LastModified by [employer] Details LastModified Time Tobacco Smoking Status Never [...] Functional Status Question Answer Note LastModified by [employer] Details LastModified Time Do you use any [...] PA - [facility] 04/23/2023 08:10:01 Novel [id number], preservative-free 0 completed PREMA goode, PA - [...] Diagnosis SNOMED-CT Code Diagnosis ICD10 Code Diagnosis IMO Codes Diagnosis Note [id number] [facility] [address] [place] [address] 05/28/2017 13:29:40 05/28/2017 13:59:01 [id number] [facility] [address] [place] [address] 05/24/2017 11:08:43 05/24/2017 11:56:56 [id number] [facility] [address] [place] [address] 10/16/2018 13:33:37 10/16/2018 15:27:03 [id number] DANIKA MARSHALL [facility] [address] [place] [address] 04/23/2023 08:04:30 04/23/2023 10:34:10 Right flank pain 923415349 R10.9 ? small right renal calculi. - [...] EMS. Calculus o f kidney and ureter 200355000 N20.2 Health Concerns Section Related Observation LastModified by Organization Detai ls LastModified Time None Recorded Concern Status LastModified by Organization Details LastModified Time None Recorded Advance Directives Directive None Recorded Payers Insurance Date Sequence Insurance Name Policy Number Policy Escalera Covered Member ID Escalera Member ID Guarantor Name 04/23/2023 1 [facility] (MEDICARE REPLACEMENT HMO) Bhavesh Ricardo [id number] Bhavesh Barnes Haleigh 09/14/2022 [employer] [facility] Bhavesh Haleigh Bhavesh Barnes Haleigh Notes Date Note Type Note Provider Name and Address Organization Details Recorded Time 04/23/2023 text/html Back Pain/Injury UCReported by PatientHPIFor quality, patient reportssharp. For source of patient information, patient reportsinformation obtained from patientandpatient arrived at urgent care ambulatory. For location, patient reportsmiddle of the back. For duration, patient reports__ daysand7 weeks. For aggravating factors, patient reportscannot identify. For alleviating factors, (no relief.).Patient brought back emergent. The patient reports 1 [...] DANIKA MARSHALL [address] [place], [address], [place] - [facility] 04/23/2023 12:33:37
--- OUTSIDE RECORDS SUMMARY | 2025-08-23 14:56 | XMS_ITS | Clinical Summary ---
Author Organization [facility] Address [address] [place] [address] Phone Care Team Providers Care Registered Art Therapist Name Role Phone Duane Lawler MD Primary Care Provider [phone] Allergies Active Allergy Reactions Criticality Noted Date [...] MEALS 180 tablet 3 03/05/20 25 Active tiZANidine (ZANAFLEX) 4 mg tablet Take 1 tablet (4 mg total) by mouth 3 (three) times a day if needed for muscle spasms. 30 tablet 07/03/20 25 Active Jardiance 10 mg tablet TAKE 1 TABLET BY MOUTH EVERY DAY 90 tablet 3 07/09/20 25 Active rosuvastatin (CRESTOR) 20 mg tablet Take 1 tablet (20 mg total) by mouth at bedtime. 90 tablet 1 08/14/20 25 Active citalopram (CeleXA) 40 mg tablet Take 1 tablet (40 mg total) by mouth 1 (one) time each day. 90 each 1 08/14/20 25 Active pantoprazole (PROTONIX) 20 mg EC tablet Take 1 tablet (20 mg total) by mouth 1 (one) time each day. 90 tablet 1 08/14/20 25 Active citalopram (CeleXA) 20 mg tablet TAKE 1 AND 1/2 TABLETS DAILY BY MOUTH 135 tablet 1 03/27/20 25 025 Discontinued rosuvastatin (CRESTOR) 20 mg tablet TAKE 1 TABLET BY MOUTH EVERYDAY AT BEDTIME 90 tablet 06/06/20 25 025 Discontinued(Re order) Active Problems Problem Noted Date Diagnosed Date Diverticulitis 04/18/2025 Melena 04/16/2025 Mitral regurgitation 02/24/2025 Infrarenal abdominal aortic aneurysm (AAA) without rupture ([facility]24) 02/24/2025 History of peptic [...] Chronic systolic CHF (conges tive heart failure) (CMS/HCC V24, CMS/HCC V28) 06/30/2023 Overview (02/24/2025): - Most recent echocardiogram on 06/16/2023 during [facility] hospitalization ultimately being transferred to [facility] (see CAD section for further details) showing [...] Normocytic anemia 01/19/2023 PAD (peripheral artery disease) ([facility] V24) Hypertension 01/15/2021 Assessment & [...] (12/31/2023): - Presented with cardiogenic shock to [facility] December 2017 - Status post CABG with HAYWOOD to the LAD, vein graft to the OM1, vein graft to the RPDA for multivessel coronary artery disease on cardiac cath -Non-STEMI in October 2020 in the setting of severe anemia after left total hip replacement. With GI evaluation showing no bleeding - Admitted to [facility] in May 2022 with recurrent chest discomfort with positive stress echocardiogram with ischemia in the inferior and inferoseptal rutherford - Cardiac cath in June 2022 showed severe left main and yuhaaviatam three-vessel disease including mid RCA 99% stenosis which was heavily calcified and distal subsection 85% stenosis; HAYWOOD to the LAD was patent, vein graft to the OM1 was patent but did not feel the OM1 retrograde-the OM1 was filling anterograde by the yuhaaviatam circumflex which had significant stenoses, vein graft to the RPL was distally occluded- status post PCI to the yuhaaviatam mid RCA-plan was to intervene on the yuhaaviatam left main into the circumflex should the patient have continued angina - Incidentally at the time the patient had shortness of breath on Brilinta and was switched to Plavix - Rehospitalized in June 2023 with recurrent shortness of breath, chest pain-found to have another non-ST elevation IA with drop in ejection fraction and progression of aortic stenosis- cardiac cath on 06/18/2023 showed again severe yuhaaviatam three-vessel disease but with significant in-stent restenosis [...] decompressive laminectomy (04/28/19, Dr. Fierro) Polymyalgia rheumatica ([facility] V24) 10/22/2015 Overview (12/31/2023): Onset [...] Encounters Date Type Department Care Team Description 08/21/2025 Telephone Adult Medicine [address] [phone] [place] 08/14/2025 3:30 PM EDT Office Visit [address] [phone] Gillian Jarrett PA Depression, unspecified depression type (Primary Dx); Hyperlipidemia, unspecified hyperlipidemia type; PUD (peptic ulcer disease) 07/10/2025 Telephone Adult [address] [phone] Duane Lawler MD 07/03/2025 2:30 PM EDT Office Visit [address] [phone] Gillian Jarrett PA Hypertension, unspecified type (Primary Dx); Hyperlipidemia, unspecified hyperlipidemia type; Coronary artery disease, unspecified vessel or lesion type, unspecified whether angina present, unspecified whether yuhaaviatam or transplanted heart; Chronic systolic CHF (congestive heart failure) ([facility] V24, [facility] V28); Chronic neck pain; Depression, unspecified depression type 06/07/2025 3:30 PM EDT Office Visit Vascular Surgery [address] [place] [address] Brianna Trammell MD PAD (peripheral artery disease) ([facility] V24) (Primary Dx); Bilateral carotid artery stenosis; Abdominal aortic aneurysm (AAA) 3.0 cm to 5.0 cm in diameter in female ([facility] V24); Encounter for screening for abdominal aortic aneurysm (AAA) in patient 50 years of age or older with history of smoking; Asymptomatic bilateral carotid artery stenosis from Last 3 Months Immunizations Immunization Administration Dates Next Due H1N1 Inj Preservative [...] subun it RSVpreF, 0.5mL, Preservative Free (Arexvy) 50yo and older 08/02/2023 Td Tetanus diptheria (Tdvax) 7yo and older 09/05/2020,09/12/2007 Zoster recombinant (Shingrix ) 19yo and older 01/09/2021,09/08/2020 Surgical History Surgery Date Site/Laterality Comments ABDOMINAL SURGERY 1988 PROCEDURE: HISTORICAL ABDOMINAL SURGERY; COMMENT: Billroth 2 gastrectomy OTHER SURGICAL HISTORY 1996 PROCEDURE: NC CRANIECTOMY/CRANIOTOMY EXPL SUPRATENTORIAL; COMMENT: right acoustic neuroma COLONOSCOPY 10/29/2005 PROCEDURE: HISTORICAL COLONOSCOPY; COMMENT: Up to cecum, excellent preparation, minimal diverticulosis CHOLECYSTECTOMY 1988 PROCEDURE: HISTORICAL CHOLECYSTECTOMY OTHER SURGICAL HISTORY 1975 PROCEDURE: NC VGTMY W/PYLORPLSTY W/WO GASTROST TRUNCAL/SLCTV; COMMENT: vagotomy and pyloroplasty COLONOSCOPY 05/19/2011 PROCEDURE: HISTORICAL COLONOSCOPY; COMMENT: 1 cm right colon polyp: 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 HIP ARTHROPLASTY 2010 Left PROCEDURE: HISTORICAL HIP REPLACEMENT; COMMENT: l hip fracture COLONOSCOPY 07/27/2014 PROCEDURE: HISTORICAL COLONOSCOPY; COMMENT: 8 mm right colon polyp: sessile serrated adenoma UPPER GASTROINTESTINAL ENDOSCOPY 04/02/2017 PROCEDURE: NC UPPER GI ENDOSCOPY PERFORMED; COMMENT: normal post-op appearance. UPPER GASTROINTESTINAL ENDOSCOPY 03/06/2013 PROCEDURE: NC UPPER GI ENDOSCOPY PERFORMED; COMMENT: normal post-op appearance. UPPER GASTROINTESTINAL ENDOSCOPY 04/04/2009 PROCEDURE: NC UPPER GI ENDOSCOPY PERFORMED; COMMENT: intestinal bx: Normal biopsies, no evidence of celiac disease. UPPER GASTROINTESTINAL ENDOSCOPY 03/03/2007 PROCEDURE: NC UPPER GI ENDOSCOPY PERFORMED; COMMENT: Previous Billroth II with gastrojejunal anastomosis at 50cm, bile acid gastritis, 3-4 small polyps at anasthomosis:gastric mucosa with marked reactive foveolar hyperplasia, gastritis COLONOSCOPY 12/15/1999 PROCEDURE: HISTORICAL COLONOSCOPY; COMMENT: Dr. Sloan; no polyps. CORONARY ARTERY BYPASS GRAFT 01/01/2018 PROCEDURE: HISTORICAL CABG HIP ARTHROPLASTY 11/06/2020 Left PROCEDURE: HISTORICAL HIP REPLACEMENT UPPER GASTROINTESTINAL ENDOSCOPY 11/13/2020 PROCEDURE: NC UPPER GI ENDOSCOPY PERFORMED; COMMENT: Normal COLONOSCOPY 11/13/2020 PROCEDURE: HISTORICAL COLONOSCOPY; COMMENT: 2 diminutive polyps. Diverticulosis. Internal hemorrhoids. Erosion of the rectum. 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, CMS/HCC V28) 1995 DX:Benign neoplasm of crani al nerves ([facility]); COMMENT: R acoustic neuroma resection [...] X:Essential hypertension, benign Fracture of left hip ([facility] V24, [facility] V28) 2010 DX:Fracture of left hip ([facility] ) Diverticulosis DX:Diverticulosi s AAA (abdominal aortic aneury sm) ([facility] V24) DX:AAA (abdominal aortic ane urysm) ([facility]); COMMENT: 3.1 cm Lumbar spinal [...] Sign Reading Time Taken Comments Blood Pressure 130/60 08/14/2025 3:13 PM EDT Pulse 66 08/14/2025 3:13 PM EDT Temperature 36.4 C (97.6 F) 08/14/2025 3:13 PM EDT Respiratory Rate 16 04/18/2025 7:50 AM EDT Oxygen Saturation 90% 08/14/2025 3:13 PM EDT Inhaled Oxygen Concentration - - Weight 75.9 kg (167 lb 4.8 oz) 08/14/2025 3:13 P M EDT Height 172.7 cm (5' 7.99 ) 08/14/2025 3:13 PM ED T Body Mass Index 25.44 08/14/2025 3:13 PM EDT Plan of Treatment Upcoming Encounters Date Type Department Care Team (Late st Contact Info) Description 08/31/2025 2:40 PM EST Office Visit [facility] Cardiology [facility] [address] [facility] [address] [place] [address] Donell Haynes NP [address] [place] [address] Dr Portillo [address] [place] [phone] 09/06/2025 2:00 PM EST Office Visit [facility] Hematology Oncology [address] [place] [address] Jesica Biggs PA [address] [place] [address] 01/01/2026 3:00 PM EDT Office Visit Adult Medicine [facility] [address] [place], [place] [phone] Duane Lawler MD [address] [place] [address] 04/09/2026 12:00 PM EDT Ancillary Procedure [facility] [address] [facility] [address] [place] [address] 04/16/2026 12:00 PM EDT Ancillary Procedure [facility] [address] [facility] [address] [place] [address] 06/19/2026 1:00 PM EDT Office Visit Vascular Surgery - [place] [address] [facility] [address] [place] [address] Brianna Trammell MD [facility] [address] Health Maintenance Due Date Last Done Comments Medicare Annual Wellness Visit 10/03/2022 Social Influencers of Health Screening 10/03/2022 Depression Screening 10/25/2024 COVID-19 Vaccine ( season) 2026 07/30/2025, 09/09/2022, 01/21/2022, Additional history exists Hypertension/CHF/CAD Annual BMP Blood Test 04/17/2026 04/17/2025, 04/16/2025, 04/13/2025, Additional history exists Falls Risk Assessment 04/18/2026 04/18/2025 Cholesterol Screening (Lipid Panel) 12/29/2029 12/29/2024, 05/10/2024, 03/11/2023 DTaP,Tdap,and Td Vaccines (4 - Td or Tdap) 07/30/2035 07/30/2025, 09/05/2020, 09/12/2007 Zoster Vaccines Completed 01/09/2021, 09/08/2020 RSV Immunization Adult Patients Completed 08/02/2023 Pneumococcal Vaccine: 50+ Years Completed 10/12/2023, 06/19/2015, 09/12/2007 Influenza Vaccine Completed 07/30/2025, , 07/17/2023, Additional history exists HIB Vaccines Aged Out [...] Procedure Name Priority Date/Time Associated Diagnosis Comments BASIC METABOLIC PANEL Routine 04/17/2025 4:11 AM EDT LIPID PANEL WITH REFLEX TO DIRECT LDL Routine 12/29/2024 9:05 AM EST Hyperlipidemia, unspecified hyperlipidemia type from Last 3 Months or Most Recently Relevant to Health Maintenance Results * (ABNORMAL) Basic metabolic panel (04/17/2025 4:11 AM EDT) Sodium 145 133 - 145 mmol/L LAB CHEMISTRY METHOD 04/17/2025 5:55 AM [facility] Potassium 4.0 3.5 - 5.5 mmol/L LAB CHEMISTRY METHOD 04/17/2025 5:55 AM [facility] Chloride 116(H) 96 - 110 mmol/L LAB CHEMISTRY METHOD 04/17/2025 5:55 AM [facility] CO2 22 21 - 32 mmol/L LAB CHEMISTRY METHOD 04/17/2025 5:55 AM [facility] Anion Gap 7 3 - 11 LAB CHEMISTRY METHOD 04/17/2025 5:55 AM [facility] Glucose 74 70 - 100 mg/dL LAB CHEMISTRY METHOD 04/17/2025 5:55 AM [facility] BUN 17 5 - 25 mg/dL LAB CHEMISTRY METHOD 04/17/2025 5:55 AM [facility] Creatinine 0.97 0.70 - 1.30 mg/dL LAB CHEMISTRY METHOD 04/17/2025 5:55 AM [facility] eGFR 77 >=60 mL/min/1. 73m2 LAB CHEMISTRY METHOD 04/17/2025 5:55 AM [facility] Comment:Calculation based on the Chronic Kidney Disease Epidemiology Collaboration (CKD-EPI) equation refit without adjustment for race. BUN/Creatinine Ratio 17.5 LAB CHEMISTRY METHOD 04/17/2025 5:55 AM EDT [facility] Calcium 7.8(L) 8.5 - 10.5 mg/dL LAB CHEMISTRY METHOD 04/17/2025 5:55 AM EDT [facility] Blood Venous blood specimen / Unknown Venipuncture / Unknown 04/17/2025 4:11 AM EDT 04/17/2025 5:08 AM EDT us Flower GARNICA LAB BLOOD ORDERABLES Final Resu lt [facility] [address] [place] [address], * Lipid panel with reflex to direct LDL (12/29/2024 9:05 AM EST) Cholesterol 141 0 - 200 mg/dL LAB CHEMISTRY METHOD 12/29/2024 1:05 PM [facility] Triglycerides 100 0 - 150 mg/dL LAB CHEMISTRY METHOD 12/29/2024 1:05 PM [facility] HDL 71 >=40 mg/dL LAB CHEMISTRY [...] 12/29/2024 1:05 PM [facility] Chol/HDL Ratio 2.0 0.0 - 4.4 LAB CHEMISTRY METHOD 12/29/2024 1:05 PM [facility] Blood Venous blood specimen / Unknown Venipuncture / Unknown 12/29/2024 9:05 AM EST 12/29/2024 9:05 AM EST us Gillian GARNICA LAB BLOOD ORDERABLES Fi nal Result [facility] [address] [place] [address], from Last 3 Months or Most Recently [...] currently active code status orders. Care Teams Registered Art Therapist Relationship Specialty Start Date End Date Duane Lawler MD [address] [place] [address] PCP - General Internal Medicine 08/07/20
--- OUTSIDE RECORDS SUMMARY | 2025-08-23 14:56 | XMS_ITS | Encounter Summary ---
Author Organization [facility] Address [address] [place] [address] Care Team Providers Care Occupational Therapy Supervisor Name Role Phone Duane Lawler MD Primary Care Provider [phone] Reason for Visit * Reason Onset Date Comments Forms/questionnaires 08/21/2025 Encounter Details Date Type Department Care Team (Late Contact Info) Description 08/21/2025 Telephone Adult Medicine [address] [place] [phone] Lorraine Mccabe MA Social History Tobacco Use Types Packs/Day Years [...] as of this encounter Progress Notes * Lorraine Mccabe MA - 08/21/2025 1:14 PM EDT Form for access care partners completed and given to PCP for signature documented in this encounter Plan of Treatment Upcoming Encounters Date Type Department Care Team (Late Contact Info) Description 08/31/2025 2:40 PM EST Office Visit [facility] [address] [facility] [address] [place] [address] Donell Haynes NP [address] [place] [address] Dr Portillo [address] [place] [address] 09/06/2025 2:00 PM EST Office Visit [facility] Hematology Oncology [address] [place] [phone] Jesica Biggs PA [address] [place] [address] 01/01/2026 3:00 PM EDT Office Visit [address] [phone] Duane Lawler MD [address] [place] [address] 04/09/2026 12:00 PM EDT Ancillary Procedure [facility] [address] [facility] [address] [place] [address] 04/16/2026 12:00 PM EDT Ancillary Procedure [facility] Cardiology [facility] [address] [facility] [address] [place] [address] 06/19/2026 1:00 PM EDT Office Visit Vascular Surgery - [place] [address] [facility] [address] [place] [address] Brianna Trammell MD [address] [place] [address] documented as of this encounter Visit Diagnoses Not on filedocumented in this encounter Care Teams Occupational Therapy Supervisor Relationship Specialty Start Date End Date Duane Lawler MD [address] [place] [address] PCP - General Internal Medicine 08/07/20 documented as of this encounter
[2025-08-23 14:57] VITALS: BP 130/45; PULSE 59; RESP 20; TEMP 37; O2SAT 94
== END 2025-08-23 14:58 | disposition home or self-care (01) ==
PROVIDERS: Physician Assistant Medical; Emergency Provider Emergency Medicine; PCP Internal Medicine
DX: M54.50 Low back pain, unspecified (principal); M48.00 Spinal stenosis, site unspecified; Z91.81 History of falling; Z86.79 Personal history of other diseases of the circulatory system; Z79.899 Other long term (current) drug therapy; Z96.649 Presence of unspecified artificial hip joint
CPT/HCPCS: 72100; 87635; 97161; 99284

== ENCOUNTER → 2025-08-23 10:30 | Outpatient (BNV) | payer OTHER, SELFPAY | PROVIDERS: Emergency Provider Emergency Medicine; PCP Internal Medicine; Visit Provider Radiology Diagnostic Radiology | DX: M85.88 Other specified disorders of bone density and structure, other site (principal) | CPT/HCPCS: 72100 ==